=== PATIENT | female | born 1970 | race Asian ===

== ENCOUNTER 2020-04-01 09:01 | Outpatient (REF) | payer OTHER, SELFPAY | END 2020-04-01 09:02 | disposition home or self-care (01) | LOC: HO.LNP 09:01 | PROVIDERS: PCP Internal Medicine; Visit Provider Advanced Practice Midwife | DX: L73.1 Pseudofolliculitis barbae (principal); M54.9 Dorsalgia, unspecified | CPT/HCPCS: 87086 ==

== ENCOUNTER 2020-04-07 08:52 | Outpatient (REF) | payer OTHER, SELFPAY ==
[2020-04-07 10:21] LABS: MANUAL DIFF FLAG NO
[2020-04-07 10:23] LABS: Basophils Absolute Auto 0.1 X10*3/uL (0.0-0.2); Basophils Percent Auto 0.8 % (0-2); Eosinophils Absolute Auto 0.1 X10*3/uL (0.0-0.4); Eosinophils Percent Auto 1.9 % (0-4); Hematocrit 39.4 % (37-47); Imm Gran Abs Auto 0.02 X10*3/uL (0.00-0.03); Imm Gran Pct Auto 0.3 % (0.0-0.4); Lymphocytes Absolute Auto 1.6 X10*3/uL (1.2-4.9); Lymphocytes Percent Auto 25.4 % (20-40); Mean Corpuscular Hemoglobin 27.1 pg (27.0-33.0); Mean Corpuscular Volume 82.1 fL (80-98); Mean Platelet Volume 10.9 fL (9.4-12.3); Monocytes Absolute Auto 0.4 X10*3/uL (0.1-1.2); Neutrophils Percent Auto 64.6 % (45-73); Platelet Count 197 X10*3/uL (160-400); Red Cell Distribution Width 14.1 % (11.0-16.0); White Blood Count 6.2 X10*3/uL (4.8-10.8)
[2020-04-07 10:54] LABS: Alanine Aminotransferase 9 U/L (0-31); Albumin Level 4.5 g/dL (3.5-5.0); Alkaline Phosphatase 58 U/L (39-117); Anion Gap 11 (12-20); Aspartate Amino Transferase 9 U/L (5-31); Bilirubin Total 0.3 mg/dL (0.0-1.0); Blood Urea Nitrogen 15 mg/dL (9-16); Calcium 8.9 mg/dL (8.4-10.2); Carbon Dioxide 28 mmol/L (22-29); Chloride 105 mmol/L (96-108); Estimated Glomerular Filt Rate > 60; Glucose Fasting 106 mg/dL (60-99); Potassium 3.8 mmol/l (3.3-5.1); Sodium 140 mmol/L (135-145); Total Protein 7.3 g/dL (6.5-8.0)
[2020-04-07 11:16] LABS: TSH reflex Free T4 1.51 mIU/mL (0.32-4.0)
[2020-04-07 15:43] LABS: Cholesterol 231 mg/dL; HDL Cholesterol 54 mg/dL; LDL Cholesterol Calculated 160 mg/dl; Triglycerides 87 mg/dL
== END 2020-04-07 08:53 | disposition home or self-care (01) ==
LOC: HO.LAB 08:52
PROVIDERS: PCP Internal Medicine; Visit Provider Obstetrics & Gynecology
DX: Z11.3 Encounter for screening for infections with a predominantly sexual mode of transmission (principal); N93.9 Abnormal uterine and vaginal bleeding, unspecified
CPT/HCPCS: 36415; 80053; 80061; 84443; 85025; 88305

== ENCOUNTER → 2020-04-20 09:44 | Outpatient (BNVA) | payer OTHER, SELFPAY | PROVIDERS: PCP Internal Medicine; Visit Provider Obstetrics & Gynecology | DX: Z76.89 Persons encountering health services in other specified circumstances (principal) ==

== ENCOUNTER 2020-05-02 09:21 | Outpatient (REF) | payer OTHER, SELFPAY ==
--- NOTE | 2020-05-02 09:25 | MM_ITS ---
EXAMINATION: MM SCREENING DIGITAL BREAST TOMOSYNTHESIS, BILATERAL CLINICAL INFORMATION: Screening. Asymptomatic. The lifetime risk of breast cancer based on the Tyrer-Cuzick Model is 7.8%. COMPARISON: Mammography: 04/09/2019, 11/19/2016, 08/02/2015 TECHNIQUE: Digital breast tomosynthesis is performed in both the craniocaudal and mediolateral oblique views along with computer-aided detection (CAD). Synthesized 2D images are generated from the tomosynthesis. FINDINGS: The breasts are heterogeneously dense, which may obscure small masses (ACR BI-RADS breast composition Category c). There are no significant masses, abnormal calcifications, or other abnormalities. MM/MM tomosynthesis screening BI IMPRESSION: No mammographic evidence of malignancy. ASSESSMENT: BI-RADS 1: Negative RECOMMENDATION: Routine annual mammography screening. This patient's information was entered into a reminder system with a target due date for their next mammogram.
== END 2020-05-02 09:22 | disposition home or self-care (01) ==
LOC: HO.MAMMO 09:21
PROVIDERS: PCP Internal Medicine; Visit Provider Obstetrics & Gynecology
DX: Z12.31 Encounter for screening mammogram for malignant neoplasm of breast (principal)
CPT/HCPCS: 77063; 77067

== ENCOUNTER → 2020-05-23 08:54 | Outpatient (BNVA) | payer OTHER, SELFPAY | PROVIDERS: PCP Internal Medicine; Referring Provider Internal Medicine; Visit Provider Physician Assistant | DX: Z76.89 Persons encountering health services in other specified circumstances (principal) ==

== ENCOUNTER → 2020-06-17 09:49 | Outpatient (BNVA) | payer OTHER, SELFPAY | PROVIDERS: PCP Internal Medicine; Visit Provider Urology | DX: Z76.89 Persons encountering health services in other specified circumstances (principal) ==

== ENCOUNTER → 2020-07-21 08:34 | Outpatient (BNVA) | payer OTHER, SELFPAY | PROVIDERS: PCP Internal Medicine; Visit Provider Urology ==

== ENCOUNTER 2020-07-25 08:18 | Day surgery (SDC) | payer OTHER, SELFPAY ==
--- NOTE | 2020-07-22 10:29 | P.CONAN_ITS ---
Documented by User: Suly Belcher 07/22/20 10:30 HPI - Anesthesia Eval Consult details Narrative: 50yo F for Upper Endoscopy and Colonoscopy [facility] Past Medical History Medical History Allergic rhinitis Family history of colon cancer in mother GERD (gastroesophageal reflux disease) History of abnormal uterine bleeding History of urinary incontinence Hx of hypercholesterolemia Hx of iron deficiency Hx of renal calculi Interstitial cystitis Family History Family History Mother History of colon cancer Father History of cancer of stomach Surgical History Surgical History History of nasal surgery History of placement of ear tubes History of tubal ligation S/P cystoscopy (~02/22/20) Social History Social History Household Members: Spouse and Children Alcohol intake: never Smoking Status: Never smoker Second Hand Smoke Exposure: Yes Use of substances other than those prescribed or required for medical reasons: No Advance Directives: No Advance Directives Information Provided: Yes Current occupational status: employed Meds Allergies Allergy/AdvReac Type Severity Reaction Status Date / Time nuts,apple, starwberries Allergy Unknown Unknown Uncoded 07/21/20 08:48 Home Medications Medication Instructions Recorded Confirmed Type cetirizine 10 mg tablet 10 mg PO DAILY 04/01/20 05/23/20 History albuterol sulfate 90 mcg/actuation 2 puff INHALATION Q6H PRN 04/02/20 05/23/20 History aerosol inhaler fexofenadine 180 mg tablet 180 mg PO DAILY 04/02/20 04/10/20 History fluticasone propionate 50 1 spray INTRANASAL DAILY 04/02/20 05/23/20 History mcg/actuation nasal spray,suspension pantoprazole 40 mg tablet,delayed 40 mg PO DAILY 04/02/20 05/23/20 History release levonorgestrel 20 mcg/24 hours (6 INTRAUTERINE 04/20/20 05/23/20 History yrs) 52 mg intrauterine device Exam Exam Date and Time: July 22, 2020 1029 Assessment and Plan Assessment Anesthesia Assessment: Chart Reviewed Documented by User: Chuyita Shane 07/25/20 09:31 REPLACED BY [facility] Past Medical History Medical History Allergic rhinitis Family history of colon cancer in mother GERD (gastroesophageal reflux disease) History of abnormal uterine bleeding History of urinary incontinence Hx of hypercholesterolemia Hx of iron deficiency Hx of renal calculi Interstitial cystitis Family History Family History Mother History of colon cancer Father History of cancer of stomach Surgical History Surgical History History of nasal surgery History of placement of ear tubes History of tubal ligation S/P cystoscopy (~02/22/20) Social History Social History Household Members: Spouse and Children Alcohol intake: never Smoking Status: Never smoker Second Hand Smoke Exposure: Yes Use of substances other than those prescribed or required for medical reasons: No Advance Directives: No Advance Directives Information Provided: Yes Current occupational status: employed Meds Allergies Allergy/AdvReac Type Severity Reaction Status Date / Time nuts,apple, starwberries Allergy Unknown Unknown Uncoded 07/21/20 08:48 Home Medications Medication Instructions Recorded Confirmed Type cetirizine 10 mg tablet 10 mg PO DAILY 04/01/20 05/23/20 History albuterol sulfate 90 mcg/actuation 2 puff INHALATION Q6H PRN 04/02/20 05/23/20 History aerosol inhaler fexofenadine 180 mg tablet 180 mg PO DAILY 04/02/20 04/10/20 History fluticasone propionate 50 1 spray INTRANASAL DAILY 04/02/20 05/23/20 History mcg/actuation nasal spray,suspension pantoprazole 40 mg tablet,delayed 40 mg PO DAILY 04/02/20 05/23/20 History release levonorgestrel 20 mcg/24 hours (6 INTRAUTERINE 10/21/20 11/23/20 History yrs) 52 mg intrauterine device Exam Airway Mallampati Class: II TM Dist: >3cm Neck ROM: Full Heart: RRR Lungs: CTA
[2020-07-25 08:59] VITALS: BMI 24.3
[2020-07-25 09:18] VITALS: BP 125/62; PULSE 69; RESP 20; TEMP 36.5; O2SAT 100
--- NOTE | 2020-07-25 09:27 | W.PM.OPN ---
Operative Note Operative Note Date of Service: 07/25/20 Narrative: Pre-op diagnosis: Colon cancer screening, lower abd pain, diarrhea, FH of gastric (Dad in his 80's) and colon cancer (Mom in her 80's). Post-op diagnosis: other (GERD, Gastritis, diverticulosis) Procedure: FLEXIBLE TRANSORAL UPPER GASTROINTESTINAL ENDOSCOPY WITH BIOPSIES AND COLONOSCOPY TO CECUM WITH BIOPSIES UPPER ENDOSCOPY Consent: Indications for the procedure and potential complications of bleeding, perforation, reaction to medications and missed diagnosis were discussed with the patient and informed consent was obtained. Instrument: Olympus GIF H 190 mid size upper endoscope Monitoring: Vital signs and clinical assessment, continuous EKG monitoring, Pulse oximetry, Carbon Dioxide monitoring and blood pressure monitoring were done throughout the procedure. Procedure: The patient was placed in the left lateral decubitis position and pre-procedure medications were administered and a bite block was placed. The endoscope was inserted into the mouth and advanced under direct vision to the third part of duodenum. A careful inspection was made as the upper endoscope was withdrawn including a retroflexed examination of the proximal stomach; Findings and interventions are described below. Findings: Larynx: Normal Esophagus: GE junction at 36 cms. Irregular Z line - biopsied to check for Chacon's. Minimal esophagitis at GE junction Stomach: Mild gastric erythema. Biopsies were obtained. Grade 2 flap valve on retroflexed examination of the cardia. Duodenum: Normal bulb and descending duodenum. Biopsies were obtained to check for celiac sprue Intervention: Biopsies as noted above COLONOSCOPY PROCEDURE NOTE Consent: Indications for the procedure and potential complications of bleeding, perforation, reaction to medications and missed diagnosis were discussed with the patient and informed consent was obtained. Instrument: Olympus PCF H 190 L variable stiffness pediatric colonoscope Monitoring: Vital signs and clinical assessment, intermittent blood pressure monitoring, continuous EKG monitoring, Pulse oximetry and Carbon Dioxide monitoring were done throughout the procedure. Colon withdrawl time was 15 minutes. Procedure: The patient was placed in the left lateral decubitis position and pre-procedure medications were administered. After a digital rectal examination of the ano-rectum, the video colonoscope was inserted into the rectum and advanced through the colon to the cecum. The colonoscope was slowly withdrawn in a retrograde panoramic fashion and the colon mucosa was carefully examined including a retroflexed view of the rectum. Findings and interventions are described below. Procedure Difficulty: : Without difficulty Findings: Terminal Ileum: Distal 10 cms was examined and appeared normal Cecum: Normal Ascending Colon: Normal Transverse Colon: Normal Descending Colon: Moderate diverticulosis Sigmoid Colon: Moderate diverticulosis Rectum: Normal Ano-rectum: Normal Colon preparation: Good after some irrigation Impression and Post Procedure Diagnosis: Endoscopy Findings: ESOPHAGUS: Irregular Z line - biopsied to check for Chacon's. Minimal esophagitis at GE junction STOMACH: Antral gastritis DUODENUM: Normal Colonoscopy Findings: No polyps were detected. Random biopsies were obtained from the colon. Moderate diverticulosis seen in the left colon Plan: Await pathology results Patient has an appointment on 08/22/20 in the GI [facility] with JACQUE Burns. Repeat Colonoscopy interval based on path results - in 5 years if biopsies are normal and due to FH of colon cancer. Above findings were reviewed with the patient and GERD and diverticulosis handouts were given in the discharge area Surgeon: Stephan Goodwin MD Anesthesia: MAC (Dr King) Estimated blood loss (mL): 0 Pathology: other (A. Small bowel, B. Gastric antrum, C. Gastric body, D. Distal esophagus, E. Random colon bx) Condition: stable Disposition: PACU
--- NOTE | 2020-07-25 09:27 | MHC.SHP ---
Pre-Procedural Eval Section A The patient is an INPATIENT: No The History & Physical has been completed within 30 days and I have reviewed it.: No Section B Chief Complaint: GERD, Abdominal Pain Details of Present Illness: 50-year-old family history of colon cancer,with many years of acid reflux and anemia. She is very worried about underlying causes or possible findings in her stomach. Her mother of colon cancer (? in her 80's/early 70s. Dad had stomach cancer in his 80's. she does have acid reflux at times with breakthrough. She has made dietary modifications. She has nonspecific low abdominal pain and nothing specific makes it better or worse. At times she has very loose stool. Recent blood work shows normal TSH, no anemia, however she is taking iron and supplements. She has had no fever, chills, or rectal bleeding Relevant Family History (Specify if Yes): Yes Relevant Social History: None Present Medications: see Short Stay Collaborative assessment Medical History: Significant History (Allergic rhinitis Family history of colon cancer in mother GERD (gastroesophageal reflux disease) History of abnormal uterine bleeding History of urinary incontinence Hx of hypercholesterolemia Hx of iron deficiency Hx of renal calculi Interstitial cystitis) History of Previous Operations: Relevant previous surgery/procedure and date(s) (History of nasal surgery History of placement of ear tubes History of tubal ligation S/P cystoscopy (~02/22/20)) Allergies: Allergies Allergy/AdvReac Type Severity Reaction Status Date / Time nuts,apple, starwberries Allergy Unknown Unknown Uncoded 07/21/20 08:48 Review of Systems Sugical H&P ROS: Negative: Constitution, Cardiovascular and Respiratory and Yes, Specify: Gastrointestinal (GERD, lower abdominal pain, diarrhea) Exam Surgical H&P Exam: Normal: Heart, Normal: Lungs, Normal: Extremities and Normal: Abdomen Plan Diagnosis/Plan: Unchanged I have reviewed the history and physical and performed a pertinent physical examination on my patient. No changes have occurred unless specified.
[2020-07-25 10:25] VITALS: BP 100/64; PULSE 59; RESP 16; TEMP 36.2; O2SAT 100
[2020-07-25 10:40] VITALS: BP 117/68; PULSE 59; RESP 17; TEMP 36.2; O2SAT 100
--- NOTE | 2020-07-25 10:46 | HO.POSTANES ---
Post Anesthesia Evaluation Post Anesthesia Evaluation Vital Signs: Vital Signs Temp Pulse Resp BP Pulse Ox 07/25/20 10:40 97.2 F 59 17 117/68 100 07/25/20 10:25 97.2 F 59 16 100/64 100 07/25/20 09:18 97.7 F 69 20 125/62 100 Anesthesia: Monitored Mental Status: Awake Pain Control: Satisfactory Nausea/Vomiting: None Hydration: Adequate Anesthesia-Related Issues: No Anes. Related Issues
== END 2020-07-25 12:30 | disposition home or self-care (01) ==
PROVIDERS: PCP Internal Medicine; Visit Provider Internal Medicine Gastroenterology
PROC: (CPT 45378; principal; 2020-07-25 09:30)
DX: Z12.11 Encounter for screening for malignant neoplasm of colon (principal); Z80.0 Family history of malignant neoplasm of digestive organs; K57.30 Diverticulosis of large intestine without perforation or abscess without bleeding; K21.00 Gastro-esophageal reflux disease with esophagitis, without bleeding; K29.50 Unspecified chronic gastritis without bleeding; J30.9 Allergic rhinitis, unspecified; Z79.899 Other long term (current) drug therapy
CPT/HCPCS: 45378; 43239; 88305; 88342

== ENCOUNTER 2020-08-10 09:20 | Outpatient (REF) | payer OTHER, SELFPAY ==
[2020-08-11 09:05] LABS: BV Int Neg Control Negative (Negative); BV Int Pos Control Positive (Positive)
== END 2020-08-10 09:21 | disposition home or self-care (01) ==
LOC: HO.LAB 09:20
PROVIDERS: PCP Internal Medicine; Visit Provider Obstetrics & Gynecology
DX: Z01.419 Encounter for gynecological examination (general) (routine) without abnormal findings (principal); R30.0 Dysuria; N93.9 Abnormal uterine and vaginal bleeding, unspecified; N76.0 Acute vaginitis; B96.89 Other specified bacterial agents as the cause of diseases classified elsewhere; K21.9 Gastro-esophageal reflux disease without esophagitis; Z91.018 Allergy to other foods
CPT/HCPCS: 87480; 87510; 87660

== ENCOUNTER 2020-08-18 10:40 | Outpatient (REF) | payer OTHER, SELFPAY ==
--- NOTE | ~2020-08-18 | US_ITS ---
EXAMINATION: US PELVIS COMPLETE US PELVIS TRANSVAGINAL CLINICAL INFORMATION: Excessive, frequent menstruation with regular cycle. LMP 08/18/2020. Tubal ligation. COMPARISON: Pelvic ultrasound dated 07/23/2018. TECHNIQUE: Transabdominal and transvaginal imaging was performed. FINDINGS: The uterus is retroverted and measures 10.2 x 5.1 x 7.0 cm for a volume of 189 mm. There are multiple myometrial lesions, likely representing fibroids. These measure approximately 1.8 and 2.7 cm within the right uterine body as well as 4.5 and 2.6 cm within the left uterine fundus. There is a posterior uterine body probable fibroid measuring 0.5 cm. Possible fibroid associated with the endometrium measuring 2.4 cm. Overall, size and number of fibroids appear slightly increased when compared to the prior ultrasound. The endometrium is prominent measuring up to 2.5 cm in thickness. There are nabothian cysts within the cervix. The right ovary is not seen. The left ovary measures 3.1 x 2.1 x 2.3 cm for a volume of 7.6 mm. There is a dominant left ovarian follicle versus simple cyst measuring 1.8 cm. There is no pelvic free fluid. US/US transvaginal IMPRESSION: 1. Redemonstration of multiple uterine fibroids, increased in size and number when compared to the prior examination. 2. Possible submucosal fibroid associated with the endometrium measuring up to 2.4 cm, not seen on the prior examination. 3. Left ovarian dominant follicle versus simple cyst measuring 1.8 cm. Right ovary not seen.
--- NOTE | ~2020-08-18 | US_ITS ---
EXAMINATION: US PELVIS COMPLETE US PELVIS TRANSVAGINAL CLINICAL INFORMATION: Excessive, frequent menstruation with regular cycle. LMP 08/18/2020. Tubal ligation. COMPARISON: Pelvic ultrasound dated 07/23/2018. TECHNIQUE: Transabdominal and transvaginal imaging was performed. FINDINGS: The uterus is retroverted and measures 10.2 x 5.1 x 7.0 cm for a volume of 189 mm. There are multiple myometrial lesions, likely representing fibroids. These measure approximately 1.8 and 2.7 cm within the right uterine body as well as 4.5 and 2.6 cm within the left uterine fundus. There is a posterior uterine body probable fibroid measuring 0.5 cm. Possible fibroid associated with the endometrium measuring 2.4 cm. Overall, size and number of fibroids appear slightly increased when compared to the prior ultrasound. The endometrium is prominent measuring up to 2.5 cm in thickness. There are nabothian cysts within the cervix. The right ovary is not seen. The left ovary measures 3.1 x 2.1 x 2.3 cm for a volume of 7.6 mm. There is a dominant left ovarian follicle versus simple cyst measuring 1.8 cm. There is no pelvic free fluid. US/US pelvic complete IMPRESSION: 1. Redemonstration of multiple uterine fibroids, increased in size and number when compared to the prior examination. 2. Possible submucosal fibroid associated with the endometrium measuring up to 2.4 cm, not seen on the prior examination. 3. Left ovarian dominant follicle versus simple cyst measuring 1.8 cm. Right ovary not seen.
== END 2020-08-18 10:41 | disposition home or self-care (01) ==
LOC: HO.US 10:40
PROVIDERS: Visit Provider Internal Medicine
DX: N92.0 Excessive and frequent menstruation with regular cycle (principal)
CPT/HCPCS: 76830; 76856

== ENCOUNTER → 2020-08-22 08:46 | Outpatient (BNVA) | payer OTHER, SELFPAY | PROVIDERS: PCP Internal Medicine; Visit Provider Physician Assistant ==

== ENCOUNTER → 2020-09-13 10:56 | Outpatient (BNVA) | payer OTHER, SELFPAY | PROVIDERS: Visit Provider Obstetrics & Gynecology ==

== ENCOUNTER 2020-09-15 08:59 | Day surgery (SDC) | payer OTHER, SELFPAY ==
[2020-09-08 14:54] VITALS: BMI 25.0
--- NOTE | 2020-09-14 09:15 | HO.ANESPROP2 ---
Documented by User: Suly Belcher 09/14/20 09:22 HPI - Anesthesia Eval Consult details Narrative: 50yo F for D&C Hysteroscopy with Novasure/Myosure colonoscopy with mac 07/2020 ON LICENSE OF [facility] Active Problems Active Problems: All Active Problems (Updated 08/22/20 @ 09:28 by Trice Kumar PA-C) Ingrown hair (Acute) Back pain (Acute) Abdominal pain (Acute) Abnormal uterine bleeding (AUB) (Acute) Family history of colon cancer (Acute) Bloating (Acute) Perforated right tympanic membrane on examination (Acute) Allergic rhinitis (Acute) Menorrhagia (Acute) GERD (gastroesophageal reflux disease) (Acute) Interstitial cystitis (Acute) Past Medical History Medical History Allergic rhinitis Bloating Family history of colon cancer in mother GERD (gastroesophageal reflux disease) History of abnormal uterine bleeding History of urinary incontinence Hx of hypercholesterolemia Hx of iron deficiency Hx of renal calculi Interstitial cystitis Menorrhagia Perforated right tympanic membrane on examination Family History Family History Mother History of colon cancer Father History of cancer of stomach Surgical History Surgical History H/O colonoscopy History of esophagogastroduodenoscopy (EGD) History of nasal surgery History of placement of ear tubes History of tubal ligation S/P cystoscopy (~02/22/20) Social History Social History Household Members: Spouse and Children Alcohol intake: never Smoking Status: Never smoker Second Hand Smoke Exposure: Yes Use of substances other than those prescribed or required for medical reasons: No Advance Directives Information Provided: No Current occupational status: employed Meds Allergies Allergy/AdvReac Type Severity Reaction Status Date / Time egg Allergy Intermediate Unknown Verified 09/13/20 11:14 grass pollen Allergy Intermediate Unknown Verified 09/13/20 11:14 pear Allergy Intermediate Unknown Verified 09/13/20 11:14 tree and shrub pollen Allergy Intermediate Unknown Verified 09/13/20 11:14 nuts,apple, starwberries Allergy Unknown Unknown Uncoded 09/13/20 11:14 Home Medications Medication Instructions Recorded Confirmed Last Taken Type cetirizine 10 mg tablet 10 mg PO DAILY 04/01/20 08/22/20 Unknown History albuterol sulfate 90 mcg/actuation 2 puff INHALATION Q6H PRN 04/02/20 08/22/20 Unknown History aerosol inhaler fluticasone propionate 50 1 spray INTRANASAL DAILY 04/02/20 08/22/20 Unknown History mcg/actuation nasal spray,suspension pantoprazole 40 mg tablet,delayed 40 mg PO DAILY 04/02/20 08/01/20 09/15/20 History release 40 mg Exam Exam Date and Time: September 14, 2020 0915 Height,Weight and Vital Signs: Height 5 ft 2 in Weight 62.142 kg Pertinent Lab Results Pertinent Lab Results: Laboratory Tests 04/07/20 04/07/20 10:02 10:02 WBC 6.2 Hgb 13.0 Hct 39.4 Plt Count 197 Sodium 140 Potassium 3.8 Chloride 105 BUN 15 Creatinine 0.65 Assessment and Plan Assessment Anesthesia Assessment: Chart Reviewed Documented by User: Rebecca Krause 09/15/20 11:31 PMFSH Past Medical History Medical History Allergic rhinitis Bloating Family history of colon cancer in mother GERD (gastroesophageal reflux disease) History of abnormal uterine bleeding History of urinary incontinence Hx of hypercholesterolemia Hx of iron deficiency Hx of renal calculi Interstitial cystitis Menorrhagia Perforated right tympanic membrane on examination Family History Family History Mother History of colon cancer Father History of cancer of stomach Surgical History Surgical History H/O colonoscopy History of esophagogastroduodenoscopy (EGD) History of nasal surgery History of placement of ear tubes History of tubal ligation S/P cystoscopy (~02/22/20) Social History Social History Household Members: Spouse and Children Alcohol intake: never Smoking Status: Never smoker Second Hand Smoke Exposure: Yes Use of substances other than those prescribed or required for medical reasons: No Advance Directives Information Provided: No Current occupational status: employed Meds Allergies Allergy/AdvReac Type Severity Reaction Status Date / Time egg Allergy Intermediate Unknown Verified 09/13/20 11:14 grass pollen Allergy Intermediate Unknown Verified 09/13/20 11:14 pear Allergy Intermediate Unknown Verified 09/13/20 11:14 tree and shrub pollen Allergy Intermediate Unknown Verified 09/13/20 11:14 nuts,apple, starwberries Allergy Unknown Unknown Uncoded 09/13/20 11:14 Home Medications Medication Instructions Recorded Confirmed Last Taken Type cetirizine 10 mg tablet 10 mg PO DAILY 04/01/20 08/22/20 Unknown History albuterol sulfate 90 mcg/actuation 2 puff INHALATION Q6H PRN 04/02/20 08/22/20 Unknown History aerosol inhaler fluticasone propionate 50 1 spray INTRANASAL DAILY 04/02/20 08/22/20 Unknown History mcg/actuation nasal spray,suspension pantoprazole 40 mg tablet,delayed 40 mg PO DAILY 04/02/20 08/01/20 09/15/20 History release 40 mg Exam Airway Mallampati Class: II TM Dist: >3cm Neck ROM: Full Loose/Missing/Broken Teeth: Yes and Lower Heart: RRR Lungs: CTA Assessment and Plan Assessment Anesthesia Assessment: Anesthesia Plan Discussed and Chart Reviewed Final Anesthetic Review NPO: Yes ASA Class: II Final Preanesthetic Review: Meds/Allgs Chart Reviewed, Consent Obtained/Reviewed and Anes Risks/Benef Reviewed Patient Risk: Low Procedure Risk: Low Anesthetic Plan Anesthetic Plan: GA Disposition: Standard PACU
[2020-09-15] VITALS (8 sets, daily range): BP systolic 135–152; BP diastolic 75–87; PULSE 70–97; RESP 14–18; TEMP 36.4–36.7; O2SAT 98–100; BMI 21.7
[2020-09-15] MEDS: Lactated Ringers 1,000 ML 100 ML IVCONT (09:53)
--- NOTE | 2020-09-15 11:33 | MHC.SHP ---
Pre-Procedural Eval Section A The patient is an INPATIENT: No Changes since office visit: No Cold of Flu in the past 2 weeks, No New Medical Problems, No Changes in Medication and No Patient answered all questions The History & Physical has been completed within 30 days and I have reviewed it.: Yes Section B Chief Complaint: Abnormal Uterine Bleeding Allergies: Allergies Allergy/AdvReac Type Severity Reaction Status Date / Time egg Allergy Intermediate Unknown Verified 09/13/20 11:14 grass pollen Allergy Intermediate Unknown Verified 09/13/20 11:14 pear Allergy Intermediate Unknown Verified 09/13/20 11:14 tree and shrub pollen Allergy Intermediate Unknown Verified 09/13/20 11:14 nuts,apple, starwberries Allergy Unknown Unknown Uncoded 09/13/20 11:14 Plan I have reviewed the history and physical and performed a pertinent physical examination on my patient. No changes have occurred unless specified.
--- NOTE | 2020-09-15 13:53 | P.OP_ITS ---
Operative Note Operative Note Date of Service: 09/15/20 Narrative: Ms. Reagan is a 50 year old with menorrhagia. An endometrial biopsy was performed, which showed benign inactive endometrium without atypia or hyperplasia. The patient was counseled that endometrial ablation is not ind icated if she desires future fertility. The patient expressed understanding of this and stated that her family planning is complete and her current form of control is prior bilateral tubal ligation. Surgical Risks: The patient was informed of the risks and benefits of the procedure. Risks included but were not limited to bleeding, infection, injury to the vulva, vagina, or cervix, and uterine perforation. The patient was also informed of the risk that the Novasure ablation may not result in full resolution of symptoms. The patient expressed understanding of the risks involved, all questions were answered, and she consented to the procedure. The patient was taken to the operating room where a time out was performed to confirm correct patient and correct procedure. General anesthesia was established. The patient was then positioned on the operating table in the dorsal lithotomy position and her legs supported using stirrups. All pressure points were padded and a warm blanket was placed to maintain control of core body temperature. The patient was then prepped and draped in the usual sterile fashion. The bladder was emptied with a straight catheter. A weighted speculum was inserted into the vagina. The anterior lip of the cervix was visualized and grasped using a single tooth tenaculum. The hysteroscope was introduced through the cervix and advanced to the fundus of the uterus under direct visualization using distending media. Inspection of the entire uterine cavity was performed. A large mass with the appearance of a fibroid was noted extending from the fundus. The myosure device was advanced through the hysteroscope and curettage was performed until the mass was moved in its entirety, approximately 1.5hrs. Once the fibroid was removed, the intrauterine anatomy was noted to be normal and the ostia were visualized bilaterally. The hysteroscope was then removed. The Novasure SureSound device was then inserted through the cervix. The malecot was then deployed and the device was anchored on the internal os. The cervical length was measured and found to be 4cm. The probe was then extended to the fundus and the uterine cavity was measured and found to be 5cm. The SureSound was then removed and the Novasure was introduced through the cervix and advanced to the fundus. The Novasure was released and rotated from side to side in order to measure the cavity width; it was found to be 4.4cm. The test was performed using the NovaSure and there was no leakage of gas noted. The NovaSure was then set and deployed. It was set to a power of 121W and a burn time of 1:21. The NovaSure was then fully retracted and the hysteroscope reintroduced through the cervix and global ablation to the entire cavity was noted. The procedure was felt to be successful. The hysteroscope was then removed and the single tooth tenaculum was removed from the anterior lip of the cervix. Good hemostasis was confirmed. All needle, sponge, and instrument counts were noted to be correct x2 at the end of the procedure. The patient was transferred to the recovery room in stable condition.
[2020-09-15] MEDS: Acetaminophen 325 MG TABLET 650 MG PO (14:58)
== END 2020-09-15 15:54 | disposition home or self-care (01) ==
LOC: HO.SSS 08:59
PROVIDERS: PCP Internal Medicine; Visit Provider Obstetrics & Gynecology
PROC: (CPT 58561; principal; 2020-09-15 10:50)
DX: D25.9 Leiomyoma of uterus, unspecified (principal); N93.9 Abnormal uterine and vaginal bleeding, unspecified; Z98.51 Tubal ligation status; Z79.899 Other long term (current) drug therapy; Z80.0 Family history of malignant neoplasm of digestive organs; Z77.22 Contact with and (suspected) exposure to environmental tobacco smoke (acute) (chronic)
CPT/HCPCS: 58561; 58563; 36415; 84702; 88305; J1100; J1885; J2250; J2370; J2405; J3010

== ENCOUNTER 2020-10-31 14:59 | Outpatient (REF) | payer OTHER, SELFPAY ==
[2020-11-01 06:12] LABS: CT PCR NOT DETECTED (Not Detect.); NG PCR NOT DETECTED (Not Detect.)
[2020-11-01 12:31] LABS: BV Int Neg Control Negative (Negative)
[2020-11-01 12:32] LABS: BV Int Pos Control Positive (Positive)
== END 2020-10-31 15:00 | disposition home or self-care (01) ==
LOC: HO.LAB 14:59
PROVIDERS: PCP Internal Medicine; Visit Provider Obstetrics & Gynecology
DX: Z11.3 Encounter for screening for infections with a predominantly sexual mode of transmission (principal); N89.8 Other specified noninflammatory disorders of vagina; R30.0 Dysuria
CPT/HCPCS: 81025; 87086; 87480; 87491; 87510; 87591; 87660

== ENCOUNTER → 2020-11-01 09:39 | Outpatient (BNVA) | payer OTHER, SELFPAY | PROVIDERS: PCP Internal Medicine; Visit Provider Urology | DX: N30.10 Interstitial cystitis (chronic) without hematuria (principal); N39.0 Urinary tract infection, site not specified | CPT/HCPCS: 81002 ==

== ENCOUNTER → 2020-12-02 09:05 | Outpatient (BNVA) | payer OTHER, SELFPAY | PROVIDERS: PCP Internal Medicine ==

== ENCOUNTER 2020-12-09 08:26 | Outpatient (REF) | payer OTHER, SELFPAY ==
--- NOTE | ~2020-12-09 | CT_ITS ---
EXAMINATION: CT PELVIS WITH CONTRAST CLINICAL INFORMATION: Pelvic and perineal pain COMPARISON: Previous pelvic ultrasound August 2020 TECHNIQUE: Helical scanning was performed with submillimeter collimation through the pelvis with the use of oral contrast and during bolus intravenous injection of 85 mL of Omnipaque 350 intravenous contrast. Sagittal and coronal multiplanar 2-D reconstructions were obtained. This CT examination was performed using dose optimization techniques as appropriate, variously including the following: *Automated exposure control *Adjustment of mA and/or kV according to patient size (this includes techniques or standardized protocols for targeted exams where dose is matched to indication/reason for exam; i.e. extremities or head) *Use of iterative reconstruction technique DLP: 207 mGy-cm FINDINGS: The uterus is enlarged. There is low-attenuation seen centrally in the uterus suggestive of endometrial fluid or thickening. This abnormally thickened measuring 1.8 cm. The uterus is heterogeneous in attenuation suggestive of a fibroids, largest measuring 3 x 4 cm in the anterior fundus. There are Essure devices in the fallopian tubes. The ovaries appear unremarkable. Visualized small and large bowel is unremarkable. The appendix is unremarkable. No ascites or adenopathy is seen. No hernia is seen. Vascular structures are unremarkable. Review at bone windows is unremarkable. CT/CT pelvis w con IMPRESSION: Enlarged fibroid uterus. Abnormally thickened endometrium measuring 1.8 cm. This could be better evaluated with pelvic ultrasound.
[2020-12-09 10:00] LABS: MANUAL DIFF FLAG NO
[2020-12-09 10:08] LABS: Basophils Absolute Auto 0.1 X10*3/uL (0.0-0.2); Basophils Percent Auto 0.7 % (0-2); Eosinophils Absolute Auto 0.1 X10*3/uL (0.0-0.4); Eosinophils Percent Auto 1.9 % (0-4); Hematocrit 41.5 % (37-47); Hemoglobin 13.8 g/dl (12.0-16.0); Imm Gran Abs Auto 0.02 X10*3/uL (0.00-0.03); Imm Gran Pct Auto 0.3 % (0.0-0.4); Lymphocytes Percent Auto 26.9 % (20-40); Mean Corpuscular HGB Conc 33.3 g/dl (31.0-35.0); Mean Corpuscular Hemoglobin 28.5 pg (27.0-33.0); Mean Corpuscular Volume 85.7 fL (80-98); Monocytes Absolute Auto 0.4 X10*3/uL (0.1-1.2); Monocytes Percent Auto 5.8 % (2-11); Neutrophils Absolute Auto 4.7 X10*3/uL (2.0-8.3); Neutrophils Percent Auto 64.4 % (45-73); Platelet Count 173 X10*3/uL (160-400); Red Blood Count 4.84 X10*6/uL (4.20-5.50); Red Cell Distribution Width 12.4 % (11.0-16.0); White Blood Count 7.3 X10*3/uL (4.8-10.8)
[2020-12-09 10:28] LABS: Alanine Aminotransferase 7 U/L (0-31); Albumin Level 4.3 g/dL (3.5-5.0); Alkaline Phosphatase 52 U/L (39-117); Anion Gap 14 (12-20); Aspartate Amino Transferase 12 U/L (5-31); Bilirubin Total 0.6 mg/dL (0.0-1.0); Blood Urea Nitrogen 12 mg/dL (9-16); Calcium 8.8 mg/dL (8.4-10.2); Carbon Dioxide 23 mmol/L (22-29); Chloride 106 mmol/L (96-108); Cholesterol 232 mg/dL; Estimated Glomerular Filt Rate > 60; Glucose Fasting 106 mg/dL (60-99); HDL Cholesterol 53 mg/dL; LDL Cholesterol Calculated 153 mg/dl; Potassium 4.3 mmol/L (3.3-5.1); Sodium 139 mmol/L (135-145); Total Protein 7.3 g/dL (6.5-8.0); Triglycerides 131 mg/dL
[2020-12-09 10:50] LABS: TSH reflex Free T4 1.37 uIU/mL (0.32-4.0)
[2020-12-09 11:06] LABS: Erythrocyte Sedimentation Rate 4 MM/HR (0-20)
[2020-12-09] MEDS: iohexoL 350 MG/ML 100 ML INFUS..BTL 85 ML IV (11:20)
== END 2020-12-09 08:27 | disposition home or self-care (01) ==
LOC: HO.CT 08:26
PROVIDERS: PCP Internal Medicine; Visit Provider Internal Medicine
DX: R10.2 Pelvic and perineal pain (principal); E78.00 Pure hypercholesterolemia, unspecified; E55.9 Vitamin D deficiency, unspecified; I10 Essential (primary) hypertension
CPT/HCPCS: 36415; 72193; 80053; 80061; 82306; 84443; 85025; 85652; Q9967

== ENCOUNTER → 2020-12-28 11:44 | Outpatient (BNVA) | payer OTHER, SELFPAY | PROVIDERS: PCP Internal Medicine; Visit Provider Obstetrics & Gynecology ==

== ENCOUNTER 2021-03-02 14:00 | Outpatient (REF) | payer OTHER, SELFPAY | END 2021-03-02 14:01 | disposition home or self-care (01) | LOC: HO.LAB 14:00 | PROVIDERS: PCP Internal Medicine; Visit Provider Obstetrics & Gynecology | DX: Z13.89 Encounter for screening for other disorder (principal) | CPT/HCPCS: 88305 ==

== ENCOUNTER 2021-04-03 10:42 | Outpatient (REF) | payer OTHER, SELFPAY ==
--- NOTE | ~2021-04-03 | XR_ITS ---
EXAMINATION: XR CHEST CLINICAL INFORMATION: Cough COMPARISON: Previous chest x-ray March 2019 TECHNIQUE: 2 views of the chest were obtained. FINDINGS: No significant abnormality is noted involving the heart, lungs, mediastinum, bony thorax or soft tissues. XR/XR chest 2V IMPRESSION: Unremarkable examination.
[2021-04-03 11:15] LABS: MANUAL DIFF FLAG NO
[2021-04-03 11:35] LABS: Basophils Percent Auto 0.7 % (0-2); Eosinophils Absolute Auto 0.1 X10*3/uL (0.0-0.4); Eosinophils Percent Auto 2.6 % (0-4); Hematocrit 39.3 % (37-47); Hemoglobin 13.6 g/dl (12.0-16.0); Imm Gran Abs Auto 0.01 X10*3/uL (0.00-0.03); Imm Gran Pct Auto 0.2 % (0.0-0.4); Lymphocytes Absolute Auto 1.9 X10*3/uL (1.2-4.9); Lymphocytes Percent Auto 35.7 % (20-40); Mean Corpuscular HGB Conc 34.6 g/dl (31.0-35.0); Mean Corpuscular Hemoglobin 29.2 pg (27.0-33.0); Mean Corpuscular Volume 84.5 fL (80-98); Mean Platelet Volume 11.3 fL (9.4-12.3); Monocytes Absolute Auto 0.5 X10*3/uL (0.1-1.2); Monocytes Percent Auto 8.7 % (2-11); Neutrophils Absolute Auto 2.8 X10*3/uL (2.0-8.3); Neutrophils Percent Auto 52.1 % (45-73); Platelet Count 181 X10*3/uL (160-400); Red Blood Count 4.65 X10*6/uL (4.20-5.50); Red Cell Distribution Width 11.7 % (11.0-16.0); White Blood Count 5.4 X10*3/uL (4.8-10.8)
[2021-04-03 11:49] LABS: Estimated Average Glucose 105 mg/dL; Hemoglobin A1c % 5.3 %
[2021-04-03 11:57] LABS: Appearance Urine CLEAR; Color Urine YELLOW; Glucose Urine UA NEG (NEG); Leukocyte Esterase Urine NEG (NEG); Nitrite Urine NEG (NEG); PH 6.5 (5.0-8.0); Urine Blood NEG (NEG); Urine Ketones NEG (NEG); Urine Protein NEG (NEG-TRACE)
[2021-04-03 12:05] LABS: Alanine Aminotransferase 17 U/L (0-31); Albumin Level 4.5 g/dL (3.5-5.0); Alkaline Phosphatase 49 U/L (39-117); Anion Gap 11 (12-20); Aspartate Amino Transferase 12 U/L (5-31); Bilirubin Total 0.3 mg/dL (0.0-1.0); Blood Urea Nitrogen 12 mg/dL (9-16); Calcium 9.2 mg/dL (8.4-10.2); Carbon Dioxide 28 mmol/L (22-29); Chloride 108 mmol/L (96-108); Cholesterol 228 mg/dL; Estimated Glomerular Filt Rate > 60; Glucose Fasting 97 mg/dL (60-99); HDL Cholesterol 42 mg/dL; LDL Cholesterol Calculated 161 mg/dl; Potassium 3.9 mmol/L (3.3-5.1); Sodium 143 mmol/L (135-145); Total Protein 7.3 g/dL (6.5-8.0); Triglycerides 125 mg/dL
[2021-04-03 12:26] LABS: TSH reflex Free T4 1.48 uIU/mL (0.32-4.0); Vitamin D 25-OH Total 34.2 ng/mL (>30)
== END 2021-04-03 10:43 | disposition home or self-care (01) ==
LOC: HO.LAB 10:42
PROVIDERS: PCP Internal Medicine; Visit Provider Internal Medicine
DX: Z00.00 Encounter for general adult medical examination without abnormal findings (principal); R05.9 Cough, unspecified; E78.00 Pure hypercholesterolemia, unspecified; R73.01 Impaired fasting glucose; E55.9 Vitamin D deficiency, unspecified
CPT/HCPCS: 36415; 71046; 80053; 80061; 81003; 82306; 83036; 84443; 85025

== ENCOUNTER 2021-05-24 15:43 | Outpatient (REF) | payer OTHER, SELFPAY | END 2021-05-24 15:44 | disposition home or self-care (01) | LOC: HO.LAB 15:43 | PROVIDERS: PCP Internal Medicine; Visit Provider Nurse Practitioner Family | DX: R52 Pain, unspecified (principal); Z20.822 Contact with and (suspected) exposure to COVID-19 | CPT/HCPCS: U0003; U0005 ==

== ENCOUNTER → 2021-05-31 09:35 | Outpatient (BNVA) | payer OTHER, SELFPAY | PROVIDERS: PCP Internal Medicine ==

== ENCOUNTER 2021-07-12 10:00 | Outpatient (RCR) | payer OTHER, SELFPAY ==
--- NOTE | 2021-02-01 13:35 | MHC.PT.EP ---
[facility] [place] Office [place] Office [place] Office [address] Ester Goodman [address] [phone] F: [phone] F: [phone] F: [phone] F: [phone] Physical Therapy Plan of Care Date of Evaluation: Date of Surgery: 02/17/20 Diagnosis: Assessment: The patient arrived 25 min late and her exam was limited however, I was able to obtain a thorough history and assess her PFM function. The patient demonstrated pelvic floor muscle weakness, and poor coordination of the PFM. PERF scale 2/2/3//3. She had a grade 1 uterine prolapse and Grade 2 cystourethrocele. The patient has poor tone in the anterior wall of the pelvic floor. She mentioned briefly in the exam anterior leg and foot weakness, which I will further evaluate next session. She is a good candidate for skilled PT to learn improved control of the pelvic floor muscles as well as self care education on diet and lifestyle changes. We will also discuss pessary placement and refer to OBGYN as appropriate. Frequency and Duration: The patient will be seen 1x/week x 8 weeks Short Term Goals: 1. Pt to be able to correctly activate her PFM to allow improved support to bowel and bladder. 2. Pt to be able to demonstrate a pre contraction before a cough 3. pt to be educated on self care and diet and lifestyle changes to reduce urinary frequency. Residential Team Leader Goals: 1. Pt to be able to show improved PFM contraction during functional movements such as a bridge or squat to help prevent or limit POP. 2. Pt to be able to improve PFM contraction to include a lift in the PFM to improve supportive function of the pelvic floor. 3. Pt to be able to return to normal sexual activity without pain. Treatment Plan: Modalities to reduce pain, spasms and effusion. Manual therapy to restore motion and function. Therapeutic exercise to improve strength and flexibility. Neuromuscular re-education for posture and balance. Therapeutic activities to return to functional activities of daily living. Electronically signed by: Doris Villanueva PT DPT Please sign and return to therapist. Thank you for your referral.
== END 2021-09-01 11:17 | disposition home or self-care (01) ==
LOC: HO.PT 10:00
PROVIDERS: PCP Internal Medicine
DX: R10.2 Pelvic and perineal pain (principal)
CPT/HCPCS: 97110; 97112; 97140; 97162; 97530

== ENCOUNTER 2021-07-26 10:43 | Outpatient (REF) | payer OTHER, SELFPAY ==
--- NOTE | ~2021-07-26 | XR_ITS ---
EXAMINATION: XR CHEST CLINICAL INFORMATION: Cough. COMPARISON: None TECHNIQUE: 2 views of the chest were obtained. FINDINGS: No significant abnormality is noted involving the heart, lungs, mediastinum, bony thorax or soft tissues. XR/XR chest 2V IMPRESSION: Unremarkable chest examination.
[2021-07-30 19:41] LABS: Estrogen 206.6 pg/mL
== END 2021-07-26 10:44 | disposition home or self-care (01) ==
LOC: HO.XRAY 10:43
PROVIDERS: PCP Internal Medicine; Visit Provider Internal Medicine
DX: R05.9 Cough, unspecified (principal); D25.9 Leiomyoma of uterus, unspecified; R30.0 Dysuria; N95.1 Menopausal and female climacteric states
CPT/HCPCS: 36415; 71046; 82672

== ENCOUNTER 2021-10-23 08:35 | Outpatient (REF) | payer OTHER, SELFPAY ==
[2021-10-23 09:50] LABS: Alanine Aminotransferase 20 U/L (0-31); Albumin Level 4.4 g/dL (3.5-5.0); Alkaline Phosphatase 47 U/L (39-117); Anion Gap 8 (12-20); Aspartate Amino Transferase 12 U/L (5-31); Bilirubin Total 0.6 mg/dL (0.0-1.0); Blood Urea Nitrogen 13 mg/dL (9-16); Calcium 9.3 mg/dL (8.4-10.2); Carbon Dioxide 31 mmol/L (22-29); Chloride 106 mmol/L (96-108); Cholesterol 236 mg/dL; Estimated Glomerular Filt Rate > 60; Glucose Fasting 101 mg/dL (60-99); HDL Cholesterol 50 mg/dL; LDL Cholesterol Calculated 170 mg/dl; Sodium 141 mmol/L (135-145); Total Protein 7.1 g/dL (6.5-8.0); Triglycerides 81 mg/dL
== END 2021-10-23 08:36 | disposition home or self-care (01) ==
LOC: HO.LAB 08:35
PROVIDERS: PCP Internal Medicine; Visit Provider Internal Medicine
DX: E78.00 Pure hypercholesterolemia, unspecified (principal)
CPT/HCPCS: 36415; 80053; 80061

== ENCOUNTER 2021-10-30 13:41 | Outpatient (REF) | payer OTHER, SELFPAY | END 2021-10-30 13:42 | disposition home or self-care (01) | LOC: HO.LNP 13:41 | PROVIDERS: Visit Provider Emergency Medicine | DX: R30.0 Dysuria (principal) | CPT/HCPCS: 87086 ==

== ENCOUNTER → 2021-11-21 15:36 | Outpatient (BNVA) | payer OTHER, SELFPAY | PROVIDERS: PCP Internal Medicine | DX: N30.10 Interstitial cystitis (chronic) without hematuria (principal); R30.0 Dysuria | CPT/HCPCS: 99212 ==

== ENCOUNTER 2022-01-29 09:28 | Day surgery (SDC) | payer OTHER, SELFPAY ==
[2022-01-23 13:41] VITALS: BMI 21.7
--- NOTE | 2022-01-26 12:47 | HO.ANESPROP2 ---
Documented by User: Suly Belcher NP 01/26/22 12:48 HPI - Anesthesia Eval Consult details Narrative: 51yo F for Cystoscopy Hydrodistention of Bladder PMFSH Active Problems Active Problems: All Active Problems (Updated 01/23/22 @ 13:35 by Malaika Caban RN) Ingrown hair (Acute) Back pain (Acute) Abdominal pain (Acute) Interstitial cystitis (Acute) Abnormal uterine bleeding (AUB) (Acute) Family history of colon cancer (Acute) Complicated urinary tract infection (Acute) Uterine fibroid (Acute) Uterine prolapse (Acute) Annual physical exam (Acute) Chronic cough (Acute) Body aches (Acute) Dysuria (Acute) Urinary incontinence (Acute) Otitis externa of right ear (Acute) Hot flashes (Acute) Cough (Acute) Dysuria (Acute) Interstitial cystitis (Acute) Interstitial cystitis (chronic) with hematuria (Acute) Pure hypercholesterolemia (Acute) E. coli urinary tract infection (Acute) Pelvic pain (Acute) Bloating (Acute) Perforated right tympanic membrane on examination (Acute) Allergic rhinitis (Acute) Menorrhagia (Acute) GERD (gastroesophageal reflux disease) (Acute) Past Medical History Medical History Allergic rhinitis Bloating E. coli urinary tract infection Family history of colon cancer in mother GERD (gastroesophageal reflux disease) History of abnormal uterine bleeding History of urinary incontinence Hx of hypercholesterolemia Hx of iron deficiency Hx of renal calculi Interstitial cystitis (chronic) with hematuria Menorrhagia Pelvic pain Perforated right tympanic membrane on examination Pure hypercholesterolemia Family History Family History Mother History of colon cancer Father History of cancer of stomach Surgical History Surgical History H/O colonoscopy History of esophagogastroduodenoscopy (EGD) History of nasal surgery History of placement of ear tubes History of tubal ligation Hx of dilation and curettage S/P cystoscopy (~02/22/20) Social History Social History Household Members: Spouse and Children Housing: House Alcohol intake: never Patient Tobacco Use Status: Never used Tobacco e-Cigarette/Vaping Use: Never Used Second Hand Smoke Exposure: Yes Are you DNR?: No Advance Directives: No Advance Directives Information Provided: Yes Nutrition Risks: No Nutritional Risk FDLMP: last month service: No Current occupational status: employed Cognitive needs: No Hearing needs: No Vision needs: No Meds Allergies Allergy/AdvReac Type Severity Reaction Status Date / Time egg Allergy Intermediate Unknown Verified 01/29/22 10:06 grass pollen Allergy Intermediate Unknown Verified 01/29/22 10:06 pear Allergy Intermediate Unknown Verified 01/29/22 10:06 tree and shrub pollen Allergy Intermediate Unknown Verified 01/29/22 10:06 nuts,apple, starwberries Allergy Unknown Unknown Uncoded 01/29/22 10:06 Home Medications Medication Instructions Recorded Confirmed Last Taken Type albuterol sulfate 90 mcg/actuation 2 puff inhalation Q6H PRN Wheezing 04/02/20 01/23/22 Unknown History aerosol inhaler (ProAir HFA) fluticasone propionate 50 1 spray intranasal DAILY 04/02/20 01/23/22 Unknown History mcg/actuation nasal spray,suspension cetirizine 10 mg tablet (Zyrtec) 10 mg PO DAILY PRN Allergy Symptoms 10/30/21 01/23/22 Unknown History pentosan polysulfate sodium 100 mg 100 mg PO TID 10/30/21 01/23/22 Unknown History capsule (Elmiron) amitriptyline 75 mg tablet 75 mg PO DAILY 11/21/21 01/23/22 Unknown History tolterodine 2 mg tablet 2 mg PO BID 11/21/21 01/23/22 Unknown History amitriptyline 25 mg tablet 37.5 mg PO DAILY 01/23/22 Unknown History Exam Exam Date and Time: January 26, 2022 1247 Height,Weight and Vital Signs: Height 5 ft 6 in Weight 61.235 kg Pertinent Lab Results Pertinent Lab Results: Laboratory Tests 04/03/21 10/23/21 11:10 08:46 WBC 5.4 Hgb 13.6 Hct 39.3 Plt Count 181 Sodium 141 Potassium 4.0 Chloride 106 Carbon Dioxide 31 H BUN 13 Creatinine 0.68 Assessment and Plan Assessment Anesthesia Assessment: Chart Reviewed Documented by User: Charanjit Foley MD 01/29/22 12:56 PMFSH Past Medical History Medical History Allergic rhinitis Bloating E. coli urinary tract infection Family history of colon cancer in mother GERD (gastroesophageal reflux disease) History of abnormal uterine bleeding History of urinary incontinence Hx of hypercholesterolemia Hx of iron deficiency Hx of renal calculi Interstitial cystitis (chronic) with hematuria Menorrhagia Pelvic pain Perforated right tympanic membrane on examination Pure hypercholesterolemia Family History Family History Mother History of colon cancer Father History of cancer of stomach Family history of problems with anesthesia: No Surgical History Surgical History H/O colonoscopy History of esophagogastroduodenoscopy (EGD) History of nasal surgery History of placement of ear tubes History of tubal ligation Hx of dilation and curettage S/P cystoscopy (~02/22/20) History of Problems with Anesthesia: No Social History Social History Household Members: Spouse and Children Housing: House Alcohol intake: never Patient Tobacco Use Status: Never used Tobacco e-Cigarette/Vaping Use: Never Used Second Hand Smoke Exposure: Yes Are you DNR?: No Advance Directives: No Advance Directives Information Provided: Yes Nutrition Risks: No Nutritional Risk FDLMP: last month service: No Current occupational status: employed Cognitive needs: No Hearing needs: No Vision needs: No Meds Allergies Allergy/AdvReac Type Severity Reaction Status Date / Time egg Allergy Intermediate Unknown Verified 01/29/22 10:06 grass pollen Allergy Intermediate Unknown Verified 01/29/22 10:06 pear Allergy Intermediate Unknown Verified 01/29/22 10:06 tree and shrub pollen Allergy Intermediate Unknown Verified 01/29/22 10:06 nuts,apple, starwberries Allergy Unknown Unknown Uncoded 01/29/22 10:06 Home Medications Medication Instructions Recorded Confirmed Last Taken Type albuterol sulfate 90 mcg/actuation 2 puff inhalation Q6H PRN Wheezing 04/02/20 01/23/22 Unknown History aerosol inhaler (ProAir HFA) fluticasone propionate 50 1 spray intranasal DAILY 04/02/20 01/23/22 Unknown History mcg/actuation nasal spray,suspension cetirizine 10 mg tablet (Zyrtec) 10 mg PO DAILY PRN Allergy Symptoms 10/30/21 01/23/22 Unknown History pentosan polysulfate sodium 100 mg 100 mg PO TID 10/30/21 01/23/22 Unknown History capsule (Elmiron) amitriptyline 75 mg tablet 75 mg PO DAILY 11/21/21 01/23/22 Unknown History tolterodine 2 mg tablet 2 mg PO BID 11/21/21 01/23/22 Unknown History amitriptyline 25 mg tablet 37.5 mg PO DAILY 01/23/22 Unknown History Exam Airway Mallampati Class: III TM Dist: >3cm Neck ROM: Full Heart: rrr Lungs: clear Assessment and Plan Final Anesthetic Review Family History of Problems with Anesthesia: No History of Problems with Anesthesia: No NPO: Yes ASA Class: II Final Preanesthetic Review: No Changes in Pt Med Stat, Meds/Allgs Chart Reviewed, Consent Obtained/Reviewed and Anes Risks/Benef Reviewed Patient Risk: Low Procedure Risk: Low Anesthetic Plan Anesthetic Plan: MAC: Disposition: Standard PACU
[2022-01-29] MEDS: Lactated Ringers 1,000 ML 100 ML IVCONT (10:13)
[2022-01-29 10:24] VITALS: BP 135/77; PULSE 75; RESP 18; TEMP 36.3; O2SAT 99
[2022-01-29] MEDS: Acetaminophen 325 MG TABLET 650 MG PO (12:31)
[2022-01-29] MEDS: levoFLOXacin 500 MG TABLET PO (12:31)
--- NOTE | 2022-01-29 13:07 | MHC.SHP ---
Pre-Procedural Eval Section A Date of Service: 01/29/22 The patient is an INPATIENT: No Changes since office visit: No Cold of Flu in the past 2 weeks, No New Medical Problems, No Changes in Medication and No Patient answered all questions The History & Physical has been completed within 30 days and I have reviewed it.: Yes Section B Chief Complaint: cystitis Details of Present Illness: hydrodistention for interstitial cystitis Relevant Family History (Specify if Yes): No Relevant Social History: None Present Medications: see Short Stay Collaborative assessment Medical History: Significant History History of Previous Operations: Relevant previous surgery/procedure and date(s) Allergies: Allergies Allergy/AdvReac Type Severity Reaction Status Date / Time egg Allergy Intermediate Unknown Verified 01/29/22 10:06 grass pollen Allergy Intermediate Unknown Verified 01/29/22 10:06 pear Allergy Intermediate Unknown Verified 01/29/22 10:06 tree and shrub pollen Allergy Intermediate Unknown Verified 01/29/22 10:06 nuts,apple, starwberries Allergy Unknown Unknown Uncoded 01/29/22 10:06 Review of Systems Sugical H&P ROS: Negative: Constitution, Cardiovascular, Respiratory, Neurological, Psychiatric, Hem-Onc, Allergic/Immunologic, Gastrointestinal, Genitourinary, Musculoskeletal, Integumentary, Endocrine and Eyes/Ears/Nose/Throat Exam Surgical H&P Exam: Normal: HEENT, Normal: Heart, Normal: Lungs, Normal: Extremities, Normal: Abdomen, Normal: Skin and Normal: Neurological Plan Diagnosis/Plan: Unchanged ( hydrodistension for interstitial cystitis) I have reviewed the history and physical and performed a pertinent physical examination on my patient. No changes have occurred unless specified.
--- NOTE | 2022-01-29 13:46 | P.OP_ITS ---
Operative Note Operative Note Date of Service: 01/29/22 Narrative: PreOperative Diagnosis: Interstitial cystitis with pelvic pain Post Operative Diagnosis: Interstitial cystitis with pelvic pain Procedure: Hydrodistention Surgeon: Dr Willie Carson Anesthesia: General Indications for procedure: last hydrodistention approximately 12 months ago. Has re developed some d ifficulty a pelvic floor discomfort. Procedure: After informed consent was verified the patient was brought to the operating room and placed in a supine position. Anesthesia was administered per protocol. The patient was placed in a modified dorsal lithotomy position and prepped and draped in sterile fashion. Safety pause time-out was observed. Antibiotics being given. A 22 Turkish cystoscope was used to empty the bladder. A mixture of bupivacaine lidocaine gel 20 cc was instilled into the bladder and allowed to sit for 2-3 minutes. A belladonna and opiate rectal suppository was placed. Hydrodistention of the bladder was performed. The bladder was filled and allowed to sit for 2 minutes. Filling was from a height of 1 m. On the 1st fill there was Seven hundred fifty cc within the bladder. Cystoscopy revealed glomerulations consistent with interstitial cystitis. Second filling of the bladder was performed in similar fashion. Volume was approximately 850 cc. Terminal hematuria noted. The the bladder was emptied. The patient tolerated procedure well was extubated in operating room transferred in stable condition to the recovery area. Appro priate postprocedure pain medication was provided. Pathology: Drains: None
[2022-01-29 13:47] VITALS: BP 129/75; PULSE 70; RESP 22; TEMP 36.5; O2SAT 97
[2022-01-29 14:03] VITALS: BP 121/73; PULSE 67; RESP 16; O2SAT 99
[2022-01-29] MEDS: Phenazopyridine HCL 100 MG TABLET PO (14:28)
[2022-01-29] MEDS: oxyCODONE HCl Immed Release 5 MG TABLET PO (14:28)
[2022-01-29 14:33] VITALS: BP 131/76; PULSE 70; RESP 16; TEMP 36.5; O2SAT 100
== END 2022-01-29 15:23 | disposition home or self-care (01) ==
PROVIDERS: PCP Internal Medicine; Visit Provider Urology
PROC: 0T7B7ZZ Dilation of Bladder, Via Natural or Artificial Opening (ICD-10-PCS; CPT 52260; principal; 2022-01-29 11:10)
DX: N30.10 Interstitial cystitis (chronic) without hematuria (principal); R10.2 Pelvic and perineal pain
CPT/HCPCS: 52260; J2795

== ENCOUNTER 2022-02-02 09:00 | Outpatient (RCR) | payer MEDICAID, OTHER, SELFPAY ==
--- NOTE | 2021-09-14 13:08 | MHC.PT.EP ---
[facility] [place] Office [place] Office [place] Office [address] Ester Goodman 140 [facility] [phone] F: [phone] F: [phone] F: [phone] F: [phone] Physical Therapy Plan of Care Date of Evaluation: 09/14/21 Date of Surgery: Diagnosis: pelvic and perineal pain Assessment: The patient arrived and consented for an internal pelvic exam of her pelvic floor muscles. She had poor motor recruitment initially which improved quickly within a few repetitions. Her strength is . She had poor reaction time for quick contractions which again was much better by the end of the session. She loses her contraction quickly and therefore I believe she will need to work on her coordination. Assessment of prolapse showed no a grade 1 uterine prolapse in standing felt at 2 knuckles level. She also had a grade 2 cystourethrocele most notable in standing. She received an order from Dr. Burton for Uresta which is a pessary device. She has not received it yet. The patient has poor muscle tone in the anterior vaginal wall. I will instruct her on exercises to improve endurance, and coordination of her Pelvic floor muscles. Since she has recently finished pelvic floor therapy I will space her visits out every 3 weeks to give time for improvement. Frequency and Duration: The patient will be seen 1 time a week every 3 weeks. Short Term Goals: 1. Pt to be able to correctly activate her PFM to allow improved support to bowel and bladder. 2. Pt to be able to demonstrate a pre contraction before a cough Natural Resources Manager Goals: 1. Pt to be able to show improved PFM contraction during functional movements such as a bridge or squat to help prevent or limit POP. 2. Pt to be able to improve PFM contraction to include a lift in the PFM to improve supportive function of the pelvic floor. 3. Pt to be able to return to normal sexual activity without pain. Treatment Plan: Modalities to reduce pain, spasms and effusion. Manual therapy to restore motion and function. Therapeutic exercise to improve strength and flexibility. Neuromuscular re-education for posture and balance. Therapeutic activities to return to functional activities of daily living. Electronically signed by: Doris Villanueva PT DPT Please sign and return to therapist. Thank you for your referral.
== END 2022-05-28 13:12 | disposition home or self-care (01) ==
LOC: HO.PT 09:00
PROVIDERS: PCP Internal Medicine
DX: R10.2 Pelvic and perineal pain (principal)
CPT/HCPCS: 97110; 97112; 97140; 97162; 97530

== ENCOUNTER 2022-04-02 10:33 | Outpatient (REF) | payer OTHER, SELFPAY ==
[2022-04-02 12:12] LABS: Alanine Aminotransferase 14 U/L (0-31); Albumin Level 4.7 g/dL (3.5-5.0); Alkaline Phosphatase 51 U/L (39-117); Anion Gap 18 (12-20); Aspartate Amino Transferase 15 U/L (5-31); Bilirubin Total 0.6 mg/dL (0.0-1.0); Blood Urea Nitrogen 12 mg/dL (9-16); Calcium 9.4 mg/dL (8.4-10.2); Carbon Dioxide 25 mmol/L (22-29); Chloride 104 mmol/L (96-108); Cholesterol 247 mg/dL; Estimated Glomerular Filt Rate > 60; Glucose Fasting 93 mg/dL (60-99); HDL Cholesterol 49 mg/dL; LDL Cholesterol Calculated 178 mg/dl; Potassium 3.9 mmol/L (3.3-5.1); Sodium 143 mmol/L (135-145); Total Protein 7.5 g/dL (6.5-8.0); Triglycerides 102 mg/dL
[2022-04-02 12:39] LABS: TSH reflex Free T4 1.81 uIU/mL (0.32-4.0)
== END 2022-04-02 10:34 | disposition home or self-care (01) ==
LOC: HO.LAB 10:33
PROVIDERS: PCP Internal Medicine; Visit Provider Internal Medicine
DX: E78.00 Pure hypercholesterolemia, unspecified (principal)
CPT/HCPCS: 36415; 80053; 80061; 84443

== ENCOUNTER 2022-05-02 | Outpatient (REF) | payer OTHER, SELFPAY ==
--- NOTE | ~2022-05-02 | US_ITS ---
EXAMINATION: US pelvic limited CLINICAL INFORMATION: Pilonidal cyst without abscess . COMPARISON: CT 12/09/2020. TECHNIQUE: Real-time ultrasound with image documentation was obtained of the mid line posterior soft tissues in the region of the perineum. US/US pelvic limited FINDINGS/IMPRESSION: No focal abnormality identified by ultrasound. No mass, lymphadenopathy, or fluid collection. Recommend cross-sectional imaging for further evaluation as clinically indicated, preferably MRI.
== END 2022-05-02 00:01 | disposition home or self-care (01) ==
LOC: HO.US
PROVIDERS: Visit Provider Internal Medicine
DX: L05.91 Pilonidal cyst without abscess (principal)
CPT/HCPCS: 76857

== ENCOUNTER → 2022-05-02 10:27 | Outpatient (REF) | payer OTHER, SELFPAY ==
--- NOTE | 2022-05-02 10:29 | CA_ITS ---
Acquisition Time: 2022-05-02 10:52:20 Total Exercise Time: 00:10:21 Test Indications: R07.89 Other Chest Pain Medications: See H Protocol: AMADOR Max HR: 166 BPM 98% of Pred: 169 BPM Max BP: 180/080 mmHG Max Work Load: 12.3 METS Exercise stress test with exercise 10 min 21 sec of Amador protocol, achieving 85% MPHR, with intermittent cough and report of a mild tightness in chest, with isolated PACs and PVCs, with normotensive response to exercise, without EKG changes meeting criteria for ischemia. In recovery she continued to feel mild tightness in chest. Test reviewed with Dr Yuen Referred By: Saulo Burton Overread By: WHITNEY DOSS
== END ==
LOC: HO.CARD 10:27
PROVIDERS: PCP Internal Medicine; Visit Provider Internal Medicine
DX: R07.89 Other chest pain (principal)
CPT/HCPCS: 93017

== ENCOUNTER → 2022-05-23 10:56 | Outpatient (BNVA) | payer OTHER, SELFPAY | PROVIDERS: PCP Internal Medicine; Visit Provider Urology | DX: N30.10 Interstitial cystitis (chronic) without hematuria (principal); N81.4 Uterovaginal prolapse, unspecified; N39.0 Urinary tract infection, site not specified | CPT/HCPCS: 99212 ==

== ENCOUNTER 2022-07-10 11:22 | Outpatient (REF) | payer OTHER, SELFPAY ==
[2022-07-10 13:07] LABS: Alanine Aminotransferase 11 U/L (0-31); Albumin Level 4.3 g/dL (3.5-5.0); Alkaline Phosphatase 47 U/L (39-117); Anion Gap 11 (12-20); Aspartate Amino Transferase 10 U/L (5-31); Bilirubin Total 0.8 mg/dL (0.0-1.0); Blood Urea Nitrogen 11 mg/dL (9-16); Carbon Dioxide 28 mmol/L (22-29); Chloride 107 mmol/L (96-108); Cholesterol 153 mg/dL; Estimated Glomerular Filt Rate > 60; Glucose Fasting 92 mg/dL (60-99); HDL Cholesterol 42 mg/dL; LDL Cholesterol Calculated 85 mg/dl; Potassium 3.7 mmol/L (3.3-5.1); Sodium 142 mmol/L (135-145); Total Protein 6.8 g/dL (6.5-8.0); Triglycerides 134 mg/dL
== END 2022-07-10 11:23 | disposition home or self-care (01) ==
LOC: HO.LAB 11:22
PROVIDERS: PCP Internal Medicine; Visit Provider Internal Medicine
DX: E78.00 Pure hypercholesterolemia, unspecified (principal)
CPT/HCPCS: 36415; 80053; 80061

== ENCOUNTER 2022-07-18 11:34 | Outpatient (REF) | payer OTHER, SELFPAY ==
--- NOTE | ~2022-07-18 | XR_ITS ---
EXAMINATION: XR CHEST 2 VIEWS CLINICAL INFORMATION: Other specified respiratory disorders. COMPARISON: Radiographs dated 07/26/2021. TECHNIQUE: Frontal and lateral views of the chest were obtained. FINDINGS: The heart, great vessels, pulmonary vasculature and mediastinum are normal. The lungs show no focal infiltrate, effusion or pneumothorax. There is no acute osseous abnormality. There is a very mild lower thoracic dextroscoliosis. XR/XR chest 2V IMPRESSION: No active cardiopulmonary disease.
[2022-07-18 12:52] LABS: Influenza A PCR NEGATIVE (Negative); Influenza B PCR NEGATIVE (Negative); Resp Syncy Virus RNA Qual PCR NEGATIVE (Negative); SARS COV2 PCR INHOUSE NEGATIVE (Negative)
== END 2022-07-18 11:35 | disposition home or self-care (01) ==
LOC: HO.LAB 11:34
PROVIDERS: PCP Internal Medicine; Visit Provider Internal Medicine
DX: J98.8 Other specified respiratory disorders (principal); R05.8 Other specified cough; Z20.822 Contact with and (suspected) exposure to COVID-19
CPT/HCPCS: 0241U; 71046

== ENCOUNTER 2022-08-10 08:34 | Outpatient (REF) | payer OTHER, SELFPAY ==
[2022-08-10 11:20] LABS: Lipase 17 U/L (8-78)
[2022-08-10 11:38] LABS: Vitamin B12 740 pg/mL (200-900)
[2022-08-10 13:00] LABS: Folate 11.3 ng/mL (> or = 4.0)
[2022-08-16 13:09] LABS: Vitamin D 25-OH, D2 <4 ng/mL; Vitamin D 25-OH, D3 21 ng/mL; Vitamin D 25-OH, Total 21 ng/mL (30-100)
[2022-08-17 13:58] LABS: Transglutaminase IgA <1.0 U/mL
== END 2022-08-10 08:35 | disposition home or self-care (01) ==
LOC: HO.LAB 08:34
PROVIDERS: PCP Internal Medicine; Visit Provider Nurse Practitioner Family
DX: R10.9 Unspecified abdominal pain (principal); R19.7 Diarrhea, unspecified; K21.9 Gastro-esophageal reflux disease without esophagitis; R05.9 Cough, unspecified; J45.909 Unspecified asthma, uncomplicated; E55.9 Vitamin D deficiency, unspecified
CPT/HCPCS: 36415; 82306; 82607; 82746; 83690; 86364; 87338; 99202

== ENCOUNTER → 2022-09-10 08:55 | Outpatient (BNVA) | payer OTHER, SELFPAY | PROVIDERS: PCP Internal Medicine; Visit Provider Nurse Practitioner Family | DX: R05.9 Cough, unspecified (principal); K21.9 Gastro-esophageal reflux disease without esophagitis; R79.89 Other specified abnormal findings of blood chemistry | CPT/HCPCS: 99212 ==

== ENCOUNTER → 2022-10-10 09:57 | Outpatient (BNVA) | payer OTHER, SELFPAY | PROVIDERS: PCP Internal Medicine; Visit Provider Internal Medicine | DX: R05.9 Cough, unspecified (principal); J45.909 Unspecified asthma, uncomplicated | CPT/HCPCS: 94010 ==

== ENCOUNTER 2022-10-10 10:51 | Outpatient (REF) | payer OTHER, SELFPAY ==
[2022-10-10 11:03] LABS: MANUAL DIFF FLAG NO
[2022-10-10 11:18] LABS: Basophils Absolute Auto 0.1 X10*3/uL (0.0-0.2); Basophils Percent Auto 1.3 % (0-2); Eosinophils Absolute Auto 0.1 X10*3/uL (0.0-0.4); Eosinophils Percent Auto 1.9 % (0-4); Hematocrit 42.3 % (37.0-47.0); Hemoglobin 14.1 g/dl (12.0-16.0); Imm Gran Abs Auto 0.01 X10*3/uL (0.00-0.03); Imm Gran Pct Auto 0.2 % (0.0-0.4); Lymphocytes Absolute Auto 1.8 X10*3/uL (1.2-4.9); Lymphocytes Percent Auto 33.7 % (20-40); Mean Corpuscular HGB Conc 33.3 g/dl (31.0-35.0); Mean Corpuscular Hemoglobin 28.5 pg (27.0-33.0); Mean Corpuscular Volume 85.5 fL (80.0-98.0); Mean Platelet Volume 10.9 fL (9.4-12.3); Monocytes Absolute Auto 0.3 X10*3/uL (0.1-1.2); Monocytes Percent Auto 6.2 % (2-11); Neutrophils Percent Auto 56.7 % (45-73); Platelet Count 162 X10*3/uL (160-400); Red Blood Count 4.95 X10*6/uL (4.20-5.50); Red Cell Distribution Width 11.7 % (11.0-16.0); White Blood Count 5.3 X10*3/uL (4.8-10.8)
[2022-10-10 11:56] LABS: Appearance Urine Clear; Color Urine Yellow; Glucose Urine UA Negative (Negative); Leukocyte Esterase Urine Moderate (2+) (Negative); Nitrite Urine Negative (Negative); Specific Gravity - Urine 1.015 (1.005-1.025); Urine Blood Negative (Negative); Urine Ketones Negative (Negative); Urine Protein Negative (Neg-Trace)
[2022-10-10 11:57] LABS: UMIC TRIGGER UACC YES
[2022-10-10 12:11] LABS: Bacteria Urine Trace (None Seen); Hyaline Casts Urine 0-2 /LPF (0-2); RBC Urine 0-2 /HPF (0-2); WBC Urine 0-5 /HPF (0-5)
[2022-10-10 12:12] LABS: Alanine Aminotransferase 13 U/L (0-31); Albumin Level 4.5 g/dL (3.5-5.0); Alkaline Phosphatase 55 U/L (39-117); Anion Gap 11 (12-20); Aspartate Amino Transferase 13 U/L (5-31); Bilirubin Total 0.7 mg/dL (0.0-1.0); Blood Urea Nitrogen 14 mg/dL (9-16); Calcium 9.1 mg/dL (8.4-10.2); Carbon Dioxide 28 mmol/L (22-29); Chloride 107 mmol/L (96-108); Cholesterol 168 mg/dL; Estimated Glomerular Filt Rate > 60; Glucose Fasting 101 mg/dL (60-99); HDL Cholesterol 51 mg/dL; LDL Cholesterol Calculated 106 mg/dl; Potassium 3.8 mmol/L (3.3-5.1); Sodium 142 mmol/L (135-145); Total Protein 6.9 g/dL (6.5-8.0); Triglycerides 59 mg/dL
[2022-10-10 12:25] LABS: TSH reflex Free T4 1.93 uIU/mL (0.32-4.0)
[2022-10-10 13:06] LABS: Vitamin D 25-OH Total 30.9 ng/mL (>30)
== END 2022-10-10 10:52 | disposition home or self-care (01) ==
LOC: HO.LAB 10:51
PROVIDERS: PCP Internal Medicine; Visit Provider Internal Medicine
DX: J45.909 Unspecified asthma, uncomplicated (principal); R05.9 Cough, unspecified; N30.10 Interstitial cystitis (chronic) without hematuria; E78.00 Pure hypercholesterolemia, unspecified; E55.9 Vitamin D deficiency, unspecified
CPT/HCPCS: 36415; 80053; 80061; 81001; 82306; 84443; 85025; 99202

== ENCOUNTER → 2022-12-03 09:27 | Outpatient (BNVA) | payer OTHER, SELFPAY | PROVIDERS: PCP Internal Medicine; Visit Provider Internal Medicine | DX: J45.909 Unspecified asthma, uncomplicated (principal); R05.9 Cough, unspecified | CPT/HCPCS: 99212 ==

== ENCOUNTER → 2022-12-07 09:37 | Outpatient (BNVA) | payer OTHER, SELFPAY | PROVIDERS: PCP Internal Medicine; Visit Provider Urology | DX: N30.11 Interstitial cystitis (chronic) with hematuria (principal) | CPT/HCPCS: 99212 ==

== ENCOUNTER 2023-02-25 09:37 | Outpatient (REF) | payer OTHER, SELFPAY ==
[2023-02-25 10:51] LABS: Appearance Urine Cloudy; Color Urine Yellow; Glucose Urine UA Negative (Negative); Leukocyte Esterase Urine Negative (Negative); Nitrite Urine Negative (Negative); Urine Blood Negative (Negative); Urine Ketones 40 mg/dL (Negative); Urine Protein Negative (Neg-Trace)
[2023-02-25 11:03] LABS: Alanine Aminotransferase 22 U/L (0-31); Albumin Level 4.4 g/dL (3.5-5.0); Alkaline Phosphatase 47 U/L (39-117); Anion Gap 14 (12-20); Aspartate Amino Transferase 18 U/L (5-31); Bilirubin Total 0.8 mg/dL (0.0-1.0); Blood Urea Nitrogen 12 mg/dL (9-16); Calcium 9.2 mg/dL (8.4-10.2); Carbon Dioxide 25 mmol/L (22-29); Chloride 107 mmol/L (96-108); Cholesterol 171 mg/dL (<200); Estimated Glomerular Filt Rate > 60; Glucose Fasting 87 mg/dL (60-99); HDL Cholesterol 49 mg/dL (>40); LDL Cholesterol Calculated 107 mg/dL (<100); Potassium 3.7 mmol/L (3.3-5.1); Sodium 142 mmol/L (135-145); Total Protein 7.2 g/dL (6.5-8.0); Triglycerides 78 mg/dL (<150)
== END 2023-02-25 09:38 | disposition home or self-care (01) ==
LOC: HO.LAB 09:37
PROVIDERS: PCP Internal Medicine; Visit Provider Internal Medicine
DX: E78.00 Pure hypercholesterolemia, unspecified (principal); R30.0 Dysuria
CPT/HCPCS: 36415; 80053; 80061; 81003

== ENCOUNTER 2023-03-25 16:08 | Outpatient (AMB) | payer OTHER, SELFPAY ==
--- NOTE | 2023-03-25 16:20 | A.OFFVIS_ITS ---
Intake Vital Signs 03/25/23 16:21 Height 5 ft 4 in Weight 132 lb 4.438 oz BMI 22.7 BP 136/65 Blood Pressure Location Lt brachial Position Sitting Pulse 79 Intake Visit Reasons: 6 month fu Intake Note: Keke presents to in office visit today in 6 months follow up of GERD. CC: Patient reports she has been feeling sick for the last 2 days with cough, and burning epigastric sensation, and heartburn. She continues to take Pepcid and it helps with stomach but not with cough. Denies other GI symptoms today. Vulcanizer Required: No Accompanied by: Self / Same As Patient Allergies egg Allergy (Intermediate, Verified 04/01/23 14:27) Unknown grass pollen Allergy (Intermediate, Verified 04/01/23 14:27) Unknown pear Allergy (Intermediate, Verified 04/01/23 14:27) Unknown tree and shrub pollen Allergy (Intermediate, Verified 04/01/23 14:27) Unknown nuts,apple, starwberries Allergy (Unknown, Uncoded 04/01/23 14:10) Unknown HPI 6 month fu HPI Details LAST VISIT Cough Symptoms are gone. Most likely cough was related to patient's acid reflux. Patient reports that she has been feeling well now. She can continue taking Pepcid. Patient was encouraged to call us if her symptoms return she might need to go for upper endoscopy to further evaluate. GERD (gastroesophageal reflux disease) Continue Pepcid. If patient symptoms will return patient should go for upper endoscopy. We might have to put her on PPI again. I will see patient in 6 months, sooner on as needed basis. Patient is agreeable to this plan and verbalizes understanding of instructions. She was given the opportunity to ask questions and all questions answered. ? Thank you for allowing to participate in her care Plan Medications New cholecalciferol (vitamin D3) 50 mcg PO DAILY 90 caps 3RF R79.89 Refilled famotidine (Pepcid) 20 mg PO BEDTIME 90 tabs 3RF K21.9 Discontinued pantoprazole take one tablet half an hour before breakfast Discontinued Reason: Patient no longer taking 40 mg PO DAILY 30 tabs 2RF K21.9 TODAY'S VISIT: Patient is here today for follow-up. Patient reports that she is taking famotidine in feels like it is helping her with acid reflux. For the last couple days patient has been having increased cough. Patient believes that this time is more respiratory related then to her acid reflux. Patient also reports postnasal drip, cold-like symptoms. Patient denies any nausea or vomiting. Denies any dyspepsia, dysphagia or odynophagia. Occasional postprandial epigastric discomfort. Denies any melena, hematochezia, unintentional weight loss or ribbon like stools. Patient reports to have good appetite. Denies any abdominal pain or discomfort except for occasional epigastric discomfort. With history of interstitial cystitis she has been avoiding drinking soda, alcohol, citric juices. [facility] Medical History Allergic rhinitis Anemia Asthma Bloating E. coli urinary tract infection Family history of colon cancer in mother GERD (gastroesophageal reflux disease) History of abnormal uterine bleeding History of urinary incontinence Hx of hypercholesterolemia Hx of iron deficiency Hx of renal calculi Interstitial cystitis (chronic) with hematuria Menorrhagia Pelvic pain Perforated right tympanic membrane on examination Pure hypercholesterolemia Vitamin D deficiency Surgical History Hx of dilation and curettage History of esophagogastroduodenoscopy (EGD) H/O colonoscopy S/P cystoscopy (~02/22/20) History of tubal ligation History of placement of ear tubes History of nasal surgery Family History Mother History of colon cancer Father History of cancer of stomach Social History Household Members: Spouse and Children Housing: House Alcohol intake: never Patient Tobacco Use Status: Never used Tobacco e-Cigarette/Vaping Use: Never Used Second Hand Smoke Exposure: Yes service: No Current occupational status: employed Cognitive needs: No Hearing needs: No Vision needs: No Female Reproductive History Menstrual Age of Menarche: 15 Review of Systems Const Denies weight gain and Denies weight loss ENT Reports no additional complaints, Denies dysphagia and Denies odynophagia Card Reports no additional complaints Resp Reports cough GI Denies abdominal pain, Denies belching, Denies melena, Denies bloating, Denies change in bowel habits, Denies dysphagia, Denies excessive flatus, Denies dyspepsia, Denies heartburn, Denies diarrhea, Denies loose stools, Denies nausea, Denies odynophagia and Denies vomiting Reports no additional complaints Musc Reports no additional complaints Neuro Reports no additional complaints Psych Reports no additional complaints Endo Reports no additional complaints Physical Exam Vital Signs: Last Vital Signs Pulse 79 03/25/23 16:21 BP 136/65 03/25/23 16:21 BMI result Body Mass Index 22.7 Const General: healthy appearing, no acute distress and well developed Nutritional Appearance: well nourished Orientation/consciousness: patient oriented x3 HEENT Head: Yes normal to inspection, Yes normocephalic and Yes atraumatic Face and sinus: Yes normal facial exam Mouth: Normal oral and palatal mucosa present Throat: Yes posterior oropharynx normal, Yes tonsils normal and Yes uvula midline Eyes General: appearance normal, both eyes and all related structures Neck Neck: Yes normal visual inspection, Yes full ROM and Yes trachea midline Thyroid: Thyroid normal Resp Effort & Inspection: normal respiratory effort, able to speak in complete sentences, no tracheal deviation and symmetric chest movement Auscultation: clear to auscultation bilaterally Cardio Rate: regular rate Heart sounds: S1 normal heart sound present and S2 normal heart sound present GI Inspection: Yes normal to inspection and No distended Palpation (GI): Soft to palpation, not firm, nontender and No hepatosplenomegaly present Auscultation: normal bowel sounds General: Yes no CVA tenderness Back/Spine/Pelvis Back: no CVA tenderness Skin General skin exam: elasticity normal, turgor normal and dry skin Neuro General: patient oriented x3 Psych Appearance: grossly normal Mental Status: mental status grossly normal Speech and movement: Normal speech and movement present Assessment & Plan Assessment & Plan (1) GERD (gastroesophageal reflux disease): Code(s): K21.9 - Gastro-esophageal reflux disease without esophagitis Qualifiers: Esophagitis presence: without esophagitis Qualified Code(s): K21.9 - Gastro-esophageal reflux disease without esophagitis (2) Cough: Code(s): R05.9 - Cough, unspecified Qualifiers: Cough type: unspecified Qualified Code(s): R05.9 - Cough, unspecified Plan Continue famotidine at bedtime. Will add Nexium in the morning. Patient was encouraged to avoid dietary triggers. Staying upright her minimal 3 hours after meals discussed with patient. I will see patient in 6 months, sooner on as needed basis. Patient is agreeable to this plan and verbalizes understanding of instructions. She was given the opportunity to ask questions and all questions answered. Thank you for allowing me to participate in her care Medications: New esomeprazole magnesium (Nexium) 40 mg PO DAILY 30 caps 5RF K21.9 - Gastro- esophageal reflux disease without esophagitis KYLEE Faicrhild-VINCENT Refilled famotidine (Pepcid) 20 mg PO BEDTIME 90 tabs 3RF K21.9 - Gastro-esophageal reflux disease without esophagitis JASWANT Fairchild On Hold atorvastatin Hold Comment: Doctor's Order 10 mg PO BEDTIME 90 days 90 tabs 1RF KYLEE Romero Coding Level of Care Code Est Pt Level 3 (47036) Diagnoses Gastroesophageal reflux disease without esophagitis K21.9 Esophagitis presence: without esophagitis Cough, unspecified type R05.9 Cough type: unspecified Time Spent (min) 35 Comment 15 minutes spent with patient and additional 10 minutes spent reviewing her records
[2023-03-25 16:21] VITALS: BP 136/65; PULSE 79; BMI 22.7
== END 2023-03-25 16:46 | disposition home or self-care (01) ==
PROVIDERS: Visit Provider Nurse Practitioner Family
DX: K21.9 Gastro-esophageal reflux disease without esophagitis (principal); R05.9 Cough, unspecified
CPT/HCPCS: 99213

== ENCOUNTER → 2023-03-25 16:08 | Outpatient (BNVA) | payer OTHER, SELFPAY | PROVIDERS: Visit Provider Nurse Practitioner Family | DX: K21.9 Gastro-esophageal reflux disease without esophagitis (principal); R05.9 Cough, unspecified | CPT/HCPCS: 99212 ==

== ENCOUNTER 2023-04-01 14:01 | Outpatient (AMB) | payer OTHER, SELFPAY ==
--- NOTE | 2023-04-01 14:09 | A.OFFPC_ITS ---
Vital Signs 04/01/23 14:10 Height 5 ft 4 in Weight 128 lb 8 oz BMI 22.1 BP 128/66 Blood Pressure Location Rt brachial Position Sitting Pulse 84 Pulse Source Pulse Oximeter Pulse Oximetry (%) 96 Oxygen Delivery Method Room Air Intake Visit Reasons: HTN, hyperlipidemia Intake Note: Patient is here to follow up on HTN, Hyperlipidemia. Complaint of cough for the last two day with heart burn. Fluorescent Lighting Model Maker Required: No Knitter Helper: Not Required per policy Accompanied by: Self / Same As Patient Allergies egg Allergy (Intermediate, Verified 04/01/23 14:27) Unknown grass pollen Allergy (Intermediate, Verified 04/01/23 14:27) Unknown pear Allergy (Intermediate, Verified 04/01/23 14:27) Unknown tree and shrub pollen Allergy (Intermediate, Verified 04/01/23 14:27) Unknown nuts,apple, starwberries Allergy (Unknown, Uncoded 04/01/23 14:10) Unknown Medication List - Last Reconciled 04/01/23 by KYLEE Romero albuterol sulfate 2.5 mg (3 mL) inhalation Q6H PRN 30 days albuterol sulfate 90 mcg/actuation (Ventolin HFA) 2 puffs inhalation Q6H PRN 30 days amitriptyline mg PO atorvastatin 10 mg PO BEDTIME 90 days benzonatate 100 mg PO TID bismuth subsalicylate (Bismatrol) 2 tabs PO .QD cholecalciferol (vitamin D3) 50 mcg PO DAILY epinephrine IM esomeprazole magnesium (Nexium) 40 mg PO DAILY estradiol 0.01%(0.1mg/gram) vaginal famotidine (Pepcid) 20 mg PO BEDTIME ferrous sulfate 325 mg PO DAILY 90 days fluticasone propionate 50 mcg/actuation 1 spray intranasal DAILY loratadine (Claritin) 10 mg PO DAILY phenazopyridine 100 mg PO Q8H 20 days Tobacco use date assessed: 04/01/23 Dental Screening Dental Screen Date: 04/01/23 Did you have a dental visit in the last 12 months?: Yes Did you have a dental problem in the last 6 months where you did not have access to dental care?: No Was dental information given to patient?: Patient has dentist HPI HPI Comments History of Present Illness Details [age] year female history of allergic rhinitis, GERD, h ypercholesteremia, chronic cough and interstitial cystitis hematuria. Patient of Dr. Burton last seen January presents for follow-up. Blood pressure optimal in office today. LDL completed in January. Patient reports dry cough x 3 days. Denies fevers chills, states throat. COVID/flu and RSV swabs ordered. Patient requesting cough syrup with codeine for cough states the only thing that works or does not her, Rx sent to patient's pharmacy. Patient also requesting antibiotic patient made aware that 3 days cause is likely viral in nature and no need for antibiotics at this time. No antibiotics prescribed at this time. Patient states she would like to stop her statin medication and follow-up on her fasting lipid panels in 3 months. Patient also requesting to start back on her depression medication, history verify patient previously on sertraline 25 mg daily, Rx sent for this. COUNTS INCLUDE 234 BEDS AT THE [facility] Medical History Allergic rhinitis Anemia Asthma Bloating E. coli urinary tract infection Family history of colon cancer in mother GERD (gastroesophageal reflux disease) History of abnormal uterine bleeding History of urinary incontinence Hx of hypercholesterolemia Hx of iron deficiency Hx of renal calculi Interstitial cystitis (chronic) with hematuria Menorrhagia Pelvic pain Perforated right tympanic membrane on examination Pure hypercholesterolemia Vitamin D deficiency Surgical History Hx of dilation and curettage History of esophagogastroduodenoscopy (EGD) H/O colonoscopy S/P cystoscopy (~02/22/20) History of tubal ligation History of placement of ear tubes History of nasal surgery Family History Mother History of colon cancer Father History of cancer of stomach Social History Household Members: Spouse and Children Housing: House Alcohol intake: never Patient Tobacco Use Status: Never used Tobacco e-Cigarette/Vaping Use: Never Used Second Hand Smoke Exposure: Yes service: No Current occupational status: employed Cognitive needs: No Hearing needs: No Vision needs: No Female Reproductive History Menstrual Age of Menarche: 15 Questionnaire Thrive Questionnaire Date Thrive assessed: 11/15/22 KASHMIR-7 AMB Questionnaire KASHMIR-7 Date KASHMIR - 7 assessed: 11/15/22 Source: Developed by Drs. Matty Bhandari, Kym Watson, Terrance mcdonald nd colleagues, with an educational kristi from [employer]. Review of Systems Const Denies chills, Denies fatigue, Denies fever(s) and Denies poor appetite Eyes Denies no additional complaints ENT Reports Normal hearing present Card Denies chest pain, Denies syncope, Denies rapid heart rate and Denies dyspnea Resp Denies cough and Denies dyspnea GI Denies change in stool character, Denies constipation, Denies diarrhea, Denies nausea and Denies vomiting Denies urinary frequency, Denies dysuria and Denies urinary urgency Neuro Reports Normal hearing present, Denies confusion and Denies syncope Psych Denies confusion Endo Denies fatigue Physical exam (Primary Care) Vital Signs: Last Vital Signs Pulse 84 04/01/23 14:10 BP 128/66 04/01/23 14:10 Pulse Ox 96 04/01/23 14:10 Oxygen Delivery Method Room Air 04/01/23 14:10 BMI result Body Mass Index 22.1 Tobacco/Smoking Status: Tobacco use Status Tobacco use date assessed 04/01/23 04/01/23 14:16 Patient Tobacco Use Status Never used Tobacco 04/01/23 14:16 e-Cigarette/Vaping Use Never Used 04/01/23 14:16 Thrive Assessment: Date of Thrive Assessment Date Thrive assessed 11/15/22 04/01/23 14:16 Const General: No confusion Orientation/consciousness: No confusion HENMT Head: Yes normocephalic and Yes atraumatic Eyes Conjunctivae: conjunctivae normal Chest Chest palpation & inspection: normal inspection of the chest Resp Effort & Inspection: normal respiratory effort Auscultation: clear to auscultation bilaterally, no crackles, no rhonchi and no wheezes Cardio Rate: regular rate Rhythm: regular rhythm Heart sounds: S1 normal heart sound present and S2 normal heart sound present GI Inspection: Yes normal to inspection Neuro General: No confusion Cranial nerves: Yes Normal hearing present Extrem General: No edema Assessment and Plan Assessment & Plan (1) GERD (gastroesophageal reflux disease): Code(s): K21.9 - Gastro-esophageal reflux disease without esophagitis Qualifiers: Esophagitis presence: without esophagitis Qualified Code(s): K21.9 - Gastro-esophageal reflux disease without esophagitis Plan: Continue on esomeprazole 40 mg daily. Avoid the foods that cause that, usually spicy foods, tomato products, juices, coffee, soda and foods that you're sensitive to.? After eating do not lie down, allow 3-4 hours before lying down. And keep the head of the bed above 30 degrees to avoid the acid from going up (2) Pure hypercholesterolemia: Code(s): E78.00 - Pure hypercholesterolemia, unspecified Plan: Patient states she would like to discontinue her statin at this time given her LDL is 107 and her cholesterol has been good. Patient reports will continue to follow low-cholesterol diet and exercise to keep her cholesterol levels down via dietary modifications. Avoid fried foods, chicken skin, eggs, butter,margarine, pastries and?? red meat. Fasting lipid panel ordered in 3 months. (3) Asthma: Comment: She has very mild intermittent type of bronchial asthma. TX : May use albuterol HFA 1 or 2 puffs Q 4-6 hours only p.r.n. Does not need any maintenance inhaler. Code(s): J45.909 - Unspecified asthma, uncomplicated Plan: Continue on albuterol as needed. (4) Cough: Code(s): R05.9 - Cough, unspecified Qualifiers: Cough type: unspecified Qualified Code(s): R05.9 - Cough, unspecified Plan: RSV/flu and COVID swab ordered. Cough syrup with codeine sent to patient's pharmacy. Patient made aware that cough x3 days likely viral in nature no antibiotics prescribed at this time. Plan Keep scheduled physical exam with Dr. Burton in July. Orders: Orders SARS-CoV2/FLU/RSV Today R50.9 - Fever, unspecified Lipid Panel 3 Months E78.00 - Pure hypercholesterolemia, unspecified Comprehensive [place]. Panel Fast 3 Months E78.00 - Pure hypercholesterolemia, unspecified Medications: New benzonatate 100 mg PO TID 20 caps 0RF Changed From hydrocodone-chlorpheniramine 10-8 mg/5 mL 5 mL PO Q6-8H 7 days PRN 150 mL 0RF cough/cold R05.9 - Cough, unspecified To hydrocodone-chlorpheniramine 10-8 mg/5 mL 5 mL PO Q12H PRN 150 mL 0RF cough/cold 7 days R05.9 - Cough, unspecified Refilled sertraline Take in AM 25 mg PO DAILY 30 tabs 3RF 30 days On Hold atorvastatin Hold Comment: Doctor's Order 10 mg PO BEDTIME 90 days 90 tabs 1RF Coding Level of Care Code Est Pt Level 3 (66216) Diagnoses Gastroesophageal reflux disease without esophagitis K21.9 Esophagitis presence: without esophagitis Pure hypercholesterolemia E78.00 Asthma J45.909 Cough, unspecified type R05.9 Cough type: unspecified
[2023-04-01 14:10] VITALS: BP 128/66; PULSE 84; O2SAT 96; BMI 22.1
== END 2023-04-01 14:52 | disposition home or self-care (01) ==
PROVIDERS: PCP Internal Medicine; Visit Provider Nurse Practitioner Family
DX: K21.9 Gastro-esophageal reflux disease without esophagitis (principal); E78.00 Pure hypercholesterolemia, unspecified; J45.909 Unspecified asthma, uncomplicated; R05.9 Cough, unspecified
CPT/HCPCS: 99213

== ENCOUNTER 2023-04-01 14:44 | Outpatient (REF) | payer OTHER, SELFPAY ==
[2023-04-01 15:46] LABS: Influenza A PCR NEGATIVE (Negative); Influenza B PCR NEGATIVE (Negative); Resp Syncy Virus RNA Qual PCR NEGATIVE (Negative); SARS COV2 PCR INHOUSE NEGATIVE (Negative)
== END 2023-04-01 14:45 | disposition home or self-care (01) ==
LOC: HO.LAB 14:44
PROVIDERS: Nurse Practitioner Family; PCP Internal Medicine; Visit Provider Internal Medicine
DX: R50.9 Fever, unspecified (principal); Z11.52 Encounter for screening for COVID-19
CPT/HCPCS: 0241U

== ENCOUNTER 2023-06-14 11:33 | Outpatient (AMB) | payer OTHER, SELFPAY ==
--- NOTE | 2023-06-14 11:34 | MHC.OFFVIS ---
Intake Intake Visit Reasons: 6M Follow Up Allergies egg Allergy (Intermediate, Verified 04/01/23 14:27) Unknown grass pollen Allergy (Intermediate, Verified 04/01/23 14:27) Unknown pear Allergy (Intermediate, Verified 04/01/23 14:27) Unknown tree and shrub pollen Allergy (Intermediate, Verified 04/01/23 14:27) Unknown nuts,apple, starwberries Allergy (Unknown, Uncoded 04/01/23 14:10) Unknown HPI HPI Comments History of Present Illness Details Prashanth is a very pleasant Bengali female. She is a patient of Dr. Burton. She is seen for the following urologic conditions - interstitial cystitis - recurring UTI - microscopic hematuria Telemedicine Evaluation [address] Cherry Video attempted Continue stability with diet Amitriptyline to 1/2 25 mg q.h.s. Pelvic floor is significantly relaxed with combination of pelvic floor physical therapy and pessary for support Bidet attachment discussed Famotidine for IC Stable with current diet Undergoing evaluation for hysterectomy Has prescription for 100 mg Macrobid to be used after intimacy Recurring UTI Investigations - 12/19 E coli bennett resistant sensitive to Macrobid Interstitial cystitis: The interstitial cystitis was diagnosed 2019 on cystoscopy hydrodistention. Current symptoms include Currently stable. Aggravating factors include intercourse. Alleviating factors include bladder training, dietary changes - Jan 2020 Hydrodistention, 02/19 hydrodistention, D-mannose per Dr. Roberson Prior testing included a cystoscopy, showing stiffening of bladder wall Prior therapy Elmiron - off target effect dry eyes, limited gabapentin with amitriptyline during IC flare, IC instillations PFSH Medical History Allergic rhinitis Anemia Asthma Bloating E. coli urinary tract infection Family history of colon cancer in mother GERD (gastroesophageal reflux disease) History of abnormal uterine bleeding History of urinary incontinence Hx of hypercholesterolemia Hx of iron deficiency Hx of renal calculi Interstitial cystitis (chronic) with hematuria Menorrhagia Pelvic pain Perforated right tympanic membrane on examination Pure hypercholesterolemia Vitamin D deficiency Surgical History Hx of dilation and curettage History of esophagogastroduodenoscopy (EGD) H/O colonoscopy S/P cystoscopy (~02/22/20) History of tubal ligation History of placement of ear tubes History of nasal surgery Family History Mother History of colon cancer Father History of cancer of stomach Social History Household Members: Spouse and Children Housing: House Alcohol intake: never Comment: cramping Patient Tobacco Use Status: Never used Tobacco e-Cigarette/Vaping Use: Never Used Second Hand Smoke Exposure: Yes service: No Current occupational status: employed Cognitive needs: No Hearing needs: No Vision needs: No Female Reproductive History Menstrual Age of Menarche: 15 Review of Systems Const All systems reviewed & are unremarkable except as noted in HPI and below Reports no additional complaints Resp Reports no additional complaints GI Reports no additional complaints Reports as per HPI Musc Reports no additional complaints Physical Exam Telemedicine evaluation Appropriate responses Regular breathing rate and rhythm HEENT Head: Yes normal to inspection Ears: hearing grossly normal bilaterally Eyes General: appearance normal, both eyes and all related structures Neck Neck: Yes normal visual inspection Chest Chest palpation & inspection: normal inspection of the chest Resp Effort & Inspection: normal respiratory effort and able to speak in complete sentences Assessment & Plan Assessment & Plan (1) Interstitial cystitis (chronic) with hematuria: Code(s): N30.11 - Interstitial cystitis (chronic) with hematuria Plan Refill medications Medications: New nitrofurantoin macrocrystal take one tab after intimacy 100 mg PO BEDTIME 90 caps 0RF B96.20 - Unspecified Escherichia coli [E. coli] as the cause of diseases classified elsewhere, N39.0 - Urinary tract infection, site not specified Changed From amitriptyline PO To amitriptyline 1/2 tab before bed 25 mg PO BEDTIME 90 days 90 tabs 1RF Patient Instructions: Imaging studies, laboratory and physical exam results were discussed and reviewed in detail. No major barriers to patient understanding were identified. An opportunity to ask questions regarding the treatment plan was provided. All questions were answered. The patient expressed understanding and agreement with the above treatment plan. The patient is aware they should contact our office by phone for worsening of their current condition or the appearance of new urologic symptoms. Compliance is encouraged with any medications and followup testing that is ordered. It is a privilege to participate in the urologic care of your patient. If you have any questions or concerns regarding treatment for the above conditions, or other urologic issues, please do not hesitate to contact me. The office telephone contact is [phone]. This note is constructed using voice recognition software. While every effort has been made to ensure accuracy food and beverage intern errors may have been included. Yours sincerely, Dr Willie Carson MD, [facility] - Urology Providers of Expert, Compassionate Care for the Genitourinary System Telehealth Telehealth Location of provider rendering services: practice address Location of patient: address on file Patient Identification confirmed using: Name, : Yes Telehealth method: video Patient verbally consented to treatment: Yes Patient verbally consented to billing insurance company: Yes Patient informed of any privacy concerns related to visit: Yes Coding Level of Care Code Tele Est Pt Level 3 (26433) Diagnoses Interstitial cystitis (chronic) with hematuria N30.11
== END 2023-06-14 11:45 | disposition home or self-care (01) ==
LOC: HO.HUSH 11:33
PROVIDERS: PCP Internal Medicine; Visit Provider Urology
DX: N30.11 Interstitial cystitis (chronic) with hematuria (principal)
CPT/HCPCS: 99213

== ENCOUNTER → 2023-06-14 11:33 | Outpatient (BNVA) | payer OTHER, SELFPAY | PROVIDERS: PCP Internal Medicine; Visit Provider Urology ==

== ENCOUNTER 2023-07-24 09:06 | Outpatient (AMB) | payer OTHER, SELFPAY ==
[2023-07-24 09:09] VITALS: BP 130/88; PULSE 77; O2SAT 99; BMI 22.0
--- NOTE | 2023-07-24 09:09 | A.OFFPC_ITS ---
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 Slag Required: No Accompanied by: Self / Same As Patient Allergies egg Allergy (Intermediate, Verified 07/24/23 09:30) Unknown grass pollen Allergy (Intermediate, Verified 07/24/23 09:30) Unknown pear Allergy (Intermediate, Verified 07/24/23 09:30) Unknown tree and shrub pollen Allergy (Intermediate, Verified 07/24/23 09:30) Unknown nuts,apple, starwberries Allergy (Unknown, Uncoded 07/24/23 09:30) Unknown Medication List - Last Reconciled 07/24/23 by Saulo Burton MD albuterol sulfate 2.5 mg (3 mL) inhalation Q6H PRN 30 days albuterol sulfate 90 mcg/actuation (Ventolin HFA) 2 puffs inhalation Q6H PRN 30 days amitriptyline 25 mg PO BEDTIME 90 days atorvastatin 10 mg PO BEDTIME 90 days benzonatate 100 mg PO TID bismuth subsalicylate (Bismatrol) 2 tabs PO .QD cholecalciferol (vitamin D3) 50 mcg PO DAILY epinephrine IM esomeprazole magnesium (Nexium) 40 mg PO DAILY estradiol 0.01%(0.1mg/gram) vaginal famotidine (Pepcid) 20 mg PO BEDTIME ferrous sulfate 325 mg PO DAILY 90 days fluticasone propionate 50 mcg/actuation 1 spray intranasal DAILY hydrocodone-chlorpheniramine 10-8 mg/5 mL 5 mL PO Q12H PRN 7 days loratadine (Claritin) 10 mg PO DAILY nitrofurantoin macrocrystal 100 mg PO BEDTIME phenazopyridine 100 mg PO Q8H 20 days sertraline 25 mg PO DAILY 30 days Tobacco use date assessed: 07/24/23 Dental Screening Dental Screen Date: 07/24/23 Did you have a dental visit in the last 12 months?: No Did you have a dental problem in the last 6 months where you did not have access to dental care?: No Was dental information given to patient?: Patient has dentist HPI Annual exam HPI Details Patient comes in today for her annual physical examination States that she feels okay She denies any headaches or dizziness Denies any chest pains, no SOB No nausea/vomiting, no abdominal pain but reports feeling bloated often lately States that she has had trouble with bowel movements at times recently and finds herself having to strain a lot when moving her bowels but is sometimes unsuccessful She denies any acute urinary symptoms Needs a couple of Rx refilled, including Loratadine-D for her allergy symptoms and her Vitamin D Rx She has not yet gotten her follow up labs done recently Had her screening colonoscopy done previously with Dr. Goodwin in July 2020 and she was recommended to get a repeat colonoscopy in 5 years (July 2025) [facility] Medical History Vitamin D deficiency Anemia Asthma Interstitial cystitis (chronic) with hematuria Pure hypercholesterolemia E. coli urinary tract infection Pelvic pain Bloating Perforated right tympanic membrane on examination Menorrhagia Family history of colon cancer in mother Allergic rhinitis GERD (gastroesophageal reflux disease) Hx of hypercholesterolemia History of abnormal uterine bleeding Hx of renal calculi History of urinary incontinence Hx of iron deficiency Surgical History Hx of dilation and curettage History of esophagogastroduodenoscopy (EGD) H/O colonoscopy S/P cystoscopy (~02/22/20) History of tubal ligation History of placement of ear tubes History of nasal surgery Family History Mother History of colon cancer Father History of cancer of stomach Social History Household Members: Spouse and Children Housing: House Alcohol intake: never Comment: cramping Patient Tobacco Use Status: Never used Tobacco e-Cigarette/Vaping Use: Never Used Second Hand Smoke Exposure: Yes service: No Current occupational status: employed Cognitive needs: No Hearing needs: No Vision needs: No Female Reproductive History Menstrual Age of Menarche: 15 Questionnaire PHQ-9 Over the last 2 weeks, how often have you been bothered by any of the following problems? 1. Little interest or pleasure in doing things: not at all 2. Feeling down, depressed, or hopeless: not at all 3. Trouble falling or staying asleep, or sleeping too much: not at all 4. Feeling tired or having little energy: not at all 5. Poor appetite or overeating: not at all 6. Feeling bad about yourself - or that you are a failure or have let yourself or your family down: not at all 7. Trouble concentrating on things, such as reading the newspaper or watching television: not at all 8. Moving or speaking so slowly that other people could have noticed. Or the op posite - being so fidgety or restless that you have been moving around a lot more than usual: not at all 9. Thoughts that you would be better off or of hurting yourself in some way: not at all Total score: 0 Depression Screening Interpretation: Negative Depression Screening Done: Yes 98784 - PHQ-9 Billing: Yes Source: Developed by Drs. Matty Bhandari, Kym Watson, Terrance Reyna and colleagues, with an educational kristi from [employer]. Thrive Questionnaire Date Thrive assessed: 07/24/23 I am a: Patient What is your living situation today?: I have a steady place to live Within the past 12 months, did the food you bought not last and you didn't have the money to get more?: Never true Within the past 12 months, did you worry whether your food would run out before you got money to buy more?: Never true Do you have trouble paying for medicines?: No Do you have trouble getting transportation to medical appointments?: No Do you have trouble paying your heating and electricity bill?: No Do you have trouble taking care of your child, family member or friend?: No Do you have trouble with day-to-day activities such as bathing, preparing meals, shopping, managing finances, etc.?: No Are you currently unemployed and looking for a job?: No Are you interested in more education?: No Please select the resources that you would like help with: None Currently or been in a relationship where the following occur: no concerns reported THRIVE Score: 0 AUDIT C Alcohol Use Questionnaire (AUDIT-C) 1. How often do you have a drink containing alcohol?: Never 3. How often do you have six or more drinks on one occasion?: Never Total Score: 0 Score Reviewed/Action Taken: Yes KASHMIR-7 AMB Questionnaire KASHMIR-7 Date KASHMIR - 7 assessed: 07/24/23 Feeling nervous, anxious, or on edge: 0 = Not at all Not being able to stop or control worryin = Not at all Worrying too much about different things: 0 = Not at all Trouble relaxin = Not at all Being so restless that it is hard to sit still: 0 = Not at all Becoming easily annoyed or irritable: 0 = Not at all Feeling afraid as if something awful might happen: 0 = Not at all Total KASHMIR-7 score (0-4 normal; 5-9 mild; 10-14 moderate; 15-21 severe): 0 Source: Developed by Drs. Matty Bhandari, Kym Watson, Terrance Reyna and colleagues, with an educational kristi from [employer]. Review of Systems Const Denies chills, Denies fatigue, Denies fever(s), Denies headache(s) and Denies malaise Eyes Denies blurry vision, Denies change in vision, Denies irritation and Denies itchy eyes ENT Denies dysphagia, Denies dizziness, Denies otalgia (but still has recurrent right ear discomfort), Denies headache(s), Reports nasal congestion (on and off), Denies neck pain, Denies odynophagia, Denies sinus pain and Denies sore throat Card Denies chest pain, Denies rapid heart rate, Denies irregular heart rhythm, Denies palpitations and Denies dyspnea Resp Denies chest congestion, Denies cough, Denies dyspnea and Denies wheezing GI Denies abdominal pain, Reports bloating (on and off), Reports constipation (increased lately), Denies dysphagia, Denies heartburn, Denies diarrhea, Denies nausea, Denies odynophagia and Denies vomiting Denies hematuria, Denies urinary frequency, Denies dysuria, Denies urinary incontinence and Denies urinary urgency Musc Denies back pain, Denies arthralgias, Denies joint swelling, Denies muscle wea kness and Denies neck pain Skin/Breast Denies breast pain, Denies breast mass, Denies change in pigmentation, Denies lesions, Denies rash and Denies unusual bruising Neuro Denies dizziness, Denies headache(s) and Denies paresthesias Psych Denies anxiety and Denies depression Endo Denies fatigue and Denies palpitations Deshawn/Lymph Denies easy bruising Aller/Immun Denies itchy eyes and Denies wheezing Physical exam (Primary Care) Vital Signs: Last Vital Signs Pulse 77 07/24/23 09:09 BP 130/88 07/24/23 09:09 Pulse Ox 99 07/24/23 09:09 Oxygen Delivery Method Room Air 07/24/23 09:09 BMI result Body Mass Index 22.0 Tobacco/Smoking Status: Tobacco use Status Tobacco use date assessed 07/24/23 07/24/23 09:12 Patient Tobacco Use Status Never used Tobacco 07/24/23 09:12 e-Cigarette/Vaping Use Never Used 07/24/23 09:12 PHQ-9: PHQ-9 Score PHQ-9: Total score 0 07/24/23 09:18 Depression Screening Interpretation: Negative Thrive Assessment: Date of Thrive Assessment Date Thrive assessed 07/24/23 07/24/23 09:12 Currently or been in a relationship where the following occur: no concerns reported Const General: no acute distress, alert and awake Orientation/consciousness: patient oriented x3 HENMT Head: Yes normocephalic and Yes atraumatic Ears: external ears normal, TM's normal bilaterally and EAC's normal General nose exam: No nasal discharge present Face and sinus: Yes normal facial exam and Yes sinuses nontender Teeth and gingiva: dentition normal Throat: Yes posterior oropharynx normal and Yes tonsils normal (no TP congestion) Eyes Eyelids: Yes eyelids normal Conjunctivae: conjunctivae normal Pupils: Equal, round and reactive pupils present EOM: EOMs intact bilaterally Neck Neck: Yes no lymphadenopathy and Yes supple Thyroid: Thyroid normal Resp Auscultation: clear to auscultation bilaterally, no rales and no wheezes Cardio Rate: regular rate Rhythm: regular rhythm Heart sounds: no murmurs GI Palpation (GI): Soft to palpation, nontender and No hepatosplenomegaly present Auscultation: normal bowel sounds General: Yes no CVA tenderness Back/Spine/Pelvis Back: no CVA tenderness Thoracic/Lumbar Spine: thoracic and lumbar spine normal to inspection Skin Lesions: no lesions Rashes: no rashes Neuro General: patient oriented x3, moves all extremities, no focal motor deficits and CN's II-XI intact bilaterally Cranial nerves: Yes Equal, round and reactive pupils present Cognition (Neuro): normal cognition Gait exam (Neuro): Normal gait present Extrem General: Yes no clubbing, cyanosis or edema Assessment and Plan Assessment & Plan (1) Annual physical exam: Code(s): Z00.00 - Encounter for general adult medical examination without abnormal findings Plan: Check labs She is up-to-date with her colon cancer screening - due for repeat in July 2025 She will need to get her annual pap smear/gynecology exam and annual mammogram updated (2) Constipation: Code(s): K59.00 - Constipation, unspecified Qualifiers: Constipation type: unspecified constipation type Qualified Code(s): K59.00 - Constipation, unspecified Plan: Patient is encouraged to increase her oral fluids and dietary fiber intake Will start her on Senna 8.6 mg Q HS PRN (3) Pure hypercholesterolemia: Code(s): E78.00 - Pure hypercholesterolemia, unspecified Plan: Reinforced low cholesterol diet Continue Atorvastatin 10 mg QD Will recheck fasting lipids and labs again in 4 months for follow up (4) Chronic cough: Code(s): R05 - Cough Plan: Much improved since she started getting allergy injections weekly - to continue her injections with transport corps officer Continue Albuterol HFA 2 inhalations every 6 hours as needed (5) Allergic rhinitis: Comment: CHRONIC ALLERGIC , Currently seems to be controlled with only minimal symptoms. TX: Continue Zyrtec 10 mg once a day p.r.n.. Flonase nasal spray 2 spray each nostril daily. Use steam. Inhalations p.r.n. Continue immunotherapy. Code(s): J30.9 - Allergic rhinitis, unspecified Qualifiers: Allergic rhinitis trigger: unspecified Allergic rhinitis seasonality: unspecified Qualified Code(s): J30.9 - Allergic rhinitis, unspecified Plan: Continue Fluticasone 50 mcg nasal spray QD PRN; was on Cetirizine 10 mg QD but is currently requesting Rx for Loratadine-D 12 hour BID PRN (Rx sent) She continues to receive allergy injections/immunotherapy from transport corps officer's (Dr. Roldan's) office regularly (6) GERD (gastroesophageal reflux disease): Code(s): K21.9 - Gastro-esophageal reflux disease without esophagitis Qualifiers: Esophagitis presence: without esophagitis Qualified Code(s): K21.9 - Gastro-esophageal reflux disease without esophagitis Plan: Dietary restrictions reinforced Continue Pantoprazole 40 mg QD and Famotidine 20 mg QD Follow up with GI as scheduled (7) Interstitial cystitis: Code(s): N30.10 - Interstitial cystitis (chronic) without hematuria Plan: S/P hydrodistention by Dr. Carson in January 2022 with significant improvement of her symptoms Continue Amitriptyline 25 mg Q HS; used to also take Gabapentin 100 mg Q HS but appears to have been taken off Gabapentin a while back by urology Follow up with urology as scheduled (8) Anemia: Code(s): D64.9 - Anemia, unspecified Qualifiers: Anemia type: unspecified type Qualified Code(s): D64.9 - Anemia, unspecified Plan: Corrected - H/H were normal on her labs done last year; will recheck her CBC for follow up Continue FeSO4 325 mg QD (9) Vitamin D deficiency: Code(s): E55.9 - Vitamin D deficiency, unspecified Plan: Continue Vitamin D3 2000 units QD Will recheck her Vitamin D level for follow up (10) Perforated eardrum: Code(s): H72.90 - Unspecified perforation of tympanic membrane, unspecified ear Qualifiers: Laterality: right Qualified Code(s): H72.91 - Unspecified perforation of tympanic membrane, right ear Plan: She has been referred to ENT previously for further evaluation and management Patient has been advised that her perforated right eardrum is most likely the reason for her frequent right ear discomfort (11) Uterine prolapse: Comment: With mild central defect cystocele Code(s): N81.4 - Uterovaginal prolapse, unspecified Plan: Follow up with OB-Computer Technical Support Specialist as scheduled Has tried pessary last year without any significant improvement of her symptoms Has been using a Uresta device ([id number]), which she states help somewhat with her symptoms (12) Uterine fibroid: Code(s): D25.9 - Leiomyoma of uterus, unspecified Qualifiers: Uterine leiomyoma location: unspecified location Qualified Code(s): D25.9 - Leiomyoma of uterus, unspecified Plan: Patient underwent a non-diagnostic hysteroscopy a couple of months ago in August 2022 - procedure was not completed due to extensive scarring in the uterus that made it impossible to visualize the endometrium Follow up with OB-Computer Technical Support Specialist as scheduled (13) Hot flashes: Code(s): R23.2 - Flushing Plan: Continue Sertraline 25 mg QD (14) Breast cancer screening by mammogram: Code(s): Z12.31 - Encounter for screening mammogram for malignant neoplasm of breast Plan: Will send her for her annual mammogram to get this updated (15) Cervical cancer screening: Code(s): Z12.4 - Encounter for screening for malignant neoplasm of cervix Plan: Will refer her back to OB-Computer Technical Support Specialist for her annual pap smear and gynecology exam Plan Follow up in 4 months Orders: Orders UA CC w/rflx Micro + Cult Today R30.0 - Dysuria Vitamin D 25-OH Total Today E55.9 - Vitamin D deficiency, unspecified Lipid Panel 4 Months E78.00 - Pure hypercholesterolemia, unspecified Complete Blood Count Auto Diff Today D64.9 - Anemia, unspecified Comprehensive Evans. Panel Fast Today E78.00 - Pure hypercholesterolemia, unspecified Lipid Panel Today E78.00 - Pure hypercholesterolemia, unspecified TSH reflex Free T4 Today E78.00 - Pure hypercholesterolemia, unspecified Hemoglobin A1c Today R73.9 - Hyperglycemia, unspecified MM tomosynthesis screening BI Today Z12.31 - Encounter for screening mammogram for malignant neoplasm of breast Comprehensive Evans. Panel Fast 4 Months E78.00 - Pure hypercholesterolemia, unspecified Referrals MONOGRAM OPERATOR Referral Z12.4 - Encounter for screening for malignant neoplasm of cervix Medications: New loratadine-pseudoephedrine 5-120 mg ER (Loratadine-D) 1 tab PO Q12H PRN 60 tabs 1RF allergy symptoms sennosides (senna) 8.6 mg PO BEDTIME PRN 30 caps 3RF constipation Refilled cholecalciferol (vitamin D3) 50 mcg PO DAILY 90 caps 3RF R79.89 - Other specified abnormal findings of blood chemistry Coding Level of Care Code Est Pt Prev Care 40-64y(61966) Diagnoses Annual physical exam Z00.00 Constipation, unspecified constipation type K59.00 Constipation type: unspecified constipation type Pure hypercholesterolemia E78.00 Chronic cough R05 Allergic rhinitis, unspecified seasonality, unspecified trigger J30.9 Allergic rhinitis trigger: unspecified Allergic rhinitis seasonality: unspecified Gastroesophageal reflux disease without esophagitis K21.9 Esophagitis presence: without esophagitis Interstitial cystitis N30.10 Anemia, unspecified type D64.9 Anemia type: unspecified type Vitamin D deficiency E55.9 Perforation of right tympanic membrane H72.91 Laterality: right Uterine prolapse N81.4 Uterine leiomyoma, unspecified location D25.9 Uterine leiomyoma location: unspecified location Hot flashes R23.2 Breast cancer screening by mammogram Z12.31 Cervical cancer screening Z12.4
== END 2023-07-24 10:20 | disposition home or self-care (01) ==
PROVIDERS: PCP Internal Medicine; Visit Provider Internal Medicine
DX: Z00.00 Encounter for general adult medical examination without abnormal findings (principal); K59.00 Constipation, unspecified; E78.00 Pure hypercholesterolemia, unspecified; R05.9 Cough, unspecified; J30.9 Allergic rhinitis, unspecified; K21.9 Gastro-esophageal reflux disease without esophagitis; N30.10 Interstitial cystitis (chronic) without hematuria; D64.9 Anemia, unspecified; E55.9 Vitamin D deficiency, unspecified; H72.91 Unspecified perforation of tympanic membrane, right ear; N81.4 Uterovaginal prolapse, unspecified; R23.2 Flushing
CPT/HCPCS: 99396

== ENCOUNTER 2023-08-28 13:43 | Outpatient (REF) | payer OTHER, SELFPAY | END 2023-08-28 13:44 | disposition home or self-care (01) | LOC: HO.MAMMO 13:43 | PROVIDERS: PCP Internal Medicine; Visit Provider Internal Medicine | DX: Z12.31 Encounter for screening mammogram for malignant neoplasm of breast (principal) | CPT/HCPCS: 77063; 77067 ==

== ENCOUNTER → 2023-08-28 14:15 | Outpatient (BNV) | payer OTHER, SELFPAY | PROVIDERS: PCP Internal Medicine; Visit Provider Radiology Diagnostic Radiology | DX: Z12.31 Encounter for screening mammogram for malignant neoplasm of breast (principal) | CPT/HCPCS: 77063; 77067 ==

== ENCOUNTER 2023-08-28 14:27 | Outpatient (AMB) | payer OTHER, SELFPAY ==
[2023-08-28 15:10] VITALS: BP 148/88; PULSE 70; BMI 22.5
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
== END 2023-08-28 15:53 | disposition home or self-care (01) ==
PROVIDERS: PCP Internal Medicine; Visit Provider Physician Assistant
DX: T22.011A Burn of unspecified degree of right forearm, initial encounter (principal); J45.909 Unspecified asthma, uncomplicated
CPT/HCPCS: 99213

== ENCOUNTER 2023-09-10 11:28 | Outpatient (REF) | payer OTHER, SELFPAY ==
[2023-09-10 13:08] LABS: Appearance Urine Hazy; Color Urine Orange; Leukocyte Esterase Urine Trace (Negative); Nitrite Urine Positive (Negative); Specific Gravity - Urine 1.015 (1.005-1.025); UMIC TRIGGER UA YES; Urine Blood Negative (Negative); Urine Ketones Negative (Negative); Urine Protein Trace mg/dL (Neg-Trace)
[2023-09-10 13:10] LABS: Bacteria Urine None Seen (None Seen); Hyaline Casts Urine 0-2 /LPF (0-2); RBC Urine 0-2 /HPF (0-2); WBC Urine 0-5 /HPF (0-5)
== END 2023-09-10 11:29 | disposition home or self-care (01) ==
LOC: HO.LAB 11:28
PROVIDERS: PCP Internal Medicine; Visit Provider Urology
DX: N30.10 Interstitial cystitis (chronic) without hematuria (principal); R32 Unspecified urinary incontinence; B96.20 Unspecified Escherichia coli [E. coli] as the cause of diseases classified elsewhere; R30.0 Dysuria
CPT/HCPCS: 81001; 87086

== ENCOUNTER 2023-10-15 11:20 | Outpatient (REF) | payer OTHER, SELFPAY ==
[2023-10-15 11:32] LABS: MANUAL DIFF FLAG NO
[2023-10-15 11:49] LABS: Basophils Absolute Auto 0.1 X10*3/uL (0.0-0.2); Basophils Percent Auto 1.2 % (0-2); Eosinophils Absolute Auto 0.1 X10*3/uL (0.0-0.4); Eosinophils Percent Auto 2.5 % (0-4); Hematocrit 42.6 % (37.0-47.0); Hemoglobin 14.3 g/dl (12.0-16.0); Imm Gran Abs Auto 0.01 X10*3/uL (0.00-0.03); Imm Gran Pct Auto 0.2 % (0.0-0.4); Lymphocytes Absolute Auto 1.7 X10*3/uL (1.2-4.9); Lymphocytes Percent Auto 35.1 % (20-40); Mean Corpuscular HGB Conc 33.6 g/dl (31.0-35.0); Mean Corpuscular Hemoglobin 28.3 pg (27.0-33.0); Mean Corpuscular Volume 84.4 fL (80.0-98.0); Mean Platelet Volume 10.8 fL (9.4-12.3); Monocytes Absolute Auto 0.3 X10*3/uL (0.1-1.2); Monocytes Percent Auto 6.4 % (2-11); Neutrophils Absolute Auto 2.7 x10*3/uL (2.0-8.3); Neutrophils Percent Auto 54.6 % (45-73); Platelet Count 167 X10*3/uL (160-400); Red Blood Count 5.05 X10*6/uL (4.20-5.50); Red Cell Distribution Width 11.8 % (11.0-16.0); White Blood Count 4.9 X10*3/uL (4.8-10.8)
[2023-10-15 11:57] LABS: Appearance Urine Clear; Color Urine Yellow; Glucose Urine UA Negative (Negative); Leukocyte Esterase Urine Negative (Negative); Nitrite Urine Negative (Negative); Urine Blood Negative (Negative); Urine Ketones Negative (Negative); Urine Protein Negative (Neg-Trace)
[2023-10-15 13:31] LABS: Estimated Average Glucose 114 mg/dL; Hemoglobin A1c % 5.6 % (<6.0)
[2023-10-15 17:56] LABS: Alanine Aminotransferase 12 U/L (0-31); Albumin Level 4.5 g/dL (3.5-5.0); Alkaline Phosphatase 50 U/L (39-117); Anion Gap 9 (12-20); Aspartate Amino Transferase 12 U/L (5-31); Bilirubin Total 0.5 mg/dL (0.0-1.0); Blood Urea Nitrogen 16 mg/dL (9-16); Calcium 9.3 mg/dL (8.4-10.2); Carbon Dioxide 31 mmol/L (22-29); Chloride 106 mmol/L (96-108); Cholesterol 269 mg/dL (<200); Estimated Glomerular Filt Rate > 60; Glucose Fasting 101 mg/dL (60-99); HDL Cholesterol 53 mg/dL (>40); LDL Cholesterol Calculated 196 mg/dL (<100); Potassium 3.8 mmol/L (3.3-5.1); Sodium 142 mmol/L (135-145); Total Protein 7.3 g/dL (6.5-8.0); Triglycerides 102 mg/dL (<150)
[2023-10-15 18:16] LABS: TSH reflex Free T4 2.41 uIU/mL (0.32-4.0); Vitamin D 25-OH Total 30.4 ng/mL (>30)
== END 2023-10-15 11:21 | disposition home or self-care (01) ==
LOC: HO.LAB 11:20
PROVIDERS: Visit Provider Internal Medicine
DX: R73.9 Hyperglycemia, unspecified (principal); D64.9 Anemia, unspecified; E78.00 Pure hypercholesterolemia, unspecified; E55.9 Vitamin D deficiency, unspecified; R30.0 Dysuria
CPT/HCPCS: 36415; 80053; 80061; 81003; 82306; 83036; 84443; 85025

== ENCOUNTER → 2023-12-16 14:14 | Outpatient (BNVA) | payer OTHER, SELFPAY | PROVIDERS: PCP Internal Medicine; Visit Provider Internal Medicine | DX: J45.909 Unspecified asthma, uncomplicated (principal); R05.9 Cough, unspecified | CPT/HCPCS: 99212 ==

== ENCOUNTER 2023-12-16 14:37 | Outpatient (AMB) | payer OTHER, SELFPAY ==
--- NOTE | 2023-12-16 14:44 | A.OFFVIS_ITS ---
Vital Signs 12/16/23 14:45 Height 5 ft 4 in Weight 136 lb 10.986 oz BMI 23.5 BP 130/64 Blood Pressure Location Rt brachial Position Sitting Pulse 74 Pulse Source Pulse Oximeter Pulse Oximetry (%) 98 Oxygen Delivery Method Room Air Intake Visit Reasons: asthma Allergies egg Allergy (Intermediate, Verified 12/16/23 14:49) Unknown grass pollen Allergy (Intermediate, Verified 12/16/23 14:49) Unknown pear Allergy (Intermediate, Verified 12/16/23 14:49) Unknown tree and shrub pollen Allergy (Intermediate, Verified 12/16/23 14:49) Unknown nuts,apple, starwberries Allergy (Unknown, Uncoded 12/16/23 14:49) Unknown HPI HPI asthma: Details: Prashanth is a pleasant 53-year-old female, never smoker with underlying asthma and allergic rhinitis. She is under the care of Dr. Greer. Today she presents for routine annual follow-up. She reports symptoms of allergic rhinitis and postnasal drip that has contributed to a dry cough. She denies wheezing, dyspnea or chest tightness. She is interested in restarting her montelukast. In the past she has had good relief with use of nebulizer, unfortunately her prior nebulizer is reportedly quite old and is not working at this time. She denies any visits to Urgent Care or hospitalizations related to asthma since the last visit. [facility] Medical History Vitamin D deficiency Anemia Asthma Interstitial cystitis (chronic) with hematuria Pure hypercholesterolemia E. coli urinary tract infection Pelvic pain Bloating Perforated right tympanic membrane on examination Menorrhagia Family history of colon cancer in mother Allergic rhinitis GERD (gastroesophageal reflux disease) Hx of hypercholesterolemia History of abnormal uterine bleeding Hx of renal calculi History of urinary incontinence Hx of iron deficiency Surgical History Hx of dilation and curettage History of esophagogastroduodenoscopy (EGD) H/O colonoscopy S/P cystoscopy (~02/22/20) History of tubal ligation History of placement of ear tubes History of nasal surgery Family History Mother History of colon cancer Father History of cancer of stomach Social History (Reviewed 12/16/23 @ 14:48 by Maegan Lnodon [facility] [address]) Household Members: Spouse and Children Housing: House Alcohol intake: never Comment: cramping Patient Tobacco Use Status: Never used Tobacco e-Cigarette/Vaping Use: Never Used Second Hand Smoke Exposure: Yes service: No Current occupational status: employed Cognitive needs: No Hearing needs: No Vision needs: No Female Reproductive History Menstrual Age of Menarche: 15 Review of Systems Const Denies chills, Denies excessive sweating, Denies fever(s), Denies headache(s) and Denies night sweats Eyes Denies dry eyes, Denies irritation and Denies itchy eyes ENT Reports Normal hearing present, Denies headache(s) and Denies sore throat Card Denies chest pain, Denies chest pain at rest, Denies chest pain with activity, Denies claudication, Denies leg edema, Denies dyspnea, Denies dyspnea on exertion, Denies orthopnea and Denies paroxysmal nocturnal dyspnea Resp Denies chest congestion, Denies excessive phlegm production, Denies pain on inspiration, Denies pain with cough, Denies dyspnea, Denies dyspnea on exertion, Denies stridor and Denies wheezing Musc Denies myalgias Neuro Reports Normal hearing present and Denies headache(s) Endo Denies excessive sweating Deshawn/Lymph Denies lymphadenopathy Aller/Immun Denies itchy eyes, Denies seasonal rhinorrhea and Denies wheezing Physical Exam Vital Signs: Last Vital Signs Pulse 74 12/16/23 14:45 BP 130/64 12/16/23 14:45 Pulse Ox 98 12/16/23 14:45 Oxygen Delivery Method Room Air 12/16/23 14:45 BMI result Body Mass Index 23.5 Const General: cooperative, healthy appearing, comfortable, no acute distress, well developed and alert Orientation/consciousness: patient oriented x3 Limitations: no limitations HEENT Head: Yes normal to inspection, Yes normocephalic and Yes atraumatic Ears: hearing grossly normal bilaterally and external ears normal Eyes General: appearance normal, both eyes and all related structures Eyelids: Yes eyelids normal Sclerae: sclerae normal EOM: EOMs intact bilaterally Neck Neck: Yes normal visual inspection and Yes no lymphadenopathy Lymphatic: no lymphadenopathy noted Chest Chest palpation & inspection: normal inspection of the chest Resp Other: Persistent dry cough throughout visit with diminished lung sounds, offered n ebulizer to be given in office however patient declined Effort & Inspection: normal respiratory effort, able to speak in complete sentences, no audible wheezes, no stridor, not tachypneic, no tripod positioning and no use of accessory muscles Cardio Jugular venous distension: no JVD Rate: regular rate Rhythm: regular rhythm Skin Other: warm, dry General skin exam: no rashes or lesions noted Neuro General: patient oriented x3 Cranial nerves: Yes Normal hearing present Cognition (Neuro): normal cognition Gait exam (Neuro): Normal gait present Extrem General: Yes normal to inspection, Yes capillary refill normal, Yes no clubbing, cyanosis or edema and Yes no pedal edema Psych Appearance: grossly normal and well kempt Speech and movement: Normal speech and movement present and Clear speech present Affect: normal affect Attitude: cooperative Thought process: Normal thought process present Thought content: Normal thought content present Insight: Good insight present (Psych) Judgement: Good judgement present (Psych) Assessment & Plan Assessment & Plan (1) Allergic rhinitis: Code(s): J30.9 - Allergic rhinitis, unspecified Category: Medical Qualifiers: Allergic rhinitis trigger: unspecified Allergic rhinitis seasonality: unspecified Qualified Code(s): J30.9 - Allergic rhinitis, unspecified (2) Cough: Code(s): R05.9 - Cough, unspecified Category: Medical (3) Asthma: Comment: 2 Code(s): J45.909 - Unspecified asthma, uncomplicated Category: Medical Plan Prashanth presents with worsening symptoms of allergic rhinitis, postnasal drip and asthma. Discussed restarting a daily inhaler during this time however patient would like to use nebulized therapy only. She has albuterol for nebulizer at home however reports issues with current nebulizer stating she received it many years ago and it has not been working. She was given nebulizer for home use in office. She was interested in restarting Singulair which she has tolerated well in the past, will send prescription as well as ipratropium nasal spray for persistent postnasal drip. She is aware if symptoms do not improve to call our office. Otherwise she will schedule a six-month follow-up with Dr. Greer as well. All questions were answered and patient is in agreement of plan. Medications: New ipratropium bromide administer into each nostril 2 sprays intranasal BID 30 mL 1RF montelukast (Singulair) 10 mg PO BEDTIME 30 tabs 3RF Coding Level of Care Code Est Pt Level 4 (72037) Diagnoses Allergic rhinitis, unspecified seasonality, unspecified trigger J30.9 Allergic rhinitis trigger: unspecified Allergic rhinitis seasonality: unspecified Cough R05.9 Asthma J45.909
[2023-12-16 14:45] VITALS: BP 130/64; PULSE 74; O2SAT 98; BMI 23.5
== END 2023-12-16 16:15 | disposition home or self-care (01) ==
PROVIDERS: PCP Internal Medicine; Visit Provider Nurse Practitioner Family
DX: J30.9 Allergic rhinitis, unspecified (principal); R05.9 Cough, unspecified; J45.909 Unspecified asthma, uncomplicated
CPT/HCPCS: 99214

== ENCOUNTER 2023-12-19 09:01 | Outpatient (AMB) | payer OTHER, SELFPAY ==
[2023-12-19 09:02] VITALS: BP 110/82; PULSE 77; O2SAT 98; BMI 22.3
--- NOTE | 2023-12-19 09:02 | A.OFFPC_ITS ---
Vital Signs 12/19/23 09:02 Height 5 ft 4 in Weight 130 lb 0.3 oz BMI 22.3 BP 110/82 Blood Pressure Location Lt brachial Position Sitting Pulse 77 Pulse Source Pulse Oximeter Pulse Oximetry (%) 98 Oxygen Delivery Method Room Air Intake Visit Reasons: 4mth f/u Follow Up [facility] [employer] Required: No Allergies egg Allergy (Intermediate, Verified 12/19/23 09:41) Unknown grass pollen Allergy (Intermediate, Verified 12/19/23 09:41) Unknown pear Allergy (Intermediate, Verified 12/19/23 09:41) Unknown tree and shrub pollen Allergy (Intermediate, Verified 12/19/23 09:41) Unknown nuts,apple, starwberries Allergy (Unknown, Uncoded 12/19/23 09:41) Unknown Medication List - Last Reconciled 12/19/23 by Saulo Burton MD albuterol sulfate 2.5 mg (3 mL) inhalation Q6H PRN 30 days albuterol sulfate 90 mcg/actuation (Ventolin HFA) 2 puffs inhalation Q6H PRN 30 days amitriptyline 25 mg PO BEDTIME 90 days atorvastatin 10 mg PO BEDTIME 90 days benzonatate 100 mg PO TID bismuth subsalicylate (Bismatrol) 2 tabs PO .QD cholecalciferol (vitamin D3) 50 mcg PO DAILY epinephrine IM esomeprazole magnesium (Nexium) 40 mg PO DAILY estradiol 0.01%(0.1mg/gram) vaginal famotidine (Pepcid) 20 mg PO BEDTIME ferrous sulfate 325 mg PO DAILY 90 days fluticasone propionate 50 mcg/actuation 1 spray intranasal DAILY hydrocodone-chlorpheniramine 10-8 mg/5 mL 5 mL PO Q12H PRN 7 days ipratropium bromide 2 sprays intranasal BID loratadine (Claritin) 10 mg PO DAILY loratadine-pseudoephedrine 5-120 mg ER (Loratadine-D) 1 tab PO Q12H PRN montelukast (Singulair) 10 mg PO BEDTIME mupirocin calcium 2% 1 appl topical BID 15 days nitrofurantoin macrocrystal 100 mg PO BEDTIME phenazopyridine 100 mg PO Q8H 20 days sennosides (senna) 8.6 mg PO BEDTIME PRN sertraline 25 mg PO DAILY 30 days Tobacco use date assessed: 12/19/23 Dental Screening Dental Screen Date: 07/24/23 HPI 4mth f/u Follow Up HPI Details Patient comes in today for her follow up visit States that she feels okay She denies any headaches or dizziness Denies any chest pains, no SOB No nauea/vomiting, no abdominal pain although her stomach has been feeling bloated lately No change in bowel habits noted She showed me a copy of her EGD and colonoscopy report on her cellphone from when the procedures were done in [place] last month - report in completely in [place] and it noted that there were some inflammation noted in her gastric mucosal lining suggestive of gastritis Patient states that she has been taking generic Esomeprazole for a while now but does not feel that it is helping as she has not noticed any significant relief of her symptoms Recalls that the branded Nexium worked very well for her in the past but her insurance declined to continue covering the Rx She had her follow up labs done a couple of months ago - to discuss her results [facility] Medical History (Updated 12/20/23 @ 00:48 by Saulo Burton MD) Vitamin D deficiency Anemia Asthma Interstitial cystitis (chronic) with hematuria Pure hypercholesterolemia E. coli urinary tract infection Pelvic pain Bloating Perforated right tympanic membrane on examination Menorrhagia Family history of colon cancer in mother Allergic rhinitis GERD (gastroesophageal reflux disease) Hx of hypercholesterolemia History of abnormal uterine bleeding Hx of renal calculi History of urinary incontinence Hx of iron deficiency Surgical History Hx of dilation and curettage History of esophagogastroduodenoscopy (EGD) H/O colonoscopy S/P cystoscopy (~02/22/20) History of tubal ligation History of placement of ear tubes History of nasal surgery Family History Mother History of colon cancer Father History of cancer of stomach Social History Household Members: Spouse and Children Housing: House Alcohol intake: never Comment: cramping Patient Tobacco Use Status: Never used Tobacco e-Cigarette/Vaping Use: Never Used Second Hand Smoke Exposure: Yes service: No Current occupational status: employed Cognitive needs: No Hearing needs: No Vision needs: No Female Reproductive History Menstrual Age of Menarche: 15 Questionnaire Thrive Questionnaire Date Thrive assessed: 07/24/23 AUDIT C Alcohol Use Questionnaire (AUDIT-C) 1. How often do you have a drink containing alcohol?: Never 3. How often do you have six or more drinks on one occasion?: Never Total Score: 0 Score Reviewed/Action Taken: Yes KASHMIR-7 AMB Questionnaire KASHMIR-7 Date KASHMIR - 7 assessed: 07/24/23 Source: Developed by Drs. Matty Bhandari, Kym Watson, Terrance mcdonald nd colleagues, with an educational kristi from [employer]. Review of Systems Const Denies chills, Denies fatigue, Denies fever(s) and Denies headache(s) ENT Denies dysphagia, Denies dizziness, Denies otalgia, Denies headache(s), Denies neck pain, Denies odynophagia and Denies sore throat Card Denies chest pain, Denies irregular heart rhythm, Denies palpitations and Denies dyspnea Resp Denies chest congestion, Denies cough, Denies dyspnea and Denies wheezing GI Denies abdominal pain, Reports bloating (on and off), Reports constipation (on and off), Denies dysphagia, Denies heartburn, Denies diarrhea, Denies nausea, Denies odynophagia and Denies vomiting Denies hematuria, Denies urinary frequency, Denies dysuria, Denies urinary incontinence and Denies urinary urgency Musc Denies back pain, Denies arthralgias and Denies neck pain Skin/Breast Denies rash Neuro Denies dizziness, Denies headache(s) and Denies paresthesias Psych Denies anxiety and Denies depression Endo Denies fatigue and Denies palpitations Deshawn/Lymph Denies easy bruising Aller/Immun Denies wheezing Physical exam (Primary Care) Vital Signs: Last Vital Signs Pulse 77 12/19/23 09:02 BP 110/82 12/19/23 09:02 Pulse Ox 98 12/19/23 09:02 Oxygen Delivery Method Room Air 12/19/23 09:02 BMI result Body Mass Index 22.3 Tobacco/Smoking Status: Tobacco use Status Tobacco use date assessed 12/19/23 12/19/23 09:03 Patient Tobacco Use Status Never used Tobacco 12/19/23 09:03 e-Cigarette/Vaping Use Never Used 12/19/23 09:03 Thrive Assessment: Date of Thrive Assessment Date Thrive assessed 07/24/23 12/19/23 09:03 Const General: no acute distress and alert HENMT Ears: TM's normal bilaterally and EAC's normal Throat: Yes posterior oropharynx normal and Yes tonsils normal (no TP congestion) Neck Neck: Yes no lymphadenopathy and Yes supple Thyroid: Thyroid normal Resp Auscultation: clear to auscultation bilaterally, no rales and no wheezes Cardio Rate: regular rate Rhythm: regular rhythm Heart sounds: no murmurs GI Palpation (GI): Soft to palpation and nontender Auscultation: normal bowel sounds General: Yes no CVA tenderness Back/Spine/Pelvis Back: no CVA tenderness Thoracic/Lumbar Spine: No lumbar spinal tenderness Skin Rashes: no rashes Extrem General: Yes no clubbing, cyanosis or edema Results Reviewed Results Reviewed: Laboratory Tests 10/15/23 10/15/23 11:22 11:31 WBC 4.9 Hgb 14.3 Hct 42.6 Plt Count 167 Sodium 142 Potassium 3.8 Creatinine 0.67 Estimated GFR > 60 Fasting Glucose 101 H Hemoglobin A1c % 5.6 Calcium 9.3 AST 12 ALT 12 Triglycerides 102 Cholesterol 269 H LDL Cholesterol, Calc 196 H HDL Cholesterol 53 25-OH Vitamin D Total 30.4 L TSH 2.41 Ur Specific [place] 1.020 Urine Protein Negative Urine Glucose (UA) Negative Urine Blood Negative Urine Nitrite Negative Ur Leukocyte Esterase Negative Assessment and Plan Assessment & Plan (1) Pure hypercholesterolemia: Code(s): E78.00 - Pure hypercholesterolemia, unspecified Plan: Results of her labs done a couple of months ago reviewed and discussed with patient - she is advised that her cholesterol levels have increased significantly and have almost doubled from previous Reinforced low cholesterol diet Patient admitted that she stopped taking her cholesterol medication as she wanted to see if she can keep her cholesterol levels controlled with diet modification alone but agrees to go back on her Rx Will restart her on Atorvastatin 10 mg QD Will recheck fasting lipids and labs in 4 months for follow up (2) Constipation: Code(s): K59.00 - Constipation, unspecified Qualifiers: Constipation type: unspecified constipation type Qualified Code(s): K59.00 - Constipation, unspecified Plan: Patient is again encouraged to increase her oral fluids and dietary fiber intake Continue Senna 8.6 mg Q HS PRN (3) Chronic cough: Code(s): R05 - Cough Plan: States that this is much improved since she started getting weekly allergy injections Continue Albuterol HFA 2 inhalations every 6 hours as needed Follow up with her tariff inspector as scheduled (4) Asthma: Comment: 2 Code(s): J45.909 - Unspecified asthma, uncomplicated Qualifiers: Asthma severity: mild Asthma persistence: intermittent Asthma complication type: uncomplicated Qualified Code(s): J45.20 - Mild intermittent asthma, uncomplicated Plan: Better controlled Continue Montelukast 10 mg QD and Albuterol nebulizer solution via updraft Q 6 hours PRN She reportedly declined offer by pulmonary to start her on a controller inhaler recently Follow up with pulmonary as scheduled (5) Allergic rhinitis: Code(s): J30.9 - Allergic rhinitis, unspecified Qualifiers: Allergic rhinitis trigger: unspecified Allergic rhinitis seasonality: unspecified Qualified Code(s): J30.9 - Allergic rhinitis, unspecified Plan: Continue Fluticasone 50 mcg nasal spray QD PRN and Loratadine-D 12 hour BID PRN (used to take Cetirizine but finds that the ones combined with a decongestant works better for her) She continues to receive allergy injections/immunotherapy from tariff inspector's (Dr. Roldan's) office regularly (6) GERD (gastroesophageal reflux disease): Code(s): K21.9 - Gastro-esophageal reflux disease without esophagitis Qualifiers: Esophagitis presence: without esophagitis Qualified Code(s): K21.9 - Gastro-esophageal reflux disease without esophagitis Plan: Dietary restrictions reinforced Continue Famotidine 20 mg QD; she is currently on Esomeprazole 40 mg QD but feels that this is not helping as much as the branded Nexium but her insurance will not cover Nexium Will try switching her to Pantoprazole 40 mg QD to see if this will help better Follow up with GI as scheduled (7) Gastritis: Code(s): K29.70 - Gastritis, unspecified, without bleeding Qualifiers: Gastritis type: unspecified gastritis Chronicity: unspecified Gastritis bleeding: without bleeding Qualified Code(s): K29.70 - Gastritis, unspecified, without bleeding Plan: Patient reportedly had EGD and colonoscopy done last month when she was in [place] She showed me a copy of her EGD and colonoscopy report on her cellphone from when the procedures were done in [place] last month - report in completely in [place] and it noted that there were some inflammation noted in her gastric mucosal lining suggestive of gastritis Will switch her current Esomeprazole 40 mg to Pantoprazole 40 mg QD for now; continue Famotidine 20 mg QD Dietary restrictions reinforced Have advised patient to provide us with a printed copy of her EGD and colonoscopy report so we can scan these into her chart for future reference (8) Interstitial cystitis: Code(s): N30.10 - Interstitial cystitis (chronic) without hematuria Plan: S/P hydrodistention by Dr. Carson in January 2022 with significant improvement of her symptoms Continue Amitriptyline 25 mg Q HS; she also used to take Gabapentin 100 mg Q HS but appears to have been taken off Gabapentin a while back by urology Follow up with urology as scheduled (9) Anemia: Code(s): D64.9 - Anemia, unspecified Qualifiers: Anemia type: unspecified type Qualified Code(s): D64.9 - Anemia, unspecified Plan: Corrected - H/H were normal on her labs done last year as well as a couple of months ago Continue FeSO4 325 mg QD Will continue to monitor her CBC regularly (10) Vitamin D deficiency: Code(s): E55.9 - Vitamin D deficiency, unspecified Plan: Continue Vitamin D3 2000 units QD (11) Perforated eardrum: Code(s): H72.90 - Unspecified perforation of tympanic membrane, unspecified ear Qualifiers: Laterality: right Qualified Code(s): H72.91 - Unspecified perforation of tympanic membrane, right ear Plan: She has been referred to ENT previously for further evaluation and management and a tympanoplasty was apparently attempted by Dr. Wang but the procedure failed Patient has been advised that her perforated right eardrum is the likely reason for her frequent right ear discomfort and she is reminded to try to keep any water from getting into her right ear as best as she can to minimize her right ear symptoms Follow up with ENT as scheduled (12) Uterine prolapse: Comment: With mild central defect cystocele Code(s): N81.4 - Uterovaginal prolapse, unspecified Plan: Follow up with [facility] as scheduled Has tried pessary last year without any significant improvement of her symptoms Has been using a Uresta device ([id number]), which she states helps somewhat with her symptoms (13) Uterine fibroid: Code(s): D25.9 - Leiomyoma of uterus, unspecified Qualifiers: Uterine leiomyoma location: unspecified location Qualified Code(s): D25.9 - Leiomyoma of uterus, unspecified Plan: Patient underwent a non-diagnostic hysteroscopy back in August 2022 - procedure was not completed due to extensive scarring in the uterus that made it impossible to visualize the endometrium Follow up with [facility] as scheduled (14) Hot flashes: Code(s): R23.2 - Flushing Plan: Continue Sertraline 25 mg QD Plan Follow up in 3 months Orders: Orders Comprehensive [place]. Panel Fast 3 Months E78.00 - Pure hypercholesterolemia, unspecified Complete Blood Count Auto Diff 3 Months D64.9 - Anemia, unspecified TSH reflex Free T4 3 Months E78.00 - Pure hypercholesterolemia, unspecified Lipid Panel 3 Months E78.00 - Pure hypercholesterolemia, unspecified Vitamin D 25-OH Total 3 Months E55.9 - Vitamin D deficiency, unspecified UA CC w/rflx Micro + Cult 3 Months R30.0 - Dysuria Medications: New pantoprazole 40 mg PO DAILY 90 days 90 tabs 1RF Discontinued esomeprazole magnesium (Nexium) Discontinued Reason: Doctor's Order 40 mg PO DAILY 30 caps 5RF K21.9 - Gastro-esophageal reflux disease without esophagitis Resumed atorvastatin 10 mg PO BEDTIME 90 days 90 tabs 1RF atorvastatin 10 mg PO BEDTIME 90 days 90 tabs 1RF Coding Level of Care Code Est Pt Level 4 (28006) Diagnoses Pure hypercholesterolemia E78.00 Constipation, unspecified constipation type K59.00 Constipation type: unspecified constipation type Chronic cough R05 Mild intermittent asthma without complication J45.20 Asthma severity: mild Asthma persistence: intermittent Asthma complication type: uncomplicated Allergic rhinitis, unspecified seasonality, unspecified trigger J30.9 Allergic rhinitis trigger: unspecified Allergic rhinitis seasonality: unspecified Gastroesophageal reflux disease without esophagitis K21.9 Esophagitis presence: without esophagitis Gastritis without bleeding, unspecified chronicity, unspecified gastritis type K29.70 Gastritis type: unspecified gastritis Chronicity: unspecified Gastritis bleeding: without bleeding Interstitial cystitis N30.10 Anemia, unspecified type D64.9 Anemia type: unspecified type Vitamin D deficiency E55.9 Perforation of right tympanic membrane H72.91 Laterality: right Uterine prolapse N81.4 Uterine leiomyoma, unspecified location D25.9 Uterine leiomyoma location: unspecified location Hot flashes R23.2
== END 2023-12-19 10:00 | disposition home or self-care (01) ==
PROVIDERS: PCP Internal Medicine; Visit Provider Internal Medicine
DX: E78.00 Pure hypercholesterolemia, unspecified (principal); K59.00 Constipation, unspecified; R05.9 Cough, unspecified; J45.20 Mild intermittent asthma, uncomplicated; J30.9 Allergic rhinitis, unspecified; K21.9 Gastro-esophageal reflux disease without esophagitis; K29.70 Gastritis, unspecified, without bleeding; N30.10 Interstitial cystitis (chronic) without hematuria; D64.9 Anemia, unspecified; E55.9 Vitamin D deficiency, unspecified; H72.91 Unspecified perforation of tympanic membrane, right ear; N81.4 Uterovaginal prolapse, unspecified; D25.9 Leiomyoma of uterus, unspecified; R23.2 Flushing
CPT/HCPCS: 99214

== ENCOUNTER 2024-02-21 10:06 | Outpatient (AMB) | payer OTHER, SELFPAY ==
--- NOTE | 2024-02-21 10:55 | MHC.OFFVIS ---
Intake Visit Reasons: 6m follow up Intake Note: Patient is present for 6M Follow up Urology Med: Estradiol Antibiotic Allergy: None Color Mixer Required: No Allergies egg Allergy (Intermediate, Verified 02/21/24 11:02) Unknown grass pollen Allergy (Intermediate, Verified 02/21/24 11:02) Unknown pear Allergy (Intermediate, Verified 02/21/24 11:02) Unknown tree and shrub pollen Allergy (Intermediate, Verified 02/21/24 11:02) Unknown nuts,apple, starwberries Allergy (Unknown, Uncoded 02/21/24 11:02) Unknown HPI Comments Details: Prashanth is a very pleasant French female. She is a patient of Dr. Burton. She is seen for the following urologic conditions - interstitial cystitis - recurring UTI - microscopic hematuria Eight month follow-up Remains on estradiol Occasional pelvic pain on Continue stability with diet Amitriptyline to 1/2 25 mg q.h.s. Pelvic floor is significantly relaxed with combination of pelvic floor physical therapy and pessary for support Bidet attachment discussed Famotidine for IC Stable with current diet Undergoing evaluation for hysterectomy Has prescription for 100 mg Macrobid to be used after intimacy Recurring UTI Investigations - 12/19 E coli bennett resistant sensitive to Macrobid Interstitial cystitis: The interstitial cystitis was diagnosed 2019 on cystoscopy hydrodistention. Current symptoms include Currently stable. Aggravating factors include intercourse. Alleviating factors include bladder training, dietary changes - Jan 2020 Hydrodistention, 02/19 hydrodistention, D-mannose per Dr. Roberson Prior testing included a cystoscopy, showing stiffening of bladder wall Prior therapy Elmiron - off target effect dry eyes, limited gabapentin with amitriptyline during IC flare, IC instillations [facility] Medical History (Updated 12/20/23 @ 00:48 by Saulo Burton MD) Vitamin D deficiency Anemia Asthma Interstitial cystitis (chronic) with hematuria Pure hypercholesterolemia E. coli urinary tract infection Pelvic pain Bloating Perforated right tympanic membrane on examination Menorrhagia Family history of colon cancer in mother Allergic rhinitis GERD (gastroesophageal reflux disease) Hx of hypercholesterolemia History of abnormal uterine bleeding Hx of renal calculi History of urinary incontinence Hx of iron deficiency Surgical History Hx of dilation and curettage History of esophagogastroduodenoscopy (EGD) H/O colonoscopy S/P cystoscopy (~02/22/20) History of tubal ligation History of placement of ear tubes History of nasal surgery Family History Mother History of colon cancer Father History of cancer of stomach Social History Household Members: Spouse and Children Housing: House Alcohol intake: never Comment: cramping Patient Tobacco Use Status: Never used Tobacco e-Cigarette/Vaping Use: Never Used Second Hand Smoke Exposure: Yes service: No Current occupational status: employed Cognitive needs: No Hearing needs: No Vision needs: No Female Reproductive History Menstrual Age of Menarche: 15 Review of Systems Const Denies chills and Denies fever(s) Card Reports no additional complaints and Denies syncope Resp Denies cough GI Denies abdominal pain and Denies heartburn Reports as per HPI and Denies change in libido Neuro Denies syncope Psych Denies change in libido Endo Denies change in libido Physical Exam Const General: cooperative, healthy appearing, comfortable and no acute distress Orientation/consciousness: patient oriented x3 HEENT Face and sinus: Yes normal facial exam Mouth: moist mucous membranes Neck Neck: Yes normal visual inspection, Yes full ROM and Yes trachea midline Chest Chest palpation & inspection: normal inspection of the chest Resp Effort & Inspection: normal respiratory effort, able to speak in complete sentences and no respiratory distress GI Inspection: Yes normal to inspection Back/Spine/Pelvis Cervical Spine: normal cervical lordosis Thoracic/Lumbar Spine: thoracic and lumbar spine normal to inspection Skin General skin exam: no rashes or lesions noted Neuro General: patient oriented x3, gait normal, tone normal and moves all extremities Extrem General: Yes normal to inspection and Yes capillary refill normal Results AMB Urinalysis, Automated UA Leukoctes 70 Damian/uL Last Edit by BRINDA Lee on 02/21/24 11:17 UA Nitrite Negative Last Edit by BRINDA Lee on 02/21/24 11:17 UA Urobilinogen 0.2 mg/dL Last Edit by BRINDA Lee on 02/21/24 11:17 UA Protein 15 mg/dL Last Edit by BRINDA Lee on 02/21/24 11:17 UA pH 6.0 Last Edit by Nenita Lee, RMA on 02/21/24 11:17 UA Blood 0 Chato/uL Last Edit by Nenita Lee, RMA on 02/21/24 11:17 UA Specific [place] 1.015 Last Edit by Nenita Lee, RMA on 02/21/24 11:17 UA Ketone Negative Last Edit by Nenita Lee, RMA on 02/21/24 11:17 UA Bilirubin 0 mg/dL Last Edit by Nenita Lee, RMA on 02/21/24 11:17 UA Glucose 0 mg/dL Last Edit by Nenita Lee, A on 02/21/24 11:17 Assessment & Plan Assessment & Plan (1) Urinary incontinence: Code(s): R32 - Unspecified urinary incontinence Category: Medical (2) Interstitial cystitis (chronic) with hematuria: Code(s): N30.11 - Interstitial cystitis (chronic) with hematuria Category: Medical Plan Six-month follow-up tele Orders: Orders AMB Urinalysis Automated Today Z13.9 - Encounter for screening, unspecified Medications: Changed From estradiol 0.01%(0.1mg/gram) vaginal To estradiol 0.01%(0.1mg/gram) Apply pea sized amount 3 times per week vaginally; 30 days 42.5 grams 1RF Refilled phenazopyridine Use intermittently when cystitis flares 100 mg PO Q8H 20 days 30 tabs 1RF M54.50 - Low back pain, unspecified, N30.11 - Interstitial cystitis (chronic) with hematuria, R31.9 - Hematuria, unspecified amitriptyline 1/2 tab before bed 25 mg PO BEDTIME 90 days 90 tabs 1RF Patient Instructions: Imaging studies, laboratory and physical exam results were discussed and reviewed in detail. No major barriers to patient understanding were identified. An opportunity to ask questions regarding the treatment plan was provided. All questions were answered. The patient expressed understanding and agreement with the above treatment plan. The patient is aware they should contact our office by phone for worsening of their current condition or the appearance of new urologic symptoms. Compliance is encouraged with any medications and followup testing that is ordered. It is a privilege to participate in the urologic care of your patient. If you have any questions or concerns regarding treatment for the above conditions, or other urologic issues, please do not hesitate to contact me. The office telephone contact is [phone]. This note is constructed using voice recognition software. While every effort has been made to ensure accuracy practice office associate errors may have been included. Yours sincerely, Dr Willie Carson MD, [facility] - Urology Providers of Expert, Compassionate Care for the Genitourinary System Coding Level of Care Code Est Pt Level 4 (51123) Diagnoses Urinary incontinence R32 Interstitial cystitis (chronic) with hematuria N30.11
== END 2024-02-21 11:22 | disposition home or self-care (01) ==
PROVIDERS: PCP Internal Medicine; Visit Provider Urology
DX: R32 Unspecified urinary incontinence (principal); N30.11 Interstitial cystitis (chronic) with hematuria; Z13.9 Encounter for screening, unspecified
CPT/HCPCS: 99214

== ENCOUNTER → 2024-02-21 10:06 | Outpatient (BNVA) | payer OTHER, SELFPAY | PROVIDERS: PCP Internal Medicine; Visit Provider Urology | DX: N30.11 Interstitial cystitis (chronic) with hematuria (principal); R32 Unspecified urinary incontinence; M54.50 Low back pain, unspecified; R31.9 Hematuria, unspecified | CPT/HCPCS: 81003; 99212 ==

== ENCOUNTER 2024-03-30 08:28 | Outpatient (REF) | payer OTHER, SELFPAY ==
[2024-03-30 08:49] LABS: MANUAL DIFF FLAG NO
[2024-03-30 09:10] LABS: Basophils Percent Auto 0.5 % (0-2); Eosinophils Absolute Auto 0.1 X10*3/uL (0.0-0.4); Hematocrit 38.9 % (37.0-47.0); Hemoglobin 12.9 g/dl (12.0-16.0); Imm Gran Abs Auto 0.02 X10*3/uL (0.00-0.03); Imm Gran Pct Auto 0.3 % (0.0-0.4); Lymphocytes Absolute Auto 1.5 X10*3/uL (1.2-4.9); Mean Corpuscular HGB Conc 33.2 g/dl (31.0-35.0); Mean Corpuscular Hemoglobin 28.6 pg (27.0-33.0); Mean Corpuscular Volume 86.3 fL (80.0-98.0); Mean Platelet Volume 10.6 fL (9.4-12.3); Monocytes Absolute Auto 0.7 X10*3/uL (0.1-1.2); Monocytes Percent Auto 11.6 % (2-11); Neutrophils Absolute Auto 3.9 x10*3/uL (2.0-8.3); Neutrophils Percent Auto 62.6 % (45-73); Platelet Count 157 X10*3/uL (160-400); Red Blood Count 4.51 X10*6/uL (4.20-5.50); Red Cell Distribution Width 11.8 % (11.0-16.0); White Blood Count 6.3 X10*3/uL (4.8-10.8)
[2024-03-30 09:42] LABS: Appearance Urine Clear; Color Urine Yellow; Glucose Urine UA Negative (Negative); Leukocyte Esterase Urine Negative (Negative); Nitrite Urine Negative (Negative); Specific Gravity - Urine 1.015 (1.005-1.025); Urine Blood Negative (Negative); Urine Ketones Negative (Negative); Urine Protein Negative (Neg-Trace)
[2024-03-30 09:58] LABS: Alanine Aminotransferase 15 U/L (0-31); Albumin Level 4.3 g/dL (3.5-5.0); Alkaline Phosphatase 62 U/L (39-117); Anion Gap 12 (12-20); Aspartate Amino Transferase 12 U/L (5-31); Bilirubin Total 0.5 mg/dL (0.0-1.0); Blood Urea Nitrogen 13 mg/dL (9-16); Calcium 9.5 mg/dL (8.4-10.2); Carbon Dioxide 27 mmol/L (22-29); Chloride 108 mmol/L (96-108); Cholesterol 189 mg/dL (<200); Estimated Glomerular Filt Rate > 60; Glucose Fasting 110 mg/dL (60-99); HDL Cholesterol 49 mg/dL (>40); LDL Cholesterol Calculated 118 mg/dL (<100); Potassium 3.7 mmol/L (3.3-5.1); Sodium 143 mmol/L (135-145); Total Protein 7.2 g/dL (6.5-8.0); Triglycerides 113 mg/dL (<150)
== END 2024-03-30 08:29 | disposition home or self-care (01) ==
LOC: HO.LAB 08:28
PROVIDERS: PCP Internal Medicine; Visit Provider Internal Medicine
DX: D64.9 Anemia, unspecified (principal); E78.00 Pure hypercholesterolemia, unspecified; E55.9 Vitamin D deficiency, unspecified; R30.0 Dysuria
CPT/HCPCS: 36415; 80053; 80061; 81003; 82306; 84443; 85025

== ENCOUNTER 2024-03-31 09:01 | Outpatient (REF) | payer OTHER, SELFPAY ==
[2024-03-31 14:19] LABS: Influenza A PCR NEGATIVE (Negative); Influenza B PCR NEGATIVE (Negative); Resp Syncy Virus RNA Qual PCR NEGATIVE (Negative); SARS COV2 PCR INHOUSE NEGATIVE (Negative)
== END 2024-03-31 09:02 | disposition home or self-care (01) ==
LOC: HO.LNP 09:01
PROVIDERS: PCP Internal Medicine; Visit Provider Nurse Practitioner Family
DX: J06.9 Acute upper respiratory infection, unspecified (principal); R05.9 Cough, unspecified
CPT/HCPCS: 0241U; 99212

== ENCOUNTER 2024-03-31 09:01 | Outpatient (AMB) | payer OTHER, SELFPAY ==
--- NOTE | 2024-03-31 09:10 | MHC.OFFWIV ---
Intake Vital Signs 03/31/24 09:14 Height 5 ft 4 in Weight 135 lb BMI 23.2 BP 132/76 Blood Pressure Location Lt brachial Position Sitting Respiration 14 Pulse 98 Pulse Source Pulse Oximeter Temp 98.1 F Temp Source Oral Pulse Oximetry (%) 98 Oxygen Delivery Method Room Air Intake Visit Reasons: est/ fever/cough/sore throat Intake Note: Patient complaining of fever, cough, and sore throat x2 days Patient Tobacco Use Status: Never used Tobacco Allergies egg Allergy (Intermediate, Verified 03/31/24 09:14) Unknown grass pollen Allergy (Intermediate, Verified 03/31/24 09:14) Unknown pear Allergy (Intermediate, Verified 03/31/24 09:14) Unknown tree and shrub pollen Allergy (Intermediate, Verified 03/31/24 09:14) Unknown nuts,apple, starwberries Allergy (Unknown, Uncoded 02/21/24 11:02) Unknown Do you need a note to return to daycare/school/sports/work: No HPI HPI Comments History of Present Illness Details 54-year-old female presents with complaints of fever ( temp 100), cough, sore throat, fatigue, and chest discomfort for the past 2 days. Has symtpoms have progressively worsened. She took some [place] herbal supplements without relief. She denies sick contacts. [facility] Medical History (Updated 03/31/24 @ 09:41 by Tereso Stone CNP) Vitamin D deficiency Anemia Asthma Interstitial cystitis (chronic) with hematuria Pure hypercholesterolemia E. coli urinary tract infection Pelvic pain Bloating Perforated right tympanic membrane on examination Menorrhagia Family history of colon cancer in mother Allergic rhinitis GERD (gastroesophageal reflux disease) Hx of hypercholesterolemia History of abnormal uterine bleeding Hx of renal calculi History of urinary incontinence Hx of iron deficiency Surgical History Hx of dilation and curettage History of esophagogastroduodenoscopy (EGD) H/O colonoscopy S/P cystoscopy (~02/22/20) History of tubal ligation History of placement of ear tubes History of nasal surgery Family History Mother History of colon cancer Father History of cancer of stomach Social History Household Members: Spouse and Children Housing: House Alcohol intake: never Comment: cramping Patient Tobacco Use Status: Never used Tobacco e-Cigarette/Vaping Use: Never Used Second Hand Smoke Exposure: Yes service: No Current occupational status: employed Cognitive needs: No Hearing needs: No Vision needs: No Female Reproductive History Menstrual Age of Menarche: 15 Review of Systems Const Details: Denies chills, Denies fatigue, Reports fever(s), Denies headache(s) and Denies weakness ENT Reports as per HPI Cardiac Denies claudication, Denies leg edema, Denies lightheadedness, Denies palpitations, Denies dyspnea, Denies dyspnea on exertion, Denies orthopnea and Denies other (Loss of consciousness) Resp Reports cough, Denies excessive phlegm production, Denies dyspnea, Denies dyspnea on exertion, Denies snoring and Denies wheezing Physical Exam Vital Signs: Last Vital Signs Temp 98.1 F 03/31/24 09:14 Pulse 98 03/31/24 09:14 Resp 14 03/31/24 09:14 BP 132/76 03/31/24 09:14 Pulse Ox 98 03/31/24 09:14 Oxygen Delivery Method Room Air 03/31/24 09:14 BMI result Body Mass Index 23.2 Const Other: General: comfortable and no acute distress Orientation/consciousness: patient oriented x3 ENT Head is normocephalic Bilateral ear canal and TM are normal Nasal turbinates and oropharynx are pink and moist Sinuses are nontender with palpation No auricular or cervical lymphadenopathy Chest Chest palpation & inspection: normal inspection of the chest Resp Auscultation: clear to auscultation bilaterally Cardiac Palpation: normal PMI Heart sounds: S1 normal heart sound present, S2 normal heart sound present, no gallops, no murmur, no rubs Assessment & Plan Assessment & Plan (1) Viral upper respiratory illness: Code(s): J06.9 - Acute upper respiratory infection, unspecified Plan: Likely viral illness though possibly allergies. No exam evidence of bacterial infection Viral illness There is no antibiotic medication for viruses.? They must run their course.? Most average 5-7 days but 7-10 days is not uncommon and up to 14 days is still possible.? A cough is often the last symptom to resolve and this can last for weeks in some cases. Rest Hydrate well -? Drink plenty of fluids.? Especially water. Ibuprofen as prescribed for muscle aches, headache, fever/discomfort Benzonatate as prescribed for cough Loratadine D as prescribed for allergies Cannot rule out COVID-19/RSV/Flu infection Nasal swab acquired and will be sent to the lab Return for new or worsening symptoms Verbalized understanding and agreed with treatment plan. (2) Cough: Code(s): R05.9 - Cough, unspecified Qualifiers: Cough type: unspecified Qualified Code(s): R05.9 - Cough, unspecified Plan: Plan as above Orders: Orders SARS-CoV2/FLU/RSV Today J06.9 - Acute upper respiratory infection, unspecified, R05.9 - Cough, unspecified Medications: New ibuprofen 600 mg PO Q8H PRN 30 tabs 0RF pain Refilled benzonatate 100 mg PO TID 20 caps 0RF loratadine-pseudoephedrine 5-120 mg ER (Loratadine-D) 1 tab PO Q12H PRN 60 tabs 0RF allergy symptoms Coding Level of Care Code Est Pt Level 3 (67242) Diagnoses Viral upper respiratory illness J06.9 Cough, unspecified type R05.9 Cough type: unspecified
[2024-03-31 09:14] VITALS: BP 132/76; PULSE 98; RESP 14; TEMP 36.7; O2SAT 98; BMI 23.2
== END 2024-03-31 09:43 | disposition home or self-care (01) ==
PROVIDERS: PCP Internal Medicine; Visit Provider Nurse Practitioner Family
DX: J06.9 Acute upper respiratory infection, unspecified (principal); R05.9 Cough, unspecified

== ENCOUNTER 2024-04-02 09:10 | Outpatient (AMB) | payer OTHER, SELFPAY ==
[2024-04-02 09:16] VITALS: BP 118/78; PULSE 84; O2SAT 97; BMI 22.7
--- NOTE | 2024-04-02 09:16 | A.OFFPC_ITS ---
Vital Signs 04/02/24 09:16 Height 5 ft 4 in Weight 132 lb 6 oz BMI 22.7 BP 118/78 Blood Pressure Location Lt brachial Position Sitting Pulse 84 Pulse Source Pulse Oximeter Pulse Oximetry (%) 97 Oxygen Delivery Method Room Air Intake Visit Reasons: hyperlipidemia, gastritis Fresh Foods Clerk Required: No Accompanied by: Self / Same As Patient Allergies egg Allergy (Intermediate, Verified 04/02/24 09:42) Unknown grass pollen Allergy (Intermediate, Verified 04/02/24 09:42) Unknown pear Allergy (Intermediate, Verified 04/02/24 09:42) Unknown tree and shrub pollen Allergy (Intermediate, Verified 04/02/24 09:42) Unknown nuts,apple, starwberries Allergy (Unknown, Uncoded 04/02/24 09:42) Unknown Medication List - Last Reconciled 04/02/24 by Saulo Burton MD albuterol sulfate 2.5 mg (3 mL) inhalation Q6H PRN 30 days albuterol sulfate 90 mcg/actuation (Ventolin HFA) 2 puffs inhalation Q6H PRN 30 days amitriptyline 25 mg (1/2 x 50 mg) PO BEDTIME 90 days atorvastatin 10 mg PO BEDTIME 90 days benzonatate 100 mg PO TID bismuth subsalicylate (Bismatrol) 2 tabs PO .QD cholecalciferol (vitamin D3) 50 mcg PO DAILY epinephrine IM estradiol 0.01%(0.1mg/gram) Apply pea sized amount 3 times per week vaginally; 30 days famotidine (Pepcid) 20 mg PO BEDTIME ferrous sulfate 325 mg PO DAILY 90 days fluticasone propionate 50 mcg/actuation 1 spray intranasal DAILY hydrocodone-chlorpheniramine 10-8 mg/5 mL 5 mL PO Q12H PRN 7 days ibuprofen 600 mg PO Q8H PRN ipratropium bromide 2 sprays intranasal BID loratadine (Claritin) 10 mg PO DAILY loratadine-pseudoephedrine 5-120 mg ER (Loratadine-D) 1 tab PO Q12H PRN montelukast (Singulair) 10 mg PO BEDTIME mupirocin calcium 2% 1 appl topical BID 15 days nitrofurantoin macrocrystal 100 mg PO BEDTIME pantoprazole 40 mg PO DAILY 90 days phenazopyridine 100 mg PO Q8H 20 days sennosides (senna) 8.6 mg PO BEDTIME PRN sertraline 25 mg PO DAILY 30 days Tobacco use date assessed: 04/02/24 Dental Screening Dental Screen Date: 04/02/24 Did you have a dental visit in the last 12 months?: Yes Did you have a dental problem in the last 6 months where you did not have access to dental care?: No Was dental information given to patient?: Patient has dentist HPI hyperlipidemia, gastritis HPI Details Patient comes in today for her follow up visit States that she has been experiencing increased cough and congestion for the past 3 to 4 days now States that she went to the walk-in clinic in [place] a couple of days ago and was sent for viral testing - she tested negative for COVID, influenza and RSV She was sent home with Rx for some decongestants and cough suppressants, which she states help only minimally States that she continues to run a low-grade fever as well as sore throat, increased nasal and sinus congestion as well as some chest tightness and mild SOB at times, which increases with exertion She denies any headaches or dizziness Denies any exertional chest pains No nausea/vomiting, no abdominal pain No change in bowel habits noted She also had her follow up labs done a few days ago - to discuss her results Needs her Atorvastatin Rx refilled [facility] Medical History (Updated 04/02/24 @ 11:28 by Saulo Burton MD) Impaired fasting glucose Vitamin D deficiency Anemia Asthma Interstitial cystitis (chronic) with hematuria Pure hypercholesterolemia E. coli urinary tract infection Pelvic pain Bloating Perforated right tympanic membrane on examination Menorrhagia Allergic rhinitis GERD (gastroesophageal reflux disease) Hx of renal calculi History of urinary incontinence Surgical History Hx of dilation and curettage History of esophagogastroduodenoscopy (EGD) H/O colonoscopy S/P cystoscopy (~02/22/20) History of tubal ligation History of placement of ear tubes History of nasal surgery Family History Mother History of colon cancer Father History of cancer of stomach Social History Household Members: Spouse and Children Housing: House Alcohol intake: never Comment: cramping Patient Tobacco Use Status: Never used Tobacco e-Cigarette/Vaping Use: Never Used Second Hand Smoke Exposure: Yes service: No Current occupational status: employed Cognitive needs: No Hearing needs: No Vision needs: No Female Reproductive History Menstrual Age of Menarche: 15 Questionnaire PHQ-9 Over the last 2 weeks, how often have you been bothered by any of the following problems? 1. Little interest or pleasure in doing things: not at all 2. Feeling down, depressed, or hopeless: not at all 3. Trouble falling or staying asleep, or sleeping too much: not at all 4. Feeling tired or having little energy: not at all 5. Poor appetite or overeating: not at all 6. Feeling bad about yourself - or that you are a failure or have let yourself or your family down: not at all 7. Trouble concentrating on things, such as reading the newspaper or watching television: not at all 8. Moving or speaking so slowly that other people could have noticed. Or the opposite - being so fidgety or restless that you have been moving around a lot more than usual: not at all 9. Thoughts that you would be better off or of hurting yourself in some way: not at all Total score: 0 Depression Screening Interpretation: Negative Depression Screening Done: Yes 06645 - PHQ-9 Billing: Yes Source: Developed by Drs. Matty Bhandari, Kym Watson, Terrance Reyna and colleagues, with an educational kristi from [employer]. Thrive Questionnaire Date Thrive assessed: 04/02/24 I am a: Patient What is your living situation today?: I have a steady place to live Within the past 12 months, did the food you bought not last and you didn't have the money to get more?: Never true Within the past 12 months, did you worry whether your food would run out before you got money to buy more?: Never true Do you have trouble paying for medicines?: No Do you have trouble getting transportation to medical appointments?: No Do you have trouble paying your heating and electricity bill?: No Do you have trouble taking care of your child, family member or friend?: No Do you have trouble with day-to-day activities such as bathing, preparing meals, shopping, managing finances, etc.?: No Are you currently unemployed and looking for a job?: No Are you interested in more education?: No Please select the resources that you would like help with: None Currently or been in a relationship where the following occur: No concerns reported THRIVE Score: 0 AUDIT C Alcohol Use Questionnaire (AUDIT-C) 1. How often do you have a drink containing alcohol?: Never 3. How often do you have six or more drinks on one occasion?: Never Total Score: 0 Score Reviewed/Action Taken: Yes KASHMIR-7 AMB Questionnaire KASHMIR-7 Date KASHMIR - 7 assessed: 04/02/24 Feeling nervous, anxious, or on edge: 0 = Not at all Not being able to stop or control worryin = Not at all Worrying too much about different things: 0 = Not at all Trouble relaxin = Not at all Being so restless that it is hard to sit still: 0 = Not at all Becoming easily annoyed or irritable: 0 = Not at all Feeling afraid as if something awful might happen: 0 = Not at all Total KASHMIR-7 score (0-4 normal; 5-9 mild; 10-14 moderate; 15-21 severe): 0 Source: Developed by Drs. Matty Bhandari, Kym Watson, Terrance Reyna and colleagues, with an educational kristi from [employer]. Review of Systems Const Denies chills, Reports fatigue (increased recently), Reports fever(s) (low grade, on and off) and Denies headache(s) ENT Denies dysphagia, Denies dizziness, Denies otalgia, Denies headache(s), Reports nasal congestion, Denies neck pain, Denies odynophagia and Reports sore throat Card Denies chest pain, Denies irregular heart rhythm, Denies palpitations and Reports dyspnea on exertion Resp Reports chest congestion (chest feels tight often), Reports cough (recurrent; has difficulty coughing up her phlegm), Denies hemoptysis, Reports dyspnea on exertion and Denies wheezing GI Denies abdominal pain, Reports bloating (on and off), Reports constipation (on and off), Denies dysphagia, Denies heartburn, Denies diarrhea, Denies nausea, Denies odynophagia and Denies vomiting Denies hematuria, Denies urinary frequency, Denies dysuria, Denies urinary incontinence and Denies urinary urgency Musc Denies back pain and Denies neck pain Skin/Breast Denies rash Neuro Denies dizziness, Denies headache(s) and Denies paresthesias Psych Denies anxiety and Denies depression Endo Reports fatigue (increased recently), Denies heat intolerance and Denies palpitations Deshawn/Lymph Denies easy bruising Aller/Immun Denies wheezing Physical exam (Primary Care) Vital Signs: Last Vital Signs Pulse 84 04/02/24 09:16 BP 118/78 04/02/24 09:16 Pulse Ox 97 04/02/24 09:16 Oxygen Delivery Method Room Air 04/02/24 09:16 BMI result Body Mass Index 22.7 Tobacco/Smoking Status: Tobacco use Status Tobacco use date assessed 04/02/24 04/02/24 09:21 Patient Tobacco Use Status Never used Tobacco 04/02/24 09:21 e-Cigarette/Vaping Use Never Used 04/02/24 09:21 PHQ-9: PHQ-9 Score PHQ-9: Total score 0 04/02/24 09:23 Depression Screening Interpretation: Negative Thrive Assessment: Date of Thrive Assessment Date Thrive assessed 04/02/24 04/02/24 09:21 Currently or been in a relationship where the following occur: No concerns reported Const General: no acute distress and alert HENMT Ears: TM normal on the left, EAC's normal and TM abnormal perforated without discharge on the right Throat: Yes tonsils normal (no TP congestion noted) and Yes posterior oropharynx abnormal (increased erythema of the posterior pharynx) Neck Neck: Yes no lymphadenopathy and Yes supple Thyroid: Thyroid normal Resp Auscultation: no crackles, no rales, rhonchi (scattered) throughout, no wheezes, diminished lung sounds bilateral and bronchial breath sounds bilateral Cardio Rate: regular rate Rhythm: regular rhythm Heart sounds: no murmurs GI Palpation (GI): Soft to palpation and nontender Auscultation: normal bowel sounds General: Yes no CVA tenderness Back/Spine/Pelvis Back: no CVA tenderness Thoracic/Lumbar Spine: No lumbar spinal tenderness Skin Rashes: no rashes Extrem General: Yes no clubbing, cyanosis or edema Office Procedures Flu Questionnaire Does the patient have a severe egg allergy?: Yes Immunizations Fluarix Triv [id number] (PF) 45 mcg (15 mcg x 3)/0.5 mL IM syringe Performing Provider: Saulo Burton MD [place] [facility] Documented (not given) by: BRINDA Harrison on 04/02/24 09:23 Reason Not Given: Allergic to Vaccine Component Results Reviewed Results Reviewed: Laboratory Tests 03/30/24 03/30/24 07:47 08:48 WBC 6.3 Hgb 12.9 Hct 38.9 Plt Count 157 L Sodium 143 Potassium 3.7 Creatinine 0.74 Estimated GFR > 60 Fasting Glucose 110 H Calcium 9.5 AST 12 ALT 15 Triglycerides 113 Cholesterol 189 LDL Cholesterol, Calc 118 H HDL Cholesterol 49 25-OH Vitamin D Total 32.0 TSH 1.70 Ur Specific [place] 1.015 Urine Protein Negative Urine Glucose (UA) Negative Urine Blood Negative Urine Nitrite Negative Ur Leukocyte Esterase Negative Coding Level of Care Code Est Pt Level 4 (82256) Diagnoses Respiratory tract infection J98.8 Allergic rhinitis, unspecified seasonality, unspecified trigger J30.9 Allergic rhinitis trigger: unspecified Allergic rhinitis seasonality: unspecified Pure hypercholesterolemia E78.00 Constipation, unspecified constipation type K59.00 Constipation type: unspecified constipation type Gastritis without bleeding, unspecified chronicity, unspecified gastritis type K29.70 Gastritis type: unspecified gastritis Chronicity: unspecified Gastritis bleeding: without bleeding Gastroesophageal reflux disease without esophagitis K21.9 Esophagitis presence: without esophagitis Interstitial cystitis N30.10 Anemia, unspecified type D64.9 Anemia type: unspecified type Vitamin D deficiency E55.9 Perforated right tympanic membrane on examination H72.91 Uterine prolapse N81.4 Uterine leiomyoma, unspecified location D25.9 Uterine leiomyoma location: unspecified location Hot flashes R23.2 Assessment & Plan Assessment & Plan (1) Respiratory tract infection: Code(s): J98.8 - Other specified respiratory disorders Category: Medical Plan: Suspect acute bronchitis Will send patient for chest x-rays to r/o pneumonia - patient voiced her concerns about pneumonia as she states that she just does not feel good and has been unusually tired lately Have advised patient that her current respiratory infection is also likely triggering her asthma presently - asthma exacerbation Will start her empirically on Azithromycin QD x 5 days; will also renew her Rx for Albuterol HFA that she can use 1 to 2 inhalations Q 6 hours PRN Continue Montelukast 10 mg QD and Albuterol nebulizer solution via updraft Q 6 hours PRN if her handheld inhaler is not helping as much She reportedly declined offer by pulmonary to start her on a controller inhaler recently Follow up with pulmonary as scheduled Per request, will also refill her cough Rx (Hydrocodone-chlorpheniramine 10-8 mg/5 ml 5 ml Q 12 hours PRN for severe cough as she states that her current ones do not help much (2) Allergic rhinitis: Code(s): J30.9 - Allergic rhinitis, unspecified Category: Medical Qualifiers: Allergic rhinitis trigger: unspecified Allergic rhinitis seasonality: unspecified Qualified Code(s): J30.9 - Allergic rhinitis, unspecified Plan: Continue Fluticasone 50 mcg nasal spray QD PRN and Loratadine-D 12 hour BID PRN (used to take Cetirizine but finds that the ones combined with a decongestant works better for her) She continues to receive allergy injections/immunotherapy from knitter machine's (Dr. Roldan's) office regularly (3) Pure hypercholesterolemia: Code(s): E78.00 - Pure hypercholesterolemia, unspecified Category: Medical Plan: Results of her labs done a few days ago reviewed and discussed with patient - she is advised that her cholesterol levels have imoroved significantly from previous Reinforced low cholesterol diet Continue Atorvastatin 10 mg QD - Rx refilled Will recheck her fasting lipids and labs in 4 months for follow up (4) Constipation: Code(s): K59.00 - Constipation, unspecified Category: Medical Qualifiers: Constipation type: unspecified constipation type Qualified Code(s): K59.00 - Constipation, unspecified Plan: Patient is again encouraged to increase her oral fluids and dietary fiber intake Continue Senna 8.6 mg Q HS PRN (5) Gastritis: Code(s): K29.70 - Gastritis, unspecified, without bleeding Category: Medical Qualifiers: Gastritis type: unspecified gastritis Chronicity: unspecified Gastritis bleeding: without bleeding Qualified Code(s): K29.70 - Gastritis, unspecified, without bleeding Plan: Patient reportedly had EGD and colonoscopy done a few months ago when she was in [place] She showed a copy of her EGD and colonoscopy report on her cellphone from when the procedures were done in [place] a few months ago - reports were completely in [place] and it noted that there were some inflammation noted along her gastric mucosal lining suggestive of gastritis She was switched from Esomeprazole 40 mg to Pantoprazole 40 mg QD and she felt that this has helped better; continue Famotidine 20 mg QD Dietary restrictions reinforced (6) GERD (gastroesophageal reflux disease): Code(s): K21.9 - Gastro-esophageal reflux disease without esophagitis Category: Medical Qualifiers: Esophagitis presence: without esophagitis Qualified Code(s): K21.9 - Gastro-esophageal reflux disease without esophagitis Plan: Dietary restrictions reinforced Continue Pantoprazole 40 mg QD and Famotidine 20 mg Q HS (Rx refilled) She was on Esomeprazole 40 mg QD previously but she felt that it did not help her as much as the branded Nexium, but her insurance would not cover Nexium - she was then switched to Pantoprazole Follow up with GI as scheduled (7) Interstitial cystitis: Code(s): N30.10 - Interstitial cystitis (chronic) without hematuria Category: Medical Plan: S/P hydrodistention by Dr. Carson in January 2022 with significant improvement of her symptoms Continue Amitriptyline 25 mg Q HS; she also used to take Gabapentin 100 mg Q HS but appears to have been taken off Gabapentin a while back by urology Follow up with urology as scheduled (8) Anemia: Code(s): D64.9 - Anemia, unspecified Category: Medical Qualifiers: Anemia type: unspecified type Qualified Code(s): D64.9 - Anemia, unspecified Plan: Corrected - her H/H have remained normal on her recent labs Continue FeSO4 325 mg QD Will continue to monitor her CBC regularly (9) Vitamin D deficiency: Code(s): E55.9 - Vitamin D deficiency, unspecified Category: Medical Plan: Continue Vitamin D3 2000 units QD (10) Perforated right tympanic membrane on examination: Code(s): H72.91 - Unspecified perforation of tympanic membrane, right ear Category: Medical Plan: She has been referred to ENT previously for further management and a tympanoplasty was apparently attempted by Dr. Wang but the procedure failed Patient is reminded to try to keep water from getting into her right ear as best as she can to minimize any right ear symptoms Follow up with ENT as scheduled (11) Uterine prolapse: Comment: With mild central defect cystocele Code(s): N81.4 - Uterovaginal prolapse, unspecified Category: Medical Plan: She has tried using a pessary last year without any significant improvement of her symptoms She has most recently been using a Uresta device that she gets [id number], which she states helps somewhat with her symptoms Follow up with OB-Emergency Medicine Nurse Practitioner as scheduled (12) Uterine fibroid: Code(s): D25.9 - Leiomyoma of uterus, unspecified Category: Medical Qualifiers: Uterine leiomyoma location: unspecified location Qualified Code(s): D25.9 - Leiomyoma of uterus, unspecified Plan: Patient underwent a non-diagnostic hysteroscopy back in August 2022 - procedure was not completed due to extensive scarring in the uterus that made it impossible to visualize the endometrium Follow up with OB-Emergency Medicine Nurse Practitioner as scheduled (13) Hot flashes: Code(s): R23.2 - Flushing Category: Medical Plan: Continue Sertraline 25 mg QD Plan Follow up in 4 months Orders: Orders Influenza [id number] Immunization Today Z23 - Encounter for immunization XR chest 2V Today J98.8 - Other specified respiratory disorders Comprehensive [place]. Panel Fast 4 Months E78.00 - Pure hypercholesterolemia, unspecified Lipid Panel 4 Months E78.00 - Pure hypercholesterolemia, unspecified Hemoglobin A1c 4 Months R73.01 - Impaired fasting glucose Complete Blood Count Auto Diff 4 Months D64.9 - Anemia, unspecified UA CC w/rflx Micro + Cult 4 Months R30.0 - Dysuria Vitamin D 25-OH Total 4 Months E55.9 - Vitamin D deficiency, unspecified Medications: New azithromycin take 500 mg today (day 1), then 250 mg for 4 days (days 2-5) PO 6 tabs 0RF Refilled albuterol sulfate 90 mcg/actuation (Ventolin HFA) 2 puffs inhalation Q6H 30 days PRN 18 grams 5RF Wheezing atorvastatin 10 mg PO BEDTIME 90 days 90 tabs 1RF famotidine (Pepcid) 20 mg PO BEDTIME 90 tabs 3RF K21.9 - Gastro-esophageal reflux disease without esophagitis hydrocodone-chlorpheniramine 10-8 mg/5 mL 5 mL PO Q12H 7 days PRN 150 mL 0RF cough/cold R05.9 - Cough, unspecified
== END 2024-04-02 09:52 | disposition home or self-care (01) ==
PROVIDERS: PCP Internal Medicine; Visit Provider Internal Medicine
DX: J98.8 Other specified respiratory disorders (principal); J30.9 Allergic rhinitis, unspecified; E78.00 Pure hypercholesterolemia, unspecified; K59.00 Constipation, unspecified; K29.70 Gastritis, unspecified, without bleeding; K21.9 Gastro-esophageal reflux disease without esophagitis; N30.10 Interstitial cystitis (chronic) without hematuria; D64.9 Anemia, unspecified; E55.9 Vitamin D deficiency, unspecified; H72.91 Unspecified perforation of tympanic membrane, right ear; N81.4 Uterovaginal prolapse, unspecified; D25.9 Leiomyoma of uterus, unspecified; R23.2 Flushing; Z23 Encounter for immunization

== ENCOUNTER 2024-04-02 09:10 | Outpatient (REF) | payer OTHER, SELFPAY ==
--- NOTE | ~2024-04-02 | XR_ITS ---
EXAMINATION: XR CHEST CLINICAL INFORMATION: Pneumonia. COMPARISON: Chest radiograph dated 07/18/2022. TECHNIQUE: 2 views of the chest were obtained. FINDINGS: The lungs are clear. The cardiomediastinal silhouette is normal in size. There is no pleural effusion or pneumothorax. No acute osseous abnormality. XR/XR chest 2V IMPRESSION: No acute cardiopulmonary findings. Electronically signed by: Nick Tavares MD 04/02/2024 11:29 AM EDT
== END 2024-04-02 09:11 | disposition home or self-care (01) ==
LOC: HO.XRAY 09:10
PROVIDERS: PCP Internal Medicine; Visit Provider Internal Medicine
DX: J98.8 Other specified respiratory disorders (principal)
CPT/HCPCS: 71046; 90471; 99212

== ENCOUNTER 2024-04-21 13:56 | Outpatient (AMB) | payer OTHER, SELFPAY ==
--- NOTE | 2024-04-21 14:10 | A.OFFVIS_ITS ---
Vital Signs 04/21/24 14:11 Height 5 ft 4 in Weight 132 lb BMI 22.7 BP 120/80 Blood Pressure Location Lt brachial Position Sitting Pulse 81 Pulse Source Pulse Oximeter Pulse Oximetry (%) 97 Oxygen Delivery Method Room Air Intake Visit Reasons: persistent dry cough Intake Note: pt is here for sick visit, she has a dry cough, that is all day and night, not sleeping. she is takin Allergies egg Allergy (Intermediate, Verified 04/21/24 14:25) Unknown grass pollen Allergy (Intermediate, Verified 04/21/24 14:25) Unknown pear Allergy (Intermediate, Verified 04/21/24 14:25) Unknown tree and shrub pollen Allergy (Intermediate, Verified 04/21/24 14:25) Unknown nuts,apple, starwberries Allergy (Unknown, Uncoded 04/21/24 14:25) Unknown Medication List - Last Reconciled 04/21/24 by Fletcher Greer MD albuterol sulfate 2.5 mg (3 mL) inhalation Q6H PRN 30 days albuterol sulfate 90 mcg/actuation (Ventolin HFA) 2 puffs inhalation Q6H PRN 30 days amitriptyline 25 mg (1/2 x 50 mg) PO BEDTIME 90 days atorvastatin 10 mg PO BEDTIME 90 days benzonatate 100 mg PO TID benzonatate 100 mg PO BID PRN bismuth subsalicylate (Bismatrol) 2 tabs PO .QD cholecalciferol (vitamin D3) 50 mcg PO DAILY codeine-guaifenesin 10-100 mg/5 mL 5 mL PO Q6-8H PRN 7 days epinephrine IM estradiol 0.01%(0.1mg/gram) Apply pea sized amount 3 times per week vaginally; 30 days famotidine (Pepcid) 20 mg PO BEDTIME ferrous sulfate 325 mg PO DAILY 90 days fluticasone propionate 50 mcg/actuation 1 spray intranasal DAILY fluticasone propionate 50 mcg/actuation (Flonase Allergy Relief) 1 spray intranasal BID hydrocodone-chlorpheniramine 10-8 mg/5 mL 5 mL PO Q12H PRN 7 days ibuprofen 600 mg PO Q8H PRN ipratropium bromide 2 sprays intranasal BID loratadine (Claritin) 10 mg PO DAILY loratadine-pseudoephedrine 5-120 mg ER (Loratadine-D) 1 tab PO Q12H PRN mometasone 50 mcg/actuation 2 sprays intranasal DAILY montelukast (Singulair) 10 mg PO BEDTIME mupirocin calcium 2% 1 appl topical BID 15 days nitrofurantoin macrocrystal 100 mg PO BEDTIME pantoprazole 40 mg PO DAILY 90 days phenazopyridine 100 mg PO Q8H 20 days sennosides (senna) 8.6 mg PO BEDTIME PRN sertraline 25 mg PO DAILY 30 days Do you need a note to return to daycare/school/sports/work: No HPI HPI persistent dry cough: Details: ELGIN IS 54 YEARS OLD FEMALE, NONSMOKER, HISTORY OF UPPER AIRWAY ALLERGIES, HISTORY OF GERD SYMPTOMS, ALSO HAS SOME ANXIETY AND DEPRESSION COMES WITH HISTORY OF UNREMITTING COUGH FOR THE LAST 3-4 WEEKS. BEFORE THAT SHE WAS FEELING FINE. SHE DID HAVE MILD COLD SYMPTOMS. INITIALLY HER SEROLOGY TESTING INCLUDING RSV, VIRAL PANEL AND COVID TEST WERE NEGATIVE. SHE HAS BEEN TREATED SYMPTOMATICALLY WITH STRONG COUGH MEDICINE INCLUDING GUAIFENESIN WITH CODEINE. HAS BEEN USING COMBINATION OF PSEUDO EPHEDRINE AND LORATADINE , HAS BEEN USING NEXIUM 40 MG A DAY TO CONTROL GERD SYMPTOMS. DOES HAVE ALBUTEROL INHALER ON HAND WHICH SHE HAS USED WITHOUT ANY IMPROVEMENT. CONTINUES TO HAVE VERY FREQUENT COUGH WHICH IS MOSTLY DRY, TALKING, LAUGHING OR ANY EXERTION BRINGS ON THE COUGH. SHE HAS BEEN TREATED WITH A COURSE OF AZITHROMYCIN WITHOUT MUCH IMPROVEMENT. SHE CONTINUED TO HAVE MILD MODERATE NASAL CONGESTION. HAS NOT EXPERIENCE HAVING ANY WHEEZES. [facility] Medical History Impaired fasting glucose Vitamin D deficiency Anemia Asthma Interstitial cystitis (chronic) with hematuria Pure hypercholesterolemia E. coli urinary tract infection Pelvic pain Bloating Perforated right tympanic membrane on examination Menorrhagia Allergic rhinitis GERD (gastroesophageal reflux disease) Hx of renal calculi History of urinary incontinence Surgical History Hx of dilation and curettage History of esophagogastroduodenoscopy (EGD) H/O colonoscopy S/P cystoscopy (~02/22/20) History of tubal ligation History of placement of ear tubes History of nasal surgery Family History Mother History of colon cancer Father History of cancer of stomach Social History Household Members: Spouse and Children Housing: House Alcohol intake: never Comment: cramping Patient Tobacco Use Status: Never used Tobacco e-Cigarette/Vaping Use: Never Used Second Hand Smoke Exposure: Yes service: No Current occupational status: employed Cognitive needs: No Hearing needs: No Vision needs: No Female Reproductive History Menstrual Age of Menarche: 15 Review of Systems Const All systems reviewed & are unremarkable except as noted in HPI and below Eyes Reports no additional complaints ENT Reports nasal congestion (MILD ) and Reports nasal discharge Card Denies chest pain, Denies diaphoresis, Denies edema and Denies irregular heart rhythm Resp Reports as per HPI GI Reports excessive flatus Reports no additional complaints Musc Reports back pain (WITH COUGH) Skin/Breast Reports system reviewed and no additional complaints, except as documented Neuro Reports no additional complaints Psych Reports anxiety and Reports depression Endo Reports no additional complaints Deshawn/Lymph Reports no additional complaints Aller/Immun Reports no additional complaints Physical Exam Vital Signs: Last Vital Signs Pulse 81 04/21/24 14:11 BP 120/80 04/21/24 14:11 Pulse Ox 97 04/21/24 14:11 Oxygen Delivery Method Room Air 04/21/24 14:11 BMI result Body Mass Index 22.7 Const Other: UNCOMFORTABLE DUE TO ONGOING SEVERE COUGH General: no acute distress, alert and awake Orientation/consciousness: patient oriented x3 HEENT Head: Yes normal to inspection General nose exam: No nasal polyps present, No nasal discharge present and Other nasal findings present (MILD NASAL CONGESTION) Face and sinus: Yes sinuses nontender Mouth: oropharynx normal Throat: Yes posterior oropharynx normal Eyes General: appearance normal, both eyes and all related structures Neck Neck: Yes normal visual inspection, Yes no lymphadenopathy, Yes trachea midline and Yes no JVD Thyroid: Thyroid normal Chest Chest palpation & inspection: normal inspection of the chest, normal palpation of entire chest wall and no tenderness Resp Effort & Inspection: normal respiratory effort Auscultation: clear to auscultation bilaterally, no crackles and no wheezes Cardio Palpation: normal PMI Rate: regular rate Rhythm: regular rhythm Heart sounds: no gallops and no murmurs GI Palpation (GI): Soft to palpation, nontender, No hepatosplenomegaly present and no masses Auscultation: normal bowel sounds Back/Spine/Pelvis Thoracic/Lumbar Spine: thoracic and lumbar spine normal to inspection Skin General skin exam: no rashes or lesions noted Neuro General: patient oriented x3 and no focal motor deficits Cranial nerves: Yes CN's II-XII intact bilaterally Extrem General: Yes normal to inspection, Yes no clubbing, cyanosis or edema and Yes no calf tenderness Psych Speech and movement: Normal speech and movement present Results Reviewed Results Reviewed: CHEST XRAY 04/02/24 NEGATIVE SEROLOGY 03/31/24 FLU, RSV ,AND COVID NEGATIVE Assessment & Plan Assessment & Plan (1) Recurrent cough: Comment: SHE HAS UNREMITTING COUGH, MOST LIKELY SECONDARY TO LOW-GRADE RHINOSINUSITIS, OR POSTINFECTIOUS REACTIVE AIRWAYS Code(s): R05.8 - Other specified cough Category: Medical Plan: FOR COUGH CONTROL ADVISED TO USE GUAIFENESIN-CODEINE 100-10 MG Q 4-6 HOURS P.R.N.. (2) Viral upper respiratory illness: Comment: SHE SEEMS TO HAVE ACUTE VIRAL ILLNESS EVEN THOUGH THE STUDIES WERE NEGATIVE. THIS HAS RESULTED IN POST INFECTIOUS COUGH Code(s): J06.9 - Acute upper respiratory infection, unspecified Category: Medical Plan: UNDER RECURRENT COUGH Medications: New doxycycline hyclate 100 mg PO BID 10 days 20 tabs 0RF RHINOSINUSITIS doxycycline hyclate 100 mg PO BID 10 days 20 tabs 0RF RHINOSINUSITIS Changed From codeine-guaifenesin 10-100 mg/5 mL 5 mL PO Q6-8H 7 days PRN 120 mL 0RF allergy symptoms To codeine-guaifenesin 10-100 mg/5 mL 10 mL PO Q6-8H 7 days PRN 200 mL 1RF allergy symptoms.COUGH Coding Level of Care Code Est Pt Level 4 (95116) Diagnoses Recurrent cough R05.8 Viral upper respiratory illness J06.9
[2024-04-21 14:11] VITALS: BP 120/80; PULSE 81; O2SAT 97; BMI 22.7
== END 2024-04-21 14:40 | disposition home or self-care (01) ==
PROVIDERS: PCP Internal Medicine; Visit Provider Internal Medicine
DX: R05.8 Other specified cough (principal); J06.9 Acute upper respiratory infection, unspecified
CPT/HCPCS: 99214

== ENCOUNTER → 2024-04-21 13:56 | Outpatient (BNVA) | payer OTHER, SELFPAY | PROVIDERS: PCP Internal Medicine; Visit Provider Internal Medicine | DX: R05.8 Other specified cough (principal); R06.9 Unspecified abnormalities of breathing | CPT/HCPCS: 99212 ==

== ENCOUNTER 2024-07-30 10:49 | Outpatient (REF) | payer OTHER, SELFPAY ==
[2024-07-30 11:07] LABS: MANUAL DIFF FLAG NO
[2024-07-30 11:51] LABS: Basophils Absolute Auto 0.1 X10*3/uL (0.0-0.2); Basophils Percent Auto 0.9 % (0-2); Eosinophils Absolute Auto 0.1 X10*3/uL (0.0-0.4); Eosinophils Percent Auto 2.6 % (0-4); Hematocrit 40.2 % (37.0-47.0); Hemoglobin 13.2 g/dl (12.0-16.0); Imm Gran Abs Auto 0.01 X10*3/uL (0.00-0.03); Imm Gran Pct Auto 0.2 % (0.0-0.4); Lymphocytes Absolute Auto 1.8 X10*3/uL (1.2-4.9); Lymphocytes Percent Auto 33.1 % (20-40); Mean Corpuscular HGB Conc 32.8 g/dl (31.0-35.0); Mean Corpuscular Hemoglobin 28.3 pg (27.0-33.0); Mean Corpuscular Volume 86.1 fL (80.0-98.0); Mean Platelet Volume 11.2 fL (9.4-12.3); Monocytes Absolute Auto 0.3 X10*3/uL (0.1-1.2); Monocytes Percent Auto 6.2 % (2-11); Neutrophils Absolute Auto 3.1 x10*3/uL (2.0-8.3); Platelet Count 177 X10*3/uL (160-400); Red Blood Count 4.67 X10*6/uL (4.20-5.50); White Blood Count 5.5 X10*3/uL (4.8-10.8)
[2024-07-30 11:57] LABS: Estimated Average Glucose 126 mg/dL; Hemoglobin A1C 146.4596 umol/L; Total Hemoglobin (HGBA1C) 3504.0887 umol/L
[2024-07-30 12:04] LABS: Appearance Urine Clear; Color Urine Yellow; Glucose Urine UA Negative (Negative); Leukocyte Esterase Urine Trace (Negative); Nitrite Urine Negative (Negative); Specific Gravity - Urine 1.025 (1.005-1.025); UMIC TRIGGER UACC YES; Urine Blood Negative (Negative); Urine Ketones Negative (Negative); Urine Protein Negative (Neg-Trace)
[2024-07-30 12:12] LABS: Bacteria Urine None Seen (None Seen); Hyaline Casts Urine 0-2 /LPF (0-2); RBC Urine 0-2 /HPF (0-2); WBC Urine 0-5 /HPF (0-5)
[2024-07-30 12:52] LABS: Alanine Aminotransferase 20 U/L (0-31); Albumin Level 4.5 g/dL (3.5-5.0); Alkaline Phosphatase 56 U/L (39-117); Anion Gap 11 (12-20); Aspartate Amino Transferase 16 U/L (5-31); Bilirubin Total 0.5 mg/dL (0.0-1.0); Blood Urea Nitrogen 13 mg/dL (9-16); Calcium 8.8 mg/dL (8.4-10.2); Carbon Dioxide 27 mmol/L (22-29); Chloride 110 mmol/L (96-108); Cholesterol 205 mg/dL (<200); Estimated Glomerular Filt Rate > 60; Glucose Fasting 99 mg/dL (60-99); HDL Cholesterol 51 mg/dL (>40); LDL Cholesterol Calculated 135 mg/dL (<100); Potassium 3.7 mmol/L (3.3-5.1); Sodium 144 mmol/L (135-145); Total Protein 7.3 g/dL (6.5-8.0); Triglycerides 95 mg/dL (<150)
[2024-07-30 12:59] LABS: Vitamin D 25-OH Total 36.1 ng/mL (>30)
--- OUTSIDE RECORDS SUMMARY | 2024-07-30 14:35 | XMS_ITS | Clinical Summary ---
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 Name Role Phone Unavailable Primary Care Provider Unavailabl e Social History Tobacco Use Types Packs/Day Years Used Date Smoking Tobacco: Never Assessed Comments Unknown Sex and Gender Information Value Date Recorded Sex Assigned at Female 04/30/2022 10:29 AM EDT Legal Sex Female 10:29 AM EDT Gender Identity Female 04/30/2022 10:29 AM EDT Sexual Orientation Don't know 04/30/2022 10 :29 AM EDT Plan of Treatment Health Maintenance Due Date Last Done Comments CT Colonography 1971 Colonoscopy 1971 Colorectal Cancer Screening 1971 Depression Screening 1971 FIT DNA/Cologuard 1971 FIT 1971 FOBT 1971 Sigmoidoscopy 1971 Alcohol/Substance Use Screening 1983 Tobacco Screening 1983 DTaP/Tdap/Td Vaccines (1 - Tdap) 1990 Hepatitis B Vaccines (1 of 3 - 19+ 3-dose series) 1990 Pap Smear 02/03/1992 Cervical Cancer Screening 2001 HPV/Cotest 2001 Mammogram 2011 Zoster Vaccines (1 of 2) 2021 COVID-19 Vaccine ( - 2023-2 5 season) 2024 Influenza Vaccine (#1) 2024 RSV Patients and Pa tients Aged 60 years or older (1 - 1-dose 75+ series) 2046 HIB Vaccines Aged Out No longer eligi ble based on patient's age to complete this topic HPV Vaccines Aged Out No longer eligi ble based on patient's age to complete this topic Hepatitis A Vaccines Aged Out No long er eligible based on patient's age to complete this topic IPV Vaccines Aged Out No longer eligi ble based on patient's age to complete this topic Meningococcal Vaccine Aged Out No mira sung eligible based on patient's age to complete this topic Pneumococcal Vaccine: Pediat rics (0 to 5 Years) and At-Risk Patients (6 to 49) Years) Aged Out No longer eligible b ased on patient's age to complete this topic RSV under 20 months Aged Out No longe r eligible based on patient's age to complete this topic Rotavirus Vaccines Aged Out No longer eligible based on patient's age to complete this topic
--- OUTSIDE RECORDS SUMMARY | 2024-07-30 14:36 | XMS_ITS | Continuity of Care Document ---
Author Organization [place] - [facility], [facility] Address [address] [place] [address] Care Team Providers Care Opthalmic Tech Name Role Phone [place] Primary Care Provider Assessment Encounter Date Assessment Date Assessment LastModified by Organization Details LastModified Time 07/08/2024 07/08/2024 54-year-old female presents for reevaluation of TM perforation. On examination she has 2 separate perforations of the TM on the right side. There is a 30% perforation of the posterior half of the drum as well as a 10% perforation centrally. Both perforation are dry without sign of debris collection. There is some dry flaking of the external meatus consistent with fungal dermatitis. Recommended Lotrisone. She should maintain dry ear precaution on the right side to prevent infection. Will arrange a consultation with Dr. Duke for TM repair as she is interested in proceeding with this option. All questions were answered. [email or web address] Not available 07/08/2024 13:25:03 Plan of Treatment Reminders Order Date Submit Date Provider Last Modified By Organization Details Last Modified Time Details Appointments Establish ed 10 2024 01:30P M ARIELA DUKE MD Not available Not available Not available Lab None recorded. Referral None recorded. Procedures None recorded. Surgeries None recorded. Imaging None recorded. Medication Orders clotrimaz ole-betam ethasone 1 %-0.05 % topical cream 2024 025 [facility][id number], [address], [place], [address], 07/08/2024 13:25:51 Patient TargetsNo targets recorded. Patient InstructionsNo instructions recorded. Reason for Referral None Reported. Problems Name Problem SNOMED Code Status Onset Date Resolution Date Notes Provider Name and Address Organization Details Recorded Time Acute pharyngit is 392836073 Active 2022 Acute pharyngit is, unspecifi ed; Note: Date Diagnosed : 09/21/2022 12:37 PM (J02.9) Not Available [facility] 4 02:46:19 Multiple perforati ons of right tympanic membrane 60130042272 20814 Active 2019 Multiple perforati ons of tympanic membrane, right ear; Note: Date Diagnosed : 0 4:10 PM (H72.811) Not Available [facility] 4 02:46:22 Conductiv e hearing loss 11989269 Active 2019 Conductiv e hearing loss, unilatera l, right ear, with unrestric jude hearing on the contralat eral side; Note: Date Diagnosed : 0 4:10 PM (H90.11) Not Available [facility] 4 02:46:19 Bilateral perforati on of tympanic membranes 45806521798 52826 Active 2023 GUILHERME JEFFREY PA-C [address] [place] [address],[place] [address], [place], [address] , [facility] - [facility] 4 10:00:34 Acute infective otitis externa 225245374 Active 2023 GUILHERME JEFFREY PA-C [address] [place] [address],[place] [address], [address] , [facility] - [facility] 4 10:01:31 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 Procedures Surgical History Date Name Laterality Status Provider Name and Address Organization Details Recorded Time 4 Comp Audio with Tymps (02170 & 02817) completed BRAD CHILD [address], [address], [place] - [facility] 01/17/2024 09:28:34 procedure on urinary bladder completed Sana Barnes [place] - [facility] 01/17/2024 09:11:49 Ear Surgery completed Sana Barnes [place] - [facility] 01/17/2024 09:12:02 Imaging Results None recorded. Procedure Notes None recorded. Medical Equipment None Reported. Allergies No known drug allergies Medications Name Sig Start Date Stop Date Status Note LastModified by Organization Details LastModified Time silver sulfadiaz ine 1 % topical cream APPLY 1.5MM THICKNES S TO BURN INJURY 2 TIMES A DAY NEEDED 01/16 completed Not Available Not Available Not Available albuterol sulfate 2.5 mg/3 mL (0.083 %) solution for nebulizat ion 2.5 MG (3 ML) INHALED EVERY 6 HOURS NEEDED FOR SHORTNES S OF BREATH OR WHEEZING OR COUGH active Not Available Not Available No t Available atorvasta tin 10 mg tablet TAKE 1 TABLET BY MOUTH AT BEDTIME active Not Available Not Available No t Available azithromy ramírez 250 mg tablet TAKE 2 TABLETS BY MOUTH TODAY, THEN TAKE 1 TABLET DAILY FOR 4 DAYS DIRECTED 07/08 completed Not Available Not Available Not Available senna 8.6 mg tablet TAKE 1 TABLET BY MOUTH AT BEDTIME NEEDED FOR CONSTIPA TION 01/16 completed Not Available Not Available Not Available bacitraci n 500 unit/gram topical ointment USE 1 APPLICAT ION TOPICALL Y EVERY 8 HOURS FOR 14 DAYS 01/16 completed Not Available Not Available Not Available amitripty line 50 mg tablet TAKE 1/2 TABLET ORALLY AT BEDTIME FOR 90 DAYS active Not Available Not Available No t Available amoxicill in 500 mg tablet Take 1 tablet by mouth three times a day as needed 01/16 completed Medicati on ID: [id number] D uration Value: 7 Prescri bed By Name: Suzie Yeh nd Name: aroldoicicyrus mota Send Method: E-Prescr ibed Sub s Allowed: subs OK Medic ationGen ericName : amoxicil svetlana Medi cation ID: [id number] D uration Value: 7 Prescri bed By Name: Suzie Yeh nd Name: amoxicicyrus mota Send Method: E-Prescr ibed Sub s Allowed: subs OK Medic ationGen ericName : amoxicil svetlana Not Available Not Available Not Available ofloxacin 0.3 % ear drops INSTILL 5 DROPS IN LEFT EAR TWICE A DAY FOR 7 DAYS 07/08 completed Not Available Not Available Not Available famotidin e 20 mg tablet TAKE 1 TABLET BY MOUTH AT BEDTIME active Not Available Not Available No t Available amitripty line 25 mg tablet TAKE 1 TABLET BY MOUTH EVERYDAY AT BEDTIME 07/08 completed Not Available Not Available Not Available phenazopy ridine 100 mg tablet TAKE 1 TABLET BY MOUTH EVERY 8 HOURS FOR 20 DAYS, USE INTERMIT TENTLY WHEN CYSTITIS FLARES active Not Available Not Available No t Available benzonata te 100 mg capsule TAKE 1-2 CAPSULES BY MOUTH EVERY 8 HOURS NEEDED FOR COUGH 07/08 completed Not Available Not Available Not Available pantopraz ole 40 mg tablet,de layed release TAKE 1 TABLET BY MOUTH EVERY DAY active Not Available Not Available No t Available ferrous sulfate 325 mg (65 mg iron) tablet TAKE 1 TABLET BY MOUTH DAILY active Not Available Not Available No t Available esomepraz ole magnesium 40 mg capsule,d elayed release TAKE 1 CAPSULE BY MOUTH EVERY DAY 07/08 completed Not Available Not Available Not Available clotrimaz ole-betam ethasone 1 %-0.05 % topical cream APPLY A SMALL AMOUNT WITH A FINGERTI P DAILY NEEDED FOR ITCHING. active Not Available Not Available No t Available triamcino lone acetonide 55 mcg nasal spray aerosol USE 1 SPRAY INTO EACH NOSTRIL UP TO 2 TIMES PER DAY 01/16 completed Not Available Not Available Not Available sertralin e 25 mg tablet TAKE 1 TABLET BY MOUTH EVERY MORNING active Not Available Not Available No t Available monteluka st 10 mg tablet TAKE 1 TABLET BY MOUTH AT BEDTIME active Not Available Not Available No t Available codeine 10 mg-guaife nesin 100 mg/5 mL oral liquid TAKE 5 ML ORALLY EVERY 6 TO 8 HOURS NEEDED FOR ALLERGY SYMPTOMS FOR 7 DAYS 07/08 completed Not Available Not Available Not Available epinephri ne 0.3 mg/0.3 mL injection , auto-inje ctor active Medicati on ID: [id number] B rand Name: marco a arzate Send Method: E-Prescr ibed Sub s Allowed: subs OK Medic ationGen ericName : marco a arzate Not Available Not Available Not Available ibuprofen 600 mg tablet TAKE 1 TABLET BY MOUTH EVERY 8 HOURS NEEDED FOR PAIN active Not Available Not Available No t Available estradiol 0.01% (0.1 mg/gram) vaginal cream APPLY PEA SIZED AMOUNT 3 TIMES PER WEEK VAGINALL Y X 30DAYS active Not Available Not Available No t Available hydrocodo ne 10 mg-chlorp heniramin e 8 mg/5 mL oral susp extend.re l 12hr TAKE 5 ML ORALLY EVERY 12 HOURS NEEDED FOR COUGH/CO LD FOR 7 DAYS 01/16 completed Not Available Not Available Not Available fluticaso ne propionat e 50 mcg/actua tion nasal spray,lito pension SPRAY 1 SPRAY INTO EACH NOSTRIL DAILY active Not Available Not Available No t Available doxycycli ne hyclate 100 mg tablet TAKE 1 TABLET (100 MG) ORALLY 2 TIMES A DAY FOR RHINOSIN USITIS FOR 10 DAYS 07/08 completed Not Available Not Available Not Available ipratropi um bromide 21 mcg (0.03 %) nasal spray SPRAY 2 SPRAYS INTRANAS ALLY 2 TIMES A DAY ADMINIST ER INTO EACH NOSTRIL active Not Available Not Available No t Available loratadin e 10 mg tablet 07/08 completed Medicati on ID: [id number] B rand Name: elena elise Send Method: E-Prescr ibed Sub s Allowed: subs OK Medic ationGen ericName : elena olivares Not Available Not Available Not Available amoxicill in 875 mg-potass ium clavulana te 125 mg tablet TAKE 1 TABLET BY MOUTH TWICE A DAY FOR 5 DAYS 01/16 completed Not Available Not Available Not Available Ventolin HFA 90 mcg/actua tion aerosol inhaler INHALE 1-2 PUFFS BY MOUTH EVERY 4-6 HOURS NEEDED active Not Available Not Available No t Available Allergy Relief D12 5 mg-120 mg tablet,ex tended release TAKE 1 TABLET BY MOUTH EVERY 12 HOURS NEEDED active Not Available Not Available No t Available [facility] completed Medicati on ID: [id number] B rand Name: [facility] S end Method: E-Prescr ibed Sub s Allowed: subs OK Medic ation ericName : Zyrtec Not Available Not Available Not Available esomepraz ole magnesium 09/21 completed Medicati on ID: [id number] B rand Name: abby de la torre Send Method: E-Prescr ibed Sub s Allowed: subs OK Medic Odin ericName : abby de la torre Not Available Not Available Not Available cholecalc iferol (vitamin D3) 50 mcg (2,000 unit) capsule TAKE 1 CAPSULE BY MOUTH EVERY DAY active Not Available Not Available No t Available Vitals None Recorded Social History None recorded. Functional Status None recorded. Mental Status None recorded. Family History Nothing Reported. Medical History Condition Response Allergies/Hayfever Y Anemia Y Gynecological HistoryNo gynecological history recorded. Obstetrics History GPAL:G 0 P 0 0 0 0 Past Encounters Encounter ID Performer Location Encounter Start Date Encounter Closed Date Diagnosis/Indication Diagnosis SNOMED-CT Code Diagnosis ICD10 Code Diagnosis Note [id number] MARCELO SANDERSON MD [facility] [address] [address] 07/08/2024 12:43:24 07/08/2024 13:19:51 Multiple perforations of right tympanic membrane [id number] 750773 H72.811 Dermal mycosis 16253669 B36.9 Health Concerns Section Related Observation LastModified by Organization Detai ls LastModified Time None Recorded Concern Status LastModified by Organization Details LastModified Time None Recorded Payers Encounter Date Sequence Insurance Name Policy Number Policy Aiken Covered Member ID Aiken Member ID Guarantor Name 07/08/2024 1 [facility] NET PLAN (MEDICAID HMO) DIVINE Mota [id number] Keke Mota Notes Date Note Type Note Provider Name and Address Organization Details Recorded Time 07/08/2024 text/html 54-year-old fema peter presents for reevaluation of TM perforation. She has a history of tympanoplasty with Dr. Robertson in the past which was unsuccessful. She continues to have wetness and itching of the right ear. 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 She is interested in repair. MARCELO MANN MD [address] [place] [address], [phone], [place] - [facility] 07/08/2024 17:01:29 OBGyn Episode No OBEpisode recorded.
--- OUTSIDE RECORDS SUMMARY | 2024-07-30 14:36 | XMS_ITS | Encounter Summary ---
Author Organization [employer] Address [address] [facility] [address] [place] [address] Care Team Providers Care Automatic Pattern Edger Name Role Phone Unavailable Primary Care Provider Unavailabl e Encounter Details Date Type Department Care Team (Latest Contact Info) Description 09/30/2018 Abstract [facility] CONVERSIONS Dental, Provider, DDS Social History Tobacco Use Types Packs/Day Years Used Date Smoking Tobacco: Never Assessed Comments Unknown Sex and Gender Information Value Date Recorded Sex Assigned at Female 04/30/2022 10:29 AM EDT Legal Sex Female 10:29 AM EDT Gender Identity Female 04/30/2022 10:29 AM EDT Sexual Orientation Don't know 04/30/2022 10 :29 AM EDT documented as of this encounter Plan of Treatment Not on file documented as of this encounter Visit Diagnoses Not on filedocumented in this encounter
--- OUTSIDE RECORDS SUMMARY | 2024-07-30 14:36 | XMS_ITS | Data Portability ---
Author Organization [place] - [facility], Allergy Address [address] [address] Care Team Providers Care Bad Work Gatherer Name Role Phone [place] Primary Care Provider Assessment Encounter Date Assessment Date Assessment LastModified by Organization Details LastModified Time 01/17/2024 01/17/2024 Discussed the small new perforation on the left may be due to otitis media with rupture. Some fluid in EAC, not obviously purulent. Recommend ofloxacin x 1 week. Reviewed need and rationale for dry ear precautions and how to achieve. Return in 4-6 weeks for recheck. Reviewed that the left perforation may spontaneously heal. We discussed that her conductive hearing loss in the right ear is due to the larger perforation on that side, and discussed that it is likely amenable to surgical repair. She will consider this. [email or web address] Not available 01/17/2024 10:46:36 07/08/2024 07/08/2024 54-year-old female presents for reevaluation [...] with this option. All questions were answered. [email or web address] Not available 07/08/2024 13:25:03 Plan of Treatment Reminders Order Date Submit Date Provider Last Modified By Organization Details Last Modified Time Details Appointments Establish ed 10 2024 01:30P M ARIELA DUKE MD Not available Not available Not available Lab None recorded. Referral None recorded. Procedures None recorded. Surgeries None recorded. Imaging None recorded. Medication Orders ofloxacin 0.3 % ear drops 2023 025 [facility]/Pharmacy #[id number], [address] [place], [address], 07/08/2024 12:55:04 clotrimaz ole-betam ethasone 1 %-0.05 % topical cream 2024 025 [facility]/Pharmacy #1972, [address] [place], [address], 07/08/2024 13:25:51 Patient TargetsNo targets recorded. Patient InstructionsNo instructions recorded. Reason for Referral None Reported. Results Created Date Observation Date Name Description Value Unit Range Abnormal Flag Note LastModifiedBy Organization Detail LastModifiedTime 01/20/20 audio gram No observ ation record ed. Not Available 12/30 16:07:42 02/19/20 24 04/28/2020 imagi ng/di agnos tic resul t No observ ation record ed. [email or web address] Not Available 23:25:21 Result Notes None recorded. Problems Name Problem SNOMED Code Status Onset Date Resolution Date Notes Provider Name and Address Organization Details Recorded Time Acute pharyngit is 142966232 Active 2022 Acute pharyngit is, unspecifi ed; Note: Date Diagnosed : 09/21/2022 12:37 PM (J02.9) Not Available [facility] 4 02:46:19 Multiple perforati ons of right tympanic membrane 18595731184 75001 Active 2019 Multiple perforati ons of tympanic membrane, right ear; Note: Date Diagnosed : 0 4:10 PM (H72.811) Not Available [facility] 4 02:46:22 Conductiv e hearing loss 87918138 Active 2019 Conductiv e hearing loss, unilatera l, right ear, with unrestric jude hearing on the contralat eral side; Note: Date Diagnosed : 0 4:10 PM (H90.11) Not Available [facility] 4 02:46:19 Bilateral perforati on of tympanic membranes 60270077295 40605 Active 2023 GUILHERME JEFFREY PA-C [address] [facility] [place] [address], [facility] [place], [address] , [facility] - [facility] 4 10:00:34 Acute infective otitis externa 924839659 Active 2023 [address]ME JEFFREY PA-C [address] 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,[place] [address], [facility] [place], [address] , [place] - [facility] 5 13:25:19 Problem Notes None recorded. Procedures Surgical History Date Name Laterality Status Provider Name and Address Organization Details Recorded Time 4 Comp Audio with Tymps (12112 & 45019) completed BRAD CHILD [address] [facility],[place] [address], [place], [address], [place] - [facility] 01/17/2024 09:28:34 procedure on urinary bladder completed Sana Barnes [place] - [facility] 01/17/2024 09:11:49 Ear Surgery completed Sana Barnes [place] - [facility] 01/17/2024 09:12:02 Imaging Results Imaging Date Name Status LastModified by Organiz ation Details LastModified Time 01/20/2024 audiogram completed [email or web address] Information n ot available 01/20/2024 16:07:42 04/28/2020 imaging/diagno stic result completed [email or web address] Information not available 02/19/2024 23:25:21 Procedure Notes None recorded. Medical Equipment None [...] as needed 01/16 completed Medicati on ID: [id number] D uration Value: 7 Prescri bed By Name: Suzie Yeh nd Name: amoxicil svetlana Send Method: E-Prescr ibed Sub s Allowed: subs OK Medic ationGen ericName : amoxicil svetlana Medi cation ID: [id number] D uration Value: 7 Prescri bed By Name: Suzie Yeh nd Name: amoxicil svetlana Send Method: E-Prescr ibed Sub s Allowed: [...] 1 TABLET BY MOUTH EVERYDAY AT BEDTIME 01/08 /2025 completed Not Available Not Available Not Available [...] , auto-inje ctor active Medicati on ID: [id number] B rand Name: marco a arzate Send [...] mg tablet 07/08 completed Medicati on ID: [id number] B rand Name: loratadi ne Send Method: E-Prescr ibed Sub s Allowed: subs OK Medic ationGen ericName : loratadi ne Not Available Not Available Not Available amoxicill [...] Not Available Not Available No t Available Zyrtec 09/21 completed Medicati on ID: [id number] B rand Name: Zyrtec S end Method: E-Prescr ibed Sub s Allowed: subs OK Medic ationGen ericName : Zyrtec Not Available Not Available Not Available esomepraz ole magnesium 09/21 completed Medicati on ID: [id number] B rand Name: esomepra zole magnesiu m Send Method: E-Prescr ibed Sub s Allowed: subs OK Medic ationGen ericName : esomepra zole magnesiu m Not Available Not Available Not Available cholecalc [...] SNOMED-CT Code Diagnosis ICD10 Code Diagnosis Note [id number] MARCELO SANDERSON MD [facility] [address] [address] 01/17/2024 08:59:30 01/17/2024 10:12:07 Conductive hearing loss 93456384 H90.11 Audiologic al evaluation results: Right ear: {{Normal M ild Modera te Moderat ciera-severe Severe Pr ofound Bor derline normal #}} {{hearing sloping to a mild slopi ng to a moderate* sloping to moderately severe slo ping to severe slo ping to profound f lat high frequency low frequency mid frequency cookie bite concepcion curve}} {{with sen sorineural hearing loss with condu ctive hearing loss with* mixe d hearing loss with}} {{excellen t* good fa ir poor no measurable }} word recognitio n. Left ear: {{Normal M ild Modera te Moderat ciera-severe Severe Pr ofound Ess entially normal#}} {{hearing* sloping to a mild slopi ng to a moderate s loping to moderately severe slo ping to severe slo ping to profound f lat high frequency low frequency mid frequency cookie bite concepcion curve}} {{with* se nsorineura l hearing loss with condu ctive hearing loss with mixed hearing loss with}} {{excellen t* good fa ir poor no measurable }} word recognitio n. Tympanomet ry: Right Ear:{{Type A Type As Type Ad Type C Type C, shallow & rounded Ty pe B Type B with large volume* Co uld not maintain a hermetic seal}} Left Ear:{{Type A Type As Type Ad Type C Type C, shallow & rounded Ty pe B Type B with large volume* Co uld not maintain a hermetic seal}} Bilateral perforation of tympanic membranes [id number] 873320 H72.93 Acute infe ctive otitis externa 926561953 H60.392 [id number] MARCELO SANDERSON MD [facility] [address] [place] [address] 07/08/2024 12:43:24 07/08/2024 13:19:51 Multiple perforations of right tympanic membrane 1395667465 338539 H72.811 Dermal mycosis 60161216 B36.9 Health Concerns Section Related Observation LastModified by Organization Detai ls LastModified Time None Recorded Concern Status LastModified by Organization Details LastModified Time None Recorded Advance Directives Directive None Recorded Payers Encounter Date Sequence Insurance Name Policy Number Policy Aiken Covered Member ID Aiken Member ID Guarantor Name 01/17/2024 1 [facility] NET PLAN (MEDICAID HMO) DIVINE Reagan [id number] Keke Reagan 07/08/2024 1 [facility] (MEDICAID HMO) DIVINE Reagan [id number] Keke Reagan Notes Date Note Type Note Provider Name and Address Organization Details Recorded Time 01/17/2024 text/html 53 year old christina green presents for evaluation of ears. Reports both ears itch and the left ear hurts. Has not been abiding by dry ear precautions. States hearing is okay. There is no otorrhea and no tinnitus. MARCELO MANN MD [address] [place] [address], [phone], [facility] 01/17/2024 12:58:35 07/08/2024 text/html 54-year-old christina green presents for reevaluation of TM perforation. She has a history of tympanoplasty with Dr. Robertson in the past which was unsuccessful. She continues to have wetness and itching of the right ear. 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 She is interested in repair. MARCELO MANN MD [address] [place] [address],[place] [address], [place], [address], [facility] 07/08/2024 17:01:29 OBGyn Episode No OBEpisode recorded.
== END 2024-07-30 10:50 | disposition home or self-care (01) ==
LOC: HO.LAB 10:49
PROVIDERS: PCP Internal Medicine; Visit Provider Internal Medicine
DX: E55.9 Vitamin D deficiency, unspecified (principal); R73.01 Impaired fasting glucose; E78.00 Pure hypercholesterolemia, unspecified; D64.9 Anemia, unspecified
CPT/HCPCS: 36415; 80053; 80061; 81001; 81003; 82306; 83036; 85025

== ENCOUNTER 2024-07-31 13:32 | Outpatient (AMB) | payer OTHER, SELFPAY ==
--- OUTSIDE RECORDS SUMMARY | 2024-07-31 13:41 | XMS_ITS | Clinical Summary ---
Author Organization [employer] Address [address] [facility] 7 [place] [address] Care Team Providers Care Residential Pest Control Technician Name Role Phone Unavailable Primary Care Provider [...] Cancer Screening 2001 HPV/Cotest 2001 Mammogram 2011 Pneumococcal Vaccine: 50+ Ye ars (1 of 1 - PCV) 2021 Zoster Vaccines (1 of 2) 2021 COVID-19 [...]
--- OUTSIDE RECORDS SUMMARY | 2024-07-31 13:41 | XMS_ITS | Encounter Summary ---
Author Organization [employer] Address [address] [facility] [address] [place] [address] Care Team Providers Care Pattern Ruler Name Role Phone Unavailable Primary Care Provider [...]
[2024-07-31 13:45] VITALS: BP 130/82; PULSE 80; O2SAT 97; BMI 23.7
--- NOTE | 2024-07-31 13:45 | A.OFFPC_ITS ---
Vital Signs 07/31/24 13:45 Height 5 ft 4 in Weight 138 lb 6 oz BMI 23.7 BP 130/82 Blood Pressure Location Lt brachial Position Sitting Pulse 80 Pulse Source Pulse Oximeter Pulse Oximetry (%) 97 Oxygen Delivery Method Room Air Intake Visit Reasons: annual exam Baby Stroller Rental Clerk Required: No Accompanied by: Self / Same As Patient Allergies egg Allergy (Intermediate, Verified 08/02/24 16:30) Unknown grass pollen Allergy (Intermediate, Verified 08/02/24 16:30) Unknown pear Allergy (Intermediate, Verified 08/02/24 16:30) Unknown tree and shrub pollen Allergy (Intermediate, Verified 08/02/24 16:30) Unknown nuts,apple, starwberries Allergy (Unknown, Uncoded 08/02/24 16:30) Unknown Medication List - Last Reconciled 08/02/24 by Saulo Burton MD albuterol sulfate 2.5 mg (3 mL) inhalation Q6H PRN 30 days albuterol sulfate 90 mcg/actuation (Ventolin HFA) 2 puffs inhalation Q6H PRN 30 days amitriptyline 25 mg (1/2 x 50 mg) PO BEDTIME 90 days atorvastatin 10 mg PO BEDTIME 90 days benzonatate 100 mg PO TID benzonatate 100 mg PO BID PRN bismuth subsalicylate (Bismatrol) 2 tabs PO .QD cholecalciferol (vitamin D3) 50 mcg PO DAILY codeine-guaifenesin 10-100 mg/5 mL 10 mL PO Q6-8H PRN 7 days doxepin 10 mg PO BEDTIME 30 days epinephrine IM estradiol 0.01%(0.1mg/gram) Apply pea sized amount 3 times per week vaginally; 30 days famotidine (Pepcid) 20 mg PO BEDTIME ferrous sulfate 325 mg PO DAILY 90 days fluticasone propionate 50 mcg/actuation 1 spray intranasal DAILY fluticasone propionate 50 mcg/actuation (Flonase Allergy Relief) 1 spray intranasal BID hydrocodone-chlorpheniramine 10-8 mg/5 mL 5 mL PO Q12H PRN 7 days ibuprofen 600 mg PO Q8H PRN ipratropium bromide 2 sprays intranasal BID loratadine (Claritin) 10 mg PO DAILY loratadine-pseudoephedrine 5-120 mg ER (Loratadine-D) 1 tab PO Q12H PRN mometasone 50 mcg/actuation 2 sprays intranasal DAILY montelukast (Singulair) 10 mg PO BEDTIME mupirocin calcium 2% 1 appl topical BID 15 days nitrofurantoin macrocrystal 100 mg PO BEDTIME pantoprazole 40 mg PO DAILY 90 days phenazopyridine 100 mg PO Q8H 20 days sennosides (senna) 8.6 mg PO BEDTIME PRN sertraline 25 mg PO DAILY 30 days sodium chloride 0.65% (Saline Nasal) 2 sprays intranasal QID PRN Tobacco use date assessed: 07/31/24 Dental Screening Dental Screen Date: 07/31/24 Did you have a dental visit in the last 12 months?: Yes Did you have a dental problem in the last 6 months where you did not have access to dental care?: No Was dental information given to patient?: Patient has dentist HPI annual exam HPI Details Patient comes in today for her annual physical examination States that she feels okay She denies any headaches or dizziness Denies any chest pains, no shortness of breath but states that she would like to get a prescription for some saline nasal spray as she has been experiencing increased nasal mucosal dryness and recurrent congestion lately No nausea/vomiting, no abdominal pain No change in bowel habits noted She denies any acute urinary symptoms Needs a couple of her Rx refilled She had her follow up labs done yesterday - to discuss her results She has an appointment with her mixing technician in [place] scheduled for later this year in 09/2024 She has her screening colonoscopy done last year (2023) while she was in [place] - was reportedly advised that her colonoscopy came back normal She is scheduled for her next annual mammogram on 09/02/2024 [facility] Medical History Impaired fasting glucose Vitamin D deficiency Anemia Asthma Interstitial cystitis (chronic) with hematuria Pure hypercholesterolemia E. coli urinary tract infection Pelvic pain Bloating Perforated right tympanic membrane on examination Menorrhagia Allergic rhinitis GERD (gastroesophageal reflux disease) Hx of renal calculi History of urinary incontinence Surgical History Hx of dilation and curettage History of esophagogastroduodenoscopy (EGD) H/O colonoscopy S/P cystoscopy (~02/22/20) History of tubal ligation History of placement of ear tubes History of nasal surgery Family History Mother History of colon cancer Father History of cancer of stomach Social History Household Members: Spouse and Children Housing: House Alcohol intake: never Comment: cramping Patient Tobacco Use Status: Never used Tobacco e-Cigarette/Vaping Use: Never Used Second Hand Smoke Exposure: Yes service: No Current occupational status: employed Cognitive needs: No Hearing needs: No Vision needs: No Female Reproductive History Menstrual Age of Menarche: 15 Questionnaire PHQ-9 Over the last 2 weeks, how often have you been bothered by any of the following problems? 1. Little interest or pleasure in doing things: not at all 2. Feeling down, depressed, or hopeless: not at all 3. Trouble falling or staying asleep, or sleeping too much: not at all 4. Feeling tired or having little energy: not at all 5. Poor appetite or overeating: not at all 6. Feeling bad about yourself - or that you are a failure or have let yourself or your family down: not at all 7. Trouble concentrating on things, such as reading the newspaper or watching television: not at all 8. Moving or speaking so slowly that other people could have noticed. Or the opposite - being so fidgety or restless that you have been moving around a lot more than usual: not at all 9. Thoughts that you would be better off or of hurting yourself in some way: not at all Total score: 0 Depression Screening Interpretation: Negative Depression Screening Done: Yes 75514 - PHQ-9 Billing: Yes Source: Developed by Drs. Matty Bhandari, Kym Watson, Terrance Reyna and colleagues, with an educational kristi from [email or web address]. Thrive Questionnaire Date Thrive assessed: 07/31/24 I am a: Patient What is your living situation today?: I choose not to answer this question Within the past 12 months, did the food you bought not last and you didn't have the money to get more?: I choose not to answer this question Within the past 12 months, did you worry whether your food would run out before you got money to buy more?: I choose not to answer this question Do you have trouble paying for medicines?: I choose not to answer this question Do you have trouble getting transportation to medical appointments?: I choose not to answer this question Do you have trouble paying your heating and electricity bill?: I choose not to answer this question Do you have trouble taking care of your child, family member or friend?: I choose not to answer this question Do you have trouble with day-to-day activities such as bathing, preparing meals, shopping, managing finances, etc.?: I choose not to answer this question Are you currently unemployed and looking for a job?: I choose not to answer this question Are you interested in more education?: I choose not to answer this question Please select the resources that you would like help with: Education Currently or been in a relationship where the following occur: I choose not to answer THRIVE Score: 0 AUDIT C Alcohol Use Questionnaire (AUDIT-C) 1. How often do you have a drink containing alcohol?: Never 3. How often do you have six or more drinks on one occasion?: Never Total Score: 0 Score Reviewed/Action Taken: Yes KASHMIR-7 AMB Questionnaire KASHMIR-7 Date KASHMIR - 7 assessed: 07/31/24 Feeling nervous, anxious, or on edge: 0 = Not at all Not being able to stop or control worryin = Not at all Worrying too much about different things: 0 = Not at all Trouble relaxin = Not at all Being so restless that it is hard to sit still: 0 = Not at all Becoming easily annoyed or irritable: 0 = Not at all Feeling afraid as if something awful might happen: 0 = Not at all Total KASHMIR-7 score (0-4 normal; 5-9 mild; 10-14 moderate; 15-21 severe): 0 Source: Developed by Drs. Matty Bhandari, Kym Watson, Terrance Reyna and colleagues, with an educational kristi from [email or web address]. Review of Systems Const Denies chills, Reports difficulty sleeping, Denies fatigue, Denies fever(s), Denies headache(s) and Denies malaise Eyes Denies blurry vision, Denies change in vision, Denies irritation and Denies itchy eyes ENT Denies dysphagia, Denies dizziness, Denies otalgia, Denies headache(s), Reports nasal congestion (on and off, due to dryness of her nasal mucosa), Denies neck pain, Denies odynophagia, Denies sinus pain and Denies sore throat Card Denies chest pain, Denies rapid heart rate, Denies irregular heart rhythm, Denies palpitations and Denies dyspnea Resp Denies chest congestion, Denies cough, Denies dyspnea and Denies wheezing GI Denies abdominal pain, Denies bloating, Denies constipation, Denies dysphagia, Denies heartburn, Denies diarrhea, Denies nausea, Denies odynophagia and Denies vomiting Denies hematuria, Denies urinary frequency, Denies dysuria, Denies urinary incontinence and Denies urinary urgency Musc Denies back pain, Denies arthralgias, Denies joint swelling, Denies muscle weakness and Denies neck pain Skin/Breast Denies breast pain, Denies breast mass, Denies change in pigmentation, Denies lesions, Denies rash and Denies unusual bruising Neuro Denies dizziness, Denies headache(s) and Denies paresthesias Psych Denies anxiety and Denies depression Endo Denies fatigue and Denies palpitations Deshawn/Lymph Denies easy bruising Aller/Immun Denies itchy eyes and Denies wheezing Physical exam (Primary Care) Vital Signs: Last Vital Signs Pulse 80 07/31/24 13:45 BP 130/82 07/31/24 13:45 Pulse Ox 97 07/31/24 13:45 Oxygen Delivery Method Room Air 07/31/24 13:45 BMI result Body Mass Index 23.7 Tobacco/Smoking Status: Tobacco use Status Tobacco use date assessed 07/31/24 07/31/24 13:56 Patient Tobacco Use Status Never used Tobacco 07/31/24 13:56 e-Cigarette/Vaping Use Never Used 07/31/24 13:56 PHQ-9: PHQ-9 Score PHQ-9: Total score 0 07/31/24 14:39 Depression Screening Interpretation: Negative Thrive Assessment: Date of Thrive Assessment Date Thrive assessed 07/31/24 07/31/24 13:56 Currently or been in a relationship where the following occur: I choose not to answer Const General: no acute distress, alert and awake Orientation/consciousness: patient oriented x3 HENMT Head: Yes normocephalic and Yes atraumatic Ears: TM normal on the left, EAC's normal and TM abnormal perforated without discharge on the right General nose exam: No nasal discharge present Face and sinus: Yes normal facial exam and Yes sinuses nontender Teeth and gingiva: dentition normal Throat: Yes posterior oropharynx normal and Yes tonsils normal (no TP congestion) Eyes Eyelids: Yes eyelids normal Conjunctivae: conjunctivae normal Pupils: Equal, round and reactive pupils present EOM: EOMs intact bilaterally Neck Neck: Yes no lymphadenopathy and Yes supple Thyroid: Thyroid normal Resp Auscultation: clear to auscultation bilaterally, no rales and no wheezes Cardio Rate: regular rate Rhythm: regular rhythm Heart sounds: no murmurs GI Palpation (GI): Soft to palpation, nontender and No hepatosplenomegaly present Auscultation: normal bowel sounds General: Yes no CVA tenderness Back/Spine/Pelvis Back: no CVA tenderness Thoracic/Lumbar Spine: thoracic and lumbar spine normal to inspection Skin Lesions: no lesions Rashes: no rashes Neuro General: patient oriented x3, moves all extremities, no focal motor deficits and CN's II-XI intact bilaterally Cranial nerves: Yes Equal, round and reactive pupils present Cognition (Neuro): normal cognition Gait exam (Neuro): Normal gait present Extrem General: Yes no clubbing, cyanosis or edema Results Reviewed Results Reviewed: Laboratory Tests 07/30/24 07/30/24 11:00 11:05 WBC 5.5 Hgb 13.2 Hct 40.2 Plt Count 177 Sodium 144 Potassium 3.7 Creatinine 0.60 Estimated GFR > 60 Fasting Glucose 99 Hemoglobin A1c % 6.0 Calcium 8.8 D AST 16 ALT 20 Triglycerides 95 Cholesterol 205 H LDL Cholesterol, Calc 135 H HDL Cholesterol 51 25-OH Vitamin D Total 36.1 Ur Specific Casa 1.025 Urine Protein Negative Urine Glucose (UA) Negative Urine Blood Negative Urine Nitrite Negative Ur Leukocyte Esterase Trace H Coding Level of Care Code Est Pt Prev Care 40-64y(92754) Diagnoses Annual physical exam Z00.00 Pure hypercholesterolemia E78.00 Allergic rhinitis, unspecified seasonality, unspecified trigger J30.9 Allergic rhinitis trigger: unspecified Allergic rhinitis seasonality: unspecified Constipation, unspecified constipation type K59.00 Constipation type: unspecified constipation type Gastritis without bleeding, unspecified chronicity, unspecified gastritis type K29.70 Gastritis type: unspecified gastritis Chronicity: unspecified Gastritis bleeding: without bleeding Gastroesophageal reflux disease without esophagitis K21.9 Esophagitis presence: without esophagitis Interstitial cystitis N30.10 Anemia, unspecified type D64.9 Anemia type: unspecified type Vitamin D deficiency E55.9 Nasal congestion R09.81 Perforated right tympanic membrane on examination H72.91 Uterine prolapse N81.4 Uterine leiomyoma, unspecified location D25.9 Uterine leiomyoma location: unspecified location Hot flashes R23.2 Insomnia, unspecified type G47.00 Insomnia type: unspecified Additional Codes PHQ-9 - 10239 - PHQ-9 Billing: Yes ([id number]) Assessment & Plan Assessment & Plan (1) Annual physical exam: Code(s): Z00.00 - Encounter for general adult medical examination without abnormal findings Category: Medical Plan: Results of her labs done yesterday reviewed and discussed with patient She has an appointment with her mixing technician in [place] scheduled for later this year in 09/2024 She has her screening colonoscopy done last year (2023) while she was in [place] - was reportedly advised that her colonoscopy came back normal She is scheduled for her next annual mammogram on 09/02/2024 (2) Pure hypercholesterolemia: Code(s): E78.00 - Pure hypercholesterolemia, unspecified Category: Medical Plan: Patient is advised that her cholesterol levels on her labs yesterday have increased slightly from her previous numbers Reinforced low cholesterol diet Continue Atorvastatin 10 mg QD Will recheck her fasting lipids and labs in 4 months for follow up (3) Allergic rhinitis: Code(s): J30.9 - Allergic rhinitis, unspecified Category: Medical Qualifiers: Allergic rhinitis trigger: unspecified Allergic rhinitis seasonality: unspecified Qualified Code(s): J30.9 - Allergic rhinitis, unspecified Plan: Continue Fluticasone 50 mcg nasal spray QD PRN and Loratadine 10 mg QD PRN She continues to receive allergy injections/immunotherapy from fruit grower's (Dr. Roldan's) office regularly (4) Constipation: Code(s): K59.00 - Constipation, unspecified Category: Medical Qualifiers: Constipation type: unspecified constipation type Qualified Code(s): K59.00 - Constipation, unspecified Plan: Patient is again encouraged to increase her oral fluids and dietary fiber intake Continue Senna 8.6 mg Q HS PRN (5) Gastritis: Code(s): K29.70 - Gastritis, unspecified, without bleeding Category: Medical Qualifiers: Gastritis type: unspecified gastritis Chronicity: unspecified Ga stritis bleeding: without bleeding Qualified Code(s): K29.70 - Gastritis, unspecified, without bleeding Plan: Patient reportedly had EGD and colonoscopy done last year when she was in [place] Her EGD and colonoscopy reports were completely in [place] and it noted that there were some inflammation noted along her gastric mucosal lining suggestive of gastritis Dietary restrictions reinforced Continue Pantoprazole 40 mg QD (patient felt that this is helping better than her previous Esomeprazole); continue Famotidine 20 mg QD (6) GERD (gastroesophageal reflux disease): Code(s): K21.9 - Gastro-esophageal reflux disease without esophagitis Category: Medical Qualifiers: Esophagitis presence: without esophagitis Qualified Code(s): K21.9 - Gastro-esophageal reflux disease without esophagitis Plan: Dietary restrictions reinforced Continue Pantoprazole 40 mg QD and Famotidine 20 mg Q HS Follow up with GI as scheduled (7) Interstitial cystitis: Code(s): N30.10 - Interstitial cystitis (chronic) without hematuria Category: Medical Plan: S/P hydrodistention by Dr. Carson in January 2022 with significant improvement of her symptoms Continue Amitriptyline 25 mg Q HS; she also used to take Gabapentin 100 mg Q HS but appears to have been taken off Gabapentin a while back by urology Follow up with urology as scheduled (8) Anemia: Code(s): D64.9 - Anemia, unspecified Category: Medical Qualifiers: Anemia type: unspecified type Qualified Code(s): D64.9 - Anemia, unspecified Plan: Corrected - her H/H have remained normal on her recent labs Continue FeSO4 325 mg QD Will continue to monitor her CBC regularly (9) Vitamin D deficiency: Code(s): E55.9 - Vitamin D deficiency, unspecified Category: Medical Plan: Continue Vitamin D3 2000 units QD (10) Nasal congestion: Code(s): R09.81 - Nasal congestion Category: Medical Plan: Mostly due to the dry air during the winter, with resulting rhinorrhea due to vasomotor rhinitis Will start patient on Saline nasal spray PRN (11) Perforated right tympanic membrane on examination: Code(s): H72.91 - Unspecified perforation of tympanic membrane, right ear Category: Medical Plan: She has been referred to ENT previously for further management and a tympanoplasty was apparently attempted by Dr. Wang but the procedure failed Patient is reminded to try to keep water from getting into her right ear as best as she can to minimize any right ear symptoms Follow up with ENT as scheduled (12) Uterine prolapse: Comment: With mild central defect cystocele Code(s): N81.4 - Uterovaginal prolapse, unspecified Category: Medical Plan: She has tried using a pessary last year without any significant improvement of her symptoms She has most recently been using a Uresta device that she gets [id number], which she states helps somewhat with her symptoms Follow up with OB-Automotive Repair Technician as scheduled (13) Uterine fibroid: Code(s): D25.9 - Leiomyoma of uterus, unspecified Category: Medical Qualifiers: Uterine leiomyoma location: unspecified location Qualified Code(s): D25.9 - Leiomyoma of uterus, unspecified Plan: Patient underwent a non-diagnostic hysteroscopy back in August 2022 - procedure was not completed due to extensive scarring in the uterus that made it impossible to visualize the endometrium Follow up with OB-Automotive Repair Technician as scheduled (14) Hot flashes: Code(s): R23.2 - Flushing Category: Medical Plan: Continue Sertraline 25 mg QD (15) Insomnia: Code(s): G47.00 - Insomnia, unspecified Category: Medical Qualifiers: Insomnia type: unspecified Qualified Code(s): G47.00 - Insomnia, unspecified Plan: Sleep hygiene reinforced Will start patient on Doxepin 10 mg Q HS PRN Plan Follow up in 4 months Orders: Orders Complete Blood Count Auto Diff 4 Months D64.9 - Anemia, unspecified Lipid Panel 4 Months E78.00 - Pure hypercholesterolemia, unspecified Comprehensive Tas[place]. Panel Fast 4 Months E78.00 - Pure hypercholesterolemia, unspecified Hemoglobin A1c 4 Months R73.01 - Impaired fasting glucose Vitamin D 25-OH Total 4 Months E55.9 - Vitamin D deficiency, unspecified UA CC w/rflx Micro + Cult 4 Months R30.0 - Dysuria TSH reflex Free T4 4 Months E78.00 - Pure hypercholesterolemia, unspecified Medications: New doxepin 10 mg PO BEDTIME 30 days 30 caps 3RF sodium chloride 0.65% (Saline Nasal) 2 sprays intranasal QID PRN 44 mL 5RF dry nasal passages Refilled pantoprazole 40 mg PO DAILY 90 days 90 tabs 1RF loratadine (Claritin) 10 mg PO DAILY 30 tabs 0RF
== END 2024-07-31 14:41 | disposition home or self-care (01) ==
PROVIDERS: PCP Internal Medicine; Visit Provider Internal Medicine
DX: Z00.00 Encounter for general adult medical examination without abnormal findings (principal); E78.00 Pure hypercholesterolemia, unspecified; J30.9 Allergic rhinitis, unspecified; K59.00 Constipation, unspecified; K29.70 Gastritis, unspecified, without bleeding; K21.9 Gastro-esophageal reflux disease without esophagitis; N30.10 Interstitial cystitis (chronic) without hematuria; D64.9 Anemia, unspecified; E55.9 Vitamin D deficiency, unspecified; R09.81 Nasal congestion; H72.91 Unspecified perforation of tympanic membrane, right ear; N81.4 Uterovaginal prolapse, unspecified; D25.9 Leiomyoma of uterus, unspecified; R23.2 Flushing; G47.00 Insomnia, unspecified

== ENCOUNTER → 2024-07-31 13:32 | Outpatient (BNVA) | payer OTHER, SELFPAY | PROVIDERS: PCP Internal Medicine; Visit Provider Internal Medicine | DX: Z00.00 Encounter for general adult medical examination without abnormal findings (principal); E78.00 Pure hypercholesterolemia, unspecified; J30.9 Allergic rhinitis, unspecified; K59.00 Constipation, unspecified; K29.70 Gastritis, unspecified, without bleeding; K21.9 Gastro-esophageal reflux disease without esophagitis; N30.10 Interstitial cystitis (chronic) without hematuria; D64.9 Anemia, unspecified; E55.9 Vitamin D deficiency, unspecified; R09.81 Nasal congestion; H72.91 Unspecified perforation of tympanic membrane, right ear; N18.4 Chronic kidney disease, stage 4 (severe); D25.9 Leiomyoma of uterus, unspecified; R23.2 Flushing; G47.00 Insomnia, unspecified | CPT/HCPCS: 96127; 99396 ==

== ENCOUNTER 2024-08-21 14:22 | Outpatient (AMB) | payer OTHER, SELFPAY ==
--- NOTE | 2024-08-21 14:46 | MHC.OFFVIS ---
Intake Visit Reasons: 6m follow up Intake Note: Pt presents as a telehealth for a 6 month follow up Allergies egg Allergy (Intermediate, Verified 09/09/24 16:08) Unknown grass pollen Allergy (Intermediate, Verified 09/09/24 16:08) Unknown pear Allergy (Intermediate, Verified 09/09/24 16:08) Unknown tree and shrub pollen Allergy (Intermediate, Verified 09/09/24 16:08) Unknown nuts,apple, starwberries Allergy (Unknown, Uncoded 09/09/24 16:08) Unknown HPI Comments Details: Prashanth is a very pleasant [place] female. She is a patient of Dr. Burton. She is seen for the following urologic conditions - interstitial cystitis - recurring UTI - microscopic hematuria Telemedicine Evaluation 15 min Consultation [employer] ([employer]) Cherry Video Eight month follow-up Remains on estradiol Occasional pelvic pain on Continue stability with diet Amitriptyline to 1/2 25 mg q.h.s. Pelvic floor is significantly relaxed with combination of pelvic floor physical therapy and pessary for support Bidet attachment discussed previously Famotidine for IC Stable with current diet Has prescription for 100 mg Macrobid to be used after intimacy Recurring UTI Investigations - 12/19 E coli bennett resistant sensitive to Macrobid Interstitial cystitis: The interstitial cystitis was diagnosed 2019 on cystoscopy hydrodistention. Current symptoms include Currently stable. Aggravating factors include intercourse. Alleviating factors include bladder training, dietary changes - Jan 2020 Hydrodistention, 02/19 hydrodistention, D-mannose per Dr. Roberson Prior testing included a cystoscopy, showing stiffening of bladder wall Prior therapy Elmiron - off target effect dry eyes, limited gabapentin with amitriptyline during IC flare, IC instillations [facility] Medical History Impaired fasting glucose Vitamin D deficiency Anemia Asthma Interstitial cystitis (chronic) with hematuria Pure hypercholesterolemia E. coli urinary tract infection Pelvic pain Bloating Perforated right tympanic membrane on examination Menorrhagia Allergic rhinitis GERD (gastroesophageal reflux disease) Hx of renal calculi History of urinary incontinence Surgical History Hx of dilation and curettage History of esophagogastroduodenoscopy (EGD) H/O colonoscopy S/P cystoscopy (~02/22/20) History of tubal ligation History of placement of ear tubes History of nasal surgery Family History Mother History of colon cancer Father History of cancer of stomach Social History Household Members: Spouse and Children Housing: House Alcohol intake: never Comment: cramping Patient Tobacco Use Status: Never used Tobacco e-Cigarette/Vaping Use: Never Used Second Hand Smoke Exposure: Yes service: No Current occupational status: employed Cognitive needs: No Hearing needs: No Vision needs: No Female Reproductive History Menstrual Age of Menarche: 15 Review of Systems Const All systems reviewed & are unremarkable except as noted in HPI and below Reports no additional complaints Resp Reports no additional complaints GI Reports no additional complaints Reports as per HPI Musc Reports no additional complaints Physical Exam Telemedicine evaluation Appropriate responses Regular breathing rate and rhythm HEENT Head: Yes normal to inspection Ears: hearing grossly normal bilaterally Eyes General: appearance normal, both eyes and all related structures Neck Neck: Yes normal visual inspection Chest Chest palpation & inspection: normal inspection of the chest Resp Effort & Inspection: normal respiratory effort and able to speak in complete sentences Telehealth Telehealth Telehealth Platform: [employer] ([employer]) Location of provider rendering services: practice address Location of patient: address on file Patient Identification confirmed using: Name, : Yes Telehealth method: video Patient verbally consented to treatment: Yes Patient verbally consented to billing insurance company: Yes Patient informed of any privacy concerns related to visit: Yes Minutes spent on Phone/Video with Pt.: 15 Assessment & Plan Assessment & Plan (1) Interstitial cystitis: Code(s): N30.10 - Interstitial cystitis (chronic) without hematuria Category: Medical (2) Complicated urinary tract infection: Code(s): N39.0 - Urinary tract infection, site not specified Category: Medical Plan Six-month follow-up Medications: Changed From estradiol 0.01%(0.1mg/gram) Apply pea sized amount 3 times per week vaginally; 30 days 42.5 grams 1RF To estradiol 0.01%(0.1mg/gram) Apply pea sized amount 3 times per week vaginally; 42.5 grams 1RF 30 days Refilled ibuprofen 600 mg PO Q8H PRN 30 tabs 0RF pain phenazopyridine Use intermittently when cystitis flares 100 mg PO Q8H 30 tabs 1RF 20 days N30.11 - Interstitial cystitis (chronic) with hematuria, M54.50 - Low back pain, unspecified, R31.9 - Hematuria, unspecified Patient Instructions: This note is constructed using voice recognition software. While every effort has been made to ensure accuracy acid regenerator errors may have been included. Imaging studies, laboratory and physical exam results were discussed and reviewed in detail. No major barriers to patient understanding were identified. An opportunity to ask questions regarding the treatment plan was provided. All questions were answered. The patient expressed understanding and agreement with the above treatment plan. The patient is aware they should contact our office by phone for worsening of their current condition or the appearance of new urologic symptoms. Compliance is encouraged with any medications and followup testing that is ordered. It is a privilege to participate in the urologic care of your patient. If you have any questions or concerns regarding treatment for the above conditions, or other urologic issues, please do not hesitate to contact me. The office telephone contact is [phone]. Sincerely, Dr Willie Carson MD, LYN[facility] - Urology Compassionate Specialist Care for the Genitourinary System Coding Level of Care Code Tele Est Pt Level 3 (85011) Diagnoses Interstitial cystitis N30.10 Complicated urinary tract infection N39.0
--- OUTSIDE RECORDS SUMMARY | 2024-08-21 14:46 | XMS_ITS | Encounter Summary ---
Author Organization [employer] Address [address] [facility] [address] [place] [address] Care Team Providers Care Hydraulic Elevator Constructor Name Role Phone Unavailable Primary Care Provider [...]
--- OUTSIDE RECORDS SUMMARY | 2024-08-21 14:46 | XMS_ITS | Clinical Summary ---
Author Organization [employer] Address [address] [facility] [address] [place] [address] Care Team Providers Care Cellulose Insulation Helper Name Role Phone Unavailable Primary Care Provider [...]
--- OUTSIDE RECORDS SUMMARY | 2024-08-21 14:46 | XMS_ITS | Data Portability ---
Author Organization [place] - [facility], Allergy Address [address] [address] Care Team Providers Care Osd Clerk Name Role Phone [place] Primary Care [...] infection. Will arrange a consultation with Dr. Marina for TM repair as she is interested in proceeding with this option. All questions were answered. [email or web address] Not available 07/08/2024 13:25:03 Plan of Treatment Reminders Order Date Submit Date Provider Last Modified By Organization Details Last Modified Time Details Appointments None recorded. Lab None recorded. Referral None recorded. Procedures None recorded. Surgeries None recorded. Imaging None recorded. Medication Orders clotrimazo le-betamet hasone 1 %-0.05 % topical cream 2024 025 [facility]/Pharmacy #1972, [address] [place], [address], 5 13:25:51 ofloxacin 0.3 % ear drops 2023 025 [facility]/Pharmacy #1972, [address] [place], [address], 5 12:55:04 Patient TargetsNo targets recorded. Patient InstructionsNo instructions recorded. Reason for Referral None Reported. Results Created Date Observation Date Name Description Value Unit Range Abnormal Flag Note LastModifiedBy Organization Detail LastModifiedTime 01/20/20 24 audio gram No observ ation record ed. Not Available 12/30 16:07:42 02/19/20 24 04/28/2020 imagi ng/di agnos tic resul t No observ ation record ed. [email or web address] Not Available 23:25:21 Result Notes None recorded. Problems Name Problem SNOMED Code Status Onset Date Resolution Date Notes Provider Name and Address Organization Details Recorded Time Acute pharyngit is 120478132 Active 2022 Acute pharyngit is, unspecifi ed; Note: Date Diagnosed : 09/21/2022 12:37 PM (J02.9) Not Available [facility] 4 02:46:19 Multiple perforati ons of right tympanic membrane 54316315375 13300 Active 2019 Multiple perforati ons of tympanic membrane, right ear; Note: Date Diagnosed : 0 4:10 PM (H72.811) Not Available [facility] 4 02:46:22 Conductiv e hearing loss 96715888 Active 2019 Conductiv e hearing loss, unilatera l, right ear, with unrestric jude hearing on the contralat eral side; Note: Date Diagnosed : 0 4:10 PM (H90.11) Not Available [facility] 4 02:46:19 Bilateral perforati on of tympanic membranes 63436146654 60748 Active 2023 GUILHERME JEFFREY PA-C 100 [facility],[place] [address], [place], [address] , [facility] - [facility] [place] 4 10:00:34 Acute infective otitis externa 961391557 Active 2023 GUILHERME JEFFREY PA-C 100 [facility],[place] [address], [place], [address] , 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 - [facility] [place] 5 13:25:19 Problem Notes None recorded. Procedures Surgical History Date Name Laterality Status Provider Name and Address Organization Details Recorded Time 4 Comp Audio with Tymps (52891 & 71856) completed BRAD CHILD 100 [facility],[place] [address], [place], [address], [facility] - [facility] [place] 01/17/2024 09:28:34 procedure on urinary bladder completed Sana Barnes [place] - [facility] [place] 01/17/2024 09:11:49 Ear Surgery completed Sana Barnes [place] - [facility] [place] 01/17/2024 09:12:02 Imaging Results Imaging Date Name Status LastModified by Organiz ation Details LastModified Time 01/20/2024 audiogram completed [email or web address] Information n ot available 01/20/2024 16:07:42 04/28/2020 [...] as needed 01/16 completed Medicati on ID: [id number] D uration Value: 7 Prescri bed By Name: Suzie Yeh nd Name: amoxicil svetlana Send Method: E-Prescr ibed Sub s Allowed: subs OK Medic ationGen ericName : amoxicil svetlana Medi cation ID: [id number] D uration Value: 7 Prescri bed By [...] , auto-inje ctor active Medicati on ID: [id number] B rand Name: marco a arzate Send [...] mg tablet 07/08 completed Medicati on ID: [id number] B rand Name: loratadi ne Send Method: [...] Available Zyrtec 09/21 completed Medicati on ID: [id number] B rand Name: Zyrtec S end Method: E-Prescr ibed Sub s Allowed: subs OK Medic ationGen ericName : Zyrtec Not Available Not Available Not Available esomepraz ole magnesium 09/21 completed Medicati on ID: [id number] B rand Name: esomepra zole magnesiu m [...] Note [id number] MARCELO SANDERSON MD [facility] of [address] [address] 01/17/2024 08:59:30 01/17/2024 10:12:07 Conductive hearing loss 59212771 H90.11 Audiologic al evaluation results: Right ear: [...] hermetic seal}} Bilateral perforation of tympanic membranes 1508738535 864531 H72.93 Acute infe ctive otitis externa 557910705 H60.392 [id number] MARCELO SANDERSON MD [facility] 100 [place] [address] 07/08/2024 12:43:24 07/08/2024 13:19:51 Multiple perforations of right tympanic membrane 8781474814 093637 H72.811 Dermal mycosis 49305100 B36.9 Health Concerns Section Related Observation LastModified by Organization Detai ls LastModified Time None Recorded Concern Status LastModified by Organization Details LastModified Time None Recorded Advance Directives Directive None Recorded Payers Encounter Date Sequence Insurance Name Policy Number Policy Aiken Covered Member ID Aiken Member ID Guarantor Name 01/17/2024 1 [facility] PLAN (MEDICAID HMO) DIVINE Reagan [id number] Keke Reagan 07/08/2024 1 [facility] PLAN (MEDICAID HMO) DIVINE Reagan [id number] Keke Reagan Notes Date Note Type Note Provider Name and Address Organization Details Recorded Time 01/17/2024 text/html 53 year old christina green presents for evaluation of ears. Reports both ears itch and the left ear hurts. Has not been abiding by dry ear precautions. States hearing is okay. There is no otorrhea and no tinnitus. MARCELO MANN MD [address], [address], [facility] 01/17/2024 12:58:35 07/08/2024 text/html 54-year-old christina green presents for reevaluation of TM perforation. She has a history of tympanoplasty with Dr. Robertson in the past which was unsuccessful. She continues to have wetness and itching of the right ear. 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 She is interested in repair. MARCELO MANN MD 100 [facility],[place] [address], [place], [address], [facility] 07/08/2024 17:01:29 OBGyn Episode No OBEpisode recorded.
== END 2024-08-21 15:45 | disposition home or self-care (01) ==
LOC: HO.HUSH 14:22
PROVIDERS: PCP Internal Medicine; Visit Provider Urology
DX: N39.0 Urinary tract infection, site not specified (principal)
CPT/HCPCS: 99213

== ENCOUNTER → 2024-08-21 14:22 | Outpatient (BNVA) | payer OTHER, SELFPAY | PROVIDERS: PCP Internal Medicine; Visit Provider Urology ==

== ENCOUNTER 2024-09-02 13:28 | Outpatient (REF) | payer OTHER, SELFPAY ==
--- OUTSIDE RECORDS SUMMARY | 2024-09-02 16:08 | XMS_ITS | Encounter Summary ---
Author Organization [employer] Address [address] [facility] 7 [place] [address] Care Team Providers Care Country Sales Manager Name Role Phone Unavailable Primary Care Provider [...]
--- OUTSIDE RECORDS SUMMARY | 2024-09-02 16:08 | XMS_ITS | Clinical Summary ---
Author Organization [employer] Address [address] [facility] 7 [place] [address] Care Team Providers Care Software Engineering Manager Name Role Phone Unavailable Primary Care [...]
--- OUTSIDE RECORDS SUMMARY | 2024-09-02 16:08 | XMS_ITS | Data Portability ---
Author Organization [place] - [facility], Allergy Address [address] [address] Care Team Providers Care Hand Icer Name Role Phone [place] Primary Care Provider [phone] Assessment Encounter Date Assessment Date Assessment LastModified [...] with this option. All questions were answered. [email or web address] Not available 07/08/2024 13:25:03 Plan of Treatment Reminders Order Date Submit Date Provider Last Modified By Organization Details Last Modified Time Details Appointments None recorded. Lab None recorded. Referral None recorded. Procedures None recorded. Surgeries None recorded. Imaging None recorded. Medication Orders clotrimazo le-betamet hasone 1 %-0.05 % topical cream 2024 025 [facility]/Pharmacy #1972, [address] [place], [address], 5 13:25:51 ofloxacin 0.3 % ear drops 2023 025 [facility]/Pharmacy #1972, [address] [place], [address], 5 12:55:04 Patient TargetsNo targets recorded. Patient InstructionsNo instructions recorded. Reason for Referral None Reported. Results Created Date Observation Date Name Description Value Unit Range Abnormal Flag Note LastModifiedBy Organization Detail LastModifiedTime 01/20/20 24 audio gram No observ ation record ed. [email or web address] Not Available 12/30 16:07:42 02/19/20 24 04/28/2020 imagi ng/di agnos tic resul t No observ ation record ed. [email or web address] Not Available 23:25:21 Result Notes None recorded. Problems Name Problem SNOMED Code Status Onset Date Resolution Date Notes Provider Name and Address Organization Details Recorded Time Acute pharyngit is 947594841 Active 2022 Acute pharyngit is, unspecifi ed; Note: Date Diagnosed : 09/21/2022 12:37 PM (J02.9) Not Available [facility] 4 02:46:19 Multiple perforati ons of right tympanic membrane 41726243928 24395 Active 2019 Multiple perforati ons of tympanic membrane, right ear; Note: Date Diagnosed : 0 4:10 PM (H72.811) Not Available [facility] 4 02:46:22 Conductiv e hearing loss 68858474 Active 2019 Conductiv e hearing loss, unilatera l, right ear, with unrestric jude hearing on the contralat eral side; Note: Date Diagnosed : 0 4:10 PM (H90.11) Not Available [facility] 4 02:46:19 Bilateral perforati on of tympanic membranes 66553857391 81632 Active 2023 GUILHERME JEFFREY PA-C 100 [facility],[place] [address], [place], [address] , [facility] - [facility] [place] 4 10:00:34 Acute infective otitis externa 151058903 Active 2023 GUILHERME JEFFREY PA-C 100 [facility],[place] [address], [place], [address] , [facility] - [facility] [place] 4 10:01:31 Dermal mycosis 74539903 Active 2024 CARLYN HESS PA-C 100 [facility],[place] [address], [place], [address] , [facility] - [facility] [place] 5 13:25:19 Problem Notes None recorded. Procedures Surgical History Date Name Laterality Status Provider Name and Address Organization Details Recorded Time 4 Comp Audio with Tymps (76152 & 06749) completed BRAD CHILD 100 [facility],[place] [address], [place], [address], [facility] - [facility] [place] 01/17/2024 09:28:34 procedure on urinary bladder completed Sana Barnes [place] - [facility] [place] 01/17/2024 09:11:49 Ear Surgery completed Sana Barnes [place] - [facility] [place] 01/17/2024 09:12:02 Imaging Results Imaging Date Name Status LastModified by Organiz ation Details LastModified Time 01/20/2024 audiogram completed [email or web address] Information n ot available 01/20/2024 16:07:42 04/28/2020 [...] as needed 01/16 completed Medicati on ID: [id number] D uration Value: 7 Prescri bed By Name: Suzie Yeh nd Name: amoxicil svetlana Send Method: E-Prescr ibed Sub s Allowed: subs OK Medic ationGen ericName : amoxicil svetlana Medi cation ID: [id number] D uration Value: 7 Prescri bed By Name: Suzie Yeh nd Name: amoxicil svetlana Send Method: E-Prescr ibed Sub s Allowed: subs OK Medic ationGen ericName : amoxicil vsetlana Not Available Not Available Not Available ofloxacin [...] , auto-inje ctor active Medicati on ID: [id number] B rand Name: marco a arzate Send [...] mg tablet 07/08 completed Medicati on ID: [id number] B rand Name: loratadi ne Send Method: [...] Available Zyrtec 09/21 completed Medicati on ID: [id number] B rand Name: Zyrtec S end Method: E-Prescr ibed Sub s Allowed: subs OK Medic ationGen ericName : Zyrtec Not Available Not Available Not Available esomepraz ole magnesium 09/21 completed Medicati on ID: [id number] B rand Name: esomepra zole magnesiu m [...] Note 8594 MARCELO SANDERSON MD [facility] of [address] [address] 01/17/2024 08:59:30 01/17/2024 10:12:07 Conductive hearing loss 31534861 H90.11 Audiologic al evaluation results: Right ear: [...] hermetic seal}} Bilateral perforation of tympanic membranes 4854290173 077510 H72.93 Acute infe ctive otitis externa 640433593 H60.392 68154 MARCELO SANDERSON MD [facility] of [facility] 100 [place] [address] 07/08/2024 12:43:24 07/08/2024 13:19:51 Multiple perforations of right tympanic membrane 9635133832 144619 H72.811 Dermal mycosis 64887100 B36.9 Health Concerns Section Related Observation LastModified by Organization Detai ls LastModified Time None Recorded Concern Status LastModified by Organization Details LastModified Time None Recorded Advance Directives Directive None Recorded Payers Encounter Date Sequence Insurance Name Policy Number Policy Aiken Covered Member ID Aiken Member ID Guarantor Name 01/17/2024 1 [facility] (MEDICAID HMO) DIVINE Reagan [id number] Keke Reagan 07/08/2024 1 [facility] PLAN (MEDICAID HMO) DIVINE Reagan [id number] Keke Reagan Notes Date Note Type Note Provider Name and Address Organization Details Recorded Time 01/17/2024 text/html 53 year old christina green presents for evaluation of ears. Reports both ears itch and the left ear hurts. Has not been abiding by dry ear precautions. States hearing is okay. There is no otorrhea and no tinnitus. MARCELO MANN MD [address], [address], [facility] 01/17/2024 12:58:35 07/08/2024 text/html 54-year-old christina green presents for reevaluation of TM perforation. She has a history of tympanoplasty with Dr. Robertson in the past which was unsuccessful. She continues to have wetness and itching of the right ear. 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 She is interested in repair. MARCELO MANN MD 100 [facility],[place] [address], [place], [address], [facility] 07/08/2024 17:01:29 OBGyn Episode No OBEpisode recorded.
== END 2024-09-02 13:29 | disposition home or self-care (01) ==
LOC: HO.MAMMO 13:28
PROVIDERS: PCP Internal Medicine; Visit Provider Internal Medicine
DX: Z12.31 Encounter for screening mammogram for malignant neoplasm of breast (principal)
CPT/HCPCS: 77063; 77067

== ENCOUNTER → 2024-09-02 14:00 | Outpatient (BNV) | payer OTHER, SELFPAY | PROVIDERS: PCP Internal Medicine; Visit Provider Internal Medicine | DX: Z12.31 Encounter for screening mammogram for malignant neoplasm of breast (principal) | CPT/HCPCS: 77063; 77067 ==

== ENCOUNTER 2024-09-09 15:53 | Outpatient (AMB) | payer OTHER, SELFPAY ==
[2024-09-09 15:59] VITALS: BP 120/68; PULSE 93; O2SAT 97; BMI 23.6
--- NOTE | 2024-09-09 15:59 | MHC.PC.OV ---
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 Required: No Accompanied by: Self / Same As Patient Allergies egg Allergy (Intermediate, Verified 09/09/24 16:08) Unknown grass pollen Allergy (Intermediate, Verified 09/09/24 16:08) Unknown pear Allergy (Intermediate, Verified 09/09/24 16:08) Unknown tree and shrub pollen Allergy (Intermediate, Verified 09/09/24 16:08) Unknown nuts,apple, starwberries Allergy (Unknown, Uncoded 09/09/24 16:08) Unknown Medication List - Last Reconciled 09/09/24 by Jessenia Marks PA-C albuterol sulfate 2.5 mg (3 mL) inhalation Q6H PRN 30 days albuterol sulfate 90 mcg/actuation (Ventolin HFA) 2 puffs inhalation Q6H PRN 30 days amitriptyline 25 mg (1/2 x 50 mg) PO BEDTIME 90 days atorvastatin 10 mg PO BEDTIME 90 days benzonatate 100 mg PO TID benzonatate 100 mg PO BID PRN bismuth subsalicylate (Bismatrol) 2 tabs PO .QD cholecalciferol (vitamin D3) 50 mcg PO DAILY codeine-guaifenesin 10-100 mg/5 mL 10 mL PO Q6-8H PRN 7 days doxepin 10 mg PO BEDTIME 30 days epinephrine IM estradiol 0.01%(0.1mg/gram) Apply pea sized amount 3 times per week vaginally; 30 days famotidine (Pepcid) 20 mg PO BEDTIME ferrous sulfate 325 mg PO DAILY 90 days fluticasone propionate 50 mcg/actuation 1 spray intranasal DAILY fluticasone propionate 50 mcg/actuation (Flonase Allergy Relief) 1 spray intranasal BID hydrocodone-chlorpheniramine 10-8 mg/5 mL 5 mL PO Q12H PRN 7 days ibuprofen 600 mg PO Q8H PRN ipratropium bromide 2 sprays intranasal BID loratadine (Claritin) 10 mg PO DAILY loratadine-pseudoephedrine 5-120 mg ER (Loratadine-D) 1 tab PO Q12H PRN mometasone 50 mcg/actuation 2 sprays intranasal DAILY montelukast (Singulair) 10 mg PO BEDTIME mupirocin calcium 2% 1 appl topical BID 15 days nitrofurantoin macrocrystal 100 mg PO BEDTIME pantoprazole 40 mg PO DAILY 90 days phenazopyridine 100 mg PO Q8H 20 days sennosides (senna) 8.6 mg PO BEDTIME PRN sertraline 25 mg PO DAILY 30 days sodium chloride 0.65% (Saline Nasal) 2 sprays intranasal QID PRN Tobacco use date assessed: 09/09/24 Dental Screening Dental Screen Date: 09/09/24 Did you have a dental visit in the last 12 months?: Yes Did you have a dental problem in the last 6 months where you did not have access to dental care?: No Was dental information given to patient?: Patient has dentist HPI GI Referral Request HPI Details 54-year-old female with past medical history of GERD, hypercholesterolemia, impaired glucose tolerance and vitamin-D deficiency last seen 07/[address] Burton coming in for acute problem.? Presenting with constipation and bloating. Experienced small, infrequent bowel movements over the past three months, creating discomfort. The present treatment of iron supplements contributes to constipation; the patient has attempted various interventions. Senna has been used with limited effectiveness; dietary fiber supplements have been tried as well. Bloating presents after eating in small amounts, causing discomfort. Last colonoscopy conducted in 2020; another is due soon. [facility] Medical History Impaired fasting glucose Vitamin D deficiency Anemia Asthma Interstitial cystitis (chronic) with hematuria Pure hypercholesterolemia E. coli urinary tract infection Pelvic pain Bloating Perforated right tympanic membrane on examination Menorrhagia Allergic rhinitis GERD (gastroesophageal reflux disease) Hx of renal calculi History of urinary incontinence Surgical History Hx of dilation and curettage History of esophagogastroduodenoscopy (EGD) H/O colonoscopy S/P cystoscopy (~02/22/20) History of tubal ligation History of placement of ear tubes History of nasal surgery Family History Mother History of colon cancer Father History of cancer of stomach Social History Household Members: Spouse and Children Housing: House Alcohol intake: never Comment: cramping Patient Tobacco Use Status: Never used Tobacco e-Cigarette/Vaping Use: Never Used Second Hand Smoke Exposure: Yes service: No Current occupational status: employed Cognitive needs: No Hearing needs: No Vision needs: No Female Reproductive History Menstrual Age of Menarche: 15 Questionnaire PHQ-9 Over the last 2 weeks, how often have you been bothered by any of the following problems? 1. Little interest or pleasure in doing things: not at all 2. Feeling down, depressed, or hopeless: not at all 3. Trouble falling or staying asleep, or sleeping too much: not at all 4. Feeling tired or having little energy: not at all 5. Poor appetite or overeating: not at all 6. Feeling bad about yourself - or that you are a failure or have let yourself or your family down: not at all 7. Trouble concentrating on things, such as reading the newspaper or watching television: not at all 8. Moving or speaking so slowly that other people could have noticed. Or the opposite - being so fidgety or restless that you have been moving around a lot more than usual: not at all 9. Thoughts that you would be better off or of hurting yourself in some way: not at all Total score: 0 Depression Screening Interpretation: Negative Depression Screening Done: Yes 95360 - PHQ-9 Billing: Yes Source: Developed by Drs. Matty Bhandari, Kym Watson, Terrance Reyna and colleagues, with an educational kristi from [employer]. Thrive Questionnaire Date Thrive assessed: 09/09/24 I am a: Patient What is your living situation today?: I choose not to answer this question Within the past 12 months, did the food you bought not last and you didn't have the money to get more?: I choose not to answer this question Within the past 12 months, did you worry whether your food would run out before you got money to buy more?: I choose not to answer this question Do you have trouble paying for medicines?: I choose not to answer this question Do you have trouble getting transportation to medical appointments?: I choose not to answer this question Do you have trouble paying your heating and electricity bill?: I choose not to answer this question Do you have trouble taking care of your child, family member or friend?: I choose not to answer this question Do you have trouble with day-to-day activities such as bathing, preparing meals, shopping, managing finances, etc.?: I choose not to answer this question Are you currently unemployed and looking for a job?: I choose not to answer this question Are you interested in more education?: I choose not to answer this question Please select the resources that you would like help with: Education Currently or been in a relationship where the following occur: I choose not to answer THRIVE Score: 0 AUDIT C Alcohol Use Questionnaire (AUDIT-C) 1. How often do you have a drink containing alcohol?: Never 3. How often do you have six or more drinks on one occasion?: Never Total Score: 0 Score Reviewed/Action Taken: Yes KASHMRI-7 AMB Questionnaire KASHMIR-7 Date KASHMIR - 7 assessed: 09/09/24 Feeling nervous, anxious, or on edge: 0 = Not at all Not being able to stop or control worryin = Not at all Worrying too much about different things: 0 = Not at all Trouble relaxin = Not at all Being so restless that it is hard to sit still: 0 = Not at all Becoming easily annoyed or irritable: 0 = Not at all Feeling afraid as if something awful might happen: 0 = Not at all Total KASHMIR-7 score (0-4 normal; 5-9 mild; 10-14 moderate; 15-21 severe): 0 Source: Developed by Drs. Matty Bhandari, Kym Watson, Terrance Reyna and colleagues, with an educational kristi from [employer]. Review of Systems Const Denies body aches, Denies chills, Denies fever(s), Denies headache(s) and Denies poor appetite Eyes Reports no additional complaints ENT Denies dysphagia, Denies dizziness, Denies headache(s) and Denies odynophagia Card Denies chest pain, Denies syncope, Denies edema, Denies irregular heart rhythm, Denies lightheadedness and Denies dyspnea Resp Denies cough and Denies dyspnea GI Denies abdominal pain, Denies melena, Reports bloating, Denies hematochezia, Reports constipation, Denies dysphagia, Denies diarrhea, Denies nausea, Denies odynophagia and Denies vomiting Reports no additional complaints Musc Reports no additional complaints and Denies abnormal gait Skin/Breast Reports system reviewed and no additional complaints, except as documented Neuro Denies abnormal gait, Denies dizziness, Denies syncope and Denies headache(s) Psych Reports no additional complaints Physical exam (Primary Care) Vital Signs: Last Vital Signs Pulse 93 09/09/24 15:59 BP 120/68 09/09/24 15:59 Pulse Ox 97 09/09/24 15:59 Oxygen Delivery Method Room Air 09/09/24 15:59 BMI result Body Mass Index 23.6 Tobacco/Smoking Status: Tobacco use Status Tobacco use date assessed 09/09/24 09/09/24 16:04 Patient Tobacco Use Status Never used Tobacco 09/09/24 16:04 e-Cigarette/Vaping Use Never Used 09/09/24 16:04 PHQ-9: PHQ-9 Score PHQ-9: Total score 0 09/09/24 16:04 Depression Screening Interpretation: Negative Thrive Assessment: Date of Thrive Assessment Date Thrive assessed 09/09/24 09/09/24 16:04 Currently or been in a relationship where the following occur: I choose not to answer Const General: cooperative, healthy appearing, comfortable and no acute distress Orientation/consciousness: patient oriented x3 HENMT Head: Yes normocephalic Ears: hearing grossly normal bilaterally General nose exam: Normal external nose present Eyes General: appearance normal, both eyes and all related structures Conjunctivae: conjunctivae normal Neck Neck: Yes full ROM and Yes no lymphadenopathy Resp Effort & Inspection: normal respiratory effort Auscultation: clear to auscultation bilaterally, no crackles, no rales, no rhonchi and no wheezes Cardio Rate: regular rate Rhythm: regular rhythm GI Inspection: Yes normal to inspection Palpation (GI): Soft to palpation, not firm, nontender, no guarding, not rigid and No Rebound tenderness present Skin General skin exam: no rashes or lesions noted Neuro General: patient oriented x3 Gait exam (Neuro): Normal gait present Extrem General: Yes normal to inspection, Yes full ROM and No edema Psych Affect: normal affect Attitude: cooperative Insight: Good insight present (Psych) Judgement: Good judgement present (Psych) Coding Level of Care Code Est Pt Level 3 (25965) Diagnoses Constipation, unspecified constipation type K59.00 Constipation type: unspecified constipation type Bloating R14.0 Family history of colon cancer Z80.0 Additional Codes PHQ-9 - 34308 - PHQ-9 Billing: Yes ([id number]) Assessment & Plan Assessment & Plan (1) Constipation: Code(s): K59.00 - Constipation, unspecified Category: Medical Qualifiers: Constipation type: unspecified constipation type Qualified Code(s): K59.00 - Constipation, unspecified Plan: MiraLAX treatment was initiated to manage constipation and associated bloating, with instructions to continue until bowel normalization. A referral to a GI specialist was made for further evaluation and scheduling of a colonoscopy, assessing candidacy for a concurrent endoscopy. It was reiterated that the current use of iron supplements contributes to constipation, emphasizing the importance of their continuation for the treatment of anemia. (2) Bloating: Comment: Food diary-avoid culprits Code(s): R14.0 - Abdominal distension (gaseous) Category: Medical Plan: Trial of simethicone for bloating and gas. (3) Family history of colon cancer: Comment: Asymptomatic colonoscopy 5 years-2025 Code(s): Z80.0 - Family history of malignant neoplasm of digestive organs Category: Medical Plan: Referral placed to GI. Plan This note was constructed using voice recognition software. While every effort has been made to ensure accuracy and carbon paper coating machine setter, still areas may have been included sometimes these areas may affect the content or meeting of the given symptoms. Total time spent caring for the patient today was 20 minutes. This includes time spent before the visit reviewing the chart, time spent during the visit, and time spent after the visit and documentation. Patient was informed and verbally consented to the use of an ambient scribe for clinic note documentation during this visit. Orders: Referrals Gastroenterology Referral Z12.11 - Encounter for screening for malignant neoplasm of colon Medications: New polyethylene glycol 3350 (Miralax) 17 grams PO DAILY 119 grams 1RF simethicone (Gas Relief (simethicone)) 180 mg PO BID PRN 30 caps 0RF abdominal distention Refilled estradiol 0.01%(0.1mg/gram) Apply pea sized amount 3 times per week vaginally; 30 days 42.5 grams 1RF
--- OUTSIDE RECORDS SUMMARY | 2024-09-09 18:26 | XMS_ITS | Encounter Summary ---
Author Organization [employer] Address [address] [facility] 7 h Floor [place] [id number] Care Team Providers Care Hand Outside Cutter Name Role Phone Unavailable Primary Care Provider [...]
--- OUTSIDE RECORDS SUMMARY | 2024-09-09 18:26 | XMS_ITS | Data Portability ---
Author Organization [place] - [facility], Allergy Address [address] [address] Care Team Providers Care Concrete Batch Plant Operator Name Role Phone [place] Primary Care Provider [phone] Assessment Encounter Date Assessment Date Assessment LastModified [...] with this option. All questions were answered. [email or web address] Not available 07/08/2024 13:25:03 Plan of Treatment Reminders Order Date Submit Date Provider Last Modified By Organization Details Last Modified Time Details Appointments None recorded. Lab None recorded. Referral None recorded. Procedures None recorded. Surgeries None recorded. Imaging None recorded. Medication Orders clotrimazo le-betamet hasone 1 %-0.05 % topical cream 2024 025 [facility] #1972, [address] [place], [address], 5 13:25:51 ofloxacin 0.3 % ear drops 2023 025 [facility] #1972, [address] [place], [address], 5 12:55:04 Patient TargetsNo targets recorded. Patient InstructionsNo instructions recorded. Reason for Referral None Reported. Results Created Date Observation Date Name Description Value Unit Range Abnormal Flag Note LastModifiedBy Organization Detail LastModifiedTime 01/20/20 24 audio gram No observ ation record ed. [email or web address] Not Available 12/30 16:07:42 02/19/20 24 04/28/2020 imagi ng/di agnos tic resul t No observ ation record ed. [email or web address] Not Available 23:25:21 Result Notes None recorded. Problems Name Problem SNOMED Code Status Onset Date Resolution Date Notes Provider Name and Address Organization Details Recorded Time Acute pharyngit is 248030707 Active 2022 Acute pharyngit is, unspecifi ed; Note: Date Diagnosed : 09/21/2022 12:37 PM (J02.9) Not Available [facility] 4 02:46:19 Multiple perforati ons of right tympanic membrane 61934734112 31676 Active 2019 Multiple perforati ons of tympanic membrane, right ear; Note: Date Diagnosed : 0 4:10 PM (H72.811) Not Available [facility] 4 02:46:22 Conductiv e hearing loss 04847323 Active 2019 Conductiv e hearing loss, unilatera l, right ear, with unrestric jude hearing on the contralat eral side; Note: Date Diagnosed : 0 4:10 PM (H90.11) Not Available [facility] 4 02:46:19 Bilateral perforati on of tympanic membranes 96578656884 45823 Active 2023 GUILHERME JEFFREY PA-C [address] [facility],[place] [address], [place], [address] , [facility] - [facility] 4 10:00:34 Acute infective otitis externa 135324031 Active 2023 GUILHERME JEFFREY PA-C [address] [facility],[place] [address], [place], [address] , [facility] - [facility] 4 10:01:31 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 Procedures Surgical History Date Name Laterality Status Provider Name and Address Organization Details Recorded Time 4 Comp Audio with Tymps (51452 & 57343) completed BRAD CHILD [address] [facility],[place] [address], [place], [address], [facility] - [facility] 01/17/2024 09:28:34 procedure on urinary bladder completed Sana Barnes [place] - [facility] 01/17/2024 09:11:49 Ear Surgery completed Sana Barnes [place] - [facility] 01/17/2024 09:12:02 Imaging Results Imaging Date Name Status LastModified by Organiz ation Details LastModified Time 01/20/2024 audiogram completed [email or web address] Information n ot available 01/20/2024 16:07:42 04/28/2020 [...] as needed 01/16 completed Medicati on ID: [id number] D uration Value: 7 Prescri bed By Name: Suzie Yeh nd Name: amoxicil svetlana Send Method: E-Prescr ibed Sub s Allowed: subs OK Medic ationGen ericName : amoxicil svetlana Medi cation ID: [id number] D uration Value: 7 Prescri bed By Name: Suzie eYh nd Name: amoxicil svetlana Send Method: E-Prescr [...] , auto-inje ctor active Medicati on ID: [id number] B rand Name: marco a arzate Send [...] mg tablet 07/08 completed Medicati on ID: [id number] B rand Name: loratadi ne Send Method: [...] Available Zyrtec 09/21 completed Medicati on ID: [id number] B rand Name: Zyrtec S end Method: E-Prescr ibed Sub s Allowed: subs OK Medic ationGen ericName : Zyrtec Not Available Not Available Not Available esomepraz ole magnesium 09/21 completed Medicati on ID: [id number] B rand Name: esomepra zole magnesiu m [...] Note [id number] MARCELO SANDERSON MD [facility] [address] [address] 01/17/2024 08:59:30 01/17/2024 10:12:07 Conductive hearing loss 67179954 H90.11 Audiologic al evaluation results: Right ear: [...] hermetic seal}} Bilateral perforation of tympanic membranes 8645021971 971735 H72.93 Acute infe ctive otitis externa 571172660 H60.392 [id number] MARCELO SANDERSON MD [facility] [address] [place] [address] 07/08/2024 12:43:24 07/08/2024 13:19:51 Multiple perforations of right tympanic membrane 0519223474 502092 H72.811 Dermal mycosis 64550376 B36.9 Health Concerns Section Related Observation LastModified by Organization Detai ls LastModified Time None Recorded Concern Status LastModified by Organization Details LastModified Time None Recorded Advance Directives Directive None Recorded Payers Encounter Date Sequence Insurance Name Policy Number Policy Aiken Covered Member ID Aiken Member ID Guarantor Name 01/17/2024 1 [facility] PL[facility] (MEDICAID HMO) DIVINE Reagan [id number] Keke Reagan 07/08/[address] [facility] PLAN (MEDICAID HMO) DIVINE Reagan [id number] Keke Reagan Notes Date Note Type Note Provider Name and Address Organization Details Recorded Time 01/17/2024 text/html 53 year old christina green presents for evaluation of ears. Reports both ears itch and the left ear hurts. Has not been abiding by dry ear precautions. States hearing is okay. There is no otorrhea and no tinnitus. MARCELO MANN MD [address], [address], [facility] 01/17/2024 12:58:35 07/08/2024 text/html 54-year-old christina green presents for reevaluation of TM perforation. She has a history of tympanoplasty with Dr. Robertson in the past which was unsuccessful. She continues to have wetness and itching of the right ear. 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 She is interested in repair. MARCELO MANN MD [address] [facility],[place] [address], [place], [address], [facility] 07/08/2024 17:01:29 OBGyn Episode No OBEpisode recorded.
--- OUTSIDE RECORDS SUMMARY | 2024-09-09 18:26 | XMS_ITS | Clinical Summary ---
Author Organization [employer] Address [address] [facility] 7 [place] [address] Care Team Providers Care Access Tech Name Role Phone Unavailable Primary Care Provider [...]
== END 2024-09-09 16:18 | disposition home or self-care (01) ==
LOC: HO.HMCH 15:54
PROVIDERS: PCP Internal Medicine
DX: K59.00 Constipation, unspecified (principal); R14.0 Abdominal distension (gaseous); Z80.0 Family history of malignant neoplasm of digestive organs

== ENCOUNTER → 2024-09-09 15:53 | Outpatient (BNVA) | payer OTHER, SELFPAY | PROVIDERS: PCP Internal Medicine | DX: K59.00 Constipation, unspecified (principal); R14.0 Abdominal distension (gaseous); Z80.0 Family history of malignant neoplasm of digestive organs | CPT/HCPCS: 96127; 99212 ==

== ENCOUNTER 2024-09-28 14:47 | Outpatient (AMB) | payer OTHER, SELFPAY ==
--- NOTE | 2024-09-28 15:01 | AM.OFFVISNUR ---
Intake Visit Reasons: TB implant Allergies egg Allergy (Intermediate, Verified 09/09/24 16:08) Unknown grass pollen Allergy (Intermediate, Verified 09/09/24 16:08) Unknown pear Allergy (Intermediate, Verified 09/09/24 16:08) Unknown tree and shrub pollen Allergy (Intermediate, Verified 09/09/24 16:08) Unknown nuts,apple, starwberries Allergy (Unknown, Uncoded 09/09/24 16:08) Unknown Office Meds tuberculin PPD 5 tub. unit/0.1 mL intradermal injection solution Performing Provider: Saulo Burton MD [facility] Administered by: Cynthia Wheeler RN on 09/28/24 15:01 Dose Route Admin Location Dispensed Lot Number Expiration Date [facility] Interpretive Program Coordinator 0.1 mL intradermal left forarm 0.1 mL [id number] 11/27/26 [id number] [employer] Assessment & Plan Assessment & Plan Orders: Orders AMB PPD Planted Today Z11.1 - Encounter for screening for respiratory tuberculosis Medications: New tuberculin PPD 0.1 mL intradermal ONCE 0.1 mL 0RF Z11.1 - Encounter for screening for respiratory tuberculosis Coding
--- OUTSIDE RECORDS SUMMARY | 2024-09-28 16:44 | XMS_ITS | Clinical Summary ---
Author Organization [employer] Address [address] [facility] 7 [place] [address] Care Team Providers Care Manager Technical Training Name Role Phone Unavailable Primary Care Provider [...]
--- OUTSIDE RECORDS SUMMARY | 2024-09-28 16:44 | XMS_ITS | Encounter Summary ---
Author Organization [employer] Address [address] [facility] 7 h Floor [place] [id number] Care Team Providers Care Mitten Sewer Name Role Phone Unavailable Primary Care Provider [...]
--- OUTSIDE RECORDS SUMMARY | 2024-09-28 16:44 | XMS_ITS | Data Portability ---
Author Organization [place] - [facility], Allergy Address [address] [address] Care Team Providers Care Occup Ther Name Role Phone [place] Primary Care Provider [phone] Assessment Encounter Date Assessment Date Assessment LastModified [...] with this option. All questions were answered. [email or web address] Not available 07/08/2024 13:25:03 Plan of Treatment Reminders Order Date Submit Date Provider Last Modified By Organization Details Last Modified Time Details Appointments Establish ed 10 2024 08:50A M ARIELA DUKE MD Not available Not available Not available Lab None recorded. Referral None recorded. Procedures None recorded. Surgeries None recorded. Imaging None recorded. Medication Orders clotrimaz ole-betam ethasone 1 %-0.05 % topical cream 2024 025 [facility]/Pharmacy #1972, [address] [place], [address], 07/08/2024 13:25:51 ofloxacin 0.3 % ear drops 2023 025 [facility]/Pharmacy #1972, [address] [place], [address], 07/08/2024 12:55:04 Patient TargetsNo targets recorded. Patient InstructionsNo [...] Organization Details Recorded Time Acute pharyngit is 488790394 Active 2022 Acute pharyngit is, unspecifi ed; Note: Date Diagnosed : 09/21/2022 12:37 PM (J02.9) Not Available [facility] 4 02:46:19 Multiple perforati ons of right tympanic membrane 69970010343 70462 Active 2019 Multiple perforati ons of tympanic membrane, right ear; Note: Date Diagnosed : 0 4:10 PM (H72.811) Not Available [facility] 4 02:46:22 Conductiv e hearing loss 72178277 Active 2019 Conductiv e hearing loss, unilatera l, right ear, with unrestric jude hearing on the contralat eral side; Note: Date Diagnosed : 0 4:10 PM (H90.11) Not Available [facility] 4 02:46:19 Bilateral perforati on of tympanic membranes 91646832493 65652 Active 2023 GUILHERME JEFFREY PA-C 100 [facility] [place] [address], [facility] [place], [address] , [facility] - [facility] [place] 4 10:00:34 Acute infective otitis externa 789869170 Active 2023 GUILHERME JEFFREY PA-C 100 [facility] 100, [facility] [place], [address] , [place] - [facility] [place] 4 10:01:31 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 Procedures Surgical History Date Name Laterality Status Provider Name and Address Organization Details Recorded Time 4 Comp Audio with Tymps (75041 & 00328) completed BRAD CHILD 100 [facility],[place] [address], [place], [address], [place] - [facility] [place] 01/17/2024 09:28:34 procedure on urinary bladder completed Sana Barnes [place] - [facility] [place] 01/17/2024 09:11:49 Ear Surgery completed Sana Barnes [place] - [facility] [place] 01/17/2024 09:12:02 Imaging Results Imaging Date Name Status LastModified by Organiz ation Details LastModified Time 01/20/2024 audiogram completed Information n ot available 01/20/2024 16:07:42 04/28/2020 [...] as needed 01/16 completed Medicati on ID: [id number] D uration Value: 7 Prescri bed By Name: Suzie Yeh nd Name: amoxicil svetlana Send Method: E-Prescr ibed Sub s Allowed: subs OK Medic ationGen ericName : amoxicil svetlana Medi cation ID: [id number] D uration Value: 7 Prescri bed By [...] , auto-inje ctor active Medicati on ID: [id number] B rand Name: marco a arzate Send [...] mg tablet 07/08 completed Medicati on ID: [id number] B rand Name: loratadi ne Send Method: [...] Available Zyrtec 09/21 completed Medicati on ID: [id number] B rand Name: Zyrtec S end Method: E-Prescr ibed Sub s Allowed: subs OK Medic ationGen ericName : Zyrtec Not Available Not Available Not Available esomepraz ole magnesium 09/21 completed Medicati on ID: [id number] B rand Name: esomepra zole magnesiu m [...] Note [id number] MARCELO SANDERSON MD [facility] of [address] [address] 01/17/2024 08:59:30 01/17/2024 10:12:07 Conductive hearing loss 94860864 H90.11 Audiologic al evaluation results: Right ear: [...] hermetic seal}} Bilateral perforation of tympanic membranes 0222030203 471416 H72.93 Acute infe ctive otitis externa 180371223 H60.392 [id number] MARCELO SANDERSON MD [facility] [address] [place] [address] 07/08/2024 12:43:24 07/08/2024 13:19:51 Multiple perforations of right tympanic membrane 8192636764 661938 H72.811 Dermal mycosis 32717304 B36.9 Health Concerns Section Related Observation LastModified by Organization Detai ls LastModified Time None Recorded Concern Status LastModified by Organization Details LastModified Time None Recorded Advance Directives Directive None Recorded Payers Encounter Date Sequence Insurance Name Policy Number Policy Aiken Covered Member ID Aiken Member ID Guarantor Name 01/17/2024 1 [facility] NET PLAN (MEDICAID HMO) DIVINE Reagan [id number] Keke Reagan 07/08/2024 1 [facility] PL[facility] (MEDICAID HMO) DIVINE Reagan [id number] Keke Reagan Notes Date Note Type Note Provider Name and Address Organization Details Recorded Time 01/17/2024 text/html 53 year old christina green presents for evaluation of ears. Reports both ears itch and the left ear hurts. Has not been abiding by dry ear precautions. States hearing is okay. There is no otorrhea and no tinnitus. MARCELO MANN MD [address] [place] [address], [address], [facility] 01/17/2024 12:58:35 07/08/2024 text/html 54-year-old christina green presents for reevaluation of TM perforation. She has a history of tympanoplasty with Dr. Robertson in the past which was unsuccessful. She continues to have wetness and itching of the right ear. 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 She is interested in repair. MARCELO MANN MD [address] [place] [address],[place] [address], [place], [address], [facility] 07/08/2024 17:01:29 OBGyn Episode No OBEpisode recorded.
== END 2024-09-28 15:03 | disposition home or self-care (01) ==
LOC: HO.HMCH 14:50
PROVIDERS: PCP Internal Medicine; Visit Provider Internal Medicine
DX: Z11.1 Encounter for screening for respiratory tuberculosis (principal)

== ENCOUNTER → 2024-09-28 14:47 | Outpatient (BNVA) | payer OTHER, SELFPAY | PROVIDERS: PCP Internal Medicine; Visit Provider Internal Medicine | DX: Z11.1 Encounter for screening for respiratory tuberculosis (principal) | CPT/HCPCS: 86580 ==

== ENCOUNTER → 2024-09-30 14:33 | Outpatient (BNVA) | payer OTHER, SELFPAY | PROVIDERS: PCP Internal Medicine; Visit Provider Internal Medicine ==

== ENCOUNTER 2024-11-14 09:26 | Outpatient (AMB) | payer OTHER, SELFPAY ==
--- OUTSIDE RECORDS SUMMARY | 2024-11-14 09:28 | XMS_ITS | Data Portability ---
Author Organization [place] - [facility], Allergy Address [address] [address] Care Team Providers Care Correctional Officer Sergeant Name Role Phone [place] Primary Care Provider [phone] Assessment Encounter Date Assessment Date Assessment LastModified [...] with this option. All questions were answered. [email or web address] Not available 07/08/2024 13:25:03 Plan of Treatment [...] 1 %-0.05 % topical cream 2024 025 [facility]/Pharmacy #1972, [address] [place], [address], 07/08/2024 13:25:51 ofloxacin 0.3 % ear drops 2023 025 [facility]/Pharmacy #1972, [address] [place], [address], 07/08/2024 12:55:04 Patient TargetsNo targets recorded. Patient InstructionsNo instructions recorded. Reason for Referral None Reported. Results Created Date Observation Date Name Description Value Unit Range Abnormal Flag Note LastModifiedBy Organization Detail LastModifiedTime 01/20/20 audio gram No observ ation record ed. [email or web address] Not Available 12/30 16:07:42 02/19/20 24 04/28/2020 imagi ng/di agnos tic resul t No observ ation record ed. [email or web address] Not Available 23:25:21 Result Notes None recorded. Problems Name Problem SNOMED Code Status Onset Date Resolution Date Notes Provider Name and Address Organization Details Recorded Time Acute pharyngit is 627022428 Active 2022 Acute pharyngit is, unspecifi ed; Note: Date Diagnosed : 09/21/2022 12:37 PM (J02.9) Not Available [facility] 4 02:46:19 Multiple perforati ons of right tympanic membrane 81685614009 82537 Active 2019 Multiple perforati ons of tympanic membrane, right ear; Note: Date Diagnosed : 0 4:10 PM (H72.811) Not Available [facility] 4 02:46:22 Conductiv e hearing loss 60456179 Active 2019 Conductiv e hearing loss, unilatera l, right ear, with unrestric jude hearing on the contralat eral side; Note: Date Diagnosed : 0 4:10 PM (H90.11) Not Available [facility] 4 02:46:19 Bilateral perforati on of tympanic membranes 57314259266 55312 Active 2023 GUILHERME JEFFREY PA-C [address] [place] [facility], [place], [address] , [facility] - [facility] [place] 4 10:00:34 Acute infective otitis externa 804322271 Active 2023 GUILHERME JEFFREY PA-C 100 [facility] [place] [address], [facility] [place], [address] , [place] - [facility] [place] 4 10:01:31 Dermal mycosis 40887047 Active 2024 CARLYN HESS PA-C 100 [facility] [place],[facility] 100, [place], [address] , [place] - [facility] [place] 5 13:25:19 Problem Notes None recorded. Procedures Surgical History Date Name Laterality Status Provider Name and Address Organization Details Recorded Time 4 Comp Audio with Tymps - 79260 & 96966 completed BRAD CHILD 100 [facility],[place] [address], [place], [address], [place] - [facility] 01/17/2024 09:28:34 procedure on urinary bladder completed Sana Barnes [place] - [facility] [place] 01/17/2024 09:11:49 Ear Surgery completed Sana Barnes [place] - [facility] 01/17/2024 09:12:02 Imaging Results Imaging Date Name Status LastModified by Organiz ation Details LastModified Time 01/20/2024 audiogram completed [email or web address] Information n ot available 01/20/2024 16:07:42 04/28/2020 [...] completed Not Available Not Available Not Available doxepin 10 mg capsule TAKE 1 CAPSULE BY MOUTH EVERYDAY AT BEDTIME active Not Available Not Available No t Available amitripty line 50 mg tablet HALF TAB BY MOUTH EVERY DAY AT BEDTIME active Not Available Not Available No t Available amoxicill in 500 mg tablet Take 1 tablet by mouth three times a day as needed 01/16 completed Medicati on ID: [id number] D uration Value: 7 Prescri bed By Name: Suzie Yeh nd Name: amoxicil svetlana Send Method: E-Prescr ibed Sub s Allowed: subs OK Medic ationGen ericName : amoxicil svetlana Medi cation ID: [id number] D uration Value: 7 Prescri bed By [...] ridine 100 mg tablet TAKE 1 TABLET ORALLY EVERY 8 HOURS FOR 20 DAYS USE INTERMIT TENTLY WHEN CYSTITIS FLARES active [...] tablet TAKE 1 TABLET BY MOUTH EVERY DAY IN THE MORNING active Not Available Not Available No t Available monteluka st 10 mg tablet TAKE 1 TABLET BY MOUTH AT BEDTIME active Not Available Not Available No t Available codeine 10 mg-guaife nesin 100 mg/5 mL oral liquid TAKE 5 ML ORALLY EVERY 6 TO 8 HOURS NEEDED FOR ALLERGY SYMPTOMS FOR 7 DAYS 07/08 completed Not Available Not Available Not Available grisphri ne 0.3 mg/0.3 mL injection , auto-inje ctor active Medicati on ID: [id number] B rand Name: marco a arzate Send Method: E-Prescr ibed Sub s Allowed: subs OK Medic ationGen ericName : marco a arzate Not Available Not Available Not Available ibuprofen 600 mg tablet TAKE 1 TABLET BY MOUTH EVERY 8 HOURS NEEDED FOR PAIN active Not Available Not Available No t Available polyethyl khadra glycol 3350 17 gram/dose oral powder TAKE 17 GRAMS BY MOUTH EVERY DAY active Not Available Not Available No t Available estradiol 0.01% (0.1 mg/gram) vaginal cream FOR 30 DAYS APPLY PEA SIZED AMOUNT 3 TIMES PER WEEK VAGINALL Y active Not Available Not Available No t [...] bromide 21 mcg (0.03 %) nasal spray ADMINIST ER 2 SPRAYS TWICE A DAY INTO EACH NOSTRIL active Not Available Not Available No t Available loratadin e 10 mg tablet 07/08 completed Medicati on ID: [id number] B rand Name: elena elise Send Method: E-Prescr ibed Sub s Allowed: subs OK Medic ationGen ericName : loratavinnie ne Not Available Not Available Not Available amoxicill in 875 mg-potass ium clavulana te 125 mg tablet TAKE 1 TABLET BY MOUTH TWICE A DAY FOR 5 DAYS 01/16 completed Not Available Not Available Not Available Ventolin HFA 90 mcg/actua tion aerosol inhaler INHALE 1-2 PUFFS BY MOUTH EVERY 4-6 HOURS NEEDED active Not Available Not Available No t Available Saline Nasal 0.65 % spray aerosol SPRAY 2 SPRAY INTRANAS ALLY 4 TIMES A DAY NEEDED FOR DRY NASAL PASSAGES active Not Available Not Available No t Available Allergy Relief D12 5 mg-120 mg tablet,ex tended release TAKE 1 TABLET BY MOUTH EVERY 12 HOURS NEEDED active Not Available Not Available No t Available Anti-Gas Ultra Strength 180 mg capsule TAKE 1 CAPSULE BY MOUTH TWICE A DAY NEEDED active Not Available Not Available No t Available Zyrtec 09/21 completed Medicati on ID: [id number] B rand Name: Zyrtec S end Method: E-Prescr ibed Sub s Allowed: subs OK Medic ationGen ericName : Zyrtec Not Available Not Available Not Available esomepraz ole magnesium 09/21 completed Medicati on ID: [id number] B rand Name: abby de la torre Send Method: E-Prescr ibed Sub s Allowed: subs OK Anastasia Newby ericName : abby de la torre Not [...] Code Diagnosis ICD10 Code Diagnosis Note [id number] GUILHERME JEFFREY PA-C [facility] of [address] [address] 01/17/2024 08:59:30 01/17/2024 10:12:07 Conductive hearing loss 47443507 H90.11 Audiologic al evaluation results: Right ear: [...] hermetic seal}} Bilateral perforation of tympanic membranes 4196224865 635515 H72.93 Acute infe ctive otitis externa 431646534 H60.392 [id number] CARLYN HESS PA-C [facility] 100 [place] [address] 07/08/2024 12:43:24 07/08/2024 13:19:51 Multiple perforations of right tympanic membrane 4207070871 381080 H72.811 Dermal mycosis 93783000 B36.9 Health Concerns Section Related Observation LastModified by Organization Detai ls LastModified Time None Recorded Concern Status LastModified by Organization Details LastModified Time None Recorded Advance Directives Directive None Recorded Payers Insurance Date Sequence Insurance Name Policy Number Policy Aiken Covered Member ID Aiken Member ID Guarantor Name 07/08/2024 1 [facility] NET PLAN (MEDICAID HMO) DIVINE Reagan [id number] Keke Reagan Notes Date Note Type Note Provider Name and Address Organization Details Recorded Time 01/17/2024 text/html 53 year old christina green presents for evaluation of ears. Reports both ears itch and the left ear hurts. Has not been abiding by dry ear precautions. States hearing is okay. There is no otorrhea and no tinnitus. MARCELO MANN MD [address] [place] [address], [address], [facility] - [facility] 01/17/2024 12:58:35 07/08/2024 text/html 54-year-old christina green presents for reevaluation of TM perforation. She has a history of tympanoplasty with Dr. Robertson in the past which was unsuccessful. She continues to have wetness and itching of the right ear. 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 She is interested in repair. MARCELO MANN MD [address] [place] [address],[place] [address], [place], [address], [facility] - [facility] 07/08/2024 17:01:29 OBGyn Episode No OBEpisode recorded.
--- OUTSIDE RECORDS SUMMARY | 2024-11-14 09:28 | XMS_ITS | Clinical Summary ---
Author Organization [employer] Address 75 [facility] 7 [place] [address] Care Team Providers Care Salvage Mend Worker Name Role Phone Unavailable Primary Care Provider [...] patient's age to complete this topic Meningococcal B Vaccine Aged Out No l onger eligible based on patient's age to complete [...]
--- OUTSIDE RECORDS SUMMARY | 2024-11-14 09:28 | XMS_ITS | Encounter Summary ---
Author Organization [employer] Address 75 [facility] 7 h Floor [place] [id number] Care Team Providers Care Sider Name Role Phone Unavailable Primary Care Provider [...]
[2024-11-14 10:05] VITALS: BP 150/80; PULSE 81; RESP 16; TEMP 36.8; O2SAT 97; BMI 23.7
--- NOTE | 2024-11-14 10:05 | AM.OFFWIN_ITS ---
Intake Vital Signs 11/14/24 10:05 Height 5 ft 4 in Weight 138 lb BMI 23.7 BP 150/80 H Blood Pressure Location Rt brachial Position Sitting Respiration 16 Pulse 81 Pulse Source Pulse Oximeter Temp 98.2 F Temp Source Oral Pulse Oximetry (%) 97 Oxygen Delivery Method Room Air Intake Visit Reasons: EP-fever, cough, running nose, sore throat Intake Note: Pt is here today c/o fever,cough, nasal congestion plus S/T x2wks Patient Tobacco Use Status: Never used Tobacco Allergies egg Allergy (Intermediate, Verified 11/14/24 10:18) Unknown grass pollen Allergy (Intermediate, Verified 11/14/24 10:18) Unknown pear Allergy (Intermediate, Verified 11/14/24 10:18) Unknown tree and shrub pollen Allergy (Intermediate, Verified 11/14/24 10:18) Unknown nuts,apple, starwberries Allergy (Unknown, Uncoded 11/14/24 10:18) Unknown HPI HPI Comments History of Present Illness Details History - The patient is a 54-year-old female pr esenting with worsening symptoms of an upper respiratory infection. - Symptoms have been present for two wee ks, characterized by fever, cough, and sinus congestion. - She has tried aiob-oax-gaitryt medicat ions, including Delsym and allergy pills, with limited relief. - Asthma, managed with an inhaler and ma chine, is noted, but current symptoms persist. - Heartburn is also a concern, with self -treatment proving ineffective. - The patient reports additional symptom s, including headaches, body aches, fatigue, ear pain, and sinus pain. - A history of left ear problems is deta iled, with prior advice for surgical intervention. - Testing for COVID-19, flu, and RSV is planned. - She expresses a preference for prednis one over hydrocodone, which she has used previously. Physical Exam General: Cooperative, healthy appearing, comfortable and no acute distress Orientation/consciousness: Patient oriented x3 Limitations: No limitations Head: Normal to inspection Ears: Hearing grossly normal bilaterally, external ears normal, left TM with erythema, TM rupture, right tm normal Nose: Normal external nose present, Normal nares present and No nasal discharge present Face and sinus: Normal facial exam and Yes sinuses tender Mouth: Normal oral and palatal mucosa present and moist mucous membranes Throat: Yes tonsils normal, Yes uvula midline. Posterior oropharynx erythema, no exudate Eyes: Appearance normal, both eyes and all related structures Neck: Normal visual inspection Respiratory: Clear to auscultation bilaterally. Normal respiratory effort, able to speak in complete sentences, Actively coughing, no respiratory distress, not tachypneic, no tripod positioning and no use of accessory muscles Cardiovascular: Regular rate and rhythm. Normal S1 and S2 Skin: No rashes or lesions noted Neuro: Patient oriented x3 Extremities: Normal to inspection and Yes no clubbing, cyanosis or edema PFSH Medical History Impaired fasting glucose Vitamin D deficiency Anemia Asthma Interstitial cystitis (chronic) with hematuria Pure hypercholesterolemia E. coli urinary tract infection Pelvic pain Bloating Perforated right tympanic membrane on examination Menorrhagia Allergic rhinitis GERD (gastroesophageal reflux disease) Hx of renal calculi History of urinary incontinence Surgical History Hx of dilation and curettage History of esophagogastroduodenoscopy (EGD) H/O colonoscopy S/P cystoscopy (~02/22/20) History of tubal ligation History of placement of ear tubes History of nasal surgery Family History Mother History of colon cancer Father History of cancer of stomach Social History Household Members: Spouse and Children Housing: House Alcohol intake: never Comment: cramping Patient Tobacco Use Status: Never used Tobacco e-Cigarette/Vaping Use: Never Used Second Hand Smoke Exposure: Yes service: No Current occupational status: employed Cognitive needs: No Hearing needs: No Vision needs: No Female Reproductive History Menstrual Age of Menarche: 15 Review of Systems Const All systems reviewed & are unremarkable except as noted in HPI and below Physical Exam Vital Signs: Last Vital Signs Temp 98.2 F 11/14/24 10:05 Pulse 81 11/14/24 10:05 Resp 16 11/14/24 10:05 BP 150/80 H 11/14/24 10:05 Pulse Ox 97 11/14/24 10:05 Oxygen Delivery Method Room Air 11/14/24 10:05 BMI result Body Mass Index 23.7 Results AMB Rapid Strep AMB Rapid Strep Negative Last Edit by Amirah Barragan CMA on 11/14/24 10:25 Results Reviewed Results Reviewed: Laboratory Last Values Strep Scn Rapid Clinic Negative 11/14/24 10:08 Assessment & Plan Assessment & Plan (1) Otitis media: Code(s): H66.90 - Otitis media, unspecified, unspecified ear Qualifiers: Otitis media type: suppurative Chronicity: acute Laterality: left Recurrence: non-recurrent Spontaneous tympanic membrane rupture: with spontaneous rupture Qualified Code(s): H66.012 - Acute suppurative otitis media with spontaneous rupture of ear drum, left ear Plan: VSS, pt well appearing and PE remarkable for left OM and a severe cough. Rapid strep negative. The patient will be treated with amoxicillin 875 mg for seven days to address her acute otitis media. A prednisone taper is planned to manage her asthma exacerbation and cough, beginning with four tablets each day then tapering down. Due to her history of heartburn, close monitoring during prednisone use is recommended. COVID-19, flu, and RSV tests have been ordered, and results will be communicated via the patient portal. Supportive care such as hot tea with honey has been advised. The plan has been explained to the patient, who agrees and understands the necessary follow-up should her symptoms worsen. Patient was informed and verbally consented to the use of an ambient scribe for clinic note documentation during this visit (2) URI, acute: Code(s): J06.9 - Acute upper respiratory infection, unspecified Plan: as above Orders: Orders SARS-CoV2/FLU/RSV Today R09.89 - Other specified symptoms and signs involving the circulatory and respiratory systems AMB Rapid Strep Screen Today Z13.9 - Encounter for screening, unspecified Medications: New prednisone take 4 tablets on days 1-2, take 3 tablets on days 3-4, take 2 tablets on days 5-6, take 1 tablet on days 7-8. 10 mg PO DIRECTED 20 tabs 0RF amoxicillin 875 mg PO Q12H 14 tabs 0RF Coding Level of Care Code Est Pt Level 4 (37352) Diagnoses Non-recurrent acute suppurative otitis media of left ear with spontaneous rupture of tympanic membrane H66.012 Otitis media type: suppurative Chronicity: acute Laterality: left Recurrence: non-recurrent Spontaneous tympanic membrane rupture: with spontaneous rupture URI, acute J06.9
== END 2024-11-14 10:48 | disposition home or self-care (01) ==
PROVIDERS: PCP Internal Medicine; Visit Provider Physician Assistant
DX: H66.012 Acute suppurative otitis media with spontaneous rupture of ear drum, left ear (principal); J06.9 Acute upper respiratory infection, unspecified; Z13.9 Encounter for screening, unspecified

== ENCOUNTER 2024-11-14 09:26 | Outpatient (REF) | payer OTHER, SELFPAY ==
--- OUTSIDE RECORDS SUMMARY | 2024-11-14 10:34 | XMS_ITS | Encounter Summary ---
Author Organization [employer] Address 75 [facility] 7 h Floor [place] [id number] Care Team Providers Care Night Time Babysitter Name Role Phone Unavailable Primary Care Provider [...]
[2024-11-14 13:15] LABS: Influenza A PCR NEGATIVE (Negative); Influenza B PCR NEGATIVE (Negative); Resp Syncy Virus RNA Qual PCR NEGATIVE (Negative); SARS COV2 PCR INHOUSE NEGATIVE (Negative)
== END 2024-11-14 09:27 | disposition home or self-care (01) ==
LOC: HO.LAB 09:26
PROVIDERS: Physician Assistant; PCP Internal Medicine
DX: H66.012 Acute suppurative otitis media with spontaneous rupture of ear drum, left ear (principal); R06.89 Other abnormalities of breathing; J06.9 Acute upper respiratory infection, unspecified
CPT/HCPCS: 0241U; 87880; 99212

== ENCOUNTER 2024-11-26 07:38 | Outpatient (REF) | payer OTHER, SELFPAY ==
--- OUTSIDE RECORDS SUMMARY | 2024-11-26 07:40 | XMS_ITS | Clinical Summary ---
Author Organization [employer] Address 75 [facility] 7 [place] [address] Care Team Providers Care Felt Hooker Name Role Phone Unavailable Primary Care Provider [...] 1971 FIT 1971 FOBT 1971 Sigmoidoscopy 1971 Disability Screening 1971 Alcohol/Substance Use Screening 1983 Tobacco Screening [...]
[2024-11-26 07:49] LABS: MANUAL DIFF FLAG NO
[2024-11-26 08:10] LABS: Basophils Absolute Auto 0.1 X10*3/uL (0.0-0.2); Basophils Percent Auto 0.8 % (0-2); Eosinophils Absolute Auto 0.2 X10*3/uL (0.0-0.4); Eosinophils Percent Auto 2.3 % (0-4); Hematocrit 38.9 % (37.0-47.0); Hemoglobin 12.9 g/dl (12.0-16.0); Imm Gran Abs Auto 0.04 X10*3/uL (0.00-0.03); Imm Gran Pct Auto 0.5 % (0.0-0.4); Lymphocytes Percent Auto 27.1 % (20-40); Mean Corpuscular HGB Conc 33.2 g/dl (31.0-35.0); Mean Corpuscular Hemoglobin 28.9 pg (27.0-33.0); Mean Corpuscular Volume 87.2 fL (80.0-98.0); Mean Platelet Volume 11.4 fL (9.4-12.3); Monocytes Absolute Auto 0.7 X10*3/uL (0.1-1.2); Monocytes Percent Auto 8.9 % (2-11); Neutrophils Absolute Auto 4.6 x10*3/uL (2.0-8.3); Neutrophils Percent Auto 60.4 % (45-73); Platelet Count 187 X10*3/uL (160-400); Red Blood Count 4.46 X10*6/uL (4.20-5.50); Red Cell Distribution Width 12.7 % (11.0-16.0); White Blood Count 7.5 X10*3/uL (4.8-10.8)
[2024-11-26 08:15] LABS: Appearance Urine Clear; Color Urine Yellow; Glucose Urine UA Negative (Negative); Leukocyte Esterase Urine Negative (Negative); Nitrite Urine Negative (Negative); PH 6.5 (5.0-9.0); Urine Blood Negative (Negative); Urine Ketones Negative (Negative); Urine Protein Negative (Neg-Trace)
[2024-11-26 08:49] LABS: Alanine Aminotransferase 13 U/L (0-31); Albumin Level 4.2 g/dL (3.5-5.0); Alkaline Phosphatase 57 U/L (39-117); Anion Gap 12 (12-20); Aspartate Amino Transferase 11 U/L (5-31); Bilirubin Total 0.3 mg/dL (0.0-1.0); Blood Urea Nitrogen 21 mg/dL (9-16); Calcium 8.8 mg/dL (8.4-10.2); Carbon Dioxide 26 mmol/L (22-29); Chloride 111 mmol/L (96-108); Cholesterol 257 mg/dL (<200); Estimated Glomerular Filt Rate > 60; Glucose Fasting 114 mg/dL (60-99); HDL Cholesterol 50 mg/dL (>40); LDL Cholesterol Calculated 153 mg/dL (<100); Potassium 3.9 mmol/L (3.3-5.1); Sodium 145 mmol/L (135-145); Total Protein 6.6 g/dL (6.5-8.0); Triglycerides 274 mg/dL (<150)
[2024-11-26 08:55] LABS: Estimated Average Glucose 123 mg/dL; Hemoglobin A1C 139.5064 umol/L; Hemoglobin A1c % 5.9 % (<6.0); Total Hemoglobin (HGBA1C) 3417.3688 umol/L
[2024-11-26 09:05] LABS: TSH reflex Free T4 2.81 uIU/mL (0.32-4.0); Vitamin D 25-OH Total 22.1 ng/mL (>30)
== END 2024-11-26 07:39 | disposition home or self-care (01) ==
LOC: HO.LAB 07:38
PROVIDERS: PCP Internal Medicine; Visit Provider Internal Medicine
DX: R30.0 Dysuria (principal); E78.00 Pure hypercholesterolemia, unspecified; D64.9 Anemia, unspecified; R73.01 Impaired fasting glucose; E55.9 Vitamin D deficiency, unspecified
CPT/HCPCS: 36415; 80053; 80061; 81003; 82306; 83036; 84443; 85025

== ENCOUNTER 2024-11-27 14:21 | Outpatient (AMB) | payer OTHER, SELFPAY ==
[2024-11-27 14:23] VITALS: BP 150/102; PULSE 100; O2SAT 97; BMI 23.7
--- NOTE | 2024-11-27 14:23 | MHC.PC.OV ---
Vital Signs 11/27/24 14:23 Height 5 ft 4 in Weight 138 lb 2 oz BMI 23.7 BP 150/102 H Blood Pressure Location Lt brachial Position Sitting Pulse 100 Pulse Source Pulse Oximeter Pulse Oximetry (%) 97 Oxygen Delivery Method Room Air Intake Visit Reasons: hyperlipidemia, IFG Drawing Box Tender Required: No Accompanied by: Self / Same As Patient Allergies egg Allergy (Intermediate, Verified 11/27/24 14:46) Unknown grass pollen Allergy (Intermediate, Verified 11/27/24 14:46) Unknown pear Allergy (Intermediate, Verified 11/27/24 14:46) Unknown tree and shrub pollen Allergy (Intermediate, Verified 11/27/24 14:46) Unknown nuts,apple, starwberries Allergy (Unknown, Uncoded 11/27/24 14:46) Unknown Medication List - Last Reconciled 11/27/24 by Saulo Burton MD albuterol sulfate 2.5 mg (3 mL) inhalation Q6H PRN 30 days albuterol sulfate 90 mcg/actuation (Ventolin HFA) 2 puffs inhalation Q6H PRN 30 days amitriptyline 25 mg (1/2 x 50 mg) PO BEDTIME 90 days atorvastatin 10 mg PO BEDTIME 90 days bismuth subsalicylate (Bismatrol) 2 tabs PO .QD cholecalciferol (vitamin D3) 50 mcg PO DAILY codeine-guaifenesin 10-100 mg/5 mL 10 mL PO Q6-8H PRN 7 days doxepin 10 mg PO BEDTIME epinephrine IM estradiol 0.01%(0.1mg/gram) Apply pea sized amount 3 times per week vaginally; 30 days famotidine (Pepcid) 20 mg PO BEDTIME ferrous sulfate 325 mg PO DAILY 90 days fluticasone propionate 50 mcg/actuation (Flonase Allergy Relief) 1 spray intranasal BID ibuprofen 600 mg PO Q8H PRN ipratropium bromide 2 sprays intranasal BID loratadine (Claritin) 10 mg PO DAILY mometasone 50 mcg/actuation 2 sprays intranasal DAILY montelukast 10 mg PO BEDTIME mupirocin calcium 2% 1 appl topical BID 15 days pantoprazole 40 mg PO DAILY 90 days polyethylene glycol 3350 (Miralax) 17 grams PO DAILY prednisone 10 mg PO DIRECTED sennosides (senna) 8.6 mg PO BEDTIME PRN sertraline 25 mg PO DAILY 30 days simethicone (Gas Relief (simethicone)) 180 mg PO BID PRN sodium chloride 0.65% (Saline Nasal) 2 sprays intranasal QID PRN Tobacco use date assessed: 11/27/24 Dental Screening Dental Screen Date: 11/27/24 Did you have a dental visit in the last 12 months?: Yes Did you have a dental problem in the last 6 months where you did not have access to dental care?: No Was dental information given to patient?: Patient has dentist HPI hyperlipidemia, IFG HPI Details Patient comes in today for her follow up visit States that she has been experiencing again frequent / recurrent coughing (mostly non-productive) for the past couple of weeks now States that her cough has been keeping her up at night at times lately Notes some SOB at times but thinks that this is mostly because of her frequent coughing spells Patient denies any fever or sore throat lately She denies any headaches or dizziness Denies any chest pains No nausea/vomiting, no abdominal pain No change in bowel habits noted She had her follow-up labs done yesterday - to discuss her remote [facility] Medical History Impaired fasting glucose Vitamin D deficiency Anemia Asthma Interstitial cystitis (chronic) with hematuria Pure hypercholesterolemia E. coli urinary tract infection Pelvic pain Bloating Perforated right tympanic membrane on examination Menorrhagia Allergic rhinitis GERD (gastroesophageal reflux disease) Hx of renal calculi History of urinary incontinence Surgical History Hx of dilation and curettage History of esophagogastroduodenoscopy (EGD) H/O colonoscopy S/P cystoscopy (~02/22/20) History of tubal ligation History of placement of ear tubes History of nasal surgery Family History Mother History of colon cancer Father History of cancer of stomach Social History Household Members: Spouse and Children Housing: House Alcohol intake: never Comment: cramping Patient Tobacco Use Status: Never used Tobacco e-Cigarette/Vaping Use: Never Used Second Hand Smoke Exposure: Yes service: No Current occupational status: employed Cognitive needs: No Hearing needs: No Vision needs: No Female Reproductive History Menstrual Age of Menarche: 15 Questionnaire PHQ-9 Over the last 2 weeks, how often have you been bothered by any of the following problems? 1. Little interest or pleasure in doing things: more than half the days 2. Feeling down, depressed, or hopeless: several days 3. Trouble falling or staying asleep, or sleeping too much: several days 4. Feeling tired or having little energy: several days 5. Poor appetite or overeating: not at all 6. Feeling bad about yourself - or that you are a failure or have let yourself or your family down: more than half the days 7. Trouble concentrating on things, such as reading the newspaper or watching television: more than half the days 8. Moving or speaking so slowly that other people could have noticed. Or the opposite - being so fidgety or restless that you have been moving around a lot more than usual: not at all 9. Thoughts that you would be better off or of hurting yourself in some way: not at all Total score: 9 Depression Screening Interpretation: Positive Depression Screening Follow-up: Existing condition and In treatment Depression Screening Done: Yes 31575 - PHQ-9 Billing: Yes Source: Developed by Drs. Matty Bhandari, Kym Watson, Terrance Reyna and colleagues, with an educational kristi from [employer]. Thrive Questionnaire Date Thrive assessed: 11/27/24 I am a: Patient What is your living situation today?: I choose not to answer this question Within the past 12 months, did the food you bought not last and you didn't have the money to get more?: I choose not to answer this question Within the past 12 months, did you worry whether your food would run out before you got money to buy more?: I choose not to answer this question Do you have trouble paying for medicines?: I choose not to answer this question Do you have trouble getting transportation to medical appointments?: I choose not to answer this question Do you have trouble paying your heating and electricity bill?: I choose not to answer this question Do you have trouble taking care of your child, family member or friend?: I choose not to answer this question Do you have trouble with day-to-day activities such as bathing, preparing meals, shopping, managing finances, etc.?: I choose not to answer this question Are you currently unemployed and looking for a job?: I choose not to answer this question Are you interested in more education?: I choose not to answer this question Please select the resources that you would like help with: Education Currently or been in a relationship where the following occur: I choose not to answer THRIVE Score: 0 AUDIT C Alcohol Use Questionnaire (AUDIT-C) 1. How often do you have a drink containing alcohol?: Never 3. How often do you have six or more drinks on one occasion?: Never Total Score: 0 Score Reviewed/Action Taken: Yes KASHMIR-7 AMB Questionnaire KASHMIR-7 Date KASHMIR - 7 assessed: 11/27/24 Feeling nervous, anxious, or on edge: 0 = Not at all Not being able to stop or control worryin = Not at all Worrying too much about different things: 0 = Not at all Trouble relaxin = Not at all Being so restless that it is hard to sit still: 0 = Not at all Becoming easily annoyed or irritable: 0 = Not at all Feeling afraid as if something awful might happen: 0 = Not at all Total KASHMIR-7 score (0-4 normal; 5-9 mild; 10-14 moderate; 15-21 severe): 0 Source: Developed by Drs. Matty Bhandari, Kym Watson, Terrance Reyna and colleagues, with an educational kristi from [employer]. Review of Systems Const Denies chills, Reports difficulty sleeping, Denies fatigue, Denies fever(s) and Denies headache(s) ENT Denies dysphagia, Denies dizziness, Denies otalgia, Denies headache(s), Reports nasal discharge (on and off lately), Denies neck pain, Denies odynophagia and Denies sore throat Card Denies chest pain, Denies irregular heart rhythm, Denies palpitations and Denies dyspnea Resp Denies chest congestion, Reports cough (recurrent/frequent, non-productive), Denies excessive phlegm production, Denies dyspnea and Denies wheezing GI Denies abdominal pain, Denies constipation, Denies dysphagia, Denies heartburn, Denies diarrhea, Denies nausea, Denies odynophagia and Denies vomiting Denies urinary frequency, Denies nocturia, Denies dysuria and Denies urinary urgency Musc Denies back pain, Denies arthralgias and Denies neck pain Skin/Breast Denies rash Neuro Denies dizziness, Denies headache(s) and Denies paresthesias Psych Denies anxiety and Denies depression Endo Denies fatigue and Denies palpitations Deshawn/Lymph Denies easy bruising Aller/Immun Reports seasonal rhinorrhea and Denies wheezing Physical exam (Primary Care) Vital Signs: Last Vital Signs Pulse 100 11/27/24 14:23 BP 150/102 H 11/27/24 14:23 Pulse Ox 97 11/27/24 14:23 Oxygen Delivery Method Room Air 11/27/24 14:23 BMI result Body Mass Index 23.7 Tobacco/Smoking Status: Tobacco use Status Tobacco use date assessed 11/27/24 11/27/24 14:29 Patient Tobacco Use Status Never used Tobacco 11/27/24 14:29 e-Cigarette/Vaping Use Never Used 11/27/24 14:29 PHQ-9: PHQ-9 Score PHQ-9: Total score 9 11/27/24 14:49 Depression Screening Interpretation: Positive Depression Screening Follow-up: Existing condition and In treatment Thrive Assessment: Date of Thrive Assessment Date Thrive assessed 11/27/24 11/27/24 14:29 Currently or been in a relationship where the following occur: I choose not to answer Const General: no acute distress and alert HENMT Ears: TM normal on the left, EAC's normal and TM abnormal perforated without discharge on the right Throat: Yes posterior oropharynx normal and Yes tonsils normal (no TP congestion) Neck Neck: Yes supple and No lymphadenopathy Thyroid: Thyroid normal Resp Auscultation: clear to auscultation bilaterally, no rales and no wheezes Cardio Rate: regular rate Rhythm: regular rhythm Heart sounds: no murmurs GI Palpation (GI): Soft to palpation and nontender Auscultation: normal bowel sounds General: Yes no CVA tenderness Back/Spine/Pelvis Back: no CVA tenderness Thoracic/Lumbar Spine: No lumbar spinal tenderness Skin Rashes: no rashes Extrem General: Yes no clubbing, cyanosis or edema Results Reviewed Results Reviewed: Laboratory Tests 11/26/24 11/26/24 07:46 07:47 WBC 7.5 Hgb 12.9 Hct 38.9 Plt Count 187 Sodium 145 Potassium 3.9 Creatinine 0.60 Estimated GFR > 60 Fasting Glucose 114 H Hemoglobin A1c % 5.9 Calcium 8.8 AST 11 ALT 13 Triglycerides 274 H Cholesterol 257 H LDL Cholesterol, Calc 153 H HDL Cholesterol 50 25-OH Vitamin D Total 22.1 L TSH 2.81 Ur Specific [place] 1.020 Urine Protein Negative Urine Glucose (UA) Negative Urine Blood Negative Urine Nitrite Negative Ur Leukocyte Esterase Negative Coding Level of Care Code Est Pt Level 4 (86682) Diagnoses Pure hypercholesterolemia E78.00 Impaired fasting glucose R73.01 Allergic rhinitis, unspecified seasonality, unspecified trigger J30.9 Allergic rhinitis trigger: unspecified Allergic rhinitis seasonality: unspecified Constipation, unspecified constipation type K59.00 Constipation type: unspecified constipation type Gastritis without bleeding, unspecified chronicity, unspecified gastritis type K29.70 Gastritis type: unspecified gastritis Chronicity: unspecified Gastritis bleeding: without bleeding Gastroesophageal reflux disease without esophagitis K21.9 Esophagitis presence: without esophagitis Interstitial cystitis N30.10 Anemia, unspecified type D64.9 Anemia type: unspecified type Vitamin D deficiency E55.9 Perforated right tympanic membrane on examination H72.91 Uterine prolapse N81.4 Uterine leiomyoma, unspecified location D25.9 Uterine leiomyoma location: unspecified location Hot flashes R23.2 Insomnia, unspecified type G47.00 Insomnia type: unspecified Additional Codes PHQ-9 - 07684 - PHQ-9 Billing: Yes ([id number]) Assessment & Plan Assessment & Plan (1) Pure hypercholesterolemia: Code(s): E78.00 - Pure hypercholesterolemia, unspecified Category: Medical Plan: Results of her labs done yesterday reviewed and discussed with patient - she is advised that her cholesterol levels on her labs yesterday have increased again from her previous numbers and they are now high (her LDL cholesterol is now at 153 mg/dl) Patient admits that she often forgets to take her cholesterol medication lately and will try to figure out something to help remind her to take her medication everyday Reinforced low cholesterol diet Continue Atorvastatin 10 mg QD for now but patient is advised that we will likely need to go up on her dose at her next appt if her numbers do not improve significantly over the next few months Will recheck her fasting lipids and labs in 4 months for follow up (2) Impaired fasting glucose: Code(s): R73.01 - Impaired fasting glucose Category: Medical Plan: Patient is advised that her HgbA1c was at 5.9% on her labs done yesterday, which places her in the borderline diabetes category She just completely her oral Prednisone taper a few days ago and advised that her frequent usage of oral prednisone is likely contributing to the rise in her overall blood sugar so she should be more cognizant of this Discussed low calorie/low carb diet Will recheck her FBS and HgbA1c in a few months for follow-up (3) Allergic rhinitis: Code(s): J30.9 - Allergic rhinitis, unspecified Category: Medical Qualifiers: Allergic rhinitis trigger: unspecified Allergic rhinitis seasonality: unspecified Qualified Code(s): J30.9 - Allergic rhinitis, unspecified Plan: Continue Fluticasone 50 mcg nasal spray QD PRN and Loratadine 10 mg QD PRN She continues to receive allergy injections/immunotherapy from ocular care technologist's (Dr. Roldan's) office regularly She is advised that her recent recurrent coughing is likely again due to her allergies (as they were in the past) Will start her back on her cough medication Rx with codeine (Codeine-guaifenesin 10-100 mg/5 ml) 10 ml Q 6 to 8 hours PRN (4) Constipation: Code(s): K59.00 - Constipation, unspecified Category: Medical Qualifiers: Constipation type: unspecified constipation type Qualified Code(s): K59.00 - Constipation, unspecified Plan: Patient is again encouraged to increase her oral fluids and dietary fiber intake Continue Senna 8.6 mg Q HS PRN (5) Gastritis: Code(s): K29.70 - Gastritis, unspecified, without bleeding Category: Medical Qualifiers: Gastritis type: unspecified gastritis Chronicity: unspecified Gastritis bleeding: without bleeding Qualified Code(s): K29.70 - Gastritis, unspecified, without bleeding Plan: Patient reportedly had EGD and colonoscopy done last year when she was in [place] Her EGD and colonoscopy reports were completely in Fris[place] and it noted that there were some inflammation noted along her gastric mucosal lining suggestive of gastritis Dietary restrictions reinforced Continue Pantoprazole 40 mg QD (patient felt that this is helping better than her previous Esomeprazole); continue Famotidine 20 mg QD (6) GERD (gastroesophageal reflux disease): Code(s): K21.9 - Gastro-esophageal reflux disease without esophagitis Category: Medical Qualifiers: Esophagitis presence: without esophagitis Qualified Code(s): K21.9 - Gastro-esophageal reflux disease without esophagitis Plan: Dietary restrictions reinforced Continue Pantoprazole 40 mg QD and Famotidine 20 mg Q HS Follow up with GI as scheduled (7) Interstitial cystitis: Code(s): N30.10 - Interstitial cystitis (chronic) without hematuria Category: Medical Plan: S/P hydrodistention by Dr. Carson in January 2022 with significant improvement of her symptoms Continue Amitriptyline 25 mg Q HS; she also used to take Gabapentin 100 mg Q HS but appears to have been taken off Gabapentin a while back by urology Follow up with urology as scheduled (8) Anemia: Code(s): D64.9 - Anemia, unspecified Category: Medical Qualifiers: Anemia type: unspecified type Qualified Code(s): D64.9 - Anemia, unspecified Plan: Corrected - her H/H have remained normal on her recent labs Continue FeSO4 325 mg QD Will continue to monitor her CBC regularly (9) Vitamin D deficiency: Code(s): E55.9 - Vitamin D deficiency, unspecified Category: Medical Plan: Continue Vitamin D3 2000 units QD (10) Perforated right tympanic membrane on examination: Code(s): H72.91 - Unspecified perforation of tympanic membrane, right ear Category: Medical Plan: She has been referred to ENT previously for further management and a tympanoplasty was apparently attempted by Dr. Wang but the procedure failed Patient is reminded to try to keep water from getting into her right ear as best as she can to minimize any right ear symptoms Follow up with ENT as scheduled She reportedly was diagnosed with otitis media when she went to the walk-in clinic a couple of weeks ago - was treated with oral Prednsone and Abx, which she just finished a few days ago (11) Uterine prolapse: Comment: With mild central defect cystocele Code(s): N81.4 - Uterovaginal prolapse, unspecified Category: Medical Plan: She has tried using a pessary last year without any significant improvement of her symptoms She has most recently been using a Uresta device that she gets [id number], which she states helps somewhat with her symptoms Follow up with [facility] House[facility] as scheduled (12) Uterine fibroid: Code(s): D25.9 - Leiomyoma of uterus, unspecified Category: Medical Qualifiers: Uterine leiomyoma location: unspecified location Qualified Code(s): D25.9 - Leiomyoma of uterus, unspecified Plan: Patient underwent a non-diagnostic hysteroscopy back in August 2022 - procedure was not completed due to extensive scarring in the uterus that made it impossible to visualize the endometrium Follow up with OB-Hospitality Housekeeper as scheduled (13) Hot flashes: Code(s): R23.2 - [place] Category: Medical Plan: Continue Sertraline 25 mg QD (14) Insomnia: Code(s): G47.00 - Insomnia, unspecified Category: Medical Qualifiers: Insomnia type: unspecified Qualified Code(s): G47.00 - Insomnia, unspecified Plan: Sleep hygiene reinforced Continue Doxepin 10 mg Q HS PRN Plan Follow up in 4 months Orders: Orders Complete Blood Count Auto Diff 4 Months D64.9 - Anemia, unspecified Lipid Panel 4 Months E78.00 - Pure hypercholesterolemia, unspecified Vitamin D 25-OH Total 4 Months E55.9 - Vitamin D deficiency, unspecified UA CC w/rflx Micro + Cult 4 Months R30.0 - Dysuria Comprehensive [place]. Panel Fast 4 Months E78.00 - Pure hypercholesterolemia, unspecified Hemoglobin A1c 4 Months E11.9 - Type 2 diabetes mellitus without complications TSH reflex Free T4 4 Months E78.00 - Pure hypercholesterolemia, unspecified Medications: New cetirizine 10 mg PO BID 30 days 60 tabs 3RF severe allergy symptoms Refilled codeine-guaifenesin 10-100 mg/5 mL 10 mL PO Q6-8H 7 days PRN 200 mL 1RF allergy symptoms.COUGH Discontinued loratadine (Claritin) Discontinued Reason: Doctor's Order 10 mg PO DAILY 30 tabs 0RF
--- OUTSIDE RECORDS SUMMARY | 2024-11-27 14:23 | XMS_ITS | Clinical Summary ---
Author Organization [employer] Address 75 [facility] 7 [place] [address] Care Team Providers Care Marketing Compliance Manager Name Role Phone Unavailable Primary Care [...]
== END 2024-11-27 15:00 | disposition home or self-care (01) ==
LOC: HO.HMCH 14:22
PROVIDERS: PCP Internal Medicine; Visit Provider Internal Medicine
DX: E78.00 Pure hypercholesterolemia, unspecified (principal); R73.01 Impaired fasting glucose; J30.9 Allergic rhinitis, unspecified; K59.00 Constipation, unspecified; K29.70 Gastritis, unspecified, without bleeding; K21.9 Gastro-esophageal reflux disease without esophagitis; N30.10 Interstitial cystitis (chronic) without hematuria; D64.9 Anemia, unspecified; E55.9 Vitamin D deficiency, unspecified; H72.91 Unspecified perforation of tympanic membrane, right ear; N81.4 Uterovaginal prolapse, unspecified; D25.9 Leiomyoma of uterus, unspecified; R23.2 Flushing; G47.00 Insomnia, unspecified

== ENCOUNTER → 2024-11-27 14:21 | Outpatient (BNVA) | payer OTHER, SELFPAY | PROVIDERS: PCP Internal Medicine; Visit Provider Internal Medicine | DX: E78.00 Pure hypercholesterolemia, unspecified (principal); R73.01 Impaired fasting glucose; J30.9 Allergic rhinitis, unspecified; K59.00 Constipation, unspecified; K29.70 Gastritis, unspecified, without bleeding; K21.9 Gastro-esophageal reflux disease without esophagitis; N30.10 Interstitial cystitis (chronic) without hematuria; D64.9 Anemia, unspecified; E55.9 Vitamin D deficiency, unspecified; H72.91 Unspecified perforation of tympanic membrane, right ear; N81.4 Uterovaginal prolapse, unspecified; D25.9 Leiomyoma of uterus, unspecified; R23.2 Flushing; G47.00 Insomnia, unspecified; Z79.899 Other long term (current) drug therapy; Z13.30 Encounter for screening examination for mental health and behavioral disorders, unspecified; Z13.31 Encounter for screening for depression | CPT/HCPCS: 96127; 99212 ==

== ENCOUNTER 2025-01-22 09:55 | Outpatient (REF) | payer OTHER, SELFPAY ==
--- OUTSIDE RECORDS SUMMARY | 2025-01-22 10:11 | XMS_ITS | Clinical Summary ---
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
--- OUTSIDE RECORDS SUMMARY | 2025-01-22 10:11 | XMS_ITS | Data Portability ---
Author Organization [place] - [facility], Allergy Address [address] [address] Care Team Providers Care Flyer Maker Name Role Phone [facility] [...] with this option. All questions were answered. [email or web address] Not available 07/08/2024 13:25:03 12/09/2024 12/09/2024 Patient has 2 perforations of the right tympanic membrane and a small perforation of the left tympanic membrane. She has significant conductive hearing loss in the right ear, and no significant hearing loss on the left side. Today we discussed the options of continued observation versus consideration of right transcanal tympanoplasty. Patient would like to proceed with surgery on the right. I have recommended tympanoplasty reconstruction of the tympanic membrane via a transcanal approach using a fascia graft harvested from the temporalis muscle. We discussed the risks, benefits, and complications associated with this surgery including the risks of bleeding, infection, persistent tympanic membrane perforation, temporary or permanent facial nerve paralysis or paresis, temporary or permanent tinnitus, temporary or permanent balance disturbance. We discussed that the hearing is very likely to improve with the surgery, but that there is a small chance that the hearing could worsen partially or completely. In addition I explained that if a postauricular approach is used, numbness around the surgical incision and ear might persist for several weeks to months or be permanent after the surgery. After full discussion, the patient would like to proceed with surgery. I have provided patient with the contact information for my bull float finisher. We will begin the scheduling process and see the patient back at the time of surgery. Patient will not require medical clearance from their primary care provider preoperatively. [email or web address] Not available 12/09/2024 10:31:57 Plan of Treatment Reminders Order Date Submit Date Provider Last Modified By Organization Details Last Modified Time Details Appointments SURGERY 120 2024 01:00P M ARIELA DUKE MD Not available Not available Not available Establish ed 30 2024 02:30P M JACQUE PAYNE Not available Not available Not available Post Op 2024 08:45A M ARIELA DUKE MD Not available Not available Not available Lab None recorded. Referral None recorded. Procedures None recorded. Surgeries tympanic membrane repair (SURG) 2024 025 [email or web address] Not available 12/09/2024 10:51:26 Imaging None recorded. Medication Orders clotrimaz ole-betam ethasone 1 %-0.05 % topical cream 2024 025 [facility] #[id number], [address] [facility], [place], [address], 12/09/2024 10:31:43 ofloxacin 0.3 % ear drops 2023 025 [facility] #[id number], [address] [facility], [place], [address], 07/08/2024 12:55:04 Patient TargetsNo targets recorded. Patient InstructionsNo instructions recorded. Reason for Referral None Reported. Results Created Date Observation Date Name Description Value Unit Range Abnormal Flag Note LastModifiedBy Organization Detail LastModifiedTime 01/20/20 24 audio gram No observ ation record ed. Not Available 12/30 16:07:42 02/19/20 24 04/28/2020 audio gram No observ ation record ed. [email or web address] Not Available 2024 18:13:23 12/10/19 audio gram No observ ation record ed. BARCODE Not Available 2024 14:54:51 Result Notes None recorded. Problems Name Problem SNOMED Code Status Onset Date Resolution Date Notes Provider Name and Address Organization Details Recorded Time Multiple perforati ons of right tympanic membrane 30102924463 67672 Active 2019 Multiple perforati ons of tympanic membrane, right ear; Note: Date Diagnosed : 0 4:10 PM (H72.811) Not Available [facility] 4 02:46:22 Conductiv e hearing loss 01589436 Active 2019 Conductiv e hearing loss, unilatera l, right ear, with unrestric jude hearing on the contralat eral side; Note: Date Diagnosed : 0 4:10 PM (H90.11) Not Available [facility] 4 02:46:19 Acute pharyngit is 598424265 Active 2022 Acute pharyngit is, unspecifi ed; Note: Date Diagnosed : 09/21/2022 12:37 PM (J02.9) Not Available [facility] 4 02:46:19 Acute infective otitis externa 402195568 Active 2023 GUILHERME JEFFREY PA-C [address] [place] [address],[facility] [address], [place], [address] , [place] - [facility] 4 10:01:31 Dermal mycosis 21875278 Active 2024 CARLYN HESS PA-C [address] [facility],[place] [address], [place], [address] , [place] - [facility] 5 13:25:19 Conductiv e hearing loss 96681166 Active 2024 ARIELA DUKE MD [address] [facility],[place] [address], [place], [address] , [place] - [facility] 5 18:16:54 Central perforati on of left tympanic membrane [id number] 92424 Active 2024 ARIELA DUKE MD [address] [place] [address],[place] [address], [place], [address] , [place] - [facility] 5 10:20:44 Problem Notes None recorded. Procedures Surgical History Date Name Laterality Status Provider Name and Address Organization Details Recorded Time 5 Comp Audio with Tymps - 04547 & 07369 completed HONEY BLEDSOE, AUD [address] [facility],[place] [address], [place], [address], [place] - [facility] 12/09/2024 09:34:59 4 Comp Audio with Tymps - 15761 & 77184 completed SEHLLEY DYKES, AUD [address] [facility],[place] [address], [place], [address], [facility] - [facility] 01/17/2024 09:28:34 procedure on urinary bladder completed Sana Barnes [place] - [facility] 01/17/2024 09:11:49 Ear Surgery completed Sana Barnes [place] - [facility] 01/17/2024 09:12:02 Imaging Results None recorded. Procedure Notes None recorded. Medical Equipment None Reported. Allergies No known drug allergies Medications Name Sig Start Date Stop Date Status Note LastModified by Organization Details LastModified Time silver sulfadiaz ine 1 % topical cream APPLY 1.5MM THICKNES S TO BURN INJURY 2 TIMES A DAY NEEDED 01/16 completed Not Available Not Available Not Available prednison e 10 mg tablet PLEASE SEE ATTACHED FOR DETAILED DIRECTIO NS 12/09 completed Not Available Not Available Not Available albuterol sulfate 2.5 mg/3 mL (0.083 %) solution for nebulizat ion 2.5 MG (3 ML) INHALED EVERY 6 HOURS NEEDED FOR SHORTNES S OF BREATH OR WHEEZING OR COUGH active Not Available Not Available No t Available cetirizin e 10 mg tablet TAKE 1 TABLET BY MOUTH TWICE A DAY NEEDED FOR SEVERE ALLERGY SYMTPOMS active Not Available Not Available No t [...] 1 CAPSULE BY MOUTH EVERYDAY AT BEDTIME 12/09 completed Not Available Not Available Not Available amitripty line 50 mg tablet HALF TAB BY MOUTH EVERY DAY AT BEDTIME active Not Available Not Available No t Available amoxicill in 500 mg tablet Take 1 tablet by mouth three times a day as needed 01/16 completed Medicati on ID: [id number] D uration Value: 7 Prescri bed By Name: Suzie Yeh nd Name: amoxicil svetlana Send Method: E-Prescr ibed Sub s Allowed: subs OK Medic ationGen ericName : amoxicil svetlana Medi cation ID: [id number] D uration Value: 7 Prescri bed By Name: Suzie Yeh nd Name: amoxicil svetlana Send Method: E-Prescr ibed Sub s Allowed: subs OK Medic ationGen ericName : amoxicil svetlana Not Available Not Available Not Available ofloxacin 0.3 % ear drops INSTILL 5 DROPS IN LEFT EAR TWICE A DAY FOR 7 DAYS 07/08 completed Not Available Not Available Not Available amoxicill in 875 mg tablet TAKE 1 TABLET BY MOUTH EVERY 12 HOURS 12/09 completed Not Available Not Available Not Available famotidin e 20 mg tablet TAKE 1 TABLET BY MOUTH AT BEDTIME 12/09 completed Not Available Not Available Not Available amitripty line 25 mg tablet TAKE 1 TABLET BY MOUTH EVERYDAY AT BEDTIME 07/08 completed Not Available Not Available Not Available phenazopy ridine 100 mg tablet TAKE 1 TABLET ORALLY EVERY 8 HOURS FOR 20 DAYS USE INTERMIT TENTLY WHEN CYSTITIS FLARES 12/09 completed Not Available Not Available Not Available benzonata te 100 mg capsule TAKE [...] A FINGERTI P DAILY NEEDED FOR ITCHING. 12/09 completed Not Available Not Available Not Available triamcino lone acetonide 55 mcg nasal [...] TAKE 1 TABLET BY MOUTH EVERY DAY AT BEDTIME active Not Available Not Available No t Available codeine 10 mg-guaife nesin 100 mg/5 mL oral liquid 10 ML ORALLY EVERY 6 TO 8 HOURS NEEDED FOR ALLERGY SYMPTOMS .COUGH FOR 7 DAYS 12/09 completed Not Available Not Available Not Available epinephri ne 0.3 mg/0.3 mL injection , auto-inje ctor active Medicati on ID: [id number] B rand Name: marco a arzate Send Method: E-Prescr ibed Sub s Allowed: subs OK Medic ationGen ericName : epinephr ine Not Available Not Available Not Available ibuprofen 600 mg tablet TAKE 1 TABLET BY MOUTH EVERY 8 HOURS NEEDED FOR PAIN 12/09 completed Not Available Not Available Not Available polyethyl khadra glycol 3350 17 gram/dose oral powder TAKE 17 GRAMS BY MOUTH EVERY DAY 12/09 completed Not Available Not Available Not Available estradiol 0.01% (0.1 mg/gram) vaginal cream [...] SPRAY 1 SPRAY INTO EACH NOSTRIL DAILY 12/09 completed Not Available Not Available Not Available doxycycli ne hyclate 100 mg tablet [...] mg tablet 07/08 completed Medicati on ID: [id number] B rand Name: elena elise Send Method: E-Prescr ibed Sub s Allowed: subs OK Medic ationGen ericName : floydvinnie olivares Not Available Not Available Not Available [...] CAPSULE BY MOUTH TWICE A DAY NEEDED 12/09 completed Not Available Not Available Not Available Zyrtec 09/21 completed Medicati on ID: [id number] B rand Name: Zyrtec S end Method: E-Prescr ibed Sub s Allowed: subs OK Medic ationGen ericName : Zyrtec Not Available Not Available Not Available esomepraz ole magnesium 09/21 completed Medicati on ID: [id number] B rand Name: esomepra zole magnesiu m [...] Note [id number] GUILHERME JEFFREY PA-C [facility] [address] [address] 01/17/2024 08:59:30 01/17/2024 10:12:07 Conductive hearing loss 95151169 H90.11 Audiologic al evaluation results: Right ear: Borderline normal sloping to a moderate conductive hearing loss with excellent word recognitio n. Left ear: Essentiall y normal hearing with excellent word recognitio n. Tympanomet ry: Right Ear:Type B with large volume Left Ear:Type B with large volume Bilateral perforation of tympanic membranes [id number] 366449 H72.93 Acute infe ctive otitis externa 879267644 H60.392 [id number] CARLYN HESS PA-C [facility] [address] [address] 07/08/2024 12:43:24 07/08/2024 13:19:51 Multiple perforations of right tympanic membrane 6849750055 009599 H72.811 Dermal mycosis 23351466 B36.9 [id number] ARILEA DUKE MD [facility] [address] [place] [address] 12/09/2024 09:04:28 12/09/2024 10:35:22 Central perforation of left tympanic membrane [id number] 896089 H72.02 Dermal mycosis 37620543 B36.9 The skin of the right external auditory canal is showing signs of fungal dermatitis . Recommend applicatio n of clotrimazo le/betamet hasone cream to be applied by fingertip to the external auditory meatus three times a day for two weeks. Patient may repeat this as necessary for recurrence of symptoms. Patient already has this medication at home. Avoidance of Q-tips recommende d to reduce the risk of recurrence . Multiple p erforations of right tympanic membrane 6241543594 433760 H72.811 Conductive hearing loss 31636909 H90.11 Audiologic al evaluation results:Ri ght ear:Modera te conductive hearing loss with excellent word recognitio n.Left ear:Normal sloping to mild sensorineu ral hearing loss with excellent word recognitio n.Tympanom etry:Right Ear:Type B with large volumeLeft Ear:Could not maintain a hermetic seal Health Concerns Section Related Observation LastModified by Organization Detai ls LastModified Time None Recorded Concern Status LastModified by Organization Details LastModified Time None Recorded Advance Directives Directive None Recorded Payers Insurance Date Sequence Insurance Name Policy Number Policy Aiken Covered Member ID Aiken Member ID Guarantor Name 01/11/2025 1 [facility] [id number] Keke Reagan [id number] Keke Reagan 01/11/2025 3 [facility] [employer] [place] (HMO) Keke Reagan [id number] Keke Reagan 01/11/2025 1 [facility] [employer] [place] [employer] (HMO) [id number] Keke Reagan [id number] Keke Reagan 01/11/2025 1 [facility] PLAN (MEDICAID HMO) [place] Keke Reagan [id number] Keke Reagan Notes Date Note Type Note Provider Name and Address Organization Details Recorded Time 01/17/2024 text/html ROS as noted in the [facility] 53 year old female presents for evaluation of ears. Reports both ears itch and the left ear hurts. Has not been abiding by dry ear precautions. States hearing is okay. There is no otorrhea and no tinnitus. MARCELO MANN MD [address] [facility],[address], [address], [facility] - [facility] 01/17/2024 12:58:35 07/08/2024 text/html ROS as noted in the [facility] 54-year-old female presents for reevaluation of TM perforation. She has a history of tympanoplasty with Dr. Robertson in the past which was unsuccessful. She continues to have wetness and itching of the right ear. 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 She is interested in repair. MARCELO MANN MD [address] [facility],[address], [address], [facility] 07/08/2024 17:01:29 12/09/2024 text/html 54-year-old female with history of childhood traumatic right tympanic membrane perforation. Dr Wang attempted tympanoplasty in 2017 which was unsuccessful. Physical exam is notable for 2 separate perforations of the right tympanic membrane. Conductive hearing loss noted on audiometric testing. Patient noting itching, but no pain or discharge. She is bothered by the hearing loss, and also bothered by the fact that she cannot swim without risking infection.Also noting itching of the right EAC. ARIELA DUKE MD [address] [facility],[address], [address], [facility] 12/09/2024 12:30:13 OBGyn Episode No OBEpisode recorded.
[2025-01-22 10:12] LABS: MANUAL DIFF FLAG NO
[2025-01-22 10:41] LABS: Hematocrit 39.1 % (37.0-47.0); Hemoglobin 13.2 g/dl (12.0-16.0); Imm Gran Abs Auto 0.02 X10*3/uL (0.00-0.03); Imm Gran Pct Auto 0.3 % (0.0-0.4); Lymphocytes Absolute Auto 1.8 X10*3/uL (1.2-4.9); Mean Corpuscular HGB Conc 33.8 g/dl (31.0-35.0); Mean Corpuscular Hemoglobin 28.2 pg (27.0-33.0); Mean Corpuscular Volume 83.5 fL (80.0-98.0); NRBC Abs Auto 0.000 X10*3/uL (0.0-0.012); NRBC Pct Auto 0.0 /100WBC (0.0-0.2); Platelet Count 191 X10*3/uL (160-400); Red Blood Count 4.68 X10*6/uL (4.20-5.50); White Blood Count 6.0 X10*3/uL (4.8-10.8)
[2025-01-22 11:05] LABS: Appearance Urine Clear; Glucose Urine UA Negative (Negative); PH 7.0 (5.0-9.0); Specific Gravity - Urine 1.010 (1.005-1.025); UMIC TRIGGER UACC YES
[2025-01-22 11:13] LABS: UACC Culture Trigger YES
[2025-01-22 11:15] LABS: Alanine Aminotransferase 21 U/L (0-31); Albumin Level 4.6 g/dL (3.5-5.0); Alkaline Phosphatase 69 U/L (39-117); Anion Gap 10 (12-20); Aspartate Amino Transferase 18 U/L (5-31); Blood Urea Nitrogen 12 mg/dL (9-16); Calcium 9.2 mg/dL (8.4-10.2); Carbon Dioxide 28 mmol/L (22-29); Chloride 109 mmol/L (96-108); Estimated Glomerular Filt Rate > 60; Potassium 3.7 mmol/L (3.3-5.1); Sodium 143 mmol/L (135-145); Total Protein 7.3 g/dL (6.5-8.0)
== END 2025-01-22 09:56 | disposition home or self-care (01) ==
LOC: HO.LAB 09:55
PROVIDERS: PCP Internal Medicine; Visit Provider Internal Medicine
DX: R30.0 Dysuria (principal); D64.9 Anemia, unspecified
CPT/HCPCS: 36415; 80053; 81001; 81003; 85025; 87086

== ENCOUNTER 2025-02-02 15:06 | Outpatient (REF) | payer OTHER, SELFPAY ==
--- OUTSIDE RECORDS SUMMARY | 2025-02-02 15:38 | XMS_ITS | Clinical Summary ---
Author Organization [employer] Address [address] [facility] 7 [place] [address] Care Team Providers Care Chief Lock Operator Name Role Phone Unavailable Primary Care Provider [...]
[2025-02-02 16:31] LABS: Appearance Urine Clear; Glucose Urine UA Negative (Negative); PH 7.0 (5.0-9.0); Specific Gravity - Urine <= 1.005 (1.005-1.025)
== END 2025-02-02 15:07 | disposition home or self-care (01) ==
LOC: HO.LAB 15:06
PROVIDERS: PCP Internal Medicine; Visit Provider Internal Medicine
DX: R30.0 Dysuria (principal)
CPT/HCPCS: 81003

== ENCOUNTER 2025-02-17 14:27 | Outpatient (AMB) | payer OTHER, SELFPAY ==
--- NOTE | 2025-02-17 14:29 | MHC.OFFVIS ---
Intake Visit Reasons: 6m follow up Intake Note: Pt presents as a for a 6 month follow up Urology meds: estradiol, Phenazopyride Blood Thinner : none Double Bass Player Required: No Accompanied by: Self / Same As Patient Allergies egg Allergy (Intermediate, Verified 02/17/25 14:31) Unknown grass pollen Allergy (Intermediate, Verified 02/17/25 14:31) Unknown pear Allergy (Intermediate, Verified 02/17/25 14:31) Unknown tree and shrub pollen Allergy (Intermediate, Verified 02/17/25 14:31) Unknown nuts,apple, starwberries Allergy (Unknown, Uncoded 11/27/24 14:46) Unknown HPI Comments Details: Prashanth is a very pleasant Italian female. She is a patient of Dr. Burton. She is seen for the following urologic conditions - interstitial cystitis - recurring UTI - microscopic hematuria Six-month follow-up Mild IC flare Refill esterase and Naprosyn Check Microgen Plan check cystoscopy which has not been performed in a while Refill Macrobid Have kept her on Estrace and q.h.s. amitriptyline 12.5 mg Continue stability with diet Pelvic floor is significantly relaxed with combination of pelvic floor physical therapy and pessary for support Famotidine for IC Stable with current diet Has prescription for 100 mg Macrobid to be used after intimacy Recurring UTI Investigations - 12/19 E coli bennett resistant sensitive to Macrobid Interstitial cystitis: The interstitial cystitis was diagnosed 2019 on cystoscopy hydrodistention. Current symptoms include Currently stable. Aggravating factors include intercourse. Alleviating factors include bladder training, dietary changes - Jan 2020 Hydrodistention, 02/19 hydrodistention, D-mannose per Dr. Roberson Prior testing included a cystoscopy, showing stiffening of bladder wall Prior therapy Elmiron - off target effect dry eyes, limited gabapentin with amitriptyline during IC flare, IC instillations PFSH Medical History Impaired fasting glucose Vitamin D deficiency Anemia Asthma Interstitial cystitis (chronic) with hematuria Pure hypercholesterolemia E. coli urinary tract infection Pelvic pain Bloating Perforated right tympanic membrane on examination Menorrhagia Allergic rhinitis GERD (gastroesophageal reflux disease) Hx of renal calculi History of urinary incontinence Surgical History Hx of dilation and curettage History of esophagogastroduodenoscopy (EGD) H/O colonoscopy S/P cystoscopy (~02/22/20) History of tubal ligation History of placement of ear tubes History of nasal surgery Family History Mother History of colon cancer Father History of cancer of stomach Social History Household Members: Spouse and Children Housing: House Alcohol intake: never Comment: cramping Patient Tobacco Use Status: Never used Tobacco e-Cigarette/Vaping Use: Never Used Second Hand Smoke Exposure: Yes service: No Current occupational status: employed Cognitive needs: No Hearing needs: No Vision needs: No Female Reproductive History Menstrual Age of Menarche: 15 Review of Systems Const Denies chills and Denies fever(s) Card Reports no additional complaints and Denies syncope Resp Denies cough GI Denies abdominal pain and Denies heartburn Reports as per HPI and Denies change in libido Neuro Denies syncope Psych Denies change in libido Endo Denies change in libido Physical Exam Const General: cooperative, healthy appearing, comfortable and no acute distress Orientation/consciousness: patient oriented x3 HEENT Face and sinus: Yes normal facial exam Mouth: moist mucous membranes Neck Neck: Yes normal visual inspection, Yes full ROM and Yes trachea midline Chest Chest palpation & inspection: normal inspection of the chest Resp Effort & Inspection: normal respiratory effort, able to speak in complete sentences and no respiratory distress GI Inspection: Yes normal to inspection Back/Spine/Pelvis Cervical Spine: normal cervical lordosis Thoracic/Lumbar Spine: thoracic and lumbar spine normal to inspection Skin General skin exam: no rashes or lesions noted Neuro General: patient oriented x3, gait normal, tone normal and moves all extremities Extrem General: Yes normal to inspection and Yes capillary refill normal Results AMB Urinalysis, Automated UA Leukoctes 0 Damian/uL Last Edit by MCKENZIE Giron on 02/17/25 14:45 UA Nitrite Negative Last Edit by MCKENZIE Giron on 02/17/25 14:45 UA Urobilinogen 0.2 mg/dL Last Edit by MCKENZIE Giron on 02/17/25 14:45 UA Protein 0 mg/dL Last Edit by MCKENZIE Giron on 02/17/25 14:45 UA pH 6.0 Last Edit by MCKENZIE Giron on 02/17/25 14:45 UA Blood 0 Chato/uL Last Edit by MCKENZIE Giron on 02/17/25 14:45 UA Specific Plessis 1.010 Last Edit by MCKENZIE Giron on 02/17/25 14:45 UA Ketone Negative Last Edit by MCKENZIE Giron on 02/17/25 14:45 UA Bilirubin 0 mg/dL Last Edit by Britt Hunt [facility] on 02/17/25 14:45 UA Glucose 0 mg/dL Last Edit by MCKENZIE Giron on 02/17/25 14:45 Assessment & Plan Assessment & Plan (1) Interstitial cystitis: Code(s): N30.10 - Interstitial cystitis (chronic) without hematuria Category: Medical Plan Prescription provided Check cystoscopy Orders: Orders AMB Urinalysis Automated Today Z13.9 - Encounter for screening, unspecified Medications: Changed From nitrofurantoin macrocrystal take one tab after intimacy 100 mg PO BEDTIME 90 caps 0RF B96.20 - Unspecified Escherichia coli [E. coli] as the cause of diseases classified elsewhere, N39.0 - Urinary tract infection, site not specified To nitrofurantoin macrocrystal take one tab after intimacy 100 mg PO BEDTIME 90 caps 0RF 90 days B96.20 - Unspecified Escherichia coli [E. coli] as the cause of diseases classified elsewhere, N39.0 - Urinary tract infection, site not specified Refilled naproxen (Naprosyn) 500 mg PO BEDTIME PRN 30 tabs 1RF pain 30 days N30.10 - Interstitial cystitis (chronic) without hematuria estradiol 0.01%(0.1mg/gram) Apply pea sized amount 3 times per week vaginally; 42.5 grams 1RF 30 days Patient Instructions: This note is constructed using voice recognition software. While every effort has been made to ensure accuracy hydraulic lift driver errors may have been included. Imaging studies, laboratory and physical exam results were discussed and reviewed in detail. No major barriers to patient understanding were identified. An opportunity to ask questions regarding the treatment plan was provided. All questions were answered. The patient expressed understanding and agreement with the above treatment plan. The patient is aware they should contact our office by phone for worsening of their current condition or the appearance of new urologic symptoms. Compliance is encouraged with any medications and followup testing that is ordered. It is a privilege to participate in the urologic care of your patient. If you have any questions or concerns regarding treatment for the above conditions, or other urologic issues, please do not hesitate to contact me. The office telephone contact is [phone]. Sincerely, Dr Willie Carson MD, [facility] - Urology Compassionate Specialist Care for the Genitourinary System Coding Level of Care Code Est Pt Level 4 (62326) Diagnoses Interstitial cystitis N30.10
== END 2025-02-17 14:47 | disposition home or self-care (01) ==
LOC: HO.HUSH 14:28
PROVIDERS: PCP Internal Medicine; Visit Provider Urology
DX: Z13.9 Encounter for screening, unspecified (principal); N30.10 Interstitial cystitis (chronic) without hematuria
CPT/HCPCS: 99214

== ENCOUNTER → 2025-02-17 14:27 | Outpatient (BNVA) | payer OTHER, SELFPAY | PROVIDERS: PCP Internal Medicine; Visit Provider Urology | DX: N30.10 Interstitial cystitis (chronic) without hematuria (principal) | CPT/HCPCS: 81003 ==

== ENCOUNTER 2025-03-02 11:26 | Outpatient (AMB) | payer OTHER, SELFPAY ==
--- NOTE | 2025-03-02 11:29 | MHC.OFFVIS ---
Vital Signs 03/02/25 11:30 Height 5 ft 4 in Weight 134 lb 7.712 oz BMI 23.1 BP 132/71 Blood Pressure Location Lt brachial Position Sitting Pulse 72 Intake Visit Reasons: Abd pain, bloating; sx screening. [facility] 2022 w/ Mirian Intake Note: Keke presents in the office as a follow up for bloating, abdominal pains and screening. CC: Pains in the stomach, bloating, she states that she wants to do a colonoscopy. She states that when she has a BM its black and a bad odor. Sometimes diarrhea as well and very uncomfortable in her stomach. Girl Friday Required: No Allergies egg Allergy (Intermediate, Verified 03/02/25 11:35) Unknown grass pollen Allergy (Intermediate, Verified 03/02/25 11:35) Unknown pear Allergy (Intermediate, Verified 03/02/25 11:35) Unknown tree and shrub pollen Allergy (Intermediate, Verified 03/02/25 11:32) Unknown avocado Allergy (Mild, Verified 03/02/25 11:35) Unknown peach Allergy (Mild, Verified 03/02/25 11:35) Unknown nuts,apple, starwberries Allergy (Unknown, Uncoded 03/02/25 11:32) Unknown HPI HPI Abd pain, bloating; sx screening. [facility] 2022 w/ Mirian: Details: LAST VISIT 08/10/2022 GERD (gastroesophageal reflux disease) Cough Plan Continue famotidine at bedtime. Will add Nexium in the morning. Patient was encouraged to avoid dietary triggers. Staying upright her minimal 3 hours after meals discussed with patient. I will see patient in 6 months, sooner on as needed basis. Patient is agreeable to this plan and verbalizes understanding of instructions. She was given the opportunity to ask questions and all questions answered. ? Thank you for allowing me to participate in her care New esomeprazole magnesium (Nexium) 40 mg PO DAILY 30 caps 5RF K21.9 JASWANT Fairchild Refilled famotidine (Pepcid) 20 mg PO BEDTIME 90 tabs 3RF K21.9 JASWANT Fairchild On Hold atorvastatin Hold Comment: Doctor's Order 10 mg PO BEDTIME 90 days 90 tabs 1RF KYLEE Romero TODAY'S VISIT: Patient is here today for request that visit. Patient reports that she has been having increase symptoms of epigastric pain postprandially. Currently she is on pantoprazole. Patient states that she was prescribed Nexium, however her insurance was not covering and PCP switched the medication to pantoprazole. Patient reports frequent postprandial abdominal bloating. Treatment bowel movements throughout the day. Patient denies hitting diarrhea. Most of the time this stool is soft. The he feels like he empties completely. Patient reports stool black occasionally. Foul odor. Feeling gassy. Patient reports dyspepsia without dysphagia or odynophagia. Family history of cancer. Patient's father was diagnosed with stomach cancer and patient's mom had colon cancer. [facility] Medical History (Updated 03/02/25 @ 12:17 by Demi Woody [facility]) Impaired fasting glucose Vitamin D deficiency Anemia Asthma Interstitial cystitis (chronic) with hematuria Pure hypercholesterolemia E. coli urinary tract infection Pelvic pain Bloating Perforated right tympanic membrane on examination Menorrhagia Allergic rhinitis GERD (gastroesophageal reflux disease) Hx of renal calculi History of urinary incontinence Surgical History (Updated 03/02/25 @ 11:34 by BRINDA Peoples) History of ear surgery Hx of dilation and curettage History of esophagogastroduodenoscopy (EGD) H/O colonoscopy S/P cystoscopy (~02/22/20) History of tubal ligation History of placement of ear tubes History of nasal surgery Family History Mother History of colon cancer Father History of cancer of stomach Social History Household Members: Spouse and Children Housing: House Alcohol intake: never Comment: cramping Patient Tobacco Use Status: Never used Tobacco e-Cigarette/Vaping Use: Never Used Second Hand Smoke Exposure: Yes service: No Current occupational status: employed Cognitive needs: No Hearing needs: No Vision needs: No Female Reproductive History Menstrual Age of Menarche: 15 Review of Systems Const Denies weight gain and Denies weight loss ENT Reports no additional complaints, Denies dysphagia and Denies odynophagia Card Reports no additional complaints Resp Reports no additional complaints GI Reports abdominal pain, Denies belching, Denies melena, Reports bloating, Denies change in bowel habits, Denies dysphagia, Denies excessive flatus, Reports dyspepsia, Reports heartburn, Denies diarrhea, Reports loose stools, Denies nausea, Denies odynophagia and Denies vomiting Reports no additional complaints Musc Reports no additional complaints Neuro Reports no additional complaints Psych Reports no additional complaints Endo Reports no additional complaints Physical Exam Vital Signs: Last Vital Signs Pulse 72 03/02/25 11:30 BP 132/71 03/02/25 11:30 BMI result Body Mass Index 23.1 Const General: healthy appearing, no acute distress and well developed Nutritional Appearance: well nourished Orientation/consciousness: patient oriented x3 Resp Effort & Inspection: normal respiratory effort, able to speak in complete sentences, no tracheal deviation and symmetric chest movement Auscultation: clear to auscultation bilaterally Cardio Rate: regular rate GI Inspection: Yes normal to inspection and No distended Palpation (GI): Soft to palpation, not firm, nontender and No hepatosplenomegaly present Auscultation: normal bowel sounds General: Yes no CVA tenderness Back/Spine/Pelvis Back: no CVA tenderness Skin General skin exam: elasticity normal, turgor normal and dry skin Neuro General: patient oriented x3 Psych Appearance: grossly normal Mental Status: mental status grossly normal Assessment & Plan Assessment & Plan (1) GERD (gastroesophageal reflux disease): Code(s): K21.9 - Gastro-esophageal reflux disease without esophagitis Category: Medical Qualifiers: Esophagitis presence: without esophagitis Qualified Code(s): K21.9 - Gastro-esophageal reflux disease without esophagitis (2) Abdominal pain: Code(s): R10.9 - Unspecified abdominal pain Category: Medical Qualifiers: Abdominal location: epigastric Qualified Code(s): R10.13 - Epigastric pain (3) Postprandial abdominal bloating: Code(s): R14.0 - Abdominal distension (gaseous) (4) Postprandial epigastric pain: Code(s): R10.13 - Epigastric pain Plan Will change PPI to Nexium. Patient will call our office if insurance will not cover it. Take famotidine at bedtime. Avoid dietary triggers and late night snacking. Staying upright for minimum 3 hours after meals discussed with patient. Patient will try to take fiber supplement to help her bulk stools. Message sent to surgical schedulers to bulk procedure for patient. In the meantime will do some blood work and will send patient for upper GI with barium swallow. Patient reports postprandial abdominal bloating. She will try low FODMAP diet. List of food recommended as well as list of food to avoid given to patient. Patient will return in 2-3 months to discuss going for upper endoscopy and colonoscopy. She will call our office if she will have any GI concerning symptoms. She is agreeable to current plan of care and verbalizes understanding of instructions. She was given the opportunity to ask questions and all questions answered. Thank you for allowing me to participate in her care Orders: Orders Lipase Today R10.9 - Unspecified abdominal pain FL upper GI w air w Ba Swallow Today K21.9 - Gastro-esophageal reflux disease without esophagitis Transglutaminase IgA Today R10.9 - Unspecified abdominal pain Vitamin B12 and Folate Today R19.7 - Diarrhea, unspecified Vitamin D 25-OH (D2 and D3) Today E55.9 - Vitamin D deficiency, unspecified Medications: New esomeprazole magnesium (Nexium) 40 mg PO DAILY 30 caps 2RF K21.9 - Gastro-esophageal reflux disease without esophagitis Refilled famotidine (Pepcid) 20 mg PO BEDTIME 90 tabs 3RF K21.9 - Gastro-esophageal reflux disease without esophagitis Discontinued pantoprazole Discontinued Reason: Doctor's Order 40 mg PO DAILY 90 days 90 tabs 1RF Coding Level of Care Code Est Pt Level 4 (75952) Complex EM visit Add On G2211 Diagnoses Gastroesophageal reflux disease without esophagitis K21.9 Esophagitis presence: without esophagitis Epigastric pain R10.13 Abdominal location: epigastric Postprandial abdominal bloating R14.0 Postprandial epigastric pain R10.13 Time Spent (min) 40 Comment 25 minutes spent with patient and additional 15 minutes spent reviewing her records
[2025-03-02 11:30] VITALS: BP 132/71; PULSE 72; BMI 23.1
--- OUTSIDE RECORDS SUMMARY | 2025-03-02 13:08 | XMS_ITS | Clinical Summary ---
Author Organization [email or web address] Address [address] [place] [address] Care Team Providers Care Route Driver Salesperson Name Role Phone Unavailable Primary Care Provider [...]
--- OUTSIDE RECORDS SUMMARY | 2025-03-02 13:08 | XMS_ITS | Encounter Summary ---
Author Organization [employer] Address [address] [place] [id number] Care Team Providers Care Atlassian Administrator Name Role Phone Unavailable Primary Care Provider [...]
== END 2025-03-02 12:09 | disposition home or self-care (01) ==
PROVIDERS: PCP Internal Medicine; Visit Provider Nurse Practitioner Family
DX: K21.9 Gastro-esophageal reflux disease without esophagitis (principal); R10.13 Epigastric pain; R14.0 Abdominal distension (gaseous)
CPT/HCPCS: 99214

== ENCOUNTER → 2025-03-02 11:26 | Outpatient (BNVA) | payer OTHER, SELFPAY | PROVIDERS: PCP Internal Medicine; Visit Provider Nurse Practitioner Family | DX: K21.9 Gastro-esophageal reflux disease without esophagitis (principal); R10.13 Epigastric pain; R14.0 Abdominal distension (gaseous); R19.7 Diarrhea, unspecified | CPT/HCPCS: 99212 ==

== ENCOUNTER 2025-05-18 10:26 | Outpatient (REF) | payer OTHER, SELFPAY ==
[2025-05-18 10:42] LABS: MANUAL DIFF FLAG NO
[2025-05-18 11:13] LABS: Hematocrit 39.6 % (37.0-47.0); Hemoglobin 13.3 g/dl (12.0-16.0); Imm Gran Abs Auto 0.01 X10*3/uL (0.00-0.03); Imm Gran Pct Auto 0.2 % (0.0-0.4); Lymphocytes Absolute Auto 2.2 X10*3/uL (1.2-4.9); Mean Corpuscular HGB Conc 33.6 g/dl (31.0-35.0); Mean Corpuscular Hemoglobin 28.4 pg (27.0-33.0); Mean Corpuscular Volume 84.6 fL (80.0-98.0); NRBC Abs Auto 0.000 X10*3/uL (0.0-0.012); NRBC Pct Auto 0.0 /100WBC (0.0-0.2); Platelet Count 190 X10*3/uL (160-400); Red Blood Count 4.68 X10*6/uL (4.20-5.50); White Blood Count 6.0 X10*3/uL (4.8-10.8)
[2025-05-18 11:17] LABS: Appearance Urine Clear; Glucose Urine UA Negative (Negative); PH 6.5 (5.0-9.0); Specific Gravity - Urine 1.025 (1.005-1.025); UMIC TRIGGER UACC YES
[2025-05-18 11:52] LABS: Alanine Aminotransferase 27 U/L (0-31); Albumin Level 5.0 g/dL (3.5-5.0); Alkaline Phosphatase 63 U/L (39-117); Anion Gap 12 (12-20); Aspartate Amino Transferase 23 U/L (5-31); Blood Urea Nitrogen 19 mg/dL (9-16); Calcium 9.4 mg/dL (8.4-10.2); Carbon Dioxide 28 mmol/L (22-29); Chloride 107 mmol/L (96-108); Cholesterol 236 mg/dL (<200); Estimated Glomerular Filt Rate > 60; HDL Cholesterol 46 mg/dL (>40); Lipase 21 U/L (8-78); Potassium 3.9 mmol/L (3.3-5.1); Sodium 143 mmol/L (135-145); Total Protein 7.7 g/dL (6.5-8.0); Triglycerides 139 mg/dL (<150)
[2025-05-18 12:00] LABS: UACC Culture Trigger YES
[2025-05-18 12:21] LABS: Folate 9.1 ng/mL (> or = 4.0); Vitamin B12 666 pg/mL (200-900)
[2025-05-22 18:44] LABS: Vitamin D 25-OH, D2 <4 ng/mL; Vitamin D 25-OH, D3 29 ng/mL; Vitamin D 25-OH, Total 29 ng/mL (30-100)
== END 2025-05-18 10:27 | disposition home or self-care (01) ==
LOC: HO.LAB 10:26
PROVIDERS: Absent Provider Nurse Practitioner Family; PCP Internal Medicine; Visit Provider Internal Medicine
DX: E11.9 Type 2 diabetes mellitus without complications (principal); D64.9 Anemia, unspecified; E78.00 Pure hypercholesterolemia, unspecified; E55.9 Vitamin D deficiency, unspecified; R19.7 Diarrhea, unspecified; R10.9 Unspecified abdominal pain
CPT/HCPCS: 36415; 80053; 80061; 81001; 82306; 82607; 82746; 83036; 83690; 84443; 85025; 86364; 87086

== ENCOUNTER 2025-05-24 13:51 | Outpatient (REF) | payer OTHER, SELFPAY ==
--- NOTE | ~2025-05-24 | XR_ITS ---
EXAMINATION: XR SOFT TISSUE NECK CLINICAL INDICATION: K22.2 - Esophageal obstruction COMPARISON: None available. TECHNIQUE: 2 views of the soft tissue neck were obtained. FINDINGS: Soft tissue films of the neck demonstrate a normal larynx, pharynx and upper trachea. The epiglottis appears normal. No prevertebral soft tissue swelling or opaque foreign body is demonstrated. Lung apices are clear. No acute bony abnormalities. Mild degenerative changes in the cervical spine present. XR/XR soft tissue neck IMPRESSION: No acute findings, and no radiopaque foreign body seen. Electronically signed by: Camacho Baldwin MD 05/24/2025 04:11 PM EST
== END 2025-05-24 13:52 | disposition home or self-care (01) ==
LOC: HO.XRAY 13:51
PROVIDERS: PCP Internal Medicine; Visit Provider Nurse Practitioner Family
DX: K21.9 Gastro-esophageal reflux disease without esophagitis (principal); K59.00 Constipation, unspecified; K22.2 Esophageal obstruction; Z12.11 Encounter for screening for malignant neoplasm of colon; Z79.899 Other long term (current) drug therapy
CPT/HCPCS: 70360; 99212

== ENCOUNTER 2025-05-24 13:51 | Outpatient (AMB) | payer OTHER, SELFPAY ==
--- NOTE | 2025-05-24 14:34 | MHC.OFFVIS ---
Vital Signs 05/24/25 14:36 Height 5 ft 4 in Weight 132 lb BMI 22.7 BP 138/76 Blood Pressure Location Rt brachial Position Sitting Pulse 82 Pulse Source Pulse Oximeter Pulse Oximetry (%) 98 Oxygen Delivery Method Room Air Intake Visit Reasons: 2 month discuss EGD / COLO Intake Note: ESTABLISHED PATIENT for mgmt of chronic abd pain + constipation. Chief Complaint; C/O GERD w/ dysphagia despite current therapies. She also complains of intermittent constipation and diarrhea. States that she often feels that foods will get stuck in her throat and has to make herself vomit to get anything dislodged. She feels that the nexium has not been working as well for her. She is hoping that we can write a new Rx for SHWETHA Parnell. Gas Burner Operator Required: No Accompanied by: Self / Same As Patient Allergies egg Allergy (Intermediate, Verified 03/02/25 11:35) Unknown grass pollen Allergy (Intermediate, Verified 03/02/25 11:35) Unknown pear Allergy (Intermediate, Verified 03/02/25 11:35) Unknown tree and shrub pollen Allergy (Intermediate, Verified 03/02/25 11:32) Unknown avocado Allergy (Mild, Verified 03/02/25 11:35) Unknown peach Allergy (Mild, Verified 03/02/25 11:35) Unknown nuts,apple, starwberries Allergy (Unknown, Uncoded 03/02/25 11:32) Unknown HPI HPI 2 month discuss EGD / COLO: Details: LAST VISIT: GERD (gastroesophageal reflux disease) Abdominal pain Postprandial abdominal bloating Postprandial epigastric pain Plan Will change PPI to Nexium. Patient will call our office if insurance will not cover it. Take famotidine at bedtime. Avoid dietary triggers and late night snacking. Staying upright for minimum 3 hours after meals discussed with patient. Patient will try to take fiber supplement to help her bulk stools. Message sent to surgical schedulers to book procedure for patient. In the meantime will do some blood work and will send patient for upper GI with barium swallow. Patient reports postprandial abdominal bloating. She will try low FODMAP diet. List of food recommended as well as list of food to avoid given to patient. Patient will return in 2-3 months to discuss going for upper endoscopy and colonoscopy. She will call our office if she will have any GI concerning symptoms. She is agreeable to current plan of care and verbalizes understanding of instructions. She was given the opportunity to ask questions and all questions answered. ? Thank you for allowing me to participate in her care Orders Lipase Today R10.9 FL upper GI w air w Ba Swallow Today K21.9 Transglutaminase IgA Today R10.9 Vitamin B12 and Folate Today R19.7 Vitamin D 25-OH (D2 and D3) Today E55.9 New esomeprazole magnesium (Nexium) 40 mg PO DAILY 30 caps 2RF K21.9 Refilled famotidine (Pepcid) 20 mg PO BEDTIME 90 tabs 3RF K21.9 Discontinued pantoprazole Discontinued Reason: Doctor's Order 40 mg PO DAILY 90 days 90 tabs 1RF TODAY'S VISIT Patient is here today for follow-up and to discuss lab results. Patient has upper GI series with barium swallow scheduled for July. Unable to schedule 1 sooner. Has not been schedule for upper endoscopy or colonoscopy yet. Here today to discuss the prep. She continues to have acid reflux. Patient does have multiple food allergies as well as environmental allergies. She has seen her grease renderer in March. She is taking Zyrtec and Flonase. Reports frequent postnasal drip and sore throat. Not sure this is reflux related or related to postnasal drip from allergies. Patient feels like something is stuck in her throat. Patient reports dyspepsia with dysphagia without odynophagia. Patient denies any issues with anesthesia in the past. No history of sleep apnea. Not on any anticoagulation medication. Reports occasional constipation. Reports postprandial abdominal bloating COUNT INCLUDES [facility] Medical History Impaired fasting glucose Vitamin D deficiency Anemia Asthma Interstitial cystitis (chronic) with hematuria Pure hypercholesterolemia E. coli urinary tract infection Pelvic pain Bloating Perforated right tympanic membrane on examination Menorrhagia Allergic rhinitis GERD (gastroesophageal reflux disease) Hx of renal calculi History of urinary incontinence Surgical History History of ear surgery Hx of dilation and curettage History of esophagogastroduodenoscopy (EGD) H/O colonoscopy S/P cystoscopy (~02/22/20) History of tubal ligation History of placement of ear tubes History of nasal surgery Family History Mother History of colon cancer Father History of cancer of stomach Social History Household Members: Spouse and Children Housing: House Alcohol intake: never Comment: cramping Patient Tobacco Use Status: Never used Tobacco e-Cigarette/Vaping Use: Never Used Second Hand Smoke Exposure: Yes service: No Current occupational status: employed Cognitive needs: No Hearing needs: No Vision needs: No Female Reproductive History Menstrual Age of Menarche: 15 Review of Systems Const Denies weight gain and Denies weight loss ENT Reports no additional complaints, Denies dysphagia and Denies odynophagia Card Reports no additional complaints Resp Reports no additional complaints GI Reports abdominal pain, Denies belching, Denies melena, Reports bloating, Denies change in bowel habits, Denies dysphagia, Denies excessive flatus, Reports dyspepsia, Reports heartburn, Denies diarrhea, Reports loose stools, Denies nausea, Denies odynophagia and Denies vomiting Reports no additional complaints Musc Reports no additional complaints Neuro Reports no additional complaints Psych Reports no additional complaints Endo Reports no additional complaints Physical Exam Vital Signs: Last Vital Signs Pulse 82 05/24/25 14:36 BP 138/76 05/24/25 14:36 Pulse Ox 98 05/24/25 14:36 Oxygen Delivery Method Room Air 05/24/25 14:36 BMI result Body Mass Index 22.7 Const General: healthy appearing, no acute distress and well developed Nutritional Appearance: well nourished Orientation/consciousness: patient oriented x3 Resp Effort & Inspection: normal respiratory effort, able to speak in complete sentences, no tracheal deviation and symmetric chest movement Auscultation: clear to auscultation bilaterally Cardio Rate: regular rate GI Inspection: Yes normal to inspection and No distended Palpation (GI): Soft to palpation, not firm, nontender and No hepatosplenomegaly present Auscultation: normal bowel sounds General: Yes no CVA tenderness Back/Spine/Pelvis Back: no CVA tenderness Skin General skin exam: elasticity normal, turgor normal and dry skin Neuro General: patient oriented x3 Psych Appearance: grossly normal Mental Status: mental status grossly normal Results Reviewed Results Reviewed: Laboratory Tests 05/18/25 10:39 Hemoglobin A1c % 6.0 AST 23 ALT 27 Lipase 21 Vitamin B12 666 25-OH Vitamin D Total 29 L Folate 9.1 TSH 2.28 Tiss Transglutamin IgA <1.0 Assessment & Plan Assessment & Plan (1) GERD (gastroesophageal reflux disease): Code(s): K21.9 - Gastro-esophageal reflux disease without esophagitis Category: Medical Qualifiers: Esophagitis presence: without esophagitis Qualified Code(s): K21.9 - Gastro-esophageal reflux disease without esophagitis (2) Dysphagia: Code(s): R13.10 - Dysphagia, unspecified Qualifiers: Dysphagia type: oropharyngeal phase Qualified Code(s): R13.12 - Dysphagia, oropharyngeal phase (3) Constipation: Code(s): K59.00 - Constipation, unspecified Category: Medical Qualifiers: Constipation type: unspecified constipation type Qualified Code(s): K59.00 - Constipation, unspecified (4) Abdominal pain: Code(s): R10.9 - Unspecified abdominal pain Category: Medical Qualifiers: Abdominal location: epigastric Qualified Code(s): R10.13 - Epigastric pain (5) Bloating: Code(s): R14.0 - Abdominal distension (gaseous) Category: Medical Plan Patient will be referred to operations research manager. Soft tissue neck x-ray ordered, patient reports globus sensation. Patient will take Nexium daily. Avoid dietary triggers only time snacking. Staying upright for minimal 3 hours after meals discussed with patient. Patient will be sent for upper endoscopy. Encouraged to keep her appointment for upper GI study in July. Patient will be sent also for colonoscopy. What to expect before during and after procedure discussed with patient. Stressed the importance of good bowel prep and clear liquid diet day before procedure. I will see patient after the procedure, sooner on as needed basis. Patient is agreeable to current plan of care and verbalizes understanding of instructions. She was given the opportunity to ask questions and all questions answered. Thank you for allowing me to participate in her care Orders: Orders XR soft tissue neck 05/24/25 K22.2 - Esophageal obstruction Referrals Ear/Nose/Throat Referral R13.10 - Dysphagia, unspecified GI Procedure Notification K21.9 - Gastro-esophageal reflux disease without esophagitis, R13.10 - Dysphagia, unspecified, Z12.11 - Encounter for screening for malignant neoplasm of colon Medications: New Nexium 24HR (esomeprazole magnesium) 20 mg PO DAILY 30 tabs 3RF NS bisacodyl (Dulcolax (bisacodyl)) take 4 tabs at noon the day before your colonoscopy 20 mg (4 x 5 mg) PO ONCE 4 tabs 0RF constipation 1 day Z12.11 - Encounter for screening for malignant neoplasm of colon polyethylene glycol 3350 (Miralax) As directed by gastroenterology department at [facility] 238 grams PO ONCE 238 grams 0RF Z12.11 - Encounter for screening for malignant neoplasm of colon Discontinued esomeprazole magnesium Discontinued Reason: Doctor's Order 40 mg PO DAILY 30 caps 2RF K21.9 - Gastro-esophageal reflux disease without esophagitis Coding Level of Care Code Est Pt Level 4 (90441) Complex visit Add On G2211 Diagnoses Gastroesophageal reflux disease without esophagitis K21.9 Esophagitis presence: without esophagitis Oropharyngeal dysphagia R13.12 Dysphagia type: oropharyngeal phase Constipation, unspecified constipation type K59.00 Constipation type: unspecified constipation type Epigastric pain R10.13 Abdominal location: epigastric Bloating R14.0 Time Spent (min) 40 Comment 25 minutes spent with patient and additional 15 minutes spent reviewing her records
[2025-05-24 14:36] VITALS: BP 138/76; PULSE 82; O2SAT 98; BMI 22.7
--- OUTSIDE RECORDS SUMMARY | 2025-05-24 18:47 | XMS_ITS | Continuity of Care Document ---
Author Organization [place] - [facility], [facility] Address [address] [place] [address] Care Team Providers Care Shield Runner Name Role Phone [facility] Primary Care Provider Assessment Encounter Date Assessment Date Assessment LastModified by Organization Details LastModified Time 03/16/2025 03/16/2025 The right ear has healed well following tympanoplasty. The posterior drum is still quite thick at the moment. All water and activity precautions are lifted. Audiometric testing today showed improvement in the hearing compared to preoperative audiogram. The hearing will likely continue to improve as the eardrum thins out. Patient's left ear also has a small perforation present without significant hearing loss. At this point she wants to simply observe the left ear but may consider surgery in the future. She would like to follow-up in 6 months for reevaluation. [email or web address] Not available 03/16/2025 16:32:45 Plan of Treatment Reminders Order Date Submit Date Provider Last Modified By Organization Details Last Modified Time Details Appointments Establish ed 10 2025 01:30P M ARIELA DUKE MD Not available Not available Not available Lab None recorded. Referral None recorded. Procedures None recorded. Surgeries None recorded. Imaging None recorded. Medication Orders None recorded. Patient TargetsNo targets recorded. Patient InstructionsNo instructions recorded. Reason for Referral None Reported. Results Created Date Observation Date Name Description Value Unit Range Abnormal Flag Note LastModifiedBy Organization Detail LastModifiedTime 03/17/20 25 audio gram No observ ation record ed. BARCODE Not Available 2024 10:55:34 Result Notes None recorded. Problems Name Problem SNOMED Code Status Onset Date Resolution Date Notes Provider Name and Address Organization Details Recorded Time Multiple perforati ons of right tympanic membrane 31049421352 40801 Active 2019 Multiple perforati ons of tympanic membrane, right ear; Note: Date Diagnosed : 0 4:10 PM (H72.811) Not Available [facility] 4 02:46:22 Conductiv e hearing loss 18520038 Active 2019 Conductiv e hearing loss, unilatera l, right ear, with unrestric jude hearing on the contralat eral side; Note: Date Diagnosed : 0 4:10 PM (H90.11) Not Available [facility] 4 02:46:19 Acute pharyngit is 140029942 Active 2022 Acute pharyngit is, unspecifi ed; Note: Date Diagnosed : 09/21/2022 12:37 PM (J02.9) Not Available [facility] 4 02:46:19 Acute infective otitis externa 580400088 Active 2023 Kathia matthew [place] - [facility] 4 10:01:31 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 - [facility] 5 13:25:19 Conductiv e hearing loss 76335873 Active 2024 ARIELA DUKE MD [address] [place], [place] [address], [address] , [facility] - [facility] 5 18:16:54 Central perforati on of left tympanic membrane 35936738723 53460 Active 2024 ARIELA DUKE MD [address] [place] [address], [place], [address] , [facility] - [facility] 5 10:20:44 Problem Notes None recorded. Procedures Surgical History Date Name Laterality Status Provider Name and Address Organization Details Recorded Time 5 Comp Audio with Tymps - 67547 & 57043 completed LOREN OLVERA, AUD 100 [facility],[place] [address], [place], [address], [facility] - [facility] 03/16/2025 15:58:30 5 EAC debris removal with microscope completed ARIELA DUKE MD 100 [facility],[address], [address], [facility] - [facility] 03/15/2025 16:22:08 5 TYMPANIC MEMBRANE REPAIR (SURG) completed Antonio Hamm [place] - [facility] 01/28/2025 13:26:04 5 Comp Audio with Tymps - 19911 & 85317 completed HONEY BLEDSOE, AUD 100 [facility],[address], [address], [facility] - [facility] 12/09/2024 09:34:59 4 Comp Audio with Tymps - 23828 & 09416 completed SHELLEY DYKES, AUD 100 [facility],[place] [address], [place], [address], [facility] - [facility] 01/17/2024 09:28:34 procedure on urinary bladder completed Sana Barnes [facility] 01/17/2024 09:11:49 Ear Surgery completed Sana Barnes [facility] 01/17/2024 09:12:02 Imaging Results None recorded. Procedure [...] as needed 01/16 completed Medicati on ID: [id number] D uration Value: 7 Prescri bed By Name: Suzie Yeh nd Name: amoxicil svetlana Send Method: E-Prescr ibed Sub s Allowed: subs OK Medic ationGen ericName : amoxicil svetlana Medi cation ID: [id number] D uration Value: 7 Prescri bed By Name: Suzie Yeh nd Name: amoxicil svetlana Send Method: E-Prescr ibed Sub s Allowed: subs OK Medic ationGen ericName : amoxicil svetlana Not Available Not Available Not Available ofloxacin 0.3 % ear drops INSTILL 4 DROPS INTO THE RIGHT EAR TWICE A DAY FOR 14 DAYS 03/16 completed Not Available Not Available Not Available [...] BY MOUTH EVERY 8 HOURS FOR 20 DAYS. USE INTERMIT TENTLY WITH CYSTITIS FLARES active Not Available Not Available [...] iron) tablet TAKE 1 TABLET BY MOUTH EVERY DAY active Not Available Not Available No t Available esomepraz ole magnesium 40 mg capsule,d elayed release TAKE 1 CAPSULE BY MOUTH EVERY DAY active Not Available Not Available No t Available nitrofura ntoin macrocrys summer 100 mg capsule TAKE 1 CAPSULE BY MOUTH AT BEDTIME FOR 90 DAYS TAKE ONE CAP AFTER INTIMACY active Not Available Not Available No t Available clotrimaz ole-betam ethasone 1 %-0.05 % [...] completed Not Available Not Available Not Available sandra ne 0.3 mg/0.3 mL injection , auto-inje ctor active Medicati on ID: [id number] B rand Name: marco a arzate Send [...] mg tablet 07/08 completed Medicati on ID: [id number] B rand Name: elena olivares Send Method: E-Prescr ibed Sub s Allowed: subs OK Medic ationGen ericName : sunithaatavinnie olivares Not Available Not Available Not Available naproxen 500 mg tablet TAKE 1 TABLET BY MOUTH BEDTIME NEEDED FOR PAIN FOR 30 DAYS active Not Available Not Available No t Available amoxicill in 875 mg-potass ium clavulana te 125 mg tablet TAKE 1 TABLET BY MOUTH TWICE A DAY FOR 5 DAYS 01/16 completed Not Available Not Available Not Available Ventolin HFA 90 mcg/actua tion aerosol inhaler INHALE 1-2 PUFFS BY MOUTH EVERY 4-6 HOURS NEEDED active Not Available Not Available No t Available oxycodone 5 mg tablet Take 1 tablet every 4-6 hours by oral route as needed for 3 days, for pain. 02/06 completed Not Available Not Available Not Available Saline Nasal 0.65 % spray aerosol SPRAY 2 SPRAY INTRANAS ALLY 4 TIMES A DAY NEEDED FOR DRY NASAL PASSAGES active Not Available Not Available No t Available Allergy Relief D12 5 mg-120 mg tablet,ex tended release TAKE 1 TABLET BY MOUTH EVERY 12 HOURS NEEDED 03/16 completed Not Available Not Available Not Available Anti-Gas Ultra Strength 180 mg capsule TAKE 1 CAPSULE BY MOUTH TWICE A DAY NEEDED 12/09 completed Not Available Not Available Not Available Zyrtec 09/21 completed Medicati on ID: [id number] B rand Name: Zyrtec S end Method: E-Prescr ibed Sub s Allowed: subs OK Medic ationGen ericName : Zyrtec Not Available Not Available Not Available esomepraz ole magnesium 09/21 completed Medicati on ID: [id number] B rand Name: esomepra zole magnesiu m [...] Diagnosis SNOMED-CT Code Diagnosis ICD10 Code Diagnosis IMO Codes Diagnosis Note [id number] ARIELA DUKE MD [facility] of [address] [address] 03/16/2025 15:01:35 03/16/2025 16:33:18 Multiple perforations of right tympanic membrane 0089749689 608781 H72.811 Central pe rforation of left tympanic membrane 9357466779 637238 H72.02 7913337 Audiologic al evaluation results: 03/16/2025R ight ear:Normal sloping to a mild conductive hearing loss with excellent word recognitio n.Left ear: DNT Tympanomet ry:Right Ear:Type AsLeft Ear:DNT Health Concerns Section Related Observation LastModified by Organization Detai ls LastModified Time None Recorded Concern Status LastModified by Organization Details LastModified Time None Recorded Payers Encounter Date Sequence Insurance Name Policy Number Policy Aiken Covered Member ID Aiken Member ID Guarantor Name 03/16/2025 1 [facility] [employer] - DIRECT - [place] [employer] (HMO) [id number] Keke Reagan [id number] Keke Reagan Notes Date Note Type Note Provider Name and Address Organization Details Recorded Time 03/16/2025 text/html Patient is now about 6 weeks status post right-sided transcanal tympanoplasty for closure of 2 separate perforations. Patient has done well postoperatively and reports no pain or discharge. Patient reports that the hearing is improved. Patient noticing some itchiness in her ears. ARIELA DUKE MD [address] [place] [address], [address], [facility] - [facility] 03/16/2025 16:33:26 OBGyn Episode No OBEpisode recorded.
--- OUTSIDE RECORDS SUMMARY | 2025-05-24 18:47 | XMS_ITS | Data Portability ---
Author Organization [place] - [facility], Allergy Address [address] [address] Care Team Providers Care Hogshead Mat Inspector Name Role Phone [facility] Primary Care [...] with this option. All questions were answered. [email or web address] Not available 07/08/2024 13:25:03 12/09/2024 12/09/2024 Patient [...] patient with the contact information for my edge cutting machine operator. We will begin the scheduling process and see the patient back at the time of surgery. Patient will not require medical clearance from their primary care provider preoperatively. [email or web address] Not available 12/09/2024 10:31:57 02/04/2025 02/04/2025 55 year old female, s/p revisional right transcanal tympanoplasty with fascia graft performed 01/27/[address] Duke, presents for postoperative evaluation. Patient appears to be doing well following surgery. Steri-strips were removed, revealing a well-healed postauricular scar. Gelfoam was also partially debrided from the right external auditory canal which she tolerated well. Left tympanic membrane perforation appears stable and dry. Patient was instructed to begin a 14-day course of ofloxacin drops twice daily in the right ear to dissolve the remaining Gelfoam and maintain strict dry ear precautions for both ears until her follow-up appointment with Dr. Duke in 6-8 weeks. All questions were answered. [email or web address] Not available 02/04/2025 16:04:25 03/16/2025 03/16/2025 The right ear rowe s healed well following tympanoplasty. The posterior drum [...] to follow-up in 6 months for reevaluation. [email or web address] Not available 03/16/2025 16:32:45 Plan of Treatment Reminders Order Date Submit Date Provider Last Modified By Organization Details Last Modified Time Details Appointments Establish ed 10 2025 01:30P M ARIELA DUKE MD Not available Not available Not available Lab None recorded. Referral None recorded. Procedures None recorded. Surgeries tympanic membrane repair (SURG) 2024 025 [email or web address] Not available 12/09/2024 10:51:26 Imaging None recorded. Medication Orders ofloxacin 0.3 % ear drops 2024 025 [employer] [facility], [address] [address], [address], 03/16/2025 15:27:18 clotrimaz ole-betam ethasone 1 %-0.05 % topical cream 2024 025 [facility], [address] [place] [address], [place], [address], 12/09/2024 10:31:43 ofloxacin 0.3 % ear drops 2023 025 [employer] [facility] #[facility], [address] [place] [address], [address], 03/16/2025 15:27:18 Patient TargetsNo targets recorded. Patient InstructionsNo instructions recorded. Reason for Referral None Reported. Results Created Date Observation Date Name Description Value Unit Range Abnormal Flag Note LastModifiedBy Organization Detail LastModifiedTime 01/20/20 audio gram No observ ation record ed. Not Available 12/30 16:07:42 02/19/20 24 04/28/2020 audio gram No observ ation record ed. [email or web address] Not Available 2024 18:13:23 12/10/19 25 audio gram No observ ation record ed. BARCODE Not Available 2024 14:54:51 03/17/20 25 audio gram No observ ation record ed. BARCODE Not Available 2024 10:55:34 Result Notes None recorded. Problems Name Problem SNOMED Code Status Onset Date Resolution Date Notes Provider Name and Address Organization Details Recorded Time Multiple perforati ons of right tympanic membrane 07943754175 02300 Active 2019 Multiple perforati ons of tympanic membrane, right ear; Note: Date Diagnosed : 0 4:10 PM (H72.811) Not Available [facility] 4 02:46:22 Conductiv e hearing loss 59426696 Active 2019 Conductiv e hearing loss, unilatera l, right ear, with unrestric jude hearing on the contralat eral side; Note: Date Diagnosed : 0 4:10 PM (H90.11) Not Available [facility] 4 02:46:19 Acute pharyngit is 909494700 Active 2022 Acute pharyngit is, unspecifi ed; Note: Date Diagnosed : 09/21/2022 12:37 PM (J02.9) Not Available [facility] 4 02:46:19 Acute infective otitis externa 100766898 Active 2023 Guilherme matthew [place] - [facility] 4 10:01:31 Dermal mycosis 45426995 Active 2024 CARLYN HESS PA-C [address] [place] [address],[place] [address], [place], [address] , [place] - [facility] 5 13:25:19 Conductiv e hearing loss 85372628 Active 2024 ARIELA DUKE MD [address] [place] [address],[place] [address], [place], [address] , [place] - [facility] 5 18:16:54 Central perforati on of left tympanic membrane 22091066247 28574 Active 2024 ARIELA DUKE MD 100 [facility],[place] [address], [place], [address] , [facility] - [facility] 5 10:20:44 Problem Notes None recorded. Procedures Surgical History Date Name Laterality Status Provider Name and Address Organization Details Recorded Time 5 Comp Audio with Tymps - 36149 & 30748 completed LOREN OLVERA, AUD 100 [facility],[address], [address], [facility] - [facility] 03/16/2025 15:58:30 5 EAC debris removal with microscope completed ARIELA DUKE MD 100 [facility],[address], [address], [facility] - [facility] 03/15/2025 16:22:08 5 TYMPANIC MEMBRANE REPAIR (SURG) completed Antonio Hamm [facility] 01/28/2025 13:26:04 5 Comp Audio with Tymps - 17312 & 05621 completed HONEY BLEDSOE, AUD 100 [facility],[address], [address], [facility] - [facility] 12/09/2024 09:34:59 4 Comp Audio with Tymps - 35819 & 88564 completed SHELLEY DYKES, AUD 100 [facility],[address], [address], [facility] - [facility] 01/17/2024 09:28:34 procedure on urinary bladder completed Sana Barnes [facility] 01/17/2024 09:11:49 Ear Surgery completed Sana Barnes [facility] 01/17/2024 09:12:02 Imaging Results None recorded. Procedure [...] as needed 01/16 completed Medicati on ID: [id number] D uration Value: 7 Prescri bed By Name: Suzie Yeh nd Name: amoxicil svetlana Send Method: E-Prescr ibed Sub s Allowed: subs OK Medic ationGen ericName : amoxicil svetlana Medi cation ID: [id number] D uration Value: 7 Prescri bed By [...] , auto-inje ctor active Medicati on ID: [id number] B rand Name: marco a arzate Send [...] mg tablet 07/08 completed Medicati on ID: [id number] B rand Name: elena olivares Send Method: E-Prescr ibed Sub s Allowed: subs OK Medic ationGen ericName : loratavinnie ne Not Available Not Available Not Available naproxen [...] Available Zyrtec 09/21 completed Medicati on ID: [id number] B rand Name: Zyrtec S end Method: E-Prescr ibed Sub s Allowed: subs OK Medic ationGen ericName : Zyrtec Not Available Not Available Not Available esomepraz ole magnesium 09/21 completed Medicati on ID: [id number] B rand Name: esomepra zole magnesiu m Send Method: E-Prescr ibed Sub s Allowed: subs OK Medic ationGen ericName : esomepra zole magnesiu m Not Available Not Available Not Available cholecalc iferol (vitamin D3) 50 mcg (2,000 unit) capsule TAKE 1 CAPSULE BY MOUTH EVERY DAY active Not Available Not Available No t Available Vitals Date Recorded Body weight Body mass index (BMI) Body height Provider Name and Address Organization Details Last Updated DateTime 02/04/2025 33220.97 g 23.9 kg/m2 160.02 cm Maegan Peña [place] - [facility] 02/04/2025 14:27:37 Social History None recorded. Functional Status None recorded. Mental Status None recorded. Family History Nothing Reported. Medical History Condition Response Allergies/Hayfever Y Anemia Y Gynecological HistoryNo gynecological history recorded. Obstetrics History GPAL:G 0 P 0 0 0 0 Past Encounters Encounter ID Performer Location Encounter Start Date Encounter Closed Date Diagnosis/Indication Diagnosis SNOMED-CT Code Diagnosis ICD10 Code Diagnosis IMO Codes Diagnosis Note [id number] GUILHERME JEFFREY PA-C [facility] [place] [address] [place] [address] 01/17/2024 08:59:30 01/17/2024 10:12:07 Conductive hearing loss 18054070 H90.11 Audiologic al evaluation results: Right ear: Borderline normal sloping to a moderate conductive hearing loss with excellent word recognitio n. Left ear: Essentiall y normal hearing with excellent word recognitio n. Tympanomet ry: Right Ear:Type B with large volume Left Ear:Type B with large volume Bilateral perforation of tympanic membranes 6894280389 522901 H72.93 Acute infe ctive otitis externa 367172815 H60.392 [id number] CARLYN HESS PA-C [facility] of [address] [place] [address] 07/08/2024 12:43:24 07/08/2024 13:19:51 Multiple perforations of right tympanic membrane 8217137759 441151 H72.811 Dermal mycosis 10335759 B36.9 [id number] ARIELA DUKE MD [facility] [address] [place] [address] 12/09/2024 09:04:28 12/09/2024 10:35:22 Central perforation of left tympanic membrane 4148005870 812383 H72.02 1470586 Dermal mycosis 23907136 B36.9 The skin of the right external [...] Multiple p erforations of right tympanic membrane 0330924867 992293 H72.811 Conductive hearing loss 38692921 H90.11 Audiologic al evaluation results:Ri ght ear:Modera te conductive hearing loss with excellent word recognitio n.Left ear:Normal sloping to mild sensorineu ral hearing loss with excellent word recognitio n.Tympanom etry:Right Ear:Type B with large volumeLeft Ear:Could not maintain a hermetic seal [id number] JACQUE PAYNE [facility] [address] [place] [address] 02/04/2025 14:04:45 02/04/2025 15:20:48 Multiple perforations of right tympanic membrane 0926927536 025413 H72.811 [id number] ARIELA DUKE MD [facility] 100 [facility] [place] [address] 03/16/2025 15:01:35 03/16/2025 16:33:18 Multiple perforations of right tympanic membrane 0251391266 362424 H72.811 Central pe rforation of left tympanic membrane 2325378593 528133 H72.02 6014923 Audiologic al evaluation results: 03/16/2025R ight ear:Normal [...] Aiken Member ID Guarantor Name 01/11/2025 1 [facility] [id number] Keke Lin [id number] Keke Reagan 01/11/2025 3 [facility] - DIRECT - [place] (HMO) Keke Reagan [id number] Keke Reagan 03/16/2025 1 [facility] - [employer] - [place] (H[place]) [id number] Keke Reagan [id number] Keke Reagan 01/11/2025 1 [facility] NET PLAN (MEDICAID HMO) [place]ATH[place]O Keke Reagan [id number] Keke Reagan Notes Date Note Type Note Provider Name and Address Organization Details Recorded Time 01/17/2024 text/html ROS as noted in the HPI 53 year old female presents for evaluation of ears. Reports both ears itch and the left ear hurts. Has not been abiding by dry ear precautions. States hearing is okay. There is no otorrhea and no tinnitus. MARCELO MANN MD [address] [place] [address], [place], [address], [facility] - [facility] 01/17/2024 12:58:35 07/08/2024 text/html ROS as noted in the HPI 54-year-old female presents for reevaluation of TM perforation. She has a history of tympanoplasty with Dr. Robertson in the past which was unsuccessful. She continues to have wetness and itching of the right ear. 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 She is interested in repair. MARCELO MANN MD 100 [facility] [place],[address], [address], [facility] 07/08/2024 17:01:29 12/09/2024 text/html 54-year-old female [...] the right EAC. ARIELA DUKE MD 100 [facility] [address], [address], [facility] 12/09/2024 12:30:13 02/04/2025 text/html ROS as noted in the HPI 55 year old female, s/p revisional right transcanal tympanoplasty with fascia graft performed 01/27/[address] Duke, presents for postoperative evaluation. Primary tympanoplasty was attempted by Dr. Wang back in 2016 which was unsuccessful. Patient is doing fairly well overall. She reports mild otalgia and itching inside her right ear. Patient has been strictly following postoperative instructions. ARIELA DUKE MD 100 [facility] [address],[facility], [place], [address], [facility] 02/05/2025 14:29:00 03/16/2025 text/html Patient is now about 6 weeks status post right-sided transcanal tympanoplasty for closure of 2 separate perforations. Patient has done well postoperatively and reports no pain or discharge. Patient reports that the hearing is improved. Patient noticing some itchiness in her ears. ARIELA DUKE MD [address] [place] [address], [place], [address], [facility] - [facility] 03/16/2025 16:33:26 OBGyn Episode No OBEpisode recorded.
--- OUTSIDE RECORDS SUMMARY | 2025-05-24 18:47 | XMS_ITS | Encounter Summary ---
Author Organization [employer] Address [address] [facility] 7 [place] [address] Care Team Providers Care Chief Executive Or Managing Director Name Role Phone Unavailable Primary Care Provider [...]
--- OUTSIDE RECORDS SUMMARY | 2025-05-24 18:47 | XMS_ITS | Clinical Summary ---
Author Organization [employer] Address [address] [facility] 7 [place] [address] Care Team Providers Care Financial Adviser Name Role Phone Unavailable Primary Care Provider [...] of 2) 2021 COVID-19 Vaccine ( - 2024-2 6 season) 2025 Influenza Vaccine (#1) 2025 RSV Patients and [...]
== END 2025-05-24 14:56 | disposition home or self-care (01) ==
LOC: HO.HGI 13:52
PROVIDERS: PCP Internal Medicine; Visit Provider Nurse Practitioner Family
DX: K21.9 Gastro-esophageal reflux disease without esophagitis (principal); R13.12 Dysphagia, oropharyngeal phase; K59.00 Constipation, unspecified; R10.13 Epigastric pain; R14.0 Abdominal distension (gaseous)
CPT/HCPCS: 99214

== ENCOUNTER → 2025-05-24 15:08 | Outpatient (BNV) | payer OTHER, SELFPAY | PROVIDERS: PCP Internal Medicine; Visit Provider Radiology Diagnostic Radiology | DX: K22.2 Esophageal obstruction (principal) | CPT/HCPCS: 70360 ==

== ENCOUNTER 2025-06-09 13:53 | Outpatient (AMB) | payer OTHER, SELFPAY ==
--- NOTE | 2025-06-09 13:57 | A.OFFVIS_ITS ---
Intake Visit Reasons: Cystoscopy(IC Flare Up)SET Intake Note: Reason for Visit: Cystoscopy (IC Flare Up) Urology Meds: Amitriptyline, Estradiol, Blood Thinners: None Labs: BUN: 19 Creatinine: 0.61 A1CA- 6.0 (05/18/2025) Last Urine Culture: 05/18/2025 Imaging: None Last PVR: None URO G-HD Cystoscope LOT EXP: Allergies egg Allergy (Intermediate, Verified 06/15/25 15:14) Unknown grass pollen Allergy (Intermediate, Verified 06/15/25 15:14) Unknown pear Allergy (Intermediate, Verified 06/15/25 15:14) Unknown tree and shrub pollen Allergy (Intermediate, Verified 06/15/25 15:14) Unknown avocado Allergy (Mild, Verified 06/15/25 15:14) Unknown peach Allergy (Mild, Verified 06/15/25 15:14) Unknown nuts,apple, starwberries Allergy (Unknown, Uncoded 06/15/25 15:14) Unknown HPI Comments Details: Prashanth is a very pleasant Sinhala female. She is a patient of Dr. Burton. She is seen for the following urologic conditions - interstitial cystitis - recurring UTI - microscopic hematuria IC picture on cystoscopy in office Leukocytes on dipstick Have kept her on Estrace and q.h.s. amitriptyline 12.5 mg Microgen 04/24 multiple bacteria - E coli, Enterococcus with resistance pattern to penicillin, Bactrim, beta lactamase Add methenamine and vitamin-C Pelvic floor is significantly relaxed with combination of pelvic floor physical therapy and pessary for support Famotidine for IC Stable with current diet Has prescription for 100 mg Macrobid to be used after intimacy Recurring UTI Investigations - 12/19 E coli bennett resistant sensitive to Macrobid Interstitial cystitis: The interstitial cystitis was diagnosed 2019 on cystoscopy hydrodistention. Current symptoms include Currently stable. Aggravating factors include intercourse. Alleviating factors include bladder training, dietary changes - Jan 2020 Hydrodistention, 02/19 hydrodistention, D-mannose per Dr. Roberson Prior testing included a cystoscopy, showing stiffening of bladder wall Prior therapy Elmiron - off target effect dry eyes, limited gabapentin with amitriptyline during IC flare, IC instillations PFSH Medical History Impaired fasting glucose Vitamin D deficiency Anemia Asthma Interstitial cystitis (chronic) with hematuria Pure hypercholesterolemia E. coli urinary tract infection Pelvic pain Bloating Perforated right tympanic membrane on examination Menorrhagia Allergic rhinitis GERD (gastroesophageal reflux disease) Hx of renal calculi History of urinary incontinence Surgical History History of ear surgery Hx of dilation and curettage History of esophagogastroduodenoscopy (EGD) H/O colonoscopy S/P cystoscopy (~02/22/20) History of tubal ligation History of placement of ear tubes History of nasal surgery Family History Mother History of colon cancer Father History of cancer of stomach Social History Household Members: Spouse and Children Housing: House Alcohol intake: never Comment: cramping Patient Tobacco Use Status: Never used Tobacco e-Cigarette/Vaping Use: Never Used Second Hand Smoke Exposure: Yes service: No Current occupational status: employed Cognitive needs: No Hearing needs: No Vision needs: No Female Reproductive History Menstrual Age of Menarche: 15 Review of Systems Const Denies chills and Denies fever(s) Card Reports no additional complaints and Denies syncope Resp Denies cough GI Denies abdominal pain and Denies heartburn Reports as per HPI and Denies change in libido Neuro Denies syncope Psych Denies change in libido Endo Denies change in libido Physical Exam Const General: cooperative, healthy appearing, comfortable and no acute distress Orientation/consciousness: patient oriented x3 HEENT Face and sinus: Yes normal facial exam Mouth: moist mucous membranes Neck Neck: Yes normal visual inspection, Yes full ROM and Yes trachea midline Chest Chest palpation & inspection: normal inspection of the chest Resp Effort & Inspection: normal respiratory effort, able to speak in complete sentences and no respiratory distress GI Inspection: Yes normal to inspection Back/Spine/Pelvis Cervical Spine: normal cervical lordosis Thoracic/Lumbar Spine: thoracic and lumbar spine normal to inspection Skin General skin exam: no rashes or lesions noted Neuro General: patient oriented x3, gait normal, tone normal and moves all extremities Extrem General: Yes normal to inspection and Yes capillary refill normal Office Procedures Cystoscopy Consent Discussed risk and benefit or proposed procedure with the patient. Information consent for procedure given to the patient. Discussed technical aspects, risks, benefits and alternatives in full. Addressed all of the patient's questions and concerns regarding the procedure. The patient demonstrated knowledge and understanding. They wish to proceed with this procedure. Preparation The patient was prepped in the usual manner. A applications systems analyst was present and in the room. Genitalia was prepped with betadine solution in a sterile manner. Lidocaine Jelly 2% was placed into the urethra and 16Fr flexible Olympus cystoscope was inserted into the meatus after adequate lubrication. Procedure Consent confirmed Genitalia prepped and draped using topical antiseptic and lidocaine jelly Cystoscopy performed using a sterile disposable Urovue digital 16 Samoan cystos cope Meatus normal Urethra normal Bladder examination with retroflexion of cystoscope Bladder Orifices normal shape and position Trigone Bladder Capacity Normal Trabeculations Grade 0 Cellule Formation None Diverticulum Formation None Mucosal Erythema glomerulations Bladder Tumor None [id number] DISPOSABLE SCOPE URO-G FLEXIBLE SCOPE Procedure code (CPT) selection complete Office Meds lidocaine HCl 2 % mucosal jelly in applicator Performing Provider: Willie Carson MD Performing Location: [facility] Administered by: Gm Alegria LPN on 06/09/25 14:28 Dose Route Admin Location Dispensed Lot Number Expiration Date ND Electric Trucker 10 mL intra-urethral 10 mL nitrofurantoin monohydrate/macrocrystals 100 mg capsule Performing Provider: Willie Carson MD Performing Location: [facility] Administered by: Gm Alegria LPN on 06/09/25 14:28 Dose Route Admin Location Dispensed Lot Number Expiration Date NDC Electric Trucker 100 mg PO 1 cap Assessment & Plan Assessment & Plan (1) Interstitial cystitis: Code(s): N30.10 - Interstitial cystitis (chronic) without hematuria Category: Medical (2) E. coli urinary tract infection: Code(s): N39.0 - Urinary tract infection, site not specified; B96.20 - Unspecified Escherichia coli [E. coli] as the cause of diseases classified elsewhere Category: Medical Plan And methenamine and vitamin-C Four-month follow-up Orders: Orders AMB Urinalysis Automated 06/09/25 Z13.9 - Encounter for screening, unspecified AMB Cystoscopy 06/09/25 N30.10 - Interstitial cystitis (chronic) without hematuria, R30.0 - Dysuria, R32 - Unspecified urinary incontinence Medications: New methenamine hippurate 1 g PO DAILY 90 tabs 1RF 90 days N30.11 - Interstitial cystitis (chronic) with hematuria ascorbic acid (vitamin C) 1,000 mg PO DAILY 90 tabs 1RF 90 days N30.11 - Interstitial cystitis (chronic) with hematuria Patient Instructions: This note is constructed using voice recognition software. While every effort has been made to ensure accuracy customs consultant errors may have been included. Imaging studies, laboratory and physical exam results were discussed and reviewed in detail. No major barriers to patient understanding were identified. An opportunity to ask questions regarding the treatment plan was provided. All questions were answered. The patient expressed understanding and agreement with the above treatment plan. The patient is aware they should contact our office by phone for worsening of their current condition or the appearance of new urologic symptoms. Compliance is encouraged with any medications and followup testing that is ordered. It is a privilege to participate in the urologic care of your patient. If you have any questions or concerns regarding treatment for the above conditions, or other urologic issues, please do not hesitate to contact me. The office telephone contact is [phone]. Sincerely, Dr Willie Carson MD, [facility] - Urology Compassionate Specialist Care for the Genitourinary System Coding Level of Care Code Est Pt Level 4 (07854) Diagnoses Interstitial cystitis N30.10 E. coli urinary tract infection N39.0; B96.20 CPT Codes Cystoscopy - CPT: 22257-[id number] ([id number])
--- OUTSIDE RECORDS SUMMARY | 2025-06-09 21:37 | XMS_ITS | Clinical Summary ---
Author Organization Active [employer] Address [address] [facility] 7 [place] [address] Care Team Providers Care Manager Outreach Name Role Phone Unavailable Primary Care Provider [...]
--- OUTSIDE RECORDS SUMMARY | 2025-06-09 21:37 | XMS_ITS | Continuity of Care Document ---
Author Organization [place] - [facility], [facility] Address [address] [place] [address] Care Team Providers Care Ballpoint Pen Cartridge Tester Name Role Phone [place] Primary Care Provider [phone] Assessment Encounter Date Assessment Date Assessment LastModified [...] to follow-up in 6 months for reevaluation. [email or web address] Not available 03/16/2025 16:32:45 Plan of Treatment Reminders Order Date Submit Date Provider Last Modified By Organization Details Last Modified Time Details Appointments Establish ed 15 2025 01:45P M CATALINA BROWN PA-C Not available Not available Not available Establish ed 10 2025 01:30P M ARIELA [...] Multiple perforati ons of right tympanic membrane [id number] 27854 Active 2019 Multiple perforati ons of tympanic membrane, right ear; Note: Date Diagnosed : 0 4:10 PM (H72.811) Not Available [facility] 4 02:46:22 Conductiv e hearing loss 54727957 Active 2019 Conductiv e hearing loss, unilatera l, right ear, with unrestric jude hearing on the contralat eral side; Note: Date Diagnosed : 0 4:10 PM (H90.11) Not Available [facility] 4 02:46:19 Acute pharyngit is 552106261 Active 2022 Acute pharyngit is, unspecifi ed; Note: Date Diagnosed : 09/21/2022 12:37 PM (J02.9) Not Available [facility] 4 02:46:19 Acute infective otitis externa 497509905 Active 2023 Kathia matthew [place] - [facility] 4 10:01:31 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 CARLYN HESS PA-C [address] [place] [address],[place] [address], [place], [address] , [place] - [facility] 5 13:25:19 Conductiv e hearing loss 10446475 Active 2024 ARIELA DUKE MD [address] [place] [address],[place] [address], [place], [address] , [place] - [facility] 5 18:16:54 Central perforati on of left tympanic membrane 22591852565 97949 Active 2024 ARIELA DUKE MD [address] [place] [address],[place] [address], [place], [address] , [place] - [facility] 5 10:20:44 Problem Notes None recorded. Procedures Surgical History Date Name Laterality Status Provider Name and Address Organization Details Recorded Time 5 Comp Audio with Tymps - 37318 & 46308 completed LOREN OLVERA, AUD [address] [facility],[address], [address], [facility] 03/16/2025 15:58:30 5 EAC debris removal with microscope completed ARIELA DUKE MD [address] [facility],[address], [address], [facility] - [facility] 03/15/2025 16:22:08 5 TYMPANIC MEMBRANE REPAIR (SURG) completed Antonio Hamm [facility] 01/28/2025 13:26:04 5 Comp Audio with Tymps - 58042 & 83560 completed HONEY BLEDSOE, AUD [address] [facility],[address], [address], [facility] 12/09/2024 09:34:59 4 Comp Audio with Tymps - 92943 & 02162 completed SHELLEY DYKES, AUD [address] [place] [address],[address], [address], [facility] 01/17/2024 09:28:34 procedure on urinary bladder completed Sana Barnes [facility] 01/17/2024 09:11:49 Ear Surgery completed Sana Barnes [facility] 01/17/2024 09:12:02 Imaging Results None recorded. Procedure Notes None recorded. Medical Equipment None Reported. Allergies Allergen ID Allergen Name Allergen Category Reaction Reaction Severity Criticality Documentation Date Start Date Code Code System Note Provider Name and Address Organization Details Recorded Time 023037 ascorbic acid medicatio n Not available Not available Not available 05/28/2025 1151 RxNorm unrec ogniz ed react ion (text : Peas (subs tance ), code: 15241 [id number]) (from exter nal sour e) Not Available mike - External Data Service - prod 5 10:04:58 Medications Name Sig Start Date Stop Date [...] as needed 01/16 completed Medicati on ID: [id number] D uration Value: 7 Prescri bed By Name: Suzie Yeh nd Name: amoxicil svetlana Send Method: E-Prescr ibed Sub s Allowed: subs OK Medic ationGen ericName : amoxicil svetlana Medi cation ID: [id number] D uration Value: 7 Prescri bed By [...] , auto-inje ctor active Medicati on ID: 214873 B rand Name: marco a arzate Send Method: E-Prescr ibed Sub s Allowed: subs OK Medic ationGen ericName : markr ine Not Available Not Available Not Available [...] mg tablet 07/08 completed Medicati on ID: 182500 B rand Name: loratadi ne Send Method: [...] Available Zyrtec 09/21 completed Medicati on ID: 601122 B rand Name: Zyrtec S end Method: E-Prescr ibed Sub s Allowed: subs OK Medic ationGen ericName : Zyrtec Not Available Not Available Not Available esomepraz ole magnesium 09/21 completed Medicati on ID: 237270 B rand Name: esomepra zole magnesiu m [...] ICD10 Code Diagnosis IMO Codes Diagnosis Note [id number] ARIELA DUKE MD [facility] [address] [address] 03/16/2025 15:01:35 03/16/2025 16:33:18 Multiple perforations of right tympanic membrane [id number] 655433 H72.811 Central pe rforation of left tympanic membrane 2566274929 804234 H72.02 [id number] Audiologic al evaluation results: 03/16/2025R ight ear:Normal [...] Aiken Member ID Guarantor Name 03/16/2025 1 [facility] [employer] [place] [employer] (HMO) [id number] Keke Reagan [id number] 1 [id number] Keke Reagan Notes Date Note Type Note Provider Name and Address Organization Details Recorded Time 03/16/2025 text/html Patient is now about 6 weeks status post right-sided transcanal tympanoplasty for closure of 2 separate perforations. Patient has done well postoperatively and reports no pain or discharge. Patient reports that the hearing is improved. Patient noticing some itchiness in her ears. ARIELA DUKE MD [address] [place] [address], [address], [facility] - [facility] 03/16/2025 16:33:26 OBGyn Episode No OBEpisode recorded.
--- OUTSIDE RECORDS SUMMARY | 2025-06-09 21:37 | XMS_ITS | Encounter Summary ---
Author Organization [employer] Address [address] [facility] 7 h [address] [place] [id number] Care Team Providers Care Breaker Table Worker Name Role Phone Unavailable Primary Care [...]
--- OUTSIDE RECORDS SUMMARY | 2025-06-09 21:37 | XMS_ITS | Data Portability ---
Author Organization [place] - [facility], Allergy Address [address] [address] Care Team Providers Care [employer] Manager Name Role Phone [facility] [...] with this option. All questions were answered. [email or web address] Not available 07/08/2024 13:25:03 12/09/2024 12/09/2024 Patient [...] patient with the contact information for my surgical appliance fitter. We will begin the scheduling process and see the patient back at the time of surgery. Patient will not require medical clearance from their primary care provider preoperatively. Not available 12/09/2024 10:31:57 02/04/2025 02/04/2025 55 [...] to follow-up in 6 months for reevaluation. [email or web address] Not available 03/16/2025 16:32:45 Plan of Treatment [...] Surgeries tympanic membrane repair (SURG) 2024 025 [email or web address] Not available 12/09/2024 10:51:26 Imaging None recorded. Medication Orders ofloxacin 0.3 % ear drops 2024 025 [email or web address] [facility], [address] [place], [address], 03/16/2025 15:27:18 clotrimaz ole-betam ethasone 1 %-0.05 % topical cream 2024 025 [facility], [address] [place], [address], 12/09/2024 10:31:43 ofloxacin 0.3 % ear drops 2023 025 [email or web address] 32 [facility], [address] [place], [address], 03/16/2025 15:27:18 Patient TargetsNo targets recorded. Patient InstructionsNo instructions recorded. Reason for Referral None Reported. Results Created Date Observation Date Name Description Value Unit Range Abnormal Flag Note LastModifiedBy Organization Detail LastModifiedTime 01/20/20 24 audio gram No observ ation record ed. [email or web address] Not Available 12/30 16:07:42 02/19/20 24 04/28/2020 audio gram No observ ation record ed. [email or web address] Not Available 2024 18:13:23 12/10/19 25 audio gram No observ ation record ed. BARCODE Not Available 2024 14:54:51 03/17/20 25 audio gram No observ ation record ed. BARCODE Not Available 2024 10:55:34 Result Notes None recorded. Problems Name Problem SNOMED Code Status Onset Date Resolution Date Notes Provider Name and Address Organization Details Recorded Time Multiple perforati ons of right tympanic membrane 34680072865 24639 Active 2019 Multiple perforati ons of tympanic membrane, right ear; Note: Date Diagnosed : 0 4:10 PM (H72.811) Not Available [facility] 4 02:46:22 Conductiv e hearing loss 42978225 Active 2019 Conductiv e hearing loss, unilatera l, right ear, with unrestric jude hearing on the contralat eral side; Note: Date Diagnosed : 0 4:10 PM (H90.11) Not Available [facility] 4 02:46:19 Acute pharyngit is 430726300 Active 2022 Acute pharyngit is, unspecifi ed; Note: Date Diagnosed : 09/21/2022 12:37 PM (J02.9) Not Available [facility] 4 02:46:19 Acute infective otitis externa 870161039 Active 2023 Guilherme matthew [place] - [facility] 4 10:01:31 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 CARLYN HESS PA-C [address] [place] [address],[place] [address], [place], [address] , [place] - [facility] 5 13:25:19 Conductiv e hearing loss 56880117 Active 2024 ARIELA DUKE MD [address] [place] [address],[place] [address], [place], [address] , [place] - [facility] 5 18:16:54 Central perforati on of left tympanic membrane 98304200620 70875 Active 2024 ARIELA DUKE MD 100 [facility],[address], [address] , [place] - [facility] 5 10:20:44 Problem Notes None recorded. Procedures Surgical History Date Name Laterality Status Provider Name and Address Organization Details Recorded Time 5 Comp Audio with Tymps - 75556 & 84313 completed LOREN OLVERA, AUD 100 [facility],[address], [address], [place] - [facility] 03/16/2025 15:58:30 5 EAC debris removal with microscope completed ARIELA DUKE MD 100 [facility],[address], [address], [place] - [facility] 03/15/2025 16:22:08 5 TYMPANIC MEMBRANE REPAIR (SURG) completed Antonio Hamm [place] - [facility] 01/28/2025 13:26:04 5 Comp Audio with Tymps - 20426 & 66884 completed HONEY BLEDSOE, AUD 100 [facility],[address], [address], [facility] - [facility] 12/09/2024 09:34:59 4 Comp Audio with Tymps - 53301 & 89948 completed SHELLEY DYKES, AUD 100 [facility],[address], [address], [facility] - [facility] 01/17/2024 09:28:34 procedure on urinary bladder completed Sana Barnes [place] - [facility] 01/17/2024 09:11:49 Ear Surgery completed Sana Barnes [place] - [facility] 01/17/2024 09:12:02 Imaging Results None recorded. Procedure Notes None recorded. Medical Equipment None Reported. Allergies Allergen ID Allergen Name Allergen Category Reaction Reaction Severity Criticality Documentation Date Start Date Code Code System Note Provider Name and Address Organization Details Recorded Time 156175 ascorbic acid medicatio n Not available Not available Not available 05/28/2025 1151 RxNorm unrec ogniz ed react ion (text : Peas (subs tance ), code: 70226 4002) (from [facility]) Not Available mike - External Data Service - prod 10:04:58 Medications Name Sig Start Date Stop [...] as needed 01/16 completed Medicati on ID: [id number] D uration Value: 7 Prescri bed By Name: Suzie Yeh nd Name: amoxicil svetlana Send Method: E-Prescr ibed Sub s Allowed: subs OK Medic ationGen ericName : amoxicil svetlana Medi cation ID: [id number] D uration Value: 7 Prescri bed By Name: Suzie Yeh nd Name: elvia mota Send Method: E-Prescr ibed Sub s [...] , auto-inje ctor active Medicati on ID: 990392 B rand Name: epinephr ine Send Method: E-Prescr ibed Sub s Allowed: [...] mg tablet 07/08 completed Medicati on ID: 429085 B rand Name: loratadi ne Send Method: [...] Available Zyrtec 09/21 completed Medicati on ID: 430743 B rand Name: Zyrtec S end Method: E-Prescr ibed Sub s Allowed: subs OK Medic ationGen ericName : Zyrtec Not Available Not Available Not Available esomepraz ole magnesium 09/21 completed Medicati on ID: 602861 B rand Name: esomepra zole magnesiu m [...] Address Organization Details Last Updated DateTime 02/04/2025 72607.97 g 23.9 kg/m2 160.02 cm Maegan Peña [place] - [facility] 02/04/2025 14:27:37 Social History None recorded. [...] Note [id number] GUILHERME JEFFREY PA-C [facility] [address] [address] 01/17/2024 08:59:30 01/17/2024 10:12:07 Conductive hearing loss 50512926 H90.11 Audiologic al evaluation results: Right ear: Borderline normal sloping to a moderate conductive hearing loss with excellent word recognitio n. Left ear: Essentiall y normal hearing with excellent word recognitio n. Tympanomet ry: Right Ear:Type B with large volume Left Ear:Type B with large volume Bilateral perforation of tympanic membranes 9295323009 661158 H72.93 Acute infe ctive otitis externa 542466217 H60.392 [id number] CARLYN HESS PA-C [facility] [address] [address] 07/08/2024 12:43:24 07/08/2024 13:19:51 Multiple perforations of right tympanic membrane 6207779005 607449 H72.811 Dermal mycosis 50750847 B36.9 [id number] ARIELA DUKE MD [facility] [address] [address] 12/09/2024 09:04:28 12/09/2024 10:35:22 Central perforation of left tympanic membrane 8329798052 067901 H72.02 6530807 Dermal mycosis 18145476 B36.9 The skin of the right external [...] Multiple p erforations of right tympanic membrane 7297512411 462285 H72.811 Conductive hearing loss 87660433 H90.11 Audiologic al evaluation results:Ri ght ear:Modera te conductive hearing loss with excellent word recognitio n.Left ear:Normal sloping to mild sensorineu ral hearing loss with excellent word recognitio n.Tympanom etry:Right Ear:Type B with large volumeLeft Ear:Could not maintain a hermetic seal [id number] JACQUE PAYNE [facility] [address] [address] 02/04/2025 14:04:45 02/04/2025 15:20:48 Multiple perforations of right tympanic membrane 8426791460 046881 H72.811 [id number] ARIELA DUKE MD [facility] [address] [address] 03/16/2025 15:01:35 03/16/2025 16:33:18 Multiple perforations of right tympanic membrane 8855698893 959234 H72.811 Central pe rforation of left tympanic membrane 4697010289 738429 H72.02 3189562 Audiologic al evaluation results: 03/16/2025R ight ear:Normal [...] Aiken Member ID Guarantor Name 01/11/2025 1 [facility] [id number] Keke Mota [id number] Keke Mota 01/11/2025 3 [employer] (HMO) Keke Mota [id number] Keke Mota 03/16/2025 1 [employer] (H[employer]) [id number] Keke Mota [id number] Keke Mota 01/11/2025 1 [employer] (MEDICAID HMO) DIVINE Mota [id number] Keke Svetlana Notes Date Note Type Note Provider Name and Address Organization Details Recorded Time 01/17/2024 text/html ROS as noted in the [facility] 53 year old female presents for evaluation of ears. Reports both ears itch and the left ear hurts. Has not been abiding by dry ear precautions. States hearing is okay. There is no otorrhea and no tinnitus. MARCELO MANN MD 100 [facility],[address], [address], [facility] - [facility] 01/17/2024 12:58:35 07/08/2024 text/html ROS as noted in the [facility] 54-year-old female presents for reevaluation of TM perforation. She has a history of tympanoplasty with Dr. Robertson in the past which was unsuccessful. She continues to have wetness and itching of the right ear. 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 She is interested in repair. MARCELO MANN MD 100 [facility],[address], [address], [facility] 07/08/2024 17:01:29 12/09/2024 text/html 54-year-old female [...] the right EAC. ARIELA DUKE MD 100 [facility],[place] [address], [place], [address], [facility] 12/09/2024 12:30:13 02/04/2025 text/html ROS as noted in the [facility] 55 year old female, s/p revisional right transcanal tympanoplasty with fascia graft performed 01/27/[address] Duke, presents for postoperative evaluation. Primary tympanoplasty was attempted by Dr. Wang back in 2016 which was unsuccessful. Patient is doing fairly well overall. She reports mild otalgia and itching inside her right ear. Patient has been strictly following postoperative instructions. ARIELA DUKE MD [address], [address], [facility] 02/05/2025 14:29:00 03/16/2025 text/html Patient is now about 6 weeks status post right-sided transcanal tympanoplasty for closure of 2 separate perforations. Patient has done well postoperatively and reports no pain or discharge. Patient reports that the hearing is improved. Patient noticing some itchiness in her ears. ARIELA DUKE MD 100 [facility],[place] [address], [place], [address], [facility] 03/16/2025 16:33:26 OBGyn Episode No OBEpisode recorded.
== END 2025-06-09 14:54 | disposition home or self-care (01) ==
LOC: HO.HUSH 13:54
PROVIDERS: PCP Internal Medicine; Visit Provider Urology
DX: N30.10 Interstitial cystitis (chronic) without hematuria (principal); N39.0 Urinary tract infection, site not specified; B96.20 Unspecified Escherichia coli [E. coli] as the cause of diseases classified elsewhere
CPT/HCPCS: 52000; 99214

== ENCOUNTER → 2025-06-09 13:53 | Outpatient (BNVA) | payer OTHER, SELFPAY | PROVIDERS: PCP Internal Medicine; Visit Provider Urology | DX: N30.11 Interstitial cystitis (chronic) with hematuria (principal); B96.20 Unspecified Escherichia coli [E. coli] as the cause of diseases classified elsewhere; R30.0 Dysuria; R32 Unspecified urinary incontinence | CPT/HCPCS: 52000; 99212 ==

== ENCOUNTER 2025-06-15 14:15 | Outpatient (AMB) | payer OTHER, SELFPAY ==
[2025-06-15 14:34] VITALS: BP 122/78; PULSE 77; RESP 18; O2SAT 97; BMI 23.2
--- NOTE | 2025-06-15 14:34 | MHC.PC.OV ---
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: No Accompanied by: Self / Same As Patient Allergies egg Allergy (Intermediate, Verified 06/15/25 15:14) Unknown grass pollen Allergy (Intermediate, Verified 06/15/25 15:14) Unknown pear Allergy (Intermediate, Verified 06/15/25 15:14) Unknown tree and shrub pollen Allergy (Intermediate, Verified 06/15/25 15:14) Unknown avocado Allergy (Mild, Verified 06/15/25 15:14) Unknown peach Allergy (Mild, Verified 06/15/25 15:14) Unknown nuts,apple, starwberries Allergy (Unknown, Uncoded 06/15/25 15:14) Unknown Medication List - Last Reconciled 06/15/25 by Saulo Burton MD albuterol sulfate 2.5 mg (3 mL) inhalation Q6H PRN 30 days albuterol sulfate 90 mcg/actuation (Ventolin HFA) 2 puffs inhalation Q6H PRN 30 days amitriptyline 25 mg (1/2 x 50 mg) PO BEDTIME 90 days ascorbic acid (vitamin C) 1,000 mg PO DAILY 90 days atorvastatin 10 mg PO BEDTIME 90 days bisacodyl (Dulcolax (bisacodyl)) 20 mg (4 x 5 mg) PO ONCE 1 day bismuth subsalicylate (Bismatrol) 2 tabs PO .QD cetirizine 10 mg PO BID 30 days cholecalciferol (vitamin D3) 50 mcg PO DAILY codeine-guaifenesin 10-100 mg/5 mL 10 mL PO Q6-8H PRN 7 days doxepin 10 mg PO BEDTIME epinephrine IM esomeprazole magnesium (Nexium 24HR) Take half an hour before breakfast 20 mg PO estradiol 0.01%(0.1mg/gram) Apply pea sized amount 3 times per week vaginally; 30 days famotidine (Pepcid) 20 mg PO BEDTIME fluticasone propionate 50 mcg/actuation (Flonase Allergy Relief) 1 spray intranasal BID ibuprofen 600 mg PO Q8H PRN ipratropium bromide 2 sprays intranasal BID methenamine hippurate 1 g PO DAILY 90 days mometasone 50 mcg/actuation 2 sprays intranasal DAILY montelukast 10 mg PO BEDTIME mupirocin calcium 2% 1 appl topical BID 15 days naproxen (Naprosyn) 500 mg PO BEDTIME PRN 30 days polyethylene glycol 3350 (Miralax) 17 grams PO DAILY polyethylene glycol 3350 (Miralax) 238 grams PO ONCE sennosides (senna) 8.6 mg PO BEDTIME PRN sertraline 25 mg PO DAILY 30 days simethicone (Gas Relief (simethicone)) 180 mg PO BID PRN sodium chloride 0.65% (Saline Nasal) 2 sprays intranasal QID PRN Tobacco use date assessed: 06/15/25 Dental Screening Dental Screen Date: 06/15/25 Did you have a dental visit in the last 12 months?: Yes Did you have a dental problem in the last 6 months where you did not have access to dental care?: No Was dental information given to patient?: Patient has dentist HPI 3 month f/u HPI Details Patient comes in today for her follow-up visit States that she has been experiencing recurrent headaches lately and thinks these mostly related to her blood pressure, which has been running high often recently She denies any dizziness; denies any acute vision changes Denies any chest pains, no shortness of breath No nausea/vomiting, no abdominal pain No change in bowel habits noted Adds that she has a few scattered hyperpigmented lesions on her face that she would like to have evaluated and removed if possible Needs her Atorvastatin Rx refilled She had her follow-up labs done last month - to discuss her results [facility] Medical History Impaired fasting glucose Vitamin D deficiency Anemia Asthma Interstitial cystitis (chronic) with hematuria Pure hypercholesterolemia E. coli urinary tract infection Pelvic pain Bloating Perforated right tympanic membrane on examination Menorrhagia Allergic rhinitis GERD (gastroesophageal reflux disease) Hx of renal calculi History of urinary incontinence Surgical History History of ear surgery Hx of dilation and curettage History of esophagogastroduodenoscopy (EGD) H/O colonoscopy S/P cystoscopy (~02/22/20) History of tubal ligation History of placement of ear tubes History of nasal surgery Family History Mother History of colon cancer Father History of cancer of stomach Social History Household Members: Spouse and Children Housing: House Alcohol intake: never Comment: cramping Patient Tobacco Use Status: Never used Tobacco e-Cigarette/Vaping Use: Never Used Second Hand Smoke Exposure: Yes service: No Current occupational status: employed Cognitive needs: No Hearing needs: No Vision needs: No Female Reproductive History Menstrual Age of Menarche: 15 Questionnaire Thrive Questionnaire Date Thrive assessed: 06/15/25 I am a: Patient What is your living situation today?: I choose not to answer this question Within the past 12 months, did the food you bought not last and you didn't have the money to get more?: I choose not to answer this question Within the past 12 months, did you worry whether your food would run out before you got money to buy more?: I choose not to answer this question Do you have trouble paying for medicines?: I choose not to answer this question Do you have trouble getting transportation to medical appointments?: I choose not to answer this question Do you have trouble paying your heating and electricity bill?: I choose not to answer this question Do you have trouble taking care of your child, family member or friend?: I choose not to answer this question Do you have trouble with day-to-day activities such as bathing, preparing meals, shopping, managing finances, etc.?: I choose not to answer this question Are you currently unemployed and looking for a job?: I choose not to answer this question Are you interested in more education?: I choose not to answer this question Please select the resources that you would like help with: Education Currently or been in a relationship where the following occur: I choose not to answer THRIVE Score: 0 KASHMIR-7 AMB Questionnaire KASHMIR-7 Date KASHMIR - 7 assessed: 11/27/24 Source: Developed by Drs. Matty Bhandari, Kym Watson, Terrance Reyna and colleagues, with an educational kristi from [employer]formerly [employer]). Review of Systems Const Denies chills, Reports difficulty sleeping, Denies fatigue, Denies fever(s) and Reports headache(s) (on and off lately - see HPI) ENT Denies dysphagia, Denies dizziness, Denies otalgia, Reports headache(s) (on and off lately - see HPI), Denies neck pain, Denies odynophagia and Denies sore throat Card Denies chest pain, Denies irregular heart rhythm, Denies palpitations and Denies dyspnea Resp Denies chest congestion, Reports cough (on and off, non-productive), Denies dyspnea and Denies wheezing GI Denies abdominal pain, Denies constipation, Denies dysphagia, Denies heartburn, Denies diarrhea, Denies nausea, Denies odynophagia and Denies vomiting Denies difficulty voiding, Denies nocturia, Denies dysuria and Denies urinary urgency Musc Denies back pain, Denies arthralgias and Denies neck pain Skin/Breast Details: (+) few scattered hyperpigmented lesions on the face Denies rash Neuro Denies dizziness, Reports headache(s) (on and off lately - see HPI) and Denies paresthesias Psych Denies anxiety and Denies depression Endo Denies fatigue and Denies palpitations Deshawn/Lymph Denies easy bruising Aller/Immun Reports seasonal rhinorrhea and Denies wheezing Physical exam (Primary Care) Vital Signs: Last Vital Signs Pulse 77 06/15/25 14:34 Resp 18 06/15/25 14:34 BP 122/78 06/15/25 14:34 Pulse Ox 97 06/15/25 14:34 Oxygen Delivery Method Room Air 06/15/25 14:34 BMI result Body Mass Index 23.2 Tobacco/Smoking Status: Tobacco use Status Tobacco use date assessed 06/15/25 06/15/25 14:38 Patient Tobacco Use Status Never used Tobacco 06/15/25 14:38 e-Cigarette/Vaping Use Never Used 06/15/25 14:38 Thrive Assessment: Date of Thrive Assessment Date Thrive assessed 06/15/25 06/15/25 14:38 Currently or been in a relationship where the following occur: I choose not to answer Const General: no acute distress and alert HENMT Ears: TM normal on the left, EAC's normal and TM abnormal perforated without discharge on the right Throat: Yes posterior oropharynx normal and Yes tonsils normal (no TP congestion) Neck Neck: Yes supple and No lymphadenopathy Thyroid: Thyroid normal Resp Auscultation: clear to auscultation bilaterally, no rales and no wheezes Cardio Rate: regular rate Rhythm: regular rhythm Heart sounds: no murmurs GI Palpation (GI): Soft to palpation and nontender Auscultation: normal bowel sounds General: Yes no CVA tenderness Back/Spine/Pelvis Back: no CVA tenderness Thoracic/Lumbar Spine: No lumbar spinal tenderness Skin Other: (+) few scattered hyperpigmented lesions on the face/cheeks Rashes: no rashes Extrem General: Yes no clubbing, cyanosis or edema Results Reviewed Results Reviewed: Laboratory Tests 05/18/25 05/18/25 10:33 10:39 WBC 6.0 Hgb 13.3 Hct 39.6 Plt Count 190 Sodium 143 Potassium 3.9 Creatinine 0.61 Estimated GFR > 60 Fasting Glucose 107 H Hemoglobin A1c % 6.0 Calcium 9.4 AST 23 ALT 27 Triglycerides 139 Cholesterol 236 H LDL Cholesterol, Calc 163 H HDL Cholesterol 46 Lipase 21 Vitamin B12 666 25-OH Vitamin D Total 29 L TSH 2.28 Ur Specific [place] 1.025 Urine Protein Negative Urine Glucose (UA) Negative Urine Blood Negative Urine Nitrite Negative Ur Leukocyte Esterase Small (1+) H Tiss Transglutamin IgA <1.0 Coding Level of Care Code Est Pt Level 4 (97551) Diagnoses Pure hypercholesterolemia E78.00 Impaired fasting glucose R73.01 Allergic rhinitis, unspecified seasonality, unspecified trigger J30.9 Allergic rhinitis trigger: unspecified Allergic rhinitis seasonality: unspecified Constipation, unspecified constipation type K59.00 Constipation type: unspecified constipation type Gastritis without bleeding, unspecified chronicity, unspecified gastritis type K29.70 Gastritis type: unspecified gastritis Chronicity: unspecified Gastritis bleeding: without bleeding Gastroesophageal reflux disease without esophagitis K21.9 Esophagitis presence: without esophagitis Anemia, unspecified type D64.9 Anemia type: unspecified type Interstitial cystitis N30.10 Vitamin D deficiency E55.9 Perforated right tympanic membrane on examination H72.91 Uterine prolapse N81.4 Uterine leiomyoma, unspecified location D25.9 Uterine leiomyoma location: unspecified location Facial skin lesion L98.9 Hot flashes R23.2 Insomnia, unspecified type G47.00 Insomnia type: unspecified Assessment & Plan Assessment & Plan (1) Pure hypercholesterolemia: Code(s): E78.00 - Pure hypercholesterolemia, unspecified Category: Medical Plan: Results of her labs done last month reviewed and discussed with patient - she is advised that her cholesterol levels have again increased from previous on her recent labs, with her total cholesterol now at 236 mg/dl and LDL cholesterol at 163 mg/dl Patient admits that she still often forgets to take her cholesterol medication and will try to figure out how to remind herself to take her medication everyday Reinforced low cholesterol diet Continue Atorvastatin 10 mg QD for now - Rx refilled Will recheck her fasting lipids and labs in 4 months for follow up (2) Impaired fasting glucose: Code(s): R73.01 - Impaired fasting glucose Category: Medical Plan: Patient is advised that her HgbA1c was at 6.0% on her labs done last month (was previously at 5.9% a few months ago) Reinforced low calorie/low carb diet Will recheck her FBS and HgbA1c again in 4 months for follow-up (3) Allergic rhinitis: Code(s): J30.9 - Allergic rhinitis, unspecified Category: Medical Qualifiers: Allergic rhinitis trigger: unspecified Allergic rhinitis seasonality: unspecified Qualified Code(s): J30.9 - Allergic rhinitis, unspecified Plan: Continue Fluticasone 50 mcg nasal spray QD PRN and Loratadine 10 mg QD PRN She continues to receive allergy injections/immunotherapy from electrical engineering intern's (Dr. Roldan's) office regularly Continue Codeine-guaifenesin 10-100 mg/5 ml - 10 ml Q 6 to 8 hours PRN (4) Constipation: Code(s): K59.00 - Constipation, unspecified Category: Medical Qualifiers: Constipation type: unspecified constipation type Qualified Code(s): K59.00 - Constipation, unspecified Plan: Patient is again encouraged to increase her oral fluids and dietary fiber intake Continue Senna 8.6 mg Q HS PRN (5) Gastritis: Code(s): K29.70 - Gastritis, unspecified, without bleeding Category: Medical Qualifiers: Gastritis type: unspecified gastritis Chronicity: unspecified Gastritis bleeding: without bleeding Qualified Code(s): K29.70 - Gastritis, unspecified, without bleeding Plan: Patient reportedly had EGD and colonoscopy done last year when she was in [place] Her EGD and colonoscopy reports were completely in Pashto and it noted that there were some inflammation noted along her gastric mucosal lining suggestive of gastritis Dietary restrictions reinforced Continue Pantoprazole 40 mg QD (patient felt that this is helping better than her previous Esomeprazole); continue Famotidine 20 mg QD (6) GERD (gastroesophageal reflux disease): Code(s): K21.9 - Gastro-esophageal reflux disease without esophagitis Category: Medical Qualifiers: Esophagitis presence: without esophagitis Qualified Code(s): K21.9 - Gastro-esophageal reflux disease without esophagitis Plan: Dietary restrictions reinforced Continue Pantoprazole 40 mg QD and Famotidine 20 mg Q HS Follow up with GI as scheduled (7) Anemia: Code(s): D64.9 - Anemia, unspecified Category: Medical Qualifiers: Anemia type: unspecified type Qualified Code(s): D64.9 - Anemia, unspecified Plan: Corrected - her H/H have remained normal on her recent labs Continue FeSO4 325 mg QD Will continue to monitor her CBC regularly (8) Interstitial cystitis: Code(s): N30.10 - Interstitial cystitis (chronic) without hematuria Category: Medical Plan: S/P hydrodistention by Dr. Carson in January 2022 with significant improvement of her symptoms Continue Amitriptyline 25 mg Q HS; she also used to take Gabapentin 100 mg Q HS but appears to have been taken off Gabapentin a while back by urology Follow up with urology as scheduled (9) Vitamin D deficiency: Code(s): E55.9 - Vitamin D deficiency, unspecified Category: Medical Plan: Continue Vitamin D3 2000 units QD (10) Perforated right tympanic membrane on examination: Code(s): H72.91 - Unspecified perforation of tympanic membrane, right ear Category: Medical Plan: She has been referred to ENT previously for further management and a tympanoplasty was apparently attempted by Dr. Wang but the procedure failed Patient is reminded to try to keep water from getting into her right ear as best as she can to minimize any right ear symptoms Follow up with ENT as scheduled (11) Uterine prolapse: Comment: With mild central defect cystocele Code(s): N81.4 - Uterovaginal prolapse, unspecified Category: Medical Plan: She has tried using a pessary last year without any significant improvement of her symptoms She has most recently been using a Uresta device that she gets she-aa-rseemk, which she states helps somewhat with her symptoms Follow up with [facility] as scheduled (12) Uterine fibroid: Code(s): D25.9 - Leiomyoma of uterus, unspecified Category: Medical Qualifiers: Uterine leiomyoma location: unspecified location Qualified Code(s): D25.9 - Leiomyoma of uterus, unspecified Plan: Patient underwent a non-diagnostic hysteroscopy back in August 2022 - procedure was not completed due to extensive scarring in the uterus that made it impossible to visualize the endometrium Follow up with [facility] as scheduled (13) Facial skin lesion: Code(s): L98.9 - Disorder of the skin and subcutaneous tissue, unspecified Category: Medical Plan: Will refer her to Dermatology for further evaluation and management (14) Hot flashes: Code(s): R23.2 - Flushing Category: Medical Plan: Continue Sertraline 25 mg QD (15) Insomnia: Code(s): G47.00 - Insomnia, unspecified Category: Medical Qualifiers: Insomnia type: unspecified Qualified Code(s): G47.00 - Insomnia, unspecified Plan: Sleep hygiene reinforced Continue Doxepin 10 mg Q HS PRN Plan Follow-up in 4 months Orders: Orders Complete Blood Count Auto Diff 4 Months D64.9 - Anemia, unspecified Comprehensive [place]. Panel Fast 4 Months E78.00 - Pure hypercholesterolemia, unspecified Lipid Panel 4 Months E78.00 - Pure hypercholesterolemia, unspecified Hemoglobin A1c 4 Months R73.01 - Impaired fasting glucose Referrals Dermatology Referral L98.9 - Disorder of the skin and subcutaneous tissue, unspecified Medications: Refilled atorvastatin 10 mg PO BEDTIME 90 tabs 3RF 90 days
--- OUTSIDE RECORDS SUMMARY | 2025-06-15 18:29 | XMS_ITS | Encounter Summary ---
Author Organization [employer] Address [address] [facility] 7 [address] Floor [place] [id number] Care Team Providers Care Rn Plastic Surgery Name Role Phone Unavailable Primary Care Provider [...]
--- OUTSIDE RECORDS SUMMARY | 2025-06-15 18:29 | XMS_ITS | Continuity of Care Document ---
Author Organization [place] - [facility], [facility] Address [address] [place] [address] Care Team Providers Care Morning [employer] Anchor Name Role Phone [facility] Primary Care [...] to follow-up in 6 months for reevaluation. [email or web address] Not available 03/16/2025 16:32:45 Plan of Treatment [...] Multiple perforati ons of right tympanic membrane [id number] 41536 Active 2019 Multiple perforati ons of tympanic membrane, right ear; Note: Date Diagnosed : 0 4:10 PM (H72.811) Not Available [facility] 4 02:46:22 Conductiv e hearing loss 82616933 Active 2019 Conductiv e hearing loss, unilatera l, right ear, with unrestric jude hearing on the contralat eral side; Note: Date Diagnosed : 0 4:10 PM (H90.11) Not Available [facility] 4 02:46:19 Acute pharyngit is 227295874 Active 2022 Acute pharyngit is, unspecifi ed; Note: Date Diagnosed : 09/21/2022 12:37 PM (J02.9) Not Available [facility] 4 02:46:19 Acute infective otitis externa 556145591 Active 2023 Kathia matthew [place] - [facility] 4 10:01:31 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 CARLYN HESS PA-C [address] [place] [address],[place] [address], [place], [address] , [place] - [facility] 5 13:25:19 Conductiv e hearing loss 49988269 Active 2024 ARIELA DUKE MD [address] [place] [address],[place] [address], [place], [address] , [place] - [facility] 5 18:16:54 Central perforati on of left tympanic membrane 25189485326 94800 Active 2024 ARIELA DUKE MD [address] [place] [address],[place] [address], [place], [address] , [place] - [facility] 5 10:20:44 Problem Notes None recorded. Procedures Surgical History Date Name Laterality Status Provider Name and Address Organization Details Recorded Time 5 Comp Audio with Tymps - 65421 & 47138 completed LOREN OLVERA, AUD [address] [facility],[address], [address], [facility] 03/16/2025 15:58:30 5 EAC debris removal with microscope completed ARIELA DUKE MD [address] [facility],[address], [address], [facility] - [facility] 03/15/2025 16:22:08 5 TYMPANIC MEMBRANE REPAIR (SURG) completed Antonio Hamm [facility] 01/28/2025 13:26:04 5 Comp Audio with Tymps - 98012 & 09525 completed HONEY BLEDSOE, AUD [address] [facility],[address], [address], [facility] 12/09/2024 09:34:59 4 Comp Audio with Tymps - 66916 & 08018 completed SHELLEY DYKES, AUD [address] [place] [address],[address], [address], [facility] 01/17/2024 09:28:34 procedure on urinary bladder completed Sana Barnes [facility] 01/17/2024 09:11:49 Ear Surgery completed Sana Barnes [facility] 01/17/2024 09:12:02 Imaging Results None recorded. Procedure Notes None recorded. Medical Equipment None Reported. Allergies Allergen ID Allergen Name Allergen Category Reaction Reaction Severity Criticality Documentation Date Start Date Code Code System Note Provider Name and Address Organization Details Recorded Time 445697 ascorbic acid medicatio n Not available Not available Not available 05/28/2025 1151 RxNorm unrec ogniz ed react ion (text : Peas (subs tance ), code: 40724 4002) (from exter nal sour e) Not [...] as needed 01/16 completed Medicati on ID: [id number] D uration Value: 7 Prescri bed By Name: Suzie Yeh nd Name: amoxicil svetlana Send Method: E-Prescr ibed Sub s Allowed: subs OK Medic ationGen ericName : amoxicil svetlana Medi cation ID: [id number] D uration Value: 7 Prescri bed By [...] , auto-inje ctor active Medicati on ID: [id number] B rand Name: marco a arzate Send [...] mg tablet 07/08 completed Medicati on ID: [id number] B rand Name: loratadi ne Send Method: [...] Available Zyrtec 09/21 completed Medicati on ID: [id number] B rand Name: Zyrtec S end Method: E-Prescr ibed Sub s Allowed: subs OK Medic ationGen ericName : Zyrtec Not Available Not Available Not Available esomepraz ole magnesium 09/21 completed Medicati on ID: [id number] B rand Name: esomepra zole magnesiu m [...] ICD10 Code Diagnosis IMO Codes Diagnosis Note [id number] ARIELA DUKE MD [facility] [address] [address] 03/16/2025 15:01:35 03/16/2025 16:33:18 Multiple perforations of right tympanic membrane [id number] 007683 H72.811 Central pe rforation of left tympanic membrane [id number] 504212 H72.02 [id number] Audiologic al evaluation results: 03/16/2025R ight ear:Normal [...] Aiken Member ID Guarantor Name 03/16/2025 1 [facility] [employer] [place] [employer] (HMO) [id number] Keke Reagan [id number] Keke Reagan Notes Date Note Type Note Provider Name and Address Organization Details Recorded Time 03/16/2025 text/html Patient is now about 6 weeks status post right-sided transcanal tympanoplasty for closure of 2 separate perforations. Patient has done well postoperatively and reports no pain or discharge. Patient reports that the hearing is improved. Patient noticing some itchiness in her ears. ARIELA DUKE MD [address] [place] [address], [phone], [facility] - [facility] 03/16/2025 16:33:26 OBGyn Episode No OBEpisode recorded.
--- OUTSIDE RECORDS SUMMARY | 2025-06-15 18:29 | XMS_ITS | Data Portability ---
Author Organization [place] - [facility], Allergy Address [address] [address] Care Team Providers Care Header Operator Name Role Phone [place] Primary Care [...] with this option. All questions were answered. 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 We will begin the scheduling process and see the patient back at the time of surgery. Patient will not require medical clearance from their primary care provider preoperatively. [email or web address] Not available 12/09/2024 10:31:57 02/04/2025 02/04/2025 55 [...] to follow-up in 6 months for reevaluation. [email or web address] Not available 03/16/2025 16:32:45 Plan of Treatment [...] Surgeries tympanic membrane repair (SURG) 2024 025 [email or web address] Not available 12/09/2024 10:51:26 Imaging None recorded. Medication Orders ofloxacin 0.3 % ear drops 2024 025 [email or web address] [facility], [address] [place], [address], 03/16/2025 15:27:18 clotrimaz ole-betam ethasone 1 %-0.05 % topical cream 2024 025 [facility], [address] [place], [address], 12/09/2024 10:31:43 ofloxacin 0.3 % ear drops 2023 025 [email or web address] 32 [facility], [address] [place], [address], 03/16/2025 15:27:18 Patient TargetsNo targets recorded. Patient InstructionsNo instructions recorded. Reason for Referral None Reported. Results Created Date Observation Date Name Description Value Unit Range Abnormal Flag Note LastModifiedBy Organization Detail LastModifiedTime 01/20/20 24 audio gram No observ ation record ed. [email or web address] Not Available 12/30 16:07:42 02/19/20 24 04/28/2020 audio gram No observ ation record ed. [email or web address] Not Available 2024 18:13:23 12/10/19 25 audio gram No observ ation record ed. [email or web address] Not Available 2024 14:54:51 03/17/20 25 audio gram No observ ation record ed. [email or web address] Not Available 2024 10:55:34 Result Notes None recorded. Problems Name Problem SNOMED Code Status Onset Date Resolution Date Notes Provider Name and Address Organization Details Recorded Time Multiple perforati ons of right tympanic membrane 50313933960 75457 Active 2019 Multiple perforati ons of tympanic membrane, right ear; Note: Date Diagnosed : 0 4:10 PM (H72.811) Not Available [facility] 4 02:46:22 Conductiv e hearing loss 61357547 Active 2019 Conductiv e hearing loss, unilatera l, right ear, with unrestric jude hearing on the contralat eral side; Note: Date Diagnosed : 0 4:10 PM (H90.11) Not Available [facility] 4 02:46:19 Acute pharyngit is 633750029 Active 2022 Acute pharyngit is, unspecifi ed; Note: Date Diagnosed : 09/21/2022 12:37 PM (J02.9) Not Available [facility] 4 02:46:19 Acute infective otitis externa 450430095 Active 2023 Guilherme matthew [place] - [facility] 4 10:01:31 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 Procedures Surgical History Date Name Laterality Status Provider Name and Address Organization Details Recorded Time 5 Comp Audio with Tymps - 97220 & 42584 completed LOREN OLVERA, AUD 100 [facility],[address], [address], [place] - [facility] 03/16/2025 15:58:30 5 EAC debris removal with microscope completed ARIELA DUKE MD 100 [facility],[address], [address], [place] - [facility] 03/15/2025 16:22:08 5 TYMPANIC MEMBRANE REPAIR (SURG) completed Antonio Hamm [place] - [facility] 01/28/2025 13:26:04 5 Comp Audio with Tymps - 72112 & 06422 completed HONEY BLEDSOE, AUD 100 [facility],[address], [address], [facility] - [facility] 12/09/2024 09:34:59 4 Comp Audio with Tymps - 55585 & 08791 completed SHELLEY DYKES, AUD 100 [facility],[address], [address], [facility] - [facility] 01/17/2024 09:28:34 procedure on urinary bladder completed Sana Barnes [place] - [facility] 01/17/2024 09:11:49 Ear Surgery completed Sana Barnes [place] - [facility] 01/17/2024 09:12:02 Imaging Results None recorded. Procedure Notes None recorded. Medical Equipment None Reported. Allergies Allergen ID Allergen Name Allergen Category Reaction Reaction Severity Criticality Documentation Date Start Date Code Code System Note Provider Name and Address Organization Details Recorded Time 535029 ascorbic acid medicatio n Not available Not available Not available 05/28/2025 1151 RxNorm unrec ogniz ed react ion (text : Peas (subs tance ), code: 58107 4002) (from [facility]) Not Available mike - External Data Service [...] as needed 01/16 completed Medicati on ID: [id number] D uration Value: 7 Prescri bed By Name: Suzie Yeh nd Name: amoxicil svetlana Send Method: E-Prescr ibed Sub s Allowed: subs OK Medic ationGen ericName : amoxicil svetlana Medi cation ID: [id number] D uration Value: 7 Prescri bed By [...] , auto-inje ctor active Medicati on ID: 312543 B rand Name: epinephr ine Send Method: [...] mg tablet 07/08 completed Medicati on ID: 159992 B rand Name: loratadi ne Send Method: [...] Available Zyrtec 09/21 completed Medicati on ID: [id number] B rand Name: Zyrtec S end Method: E-Prescr ibed Sub s Allowed: subs OK Medic ationGen ericName : Zyrtec Not Available Not Available Not Available esomepraz ole magnesium 09/21 completed Medicati on ID: [id number] B rand Name: esomepra zole magnesiu m [...] Address Organization Details Last Updated DateTime 02/04/2025 88550.97 g 23.9 kg/m2 160.02 cm Maegan Peña [place] - [facility] 02/04/2025 14:27:37 Social History None recorded. Functional [...] Note [id number] GUILHERME JEFFREY PA-C [facility] [address] [address] 01/17/2024 08:59:30 01/17/2024 10:12:07 Conductive hearing loss 43717583 H90.11 Audiologic al evaluation results: Right ear: Borderline normal sloping to a moderate conductive hearing loss with excellent word recognitio n. Left ear: Essentiall y normal hearing with excellent word recognitio n. Tympanomet ry: Right Ear:Type B with large volume Left Ear:Type B with large volume Bilateral perforation of tympanic membranes 3850908981 888379 H72.93 Acute infe ctive otitis externa 651831667 H60.392 [id number] CARLYN HESS PA-C [facility] [address] [address] 07/08/2024 12:43:24 07/08/2024 13:19:51 Multiple perforations of right tympanic membrane 7793442197 547846 H72.811 Dermal mycosis 55933558 B36.9 [id number] ARIELA DUKE MD [facility] [address] [address] 12/09/2024 09:04:28 12/09/2024 10:35:22 Central perforation of left tympanic membrane 3470639499 561371 H72.02 6857431 Dermal mycosis 43661614 B36.9 The skin of the right external [...] Multiple p erforations of right tympanic membrane 4704908093 245523 H72.811 Conductive hearing loss 32552220 H90.11 Audiologic al evaluation results:Ri ght ear:Modera te conductive hearing loss with excellent word recognitio n.Left ear:Normal sloping to mild sensorineu ral hearing loss with excellent word recognitio n.Tympanom etry:Right Ear:Type B with large volumeLeft Ear:Could not maintain a hermetic seal [id number] JACQUE PAYNE [facility] [address] [address] 02/04/2025 14:04:45 02/04/2025 15:20:48 Multiple perforations of right tympanic membrane 3871488675 379433 H72.811 [id number] ARIELA DUKE MD [facility] [address] [address] 03/16/2025 15:01:35 03/16/2025 16:33:18 Multiple perforations of right tympanic membrane 3663208018 108836 H72.811 Central pe rforation of left tympanic membrane 1566960890 601829 H72.02 [id number] Audiologic al evaluation results: 03/16/2025R ight ear:Normal [...] Aiken Member ID Guarantor Name 01/11/2025 1 [facility] [id number] Keke Mota [id number] Keke Mota 01/11/2025 3 [employer] (HMO) Keke Mota [id number] Keke Mota 03/16/2025 1 [employer] (HMO) [id number] Keke Mota [id number] Keke Mota 01/11/2025 1 [facility] [employer] (MEDICAID HMO) DIVINE Mota [id number] Keke Svetlana Notes Date Note Type Note Provider Name and Address Organization Details Recorded Time 01/17/2024 text/html ROS as noted in the [facility] 53 year old female presents for evaluation of ears. Reports both ears itch and the left ear hurts. Has not been abiding by dry ear precautions. States hearing is okay. There is no otorrhea and no tinnitus. MARCELO MANN MD 100 [facility],[address], [address], [facility] - [facility] 01/17/2024 12:58:35 07/08/2024 text/html ROS as noted in the [facility] 54-year-old female presents for reevaluation of TM perforation. She has a history of tympanoplasty with Dr. Robertson in the past which was unsuccessful. She continues to have wetness and itching of the right ear. 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 She is interested in repair. MARCELO MANN MD 100 [facility],[address], [address], [facility] 07/08/2024 17:01:29 12/09/2024 text/html 54-year-old female with [...] the right EAC. ARIELA DUKE MD 100 [facility],[place] [address], [place], [address], [facility] 12/09/2024 12:30:13 02/04/2025 text/html ROS as noted in the [facility] 55 year old female, s/p revisional right transcanal tympanoplasty with fascia graft performed 01/27/[address] Duke, presents for postoperative evaluation. Primary tympanoplasty was attempted by Dr. Wang back in 2016 which was unsuccessful. Patient is doing fairly well overall. She reports mild otalgia and itching inside her right ear. Patient has been strictly following postoperative instructions. ARIELA DUKE MD [address], [address], [facility] 02/05/2025 14:29:00 03/16/2025 text/html Patient is now about 6 weeks status post right-sided transcanal tympanoplasty for closure of 2 separate perforations. Patient has done well postoperatively and reports no pain or discharge. Patient reports that the hearing is improved. Patient noticing some itchiness in her ears. ARIELA DUKE MD 100 [facility],[place] [address], [place], [address], [facility] 03/16/2025 16:33:26 OBGyn Episode No OBEpisode recorded.
--- OUTSIDE RECORDS SUMMARY | 2025-06-15 18:29 | XMS_ITS | Clinical Summary ---
Author Organization [employer] Address [address] [facility] [address] [place] [address] Care Team Providers Care Group Art Supervisor Name Role Phone Unavailable Primary Care Provider [...]
== END 2025-06-15 15:32 | disposition home or self-care (01) ==
LOC: HO.HMCH 14:15
PROVIDERS: PCP Internal Medicine; Visit Provider Internal Medicine
DX: E78.00 Pure hypercholesterolemia, unspecified (principal); R73.01 Impaired fasting glucose; J30.9 Allergic rhinitis, unspecified; K59.00 Constipation, unspecified; K29.70 Gastritis, unspecified, without bleeding; K21.9 Gastro-esophageal reflux disease without esophagitis; D64.9 Anemia, unspecified; N30.10 Interstitial cystitis (chronic) without hematuria; E55.9 Vitamin D deficiency, unspecified; H72.91 Unspecified perforation of tympanic membrane, right ear; N81.4 Uterovaginal prolapse, unspecified; D25.9 Leiomyoma of uterus, unspecified; L98.9 Disorder of the skin and subcutaneous tissue, unspecified; R23.2 Flushing; G47.00 Insomnia, unspecified

== ENCOUNTER → 2025-06-15 14:15 | Outpatient (BNVA) | payer OTHER, SELFPAY | PROVIDERS: PCP Internal Medicine; Visit Provider Internal Medicine | DX: R73.01 Impaired fasting glucose (principal); E78.00 Pure hypercholesterolemia, unspecified; J30.9 Allergic rhinitis, unspecified; K59.00 Constipation, unspecified; K29.70 Gastritis, unspecified, without bleeding; K21.9 Gastro-esophageal reflux disease without esophagitis; D64.9 Anemia, unspecified; N30.10 Interstitial cystitis (chronic) without hematuria; E55.9 Vitamin D deficiency, unspecified; H72.91 Unspecified perforation of tympanic membrane, right ear; N81.4 Uterovaginal prolapse, unspecified; D25.9 Leiomyoma of uterus, unspecified; L98.9 Disorder of the skin and subcutaneous tissue, unspecified; R23.2 Flushing; G47.00 Insomnia, unspecified | CPT/HCPCS: 99212 ==